=== PATIENT | female | born 1975 | race Caucasian/White ===

== ENCOUNTER → 2016-03-29 | Outpatient (CLI) | payer OTHER ==
--- NOTE | 2016-03-29 11:20 | USB ---
Reason for exam: follow-up at short interval from prior study. History: Patient had first child at age 31. Family history of breast cancer in maternal aunt at age 40. Benign US breast aspiration single LT of the left breast, September 24, 2015. Taking hormonal contraceptives for 5 months. Physical Findings: Nurse did not find any significant physical abnormalities on exam. US Breast LT Left breast ultrasound including all four quadrants, the retroareolar region and axilla demonstrates a 0.21 x 0.40 x 0.66cm sepataed cyst at 12 o'clock, a 0.52 x 0.54 x 0.49cm cystic lesion with duct ectasia at the nipple and a 0.43 x 0.20 x 0.22cm lesion too small to characterize at 3 o'clock. These results were verbally communicated with the patient and result sheet given to the patient on 03/29/16. ASSESSMENT: Benign, BI-RAD 2 RECOMMENDATION: Follow-up diagnostic mammogram of both breasts in 6 months. Back on schedule.
== END | disposition home or self-care (01) ==
LOC: RADUSWWP 10:13
PROVIDERS: ATTEND Surgery
DX: N60.09 Solitary cyst of unspecified breast (principal)

== ENCOUNTER → 2016-09-27 | Outpatient (CLI) | payer OTHER ==
--- NOTE | 2016-09-27 10:11 | MM ---
Reason for exam: follow-up at short interval from prior study. Last mammogram was performed 1 year ago. History: Patient had first child at age 31. Family history of breast cancer in maternal aunt at age 40. Benign US breast aspiration single LT of the left breast, September 24, 2015. Taking hormonal contraceptives for 5 months. Physical Findings: Nurse did not find any significant physical abnormalities on exam. MG Diagnostic Mammo w CAD CASSIDY Bilateral CC and MLO view(s) were taken. Prior study comparison: September 24, 2015, left breast MG diagnostic mammo LT wo CAD. September 03, 2015, bilateral US breast workup CASSIDY. August 18, 2015, bilateral MG screening mammo w CAD. The breast tissue is heterogeneously dense. This may lower the sensitivity of mammography. Previous mammotome biopsy in the left breast. Redemonstrated multiple bilateral circumscribed to mostly circumscribed masses. The dominant mass on the left has resolved after prior cyst aspiration. These results were verbally communicated with the patient and result sheet given to the patient on 09/27/16. ASSESSMENT: Benign, BI-RAD 2 RECOMMENDATION: Follow-up diagnostic mammogram of both breasts in 1 year.
== END | disposition home or self-care (01) ==
LOC: RADMAMWWP 09:14
PROVIDERS: ATTEND Family Medicine
DX: R92.8 Other abnormal and inconclusive findings on diagnostic imaging of breast (principal)

== ENCOUNTER 2017-02-03 15:05 | Emergency (ER) | payer OTHER ==
[2017-02-03] MEDS ORDERED: RX INFO: IV CONTRAST WAS GIVEN 1 EACH MISC MISCELLANE PRN (16:14)
[2017-02-03] MEDS ORDERED: FAMOTIDINE 20 MG/2 ML VIAL IV STA (16:18)
[2017-02-03] MEDS ORDERED: diphenhydrAMINE 50 MG/ML 1 ML VIAL IVP STA (16:18)
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
[2017-02-03] MEDS: methylPREDNISolone SOD SUCCI 125 MG/2 ML VIAL IV STA ×2 (16:42→16:54)
[2017-02-03 16:45] LABS: Basophils % (A) 0 %; CH 27.1; CHCM 32.4; Eosinophils # (A) 0.1 k/uL (0-0.7); Eosinophils % (A) 1 %; HCT 40.4 % (34.0-46.0); HDW 2.61; HGB 12.7 gm/dL (11.4-16.0); Luc # (Auto) 0.14; Luc % (Auto) 2; Lymphocytes # (A) 2.1 k/uL (1.0-4.8); Lymphocytes % (A) 26 %; MCH 26.3 pg (25.0-35.0); MCHC 31.4 g/dL (31.0-37.0); MCV 83.9 fL (80.0-100.0); Mean Platelet Volume 7.5; Monocytes # (A) 0.3 k/uL (0-1.0); Monocytes % (A) 4 %; Neutrophils # (A) 5.2 k/uL (1.3-7.7); Neutrophils % (A) 67 %; RBC 4.81 m/uL (3.80-5.40); RDW 15.3 % (11.5-15.5); WBC 7.9 k/uL (3.8-10.6); WBC (Perox) 7.99
[2017-02-03 16:46] LABS: Appearance,Urine Clear (Clear); Bacteria,Urine Rare /hpf; Bilirubin,Urine Negative (Negative); Glucose,Urine (UA) Negative (Negative); Ketones,Urine Negative (Negative); Leukocyte Esterase,Urine Negative (Negative); Mucus,Urine Rare /hpf; Nitrite,Urine Negative (Negative); Particle Count 2494; Protein,Urine Negative (Negative); RBC,Urine 13 /hpf (0-5); Specific Gravity,Urine 1.018 (1.001-1.035); Squamous Epithelial Cell,Urine <1 /hpf (0-4); UA Billing (MACRO vs. MICRO) MICRO; Urobilinogen,Urine <2.0 mg/dL (<2.0); WBC,Urine 1 /hpf (0-5)
[2017-02-03 17:34] LABS: ALT 31 U/L (9-52); AST 18 U/L (14-36); Alkaline Phosphatase 99 U/L (38-126); Anion Gap 11 mmol/L; Blood Urea Nitrogen 14 mg/dL (7-17); Calcium 9.6 mg/dL (8.4-10.2); Carbon Dioxide 20 mmol/L (22-30); Chloride 110 mmol/L (98-107); Glucose 86 mg/dL (74-99); Non-African American GFR(MDRD) 54 (>60 ml/min/1.73 sqM); Potassium 4.1 mmol/L (3.5-5.1); Sodium 141 mmol/L (137-145); Total Bilirubin 0.2 mg/dL (0.2-1.3); Total Protein 7.2 g/dL (6.3-8.2)
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
[2017-02-03 18:30] VITALS: BP 137/73; PULSE 74; RESP 16; TEMP 98
== END 2017-02-03 18:29 | disposition home or self-care (01) ==
LOC: EC 15:05
DX: S30.1XXA Contusion of abdominal wall, initial encounter (principal); F32.9 Major depressive disorder, single episode, unspecified; Z87.42 Personal history of other diseases of the female genital tract; Z91.041 Radiographic dye allergy status; Z79.899 Other long term (current) drug therapy; V48.6XXA Car passenger injured in noncollision transport accident in traffic accident, initial encounter; Y92.410 Unspecified street and highway as the place of occurrence of the external cause
CPT/HCPCS: 36415; 80053; 85025; 81001; 81025; 74177; 99284; 96374; 96375 ×2; J1200; J2930; Q9967

== ENCOUNTER → 2017-11-13 | Outpatient (CLI) | payer OTHER ==
--- NOTE | 2017-11-13 11:51 | MM ---
Reason for exam: additional evaluation requested from prior study. Last mammogram was performed 1 year and 2 months ago. History: Patient had first child at age 31. Family history of breast cancer in maternal aunt at age 40. Benign US breast aspiration single LT of the left breast, September 24, 2015. Took hormonal contraceptives for 5 months. Physical Findings: Nurse did not find any significant physical abnormalities on exam. MG Diagnostic Mammo w CAD CASSIDY Bilateral CC and MLO view(s) were taken. Prior study comparison: September 27, 2016, bilateral MG diagnostic mammo w CAD CASSIDY. September 24, 2015, left breast MG diagnostic mammo LT wo CAD. The breast tissue is heterogeneously dense. This may lower the sensitivity of mammography. Previous mammotome biopsy in the left breast. There is no discrete abnormality. No significant new findings when compared with previous films. These results were verbally communicated with the patient and result sheet given to the patient on 11/13/17. ASSESSMENT: Benign, BI-RAD 2 RECOMMENDATION: Routine screening mammogram of both breasts in 1 year.
== END | disposition home or self-care (01) ==
LOC: RADMAMWWP 10:15
PROVIDERS: ATTEND Family Medicine
DX: R92.8 Other abnormal and inconclusive findings on diagnostic imaging of breast (principal)
CPT/HCPCS: 77066

== ENCOUNTER → 2018-06-16 | Outpatient (CLI) | payer OTHER ==
[2018-06-16 11:04] LABS: Basophils % (A) 0 %; Eosinophils # (A) 0.1 k/uL (0-0.7); Eosinophils % (A) 1 %; HCT 40.7 % (34.0-46.0); HGB 13.1 gm/dL (11.4-16.0); Lymphocytes # (A) 1.7 k/uL (1.0-4.8); Lymphocytes % (A) 34 %; MCH 26.2 pg (25.0-35.0); MCHC 32.2 g/dL (31.0-37.0); MCV 81.5 fL (80.0-100.0); Mean Platelet Volume 7.2; Monocytes # (A) 0.2 k/uL (0-1.0); Monocytes % (A) 4 %; Neutrophils % (A) 58 %; Platelet Count 203 k/uL (150-450); RDW 15.1 % (11.5-15.5); WBC 5.2 k/uL (3.8-10.6)
[2018-06-16 11:14] LABS: Potassium 4.8 mmol/L (3.5-5.1)
== END | disposition home or self-care (01) ==
LOC: LABPAT 10:29
PROVIDERS: ATTEND Obstetrics & Gynecology
DX: Z01.812 Encounter for preprocedural laboratory examination (principal); D25.1 Intramural leiomyoma of uterus; N94.6 Dysmenorrhea, unspecified; N92.1 Excessive and frequent menstruation with irregular cycle; N80.9 Endometriosis, unspecified
CPT/HCPCS: 80051; 82565; 82947; 84520; 85025; 87077; 87086; 87186

== ENCOUNTER 2018-06-26 06:32 | Observation (INO) | payer OTHER ==
--- NOTE | 2018-06-25 17:31 | HP ---
HISTORY AND PHYSICAL The patient is a 42-year-old 1, para 1-0-0-1, who is a longstanding patient of mine who was initially referred from Dr. Dasilva for evaluation for menometrorrhagia for which she has presented in the past. She has complaints of a longstanding history of severe dysmenorrhea with a diagnosis of endometriosis apparently diagnosed at laparoscopy in the past. She now has developed significantly irregular and heavy bleeding with bleeding as much as 2 weeks out of every 4. She has tried multiple different hormonal options for hormonal manipulation on several occasions and has had poor results and control. She additionally has had 2 separate courses of Lupron in the past, which is a life time limit. She has now begun to report significant dyspareunia as well and is not interested in further childbearing. She is seeking definitive therapy with hysterectomy. Examination bears out that she is a candidate for either open or Da Judy approach. She is aware of other potential options for hormonal manipulation and declines them at this time in favor of definitive therapy. PAST MEDICAL HISTORY: Significant for possible chronic lung disease with a spot noticed on x-ray in her lung in the past. She has additionally had some issues with constipation. Additionally, she carries a diagnosis of endometriosis. She has had 2 episodes of nephrolithiasis and apparently also has a heart murmur. PAST SURGICAL HISTORY: Significant for laparoscopy on 2 separate occasions in 2000 and 2005 and she also had a ganglion cyst excised. She denies any anesthetic concerns. 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 Method of contraception currently is condoms. Gynecologic history is unremarkable with no history of any infections to include STDs. FAMILY HISTORY: Noncontributory. 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 She is a nonsmoker and denies any other significant social concerns. CURRENT MEDICATIONS: Include Topamax 100 mg daily, Raylor 1.5 mg daily. Wellbutrin XL 300 mg daily. Zoloft 150 mg daily, Xanax 0.25 mg as needed, and sumatriptan 100 mg as needed. ALLERGIES: ONLY TO IV CONTRAST, WHICH IS POTENTIALLY ANAPHYLACTIC. REVIEW OF SYSTEMS: Is confined to history of present illness. PHYSICAL EXAMINATION: VITAL SIGNS: Vital signs are stable. The patient is afebrile. In general, this is a well-developed, well-nourished white female in no acute distress. HEENT demonstrates PERRLA, EOMI, her oropharynx is clear. NECK: Supple without adenopathy and the thyroid is normal to palpation. CARDIOVASCULAR: Her heart has a regular rhythm and rate without murmur. RESPIRATORY: Her lungs are clear to auscultation bilaterally in all mckeon. GASTROINTESTINAL: Her abdomen is nondistended, has normoactive bowel sounds, soft, nontender, and without any palpable masses, hepatosplenomegaly, or hernias. EXTREMITIES: Her extremities are without any cyanosis, clubbing, or significant edema and are nontender to palpation bilaterally. Pelvic examination demonstrates normal external genitalia and BUS with normal vaginal mucosa and cervix. There is no cervical motion tenderness. Uterus is approximately 5 weeks in size, mid plane to slightly retroverted, mobile, nontender, and essentially normal in shape. The adnexa are normal and nontender without mass bilaterally. ASSESSMENT AND PLAN: 1. Menometrorrhagia. 2. Uterine fibroids by ultrasound. 3. Dysmenorrhea. 4. Dyspareunia. 5. History of endometriosis. PLAN: We discussed multiple different options and she has requested definitive therapy as she has finished her childbearing. Given her examination, the best approach appears to be da Judy robotically assisted laparoscopic hysterectomy with bilateral salpingectomy and possible oophorectomy, though the intention is to leave at least 1 ovary if not both in place. She will then also undergo diagnostic cystoscopy. The risks and complications of these procedures have been thoroughly discussed including the risks for bleeding, bleeding requiring transfusion, infection, and injury to local structures to specifically include the bowel, bladder, and ureters with special consideration to all these factors given her history of endometriosis. I additionally discussed injuries that are unique to Da Judy surgery to specifically include the risks for thermal injury as well as vaginal cuff dehiscence. She has understood all this and agreed to proceed. We then went on to discussed the typical hospital and postoperative courses. We are scheduled for the procedures as outlined above on the morning of Monday, June 26, 2018. MMODL / IJN: [id number] /
[~2018-06-26 06:32] MED LIST: DEXAMETHASONE SOD PHOSPHATE 10 MG/ML 1 ML VIAL IV ONE; LACTATED RINGERS 1,000 ML IV SCH; MIDAZOLAM (PF) 2 MG/2 ML VIAL IV PRN; ONDANSETRON 4 MG/2 ML VIAL IVP ONE; Pre Op ABX Message 1 EACH MISC MISCELLANE ONE; SCOPOLAMINE 1.5MG/72HR PATCH TRANSDERM ONE; ceFAZolin IN SWFI 2 GM/20 ML SYRINGE IVP ONE
[2018-06-26] MEDS ORDERED: LACTATED RINGERS 1,000 ML IV ONE (07:13)
[2018-06-26] MEDS ORDERED: LIDOCAINE 1% 20 ML VIAL (10MG/ML) FOR IV START INTRADERMA ONE (07:14)
[2018-06-26] MEDS ORDERED: SUCCINYLCHOLINE CHLORIDE 100 MG/5 ML SYR IV ONE (07:27)
[2018-06-26] MEDS ORDERED: ROCURONIUM BROMIDE 10 MG/ML 10 ML VIAL IV ONE (07:27)
[2018-06-26] MEDS ORDERED: HYDROmorphone (PF) 1 MG/ML ONE (07:27)
[2018-06-26] MEDS ORDERED: MIDAZOLAM 2 MG/2 ML VIAL ONE (07:27)
[2018-06-26] MEDS ORDERED: fentaNYL (PF) 50 MCG/ML 2 ML AMP ONE (07:27)
[2018-06-26] MEDS ORDERED: PROPOFOL 10 MG/ML 20 ML VIAL IV ONE (07:27)
[2018-06-26] MEDS ORDERED: GLYCOPYRROLATE 0.2 MG/ML 2 ML VIAL ONE (07:27)
[2018-06-26] MEDS ORDERED: NEOSTIGMINE 1 MG/ML 10 ML VIAL ONE (07:27)
[2018-06-26] MEDS ORDERED: LIDOCAINE 1% INJ 10MG/ML (20 ML MDV) ONE (07:27)
[2018-06-26] MEDS ORDERED: diphenhydrAMINE 50 MG/ML 1 ML VIAL IVP PRN (07:52)
[2018-06-26] MEDS ORDERED: METOCLOPRAMIDE 5 MG/ML 2 ML VIAL IVP PRN (07:52)
[2018-06-26] MEDS ORDERED: SIMETHICONE 80 MG CHEWABLE PO PRN (07:52)
[2018-06-26] MEDS ORDERED: IBUPROFEN 600 MG TAB PO PRN (07:52)
[2018-06-26] MEDS ORDERED: ONDANSETRON 4 MG/2 ML VIAL IVP PRN (07:52)
[2018-06-26] MEDS ORDERED: Acetaminophen-Codeine 300-30mg TAB PO PRN (07:52)
[2018-06-26] MEDS ORDERED: BUPIVACAINE (PF) 0.5% 30 ML VIAL SQ ONE (08:27)
--- NOTE | 2018-06-26 09:41 | P.OP ---
Date of Procedure: 06/26/18 Preoperative Diagnosis: #1. Menometrorrhagia #2. Dysmenorrhea #3. Dyspareunia #4. Fibroids #5. History of endometriosis Postoperative Diagnosis: Same Procedure(s) Performed: #1. Da Judy robotically assisted laparoscopic hysterectomy #2. Bilateral s alpingectomy #3. Diagnostic cystoscopy Anesthesia: FAIZA Surgeon: Mauricio Nolan Cloud Security Architect #1: Jordana Brandt Estimated Blood Loss (ml): 75 IV fluids (ml): 1,100 Urine output (ml): 75 Pathology: other (Uterus and bilateral fallopian tubes) Condition: stable Disposition: PACU Operative Findings: Preoperative pelvic examination demonstrated a roughly 5 week midplane mobile normal shaped uterus with normal adnexa bilaterally. Intraoperatively, there was noted to be some adhesive disease in the pelvis consistent with endometriosis with both ovaries being relatively adherent to the uterine fundus and with a significantly contracted the utero-ovarian ligament, greater on the right than on the left. The tissues were, in general, inflamed and edematous. Following the procedure, diagnostic cystoscopy demonstrated no damage to the dome of the bladder either from a cystoscopic laparoscopic perspective. Bilateral ureteral peristalsis was observed with ureteral jets seen bilaterally. Description of Procedure: The patient was prepped and draped in usual fashion after general endotracheal anesthesia was administered by the anesthesiologist. A speculum was placed and the cervix grasped with a single-tooth tenaculum. Uterus was sounded to 8 cm and dilated to admit a the care with the medium cervical cup which was placed in standard fashion. Attention was then turned to the abdomen where a site was selected approximately 2 cm above the umbilicus in the midline where an 8 mm incision was made in the transverse plane allowing insertion of a 5 mm optical trocar under direct visualization without difficulty. A pneumoperitoneum was established and Trendelenburg positioning utilized. A site was selected approx imately 12 cm lateral and Delaney 5 cm inferior to the optical site in the right lower quadrant where an 8 mm incision was made in the transverse plane allowing insertion of a da Judy port under direct visualization without difficulty. The Was placed in the left lower quadrant. The distance between the left port and the optical port was transected and a site selected approximately 3-4 cm above the optical port with 10 mm incision was made in the transverse plane allowing insertion of a 10 mm trocar for assistance under direct position without difficulty. The scope was moved to a side-port and the initial 5 mm optical port was removed and replaced with an 8 mm optical port. The robot was then docked and the left arm loaded with a male and bipolar cautery forceps while the right arm was armed with a monopolar cautery scissors. The right fallopian tube was elevated and the mesosalpinx cauterized along the fallopian tube to be divided from the underlying ovary to the cornu of the uterus. As there was a dense adhesion from the right ovary to the uterus, the intervening area between was cauterized and then cut sharply dividing the ovary from the uterus. The round ligament was opened on that side as well. This exposed the broad ligaments and the bladder peritoneum was developed across the midline and the bladder reflected distally. Further skeletonization was carried out to identify the uterine vasculature which was cauterized with a male and bipolar cautery forceps. Attention was then turned to the left side where similar operations were carried out without difficulty. The left ovary was not as densely adherent to the uterus. Once the uterine vasculature had been skeletonized and cauterized bilaterally, the vaginal cuff was very apparent to the posterior cul-de-sac where there was some otherwise filmy adhesive disease and evidence of endometriosis. The vagina was packed with a moist laparotomy sponge and the posterior cuff opened to reveal the cup. The margins of the cervical cup were then followed circumferentially along the uterus to be divided from the patient and removed into the vagina without difficulty. One or 2 points of bleeding were noted and were made hemostatic with the [place]. A stitch of 2-0 Stratafix was passed and the abdomen and used to close the cuff from the right margin across the midline at which time the swelling is done needle became from the stitch. As the needle could not be passed through any of the ports, it was passed into the vagina where was retrieved from below without difficulty. A second stitch of the same suture was passed in and the cuff closed from the left angle across the midline. Each stitch was then cut and removed through the child care assistant port. Suction irrigation was carried out and hemostasis appeared to be excellent. The scope was left in place and I returned to the patient's and remove the Soliman catheter and placed in diagnostic cystoscope. The bladder was inflated with sterile water and the dome examined from both the cystoscopic and laparoscopic perspective with no evidence of any damage seen. After some observation, both ureters were seen peristalsing regularly with ureteral jets also noted. All instrumentation was then re- removed from the patient's and the robot undocked. The ports were all removed and the skin incisions closed with interrupted subcuticular stitches of 4-0 Vicryl followed by Steri-Strips placed with Mastisol. Estimated blood loss for the case is approximately 75 mL. There were no complications. All sponge, instrument, and needle counts were correct. The patient tolerated the procedure well and proceeded to the recovery room in stable condition.
[2018-06-26] MEDS: HYDROmorphone 0.5 MG/0.5 ML SYRINGE IVP PRN ×4 (10:02→10:28)
[2018-06-26] MEDS: KETOROLAC 30 MG/ML 1 ML VIAL IVP PRN ×3 (10:12→21:20)
[2018-06-26] MEDS: LACTATED RINGERS 1,000 ML IV SCH ×2 (11:58→19:37)
[2018-06-26 12:06] VITALS: BMI 33.9
[2018-06-26] MEDS: Acetaminophen-Codeine 300-30mg TAB PO PRN ×3 (12:13→23:15)
[2018-06-26] MEDS: SENNOSIDES-DOCUSATE SODIUM 1 EACH TAB PO SCH ×2 (14:04→22:25)
[2018-06-27] MEDS: KETOROLAC 30 MG/ML 1 ML VIAL IVP PRN (03:41)
[2018-06-27] MEDS: LACTATED RINGERS 1,000 ML IV SCH (03:45)
[2018-06-27] MEDS: Acetaminophen-Codeine 300-30mg TAB PO PRN (05:58)
[2018-06-27 07:40] LABS: Basophils % (A) 0 %; Eosinophils # (A) 0.1 k/uL (0-0.7); Eosinophils % (A) 2 %; HCT 30.3 % (34.0-46.0); Lymphocytes # (A) 1.4 k/uL (1.0-4.8); Lymphocytes % (A) 21 %; MCH 26.2 pg (25.0-35.0); MCHC 32.2 g/dL (31.0-37.0); MCV 81.5 fL (80.0-100.0); Mean Platelet Volume 7.4; Monocytes # (A) 0.2 k/uL (0-1.0); Monocytes % (A) 3 %; Neutrophils # (A) 4.7 k/uL (1.3-7.7); Neutrophils % (A) 71 %; Platelet Count 181 k/uL (150-450); RBC 3.72 m/uL (3.80-5.40); RDW 15.6 % (11.5-15.5); WBC 6.7 k/uL (3.8-10.6)
[2018-06-27 07:47] LABS: HGB 9.8 gm/dL (11.4-16.0)
[2018-06-27 07:58] VITALS: BP 114/65; PULSE 73; RESP 18; TEMP 98.2
[2018-06-27] MEDS ORDERED: HYDROcodone/APAP 5-325MG 1 EACH TAB PO PRN ×2 (08:45)
--- NOTE | 2018-06-27 08:54 | P.DS ---
Providers Date of admission: 06/26/18 22:20 Expected date of discharge: 06/27/18 Attending physician: Mauricio Nolan Primary care physician: Mireya Dasilva - Discharge Diagnosis(es) (1) Endometriosis Current Visit: Yes Status: Acute (2) Menometrorrhagia Current Visit: Yes Status: Acute Hospital Course: The patient is a 42-year-old 1 para 1 who has a long-standing history of menstrual complaints to include dysmenorrhea and generalized pelvic pain with a known diagnosis of endometriosis diagnosed by laparoscopy. She has now begun to have significantly irregular and heavy periods as well as increasing dyspareunia. She has had multiple attempts with hormonal intervention and un dergone 2 separate courses of Lupron. She has now requested definitive therapy. She is really only a candidate for a da Judy approach. As result, she was taken the operating room for da Judy robotically assisted laparoscopic hysterectomy with bilateral salpingectomy and diagnostic cystoscopy. All of these procedures were carried out and an uncomplicated fashion so she did have generalized inflammation and evidence of endometriosis throughout the pelvis with both ovaries being scarred relatively close to the uterus. Each was, however, saved. The patient's postoperative course was relatively unremarkable she did complain of a moderate degree of discomfort. She was tolerating regular diet by the morning of postoperative day #1 and was deemed stable for discharge by the afternoon of postoperative day #1. She was discharged home to follow-up in the office in 2 weeks for an incision check and 8 weeks routinely. Discharge instructions included calling for any significantly increased bleeding or or abdominal pain, GI concerns, urinary concerns, incisional concerns, or any also concerned her. She was additionally instructed to have nothing in the vagina for at least 8 weeks time to include intercourse. She was last instructed to do no driving until off of all pain medications or 2 weeks' time, whichever came first. She understood all of her instructions and agrees to follow up as noted above. Discharge medications included a prescription for [place] 5/325 mg, 1-2 by mouth every 6 hours when necessary pain, #20 dispensed with no refills. She is additionally to use [id number] analgesic pain medications and resume any of her other normal home medications. Discharge hemoglobin and hematocrit were 9.8 and 30.3 respectively. Procedures: #1. Da Judy robotically assisted laparoscopic hysterectomy #2. Bilateral salpingectomy #3. Diagnostic cystoscopy Patient Condition at Discharge: Stable Plan - Discharge Summary Discharge Rx Participant: Yes New Discharge Prescriptions: No Action buPROPion HCL [Wellbutrin XL] 300 mg PO DAILY Sertraline [Zoloft] 150 mg PO DAILY Cariprazine HCl [Vraylar] 1.5 mg PO DAILY Discharge Medication List Sertraline [Zoloft] 150 mg PO DAILY 02/03/17 [History] buPROPion HCL [Wellbutrin XL] 300 mg PO DAILY 02/03/17 [History] Cariprazine HCl [Vraylar] 1.5 mg PO DAILY 06/20/18 [History] Follow up Appointment(s)/Referral(s): Mauricio Nolan MD [STAFF PHYSICIAN] - 2 Weeks Discharge Disposition: HOME SELF-CARE
[2018-06-27] MEDS: SENNOSIDES-DOCUSATE SODIUM 1 EACH TAB PO SCH (09:14)
== END 2018-06-27 13:40 | disposition home or self-care (01) ==
LOC: OR 06:32 → 4FBP 09:34 → OR 22:19 → 4FBP 22:20
PROVIDERS: ADMIT Obstetrics & Gynecology; ATTEND Obstetrics & Gynecology
DX: N80.0 Endometriosis of uterus (principal); D25.9 Leiomyoma of uterus, unspecified; N92.1 Excessive and frequent menstruation with irregular cycle; N94.6 Dysmenorrhea, unspecified; N94.10 Unspecified dyspareunia; Z79.899 Other long term (current) drug therapy; Z87.442 Personal history of urinary calculi
CPT/HCPCS: 58552; S2900; 36415; 81025; 85025; 86850; 86900; 86901; 88307

== ENCOUNTER → 2018-11-29 | Outpatient (CLI) | payer OTHER ==
--- NOTE | 2018-11-30 13:56 | MM ---
Reason for exam: screening (asymptomatic). Last mammogram was performed 1 year and 1 month ago. History: Patient had first child at age 31. Family history of breast cancer in maternal aunt at age 40. Benign US breast aspiration single LT of the left breast, September 24, 2015. Took hormonal contraceptives for 5 months. Physical Findings: A clinical breast exam by your physician is recommended on an annual basis and results should be correlated with mammographic findings. MG Screening Mammo w CAD Bilateral CC and MLO view(s) were taken. Prior study comparison: November 13, 2017, bilateral MG diagnostic mammo w CAD C[facility]IDY. September 27, 2016, bilateral MG diagnostic mammo w CAD [facility]. There are scattered fibroglandular densities. There is chronic nodularity bilaterally. No significant changes when compared with prior studies. ASSESSMENT: Benign, BI-RAD 2 RECOMMENDATION: Routine screening mammogram of both breasts in 1 year.
== END | disposition home or self-care (01) ==
LOC: RADMAMWWP 07:57
PROVIDERS: ATTEND Family Medicine
DX: Z12.31 Encounter for screening mammogram for malignant neoplasm of breast (principal)
CPT/HCPCS: 77067

== ENCOUNTER → 2019-05-23 | Day surgery (SDC) | payer OTHER ==
[2019-05-22 10:58] VITALS: BMI 35.2
[~2019-05-23] MED LIST changes: +BUPIVACAIN-EPI 0.25%-1:200,000 30 ML VIAL SQ ONE; +GLYCOPYRROLATE 0.2 MG/ML 2 ML VIAL ONE; +HEPARIN SODIUM,PORCINE 5,000 UNIT/ML 1 ML VIAL ONE; +HYDROcodone/APAP 5-325MG 1 EACH TAB PO ONE; +HYDROmorphone 0.5 MG/0.5 ML SYRINGE IVP PRN; +KETOROLAC 30 MG/ML 1 ML VIAL IVP SCH; +LIDOCAINE 1% (10MG/ML) FOR IV START INTRADERMA PRN; +LIDOCAINE 1% INJ 10MG/ML (20 ML MDV) ONE; +METOCLOPRAMIDE 5 MG/ML 2 ML VIAL IVP PRN; -MIDAZOLAM (PF) 2 MG/2 ML VIAL IV PRN; +MIDAZOLAM 2 MG/2 ML VIAL IV ONE; +MIDAZOLAM 2 MG/2 ML VIAL IV PRN; +MIDAZOLAM 2 MG/2 ML VIAL ONE; +NEOSTIGMINE 1 MG/ML 10 ML VIAL ONE; +PROPOFOL 10 MG/ML 20 ML VIAL IV ONE; -Pre Op ABX Message 1 EACH MISC MISCELLANE ONE; +ROCURONIUM BROMIDE 10 MG/ML 5 ML VIAL IV ONE; -SCOPOLAMINE 1.5MG/72HR PATCH TRANSDERM ONE; +SUCCINYLCHOLINE CHLORIDE 100 MG/5 ML SYR IV ONE; -ceFAZolin IN SWFI 2 GM/20 ML SYRINGE IVP ONE; +fentaNYL (PF) 50 MCG/ML 2 ML AMP ONE
--- NOTE | 2019-05-23 09:28 | P.GSHP ---
History of Present Illness H&P Date: 05/23/19 Chief Complaint: Right quadrant pain This a 43-year-old female presents today for laparoscopic cholestatic. Patient's had complete the right quadrant pain. She is found to have cholelithiasis. Past Medical History Past Medical History: GERD/Reflux Additional Past Medical History / Comment(s): endometrosis, MIGRAINES, heart murmer, History of Any Multi-Drug Resistant Organisms: None Reported Past Surgical History: Hysterectomy Additional Past Surgical History / Comment(s): laparoscopy x 2, Past Anesthesia/Blood Transfusion Reactions: No Reported Reaction Smoking Status: Never smoker - Past Family History Mother Additional Family Medical History / Comment(s): "heart problems" Sister(s) Family Medical History: Cancer Medications and Allergies Home Medications Medication Instructions Recorded Confirmed Type Sertraline [Zoloft] 150 mg PO DAILY 02/03/17 05/23/19 History Cariprazine HCl [Vraylar] 3 mg PO DAILY 05/22/19 05/23/19 History Topiramate [Topamax] 100 mg PO BID 05/22/19 05/23/19 History Allergies Allergy/AdvReac Type Severity Reaction Status Date / Time Iodinated Contrast Media Allergy Dyspnea Verified 05/23/19 08:19 [Iodinated Contrast- Oral and IV Dye] Surgical - Exam Vital Signs Temp Pulse Resp BP Pulse Ox 97.1 F L 62 16 117/57 95 05/23/19 08:32 05/23/19 08:32 05/23/19 08:32 05/23/19 08:32 05/23/19 08:32 - General well developed, well nourished, no distress - Eyes PERRL - ENT normal pinna - Neck no masses - Respiratory normal expansion - Cardiovascular Rhythm: regular - Abdomen Abdomen: soft, non tender Assessment and Plan Assessment: Cholelithiasis Recurrent pain We'll perform laparoscopic cholecystectomy
--- NOTE | 2019-05-23 10:47 | P.OP ---
Date of Procedure: 05/23/19 Preoperative Diagnosis: Cholecystitis Cholelithiasis Postoperative Diagnosis: Cholecystitis Cholelithiasis Procedure(s) Performed: Laparoscopic cholecystectomy Anesthesia: FAIZA Surgeon: David Tran Estimated Blood Loss (ml): 5 Pathology: other (Gallbladder) Condition: stable Disposition: PACU Description of Procedure: The patient was placed on the operating table. The patient received a general endotracheal tube anesthesia. The patients abdomen was prepped and draped in the usual sterile fashion. Through an infraumbilical stab incision, the fascia of the anterior abdominal wall was grasped with a pair of Kochers and then the Veress needle was placed in the peritoneal cavity. Position of the Veress needle was confirmed with positive drop test. The abdomen was then insufflated. After adequate insufflation, the 10 mm trocar was placed in the peritoneal cavity. Following this the laparoscope was placed in the peritoneal cavity. The patient was placed in the head-up, right side up position and then a 5 mm trocar was placed in the right lateral and right subcostal position under direct visualization. A 8 mm trocar was placed in the epigastric position. The gallbladder was grasped in the fundus and infundibulum. Traction on the gallbladder was placed in the lateral and the cephalad positions. The triangle of Calot was visualized.. The cystic duct was bluntly dissected until the union of the cystic duct and common bile duct wa s seen. A critical view of safety was achieved. The cystic duct was then divided and sealed with the Harmonic scissors. A PDS Endoloop was then placed throughout the cystic duct stump. The cystic artery divided and sealed with the Harmonic scissors. The gallbladder was then removed from the liver bed using Harmonic scissors. The gallbladder was then extracted through the epigastric port site. Operative field was checked for any bleeding spots and Harmonic scissors was used to coagulate the liver bed. The abdomen was irrigated. The trocars were removed. The skin was closed using interrupted 3-0 Vicryl suture. Dermabond dressing were applied. The patient tolerated the procedure well.
[2019-05-23 11:02] VITALS: TEMP 96.8
[2019-05-23 11:06] VITALS: RESP 16
[2019-05-23 12:01] VITALS: BP 109/62; PULSE 50
== END ==
LOC: OR 07:56
PROVIDERS: ATTEND Surgery
DX: K81.1 Chronic cholecystitis (principal); K21.9 Gastro-esophageal reflux disease without esophagitis; N80.9 Endometriosis, unspecified; G43.909 Migraine, unspecified, not intractable, without status migrainosus; R01.1 Cardiac murmur, unspecified; F41.9 Anxiety disorder, unspecified; F31.9 Bipolar disorder, unspecified; Z90.710 Acquired absence of both cervix and uterus; Z98.890 Other specified postprocedural states; Z82.49 Family history of ischemic heart disease and other diseases of the circulatory system; Z80.9 Family history of malignant neoplasm, unspecified; Z79.899 Other long term (current) drug therapy; Z91.041 Radiographic dye allergy status
CPT/HCPCS: 88304; 47562; J2250; J1644; J1100; J2710; J0690; J2405; J2001; J3010; J0330; J2704

== ENCOUNTER → 2020-01-06 | Outpatient (CLI) | payer OTHER ==
--- NOTE | 2020-01-08 10:56 | MM ---
Reason for exam: screening (asymptomatic). Last mammogram was performed 1 year and 1 month ago. History: Patient had first child at age 31. Family history of breast cancer in maternal aunt at age 40. Benign US breast aspiration single LT of the left breast, September 24, 2015. Took hormonal contraceptives for 5 months. Physical Findings: A clinical breast exam by your physician is recommended on an annual basis and results should be correlated with mammographic findings. MG Screening Mammo w CAD Bilateral CC and MLO view(s) were taken. Prior study comparison: November 29, 2018, bilateral MG screening mammo w CAD. November 13, 2017, bilateral MG diagnostic mammo w CAD [facility]. There are scattered fibroglandular densities. Finding #1: There are round oval masses in both breasts. Finding #2: There are calcifications in the right breast. No significant changes in finding since November 29, 2018 and November 13, 2017. ASSESSMENT: Benign, BI-RAD 2 RECOMMENDATION: Routine screening mammogram of both breasts in 1 year.
== END | disposition home or self-care (01) ==
LOC: RADMAMWWP 08:25
PROVIDERS: ATTEND Family Medicine
DX: Z12.31 Encounter for screening mammogram for malignant neoplasm of breast (principal); Z80.3 Family history of malignant neoplasm of breast
CPT/HCPCS: 77067

== ENCOUNTER → 2020-04-23 | Outpatient (CLI) | payer OTHER ==
--- NOTE | 2020-04-23 17:53 | XR ---
EXAMINATION TYPE: XR lumbar spine 3V, XR Hip Limited 2 views LT DATE OF EXAM: 04/23/2020 Comparison: None Clinical History: 44-year-old female Lumbago M54.40 Pain in left hip M25.552 Findings: Lumbar spine: Slight rotary dextroconvex curvature of the lumbar spine. 5 lumbar type vertebral bodies. Vertebral b svetlana heights are preserved. Trace grade 1 retrolisthesis L4-L5. Mild facet degenerative change lower l umbar spine. Left hip: There is an anterior femoral head neck junction osseous excrescence. Left hip joint space is maintain ed. Left-sided pelvic phleboliths. No acute fracture, subluxation, dislocation. Impression: 1. Lumbar spine: Suggestion of mild facet arthropathy lower lumbar spine and a trace grade 1 retrolis thesis L4-L5. 2. Left hip: An anterior femoral head neck junction osseous excrescence may predispose the patient to CAM type femoral acetabular impingement syndrome. Correlate with physical exam testing. No acute oss eous abnormality seen.
== END | disposition home or self-care (01) ==
LOC: RADXRMAIN 12:44
PROVIDERS: ATTEND Family Medicine
DX: R93.7 Abnormal findings on diagnostic imaging of other parts of musculoskeletal system (principal); M54.40 Lumbago with sciatica, unspecified side; M25.552 Pain in left hip
CPT/HCPCS: 72100; 73501

== ENCOUNTER 2020-05-05 11:21 | Emergency (ER) | payer OTHER ==
[2020-05-05 11:56] LABS: Basophils % (A) 0 %; Eosinophils # (A) 0.1 k/uL (0-0.7); Eosinophils % (A) 1 %; HCT 35.5 % (34.0-46.0); Lymphocytes # (A) 1.5 k/uL (1.0-4.8); Lymphocytes % (A) 23 %; MCH 25.4 pg (25.0-35.0); MCHC 33.8 g/dL (31.0-37.0); MCV 75.2 fL (80.0-100.0); Mean Platelet Volume 7.1; Microcytosis Slight; Monocytes # (A) 0.3 k/uL (0-1.0); Monocytes % (A) 4 %; Neutrophils # (A) 4.5 k/uL (1.3-7.7); Neutrophils % (A) 70 %; Platelet Count 261 k/uL (150-450); RBC 4.72 m/uL (3.80-5.40); RDW 15.4 % (11.5-15.5); WBC 6.4 k/uL (3.8-10.6)
[2020-05-05] MEDS ORDERED: FAMOTIDINE 20 MG/2 ML VIAL IV STA (12:03)
[2020-05-05] MEDS ORDERED: diphenhydrAMINE 50 MG/ML 1 ML VIAL IVP STA (12:03)
[2020-05-05] MEDS ORDERED: methylPREDNISolone SOD SUCCI 125 MG/2 ML VIAL IV STA (12:03)
[2020-05-05 12:07] LABS: Appearance,Urine Cloudy (Clear); Bacteria,Urine Many /hpf; Bilirubin,Urine Negative (Negative); Blood,Urine Trace (Negative); Color,Urine Yellow; Glucose,Urine (UA) Negative (Negative); Hyaline Casts,Urine 1 /lpf (0-2); Ketones,Urine Negative (Negative); Leukocyte Esterase,Urine Negative (Negative); Mucus,Urine Moderate /hpf; Nitrite,Urine Negative (Negative); PH, Urine 5.5 (5.0-8.0); Protein,Urine Trace (Negative); RBC,Urine 4 /hpf (0-5); Specific Gravity,Urine 1.025 (1.001-1.035); Squamous Epithelial Cell,Urine 10 /hpf (0-4); Urobilinogen,Urine <2.0 mg/dL (<2.0); WBC,Urine 6 /hpf (0-5)
[2020-05-05 12:11] LABS: ALT 28 U/L (4-34); AST 22 U/L (14-36); African American GFR (CKD) >90 (>60 ml/min/1.73 sqM); Albumin 4.3 g/dL (3.5-5.0); Alkaline Phosphatase 97 U/L (38-126); Anion Gap 11 mmol/L; Blood Urea Nitrogen 14 mg/dL (7-17); Calcium 9.5 mg/dL (8.4-10.2); Carbon Dioxide 21 mmol/L (22-30); Chloride 108 mmol/L (98-107); Glucose 105 mg/dL (74-99); Lipase 193 U/L (23-300); Non-African American GFR(CKD) 87 (>60 ml/min/1.73 sqM); Sodium 140 mmol/L (137-145); Total Bilirubin 0.3 mg/dL (0.2-1.3); Total Protein 7.2 g/dL (6.3-8.2)
--- NOTE | 2020-05-05 12:50 | CT ---
EXAMINATION TYPE: CT abdomen pelvis w con DATE OF EXAM: 05/05/2020 COMPARISON: 02/03/2017 HISTORY: 44-year-old female right flank pain TECHNIQUE: Contiguous axial scanning of the abdomen and pelvis following administration of 100 ml Iso liz 300 IV contrast. Delayed images through the kidneys and coronal/sagittal reconstructions perform ed. CT DLP: 1396 mGycm Automated exposure control for dose reduction was used. FINDINGS: Heart normal size without pericardial effusion. Lung bases clear without pleural effusion. Small hiatal hernia. No focal liver lesion or biliary ductal dilatation. Portal venous system is patent. Cholecystectomy clips. Adrenal glands, spleen, and pancreas appear within normal limits. Tiny 5 mm cyst lower pole right kidney. A couple nonobstructing 3 mm left renal calculi. Symmetric up take and excretion of contrast from both kidneys. Small 1.6 cm diverticulum from the third portion of the duodenum projecting anteriorly. No dilated small bowel, free fluid, or free air. No mesenteric or retroperitoneal lymphadenopathy. A few prominent but nonenlarged right lower quadrant mesenteric lymph nodes measure up to 6 mm and are nonspecific. Mild circumferential wall thickening along the ascending colon may be due to nondistention. There is mild overall stool burden. No pericolonic inflammatory change. Normal appendix. Bladder is nondistended. Uterus surgically absent. Both ovaries are visualized. No abnormal fluid col lection the pelvis or pelvic lymphadenopathy. Left-sided pelvic phlebolith. Bones: Mild degenerative spurring at the hips. No osseous destructive process. IMPRESSION: 1. NO NEPHROLITHIASIS OR HYDRONEPHROSIS. THERE ARE A COUPLE NONOBSTRUCTIVE 3 MM LEFT RENAL CALCULI. 2. MILD CIRCUMFERENTIAL WALL THICKENING ALONG THE ASCENDING COLON COULD BE DUE TO NONDISTENTION OR NO NSPECIFIC MILD COLITIS. CLINICALLY CORRELATE. 3. SMALL HIATAL HERNIA.
--- NOTE | 2020-05-05 12:56 | ED ---
Abdominal Pain HPI - General Chief Complaint: Abdominal Pain Stated Complaint: Possible Kidney Stone Time Seen by Provider: 05/05/20 11:32 Source: patient Mode of arrival: ambulatory Limitations: no limitations - History of Present Illness Initial Comments: 44-year-old female presenting today for chief complaint of vomiting, diffuse lower abdominal pain. Patient states she has been being treated for UTI for the past month. She states she had bacteria in her urine initially had dysuria. Patient states the dysuria urgency frequency has improved. She states she was switched from an original antibiotic to Macrobid. Patient states that she has been vomiting for the past 2-3 days. She denies diarrhea. Patient states she has some pain in her low back. She states she is not sure if she had a kidney stone. Patient denies fevers. Patient denies cough congestion upper abdomen pain. Patient denies hx of kidney stones. Patient has no additional complaints, she appear nontoxic on arrival - Related Data Home Medications Medication Instructions Recorded Confirmed Sertraline [Zoloft] 150 mg PO DAILY 02/03/17 05/05/20 Cariprazine HCl [Vraylar] 3 mg PO DAILY 05/22/19 05/05/20 Topiramate [Topamax] 100 mg PO BID 05/22/19 05/05/20 ALPRAZolam [Xanax] 0.25 mg PO BID PRN 05/05/20 05/05/20 Cetirizine HCl [Zyrtec] 10 mg PO DAILY PRN 05/05/20 05/05/20 Nitrofurantoin Monohyd/M-Cryst 100 mg PO Q12HR 05/05/20 05/05/20 [Macrobid] Phenazopyridine [Pyridium] 100 mg PO TID 05/05/20 05/05/20 SUMAtriptan SUCCINATE [Imitrex] 100 mg PO DAILY PRN 05/05/20 05/05/20 Previous Rx's Medication Instructions Recorded Amoxic-Pot Clav 875-125Mg 1 tab PO Q12HR 7 Days #14 tab 05/05/20 [Augmentin 875-125] Allergies Allergy/AdvReac Type Severity Reaction Status Date / Time Iodinated Contrast Media Allergy Dyspnea Verified 05/05/20 12:02 [Iodinated Contrast- Oral and IV Dye] Review of Systems ROS Statement: Those systems with pertinent positive or pertinent negative responses have been documented in the HPI. ROS Other: All systems not noted in ROS Statement are negative. Past Medical History Past Medical History: GERD/Reflux Additional Past Medical History / Comment(s): endometrosis, MIGRAINES, heart murmer, History of Any Multi-Drug Resistant Organisms: None Reported Past Surgical History: Hysterectomy Additional Past Surgical History / Comment(s): laparoscopy x 2, Past Anesthesia/Blood Transfusion Reactions: No Reported Reaction Past Psychological History: Anxiety, Bipolar, Depression, Panic Disorder Smoking Status: Never smoker Past Alcohol Use History: None Reported Past Drug Use History: None Reported - Past Family History Mother Additional Family Medical History / Comment(s): "heart problems" Sister(s) Family Medical History: Cancer General Exam - General Exam Comments Initial Comments: General: The patient is awake and alert, in no distress Eye: +3 mm pupils are equal, round and reactive to light, extra-ocular movements are intact. No nystagmus. There is normal conjunctiva bilaterally. No signs of icterus. Ears, nose, mouth and throat: There are moist mucous membranes and no oral lesions. Neck: The neck is supple, there is no tenderness or JVD. Cardiovascular: There is a regular rate and rhythm. No murmur, rub or gallop is appreciated. Respiratory: Lungs are clear to auscultation, respirations are non-labored, breath sounds are equal. No wheezes, stridor, rales, or rhonchi. Gastrointestinal: Soft, non-distended, mild diffuse lower abdominal tenderness, no localization over superior bladder margin, abdomen without masses or organom egaly noted. There is no rebound or guarding present. No CVA tenderness. Musculoskeletal: Normal ROM, no tenderness. Strength 5/5. Sensation intact. Radial and DP pulses equal bilaterally 2+. Neurological: A&O x 3. CN II-XII intact grossly, There are no obvious motor or sensory deficits. Coordination appears grossly intact. Speech is normal. Skin: Skin is warm and dry and no rashes or lesions are noted. Psychiatric: Cooperative, appropriate mood & affect, normal judgment. Limitations: no limitations Course Vital Signs 05/05/20 05/05/20 11:22 13:20 Temperature 98.6 F 98.0 F Pulse Rate 89 68 Respiratory 17 18 Rate Blood Pressure 141/70 133/74 O2 Sat by Pulse 99 98 Oximetry Medical Decision Making - Medical Decision Making Leukocytosis labs overall appears stable. Patient's urinalysis there is contamination some bacteria is noted. Cultures are pending. CT abdomen and pelvis obtained given patient did have some lower abdominal tenderness concern for diverticulitis versus appendicitis. Patient CT revealed a colitis which is consistent with her history of having some loose stools as well as vomiting over the weekend. He feels more so clinically correlates with her new symptoms opposed to the UTI symptoms earlier this month. Patient denies profuse watery diarrhea--such as that found with C. difficile. Patient states it has been slowing down. I discussed the case in detail by attending provider we palpation still for discharge with outpatient GI follow-up. Patient is agreeable to this care plan and discharge at this time - Lab Data Result diagrams: 05/05/20 11:44 05/05/20 11:44 Lab Results 05/05/20 05/05/20 05/05/20 Range/Units 11:44 11:44 11:44 WBC 6.4 (3.8-10.6) k/uL RBC 4.72 (3.80-5.40) m/uL Hgb 12.0 (11.4-16.0) gm/dL Hct 35.5 (34.0-46.0) % MCV 75.2 L (80.0-100.0) fL MCH 25.4 (25.0-35.0) pg MCHC 33.8 (31.0-37.0) g/dL RDW 15.4 (11.5-15.5) % Plt Count 261 (150-450) k/uL MPV 7.1 Neutrophils % 70 % Lymphocytes % 23 % Monocytes % 4 % Eosinophils % 1 % Basophils % 0 % Neutrophils # 4.5 (1.3-7.7) k/uL Lymphocytes # 1.5 (1.0-4.8) k/uL Monocytes # 0.3 (0-1.0) k/uL Eosinophils # 0.1 (0-0.7) k/uL Basophils # 0.0 (0-0.2) k/uL Microcytosis Slight Sodium 140 (137-145) mmol/L Potassium 4.0 (3.5-5.1) mmol/L Chloride 108 H (98-107) mmol/L Carbon Dioxide 21 L (22-30) mmol/L Anion Gap 11 mmol/L BUN 14 (7-17) mg/dL Creatinine 0.82 (0.52-1.04) mg/dL Est GFR (CKD-EPI)AfAm >90 (>60 ml/min/1.73 sqM) Est GFR (CKD-EPI)NonAf 87 (>60 ml/min/1.73 sqM) Glucose 105 H (74-99) mg/dL Plasma Lactic Acid Jason 1.1 (0.7-2.0) mmol/L Calcium 9.5 (8.4-10.2) mg/dL Total Bilirubin 0.3 (0.2-1.3) mg/dL AST 22 (14-36) U/L ALT 28 (4-34) U/L Alkaline Phosphatase 97 (38-126) U/L Total Protein 7.2 (6.3-8.2) g/dL Albumin 4.3 (3.5-5.0) g/dL Lipase 193 (23-300) U/L Urine Color Urine Appearance (Clear) Urine pH (5.0-8.0) Ur Specific [place] (1.001-1.035) Urine Protein (Negative) Urine Glucose (UA) (Negative) Urine Ketones (Negative) Urine Blood (Negative) Urine Nitrite (Negative) Urine Bilirubin (Negative) Urine Urobilinogen (<2.0) mg/dL Ur Leukocyte Esterase (Negative) Urine RBC (0-5) /hpf Urine WBC (0-5) /hpf Ur Squamous Epith Cells (0-4) /hpf Urine Bacteria (None) /hpf Hyaline Casts (0-2) /lpf Urine Mucus (None) /hpf Urine HCG, Qual (Not Detectd) 05/05/20 05/05/20 Range/Units 11:55 11:55 WBC (3.8-10.6) k/uL RBC (3.80-5.40) m/uL Hgb (11.4-16.0) gm/dL Hct (34.0-46.0) % MCV (80.0-100.0) fL MCH (25.0-35.0) pg MCHC (31.0-37.0) g/dL RDW (11.5-15.5) % Plt Count (150-450) k/uL MPV Neutrophils % % Lymphocytes % % Monocytes % % Eosinophils % % Basophils % % Neutrophils # (1.3-7.7) k/uL Lymphocytes # (1.0-4.8) k/uL Monocytes # (0-1.0) k/uL Eosinophils # (0-0.7) k/uL Basophils # (0-0.2) k/uL Microcytosis Sodium (137-145) mmol/L Potassium (3.5-5.1) mmol/L Chloride (98-107) mmol/L Carbon Dioxide (22-30) mmol/L Anion Gap mmol/L BUN (7-17) mg/dL Creatinine (0.52-1.04) mg/dL Est GFR (CKD-EPI)AfAm (>60 ml/min/1.73 sqM) Est GFR (CKD-EPI)NonAf (>60 ml/min/1.73 sqM) Glucose (74-99) mg/dL Plasma Lactic Acid Jason (0.7-2.0) mmol/L Calcium (8.4-10.2) mg/dL Total Bilirubin (0.2-1.3) mg/dL AST (14-36) U/L ALT (4-34) U/L Alkaline Phosphatase (38-126) U/L Total Protein (6.3-8.2) g/dL Albumin (3.5-5.0) g/dL Lipase (23-300) U/L Urine Color Yellow Urine Appearance Cloudy H (Clear) Urine pH 5.5 (5.0-8.0) Ur Specific [place] 1.025 (1.001-1.035) Urine Protein Trace H (Negative) Urine Glucose (UA) Negative (Negative) Urine Ketones Negative (Negative) Urine Blood Trace H (Negative) Urine Nitrite Negative (Negative) Urine Bilirubin Negative (Negative) Urine Urobilinogen <2.0 (<2.0) mg/dL Ur Leukocyte Esterase Negative (Negative) Urine RBC 4 (0-5) /hpf Urine WBC 6 H (0-5) /hpf Ur Squamous Epith Cells 10 H (0-4) /hpf Urine Bacteria Many H (None) /hpf Hyaline Casts 1 (0-2) /lpf Urine Mucus Moderate H (None) /hpf Urine HCG, Qual Not Detected (Not Detectd) Disposition Clinical Impression: Abdominal pain, Colitis, Hx: UTI (urinary tract infection) Disposition: HOME SELF-CARE Condition: Good Instructions (If sedation given, give patient instructions): Colitis (ED) Additional Instructions: Please use medication as discussed. Please follow-up with family doctor in the next 2 days, recommend outpatient GI follow-up in the next 2-3days. Please return to emergency room if the symptoms increase or worsen or for any other concerns. Prescriptions: Amoxic-Pot Clav 875-125Mg [Augmentin 875-125] 1 tab PO Q12HR 7 Days #14 tab Is patient prescribed a controlled substance at d/c from ED?: No Referrals: Mireya Dasilva DO [Primary Care Provider] - 1-2 days Madeline Johnson MD [STAFF PHYSICIAN] - 1-2 days Time of Disposition: 12:55
[2020-05-05 13:22] VITALS: BP 133/74; PULSE 68; RESP 18; TEMP 98
== END 2020-05-05 13:21 | disposition home or self-care (01) ==
LOC: EC 11:21
DX: K52.9 Noninfective gastroenteritis and colitis, unspecified (principal); K21.9 Gastro-esophageal reflux disease without esophagitis; F41.0 Panic disorder [episodic paroxysmal anxiety]; F31.9 Bipolar disorder, unspecified; Z90.710 Acquired absence of both cervix and uterus; Z87.440 Personal history of urinary (tract) infections
CPT/HCPCS: 36415; 80053; 83605; 83690; 85025; 81001; 81025; 74177; 99284; 96374; 96375; J1200; J2930; Q9967

== ENCOUNTER 2020-06-02 09:50 | Day surgery (SDC) | payer OTHER ==
[2020-05-28 15:31] VITALS: BMI 35.6
[~2020-06-02 09:50] MED LIST changes: -BUPIVACAIN-EPI 0.25%-1:200,000 30 ML VIAL SQ ONE; -DEXAMETHASONE SOD PHOSPHATE 10 MG/ML 1 ML VIAL IV ONE; -GLYCOPYRROLATE 0.2 MG/ML 2 ML VIAL ONE; -HEPARIN SODIUM,PORCINE 5,000 UNIT/ML 1 ML VIAL ONE; -HYDROcodone/APAP 5-325MG 1 EACH TAB PO ONE; -HYDROmorphone 0.5 MG/0.5 ML SYRINGE IVP PRN; -KETOROLAC 30 MG/ML 1 ML VIAL IVP SCH; -LIDOCAINE 1% INJ 10MG/ML (20 ML MDV) ONE; -METOCLOPRAMIDE 5 MG/ML 2 ML VIAL IVP PRN; -MIDAZOLAM 2 MG/2 ML VIAL IV ONE; -MIDAZOLAM 2 MG/2 ML VIAL IV PRN; -MIDAZOLAM 2 MG/2 ML VIAL ONE; -NEOSTIGMINE 1 MG/ML 10 ML VIAL ONE; -ONDANSETRON 4 MG/2 ML VIAL IVP ONE; -PROPOFOL 10 MG/ML 20 ML VIAL IV ONE; -ROCURONIUM BROMIDE 10 MG/ML 5 ML VIAL IV ONE; -SUCCINYLCHOLINE CHLORIDE 100 MG/5 ML SYR IV ONE; -fentaNYL (PF) 50 MCG/ML 2 ML AMP ONE
[2020-06-02 10:10] VITALS: TEMP 97.8
[2020-06-02] MEDS ORDERED: LACTATED RINGERS 1,000 ML IV ONE ×2 (10:10→11:51)
[2020-06-02] MEDS ORDERED: MIDAZOLAM 2 MG/2 ML VIAL IVP ONE (10:35)
[2020-06-02] MEDS ORDERED: PROPOFOL 10 MG/ML 20 ML VIAL IV ONE (11:04)
[2020-06-02] MEDS ORDERED: GLYCOPYRROLATE 0.2 MG/ML 2 ML VIAL ONE (11:04)
[2020-06-02] MEDS ORDERED: LIDOCAINE 1% INJ 10MG/ML (20 ML MDV) ONE (11:04)
[2020-06-02 11:55] VITALS: RESP 16
--- NOTE | 2020-06-02 12:00 | P.PCN ---
Date of Procedure: 06/02/20 Description of Procedure: Brief history: Patient is a pleasant 44-year-old female presenting for outpatient esophagogastroduodenoscopy and colonoscopy for evaluation of nausea with vomiting and family history of colon cancer. The patient has a known history of reflux on omeprazole therapy unable to tolerate medication recently due to episodes of nausea and vomiting. Also reports nonbloody looser bowel movements family history of colon cancer. Procedure performed: Esophagogastroduodenoscopy with biopsy Colonoscopy with biopsy and tattoo Estimated blood loss: Minimal. Preoperative diagnosis: Nausea with vomiting, family history of colon cancer Anesthesia: MAC Procedure: After informed consent was obtained from the patient was brought into the endoscopy unit and IV sedation was administered by anesthesia under continuous monitoring. Initially upper endoscopy was done. The Olympus GF 190 video endoscope was inserted into the mouth and esophagus intubated without any difficulty and was gradually advanced into the stomach and duodenum and carefully examined. The bulb and second part of the duodenum appeared normal, with biopsies taken. The scope was then withdrawn into the stomach adequately insufflated with air and upon careful examination the antrum and body, cardia and fundus appeared normal, except for some mild punctate erythema in the antrum and body suggestive of mild gastritis with biopsies taken. The scope was then withdrawn into the esophagus. The GE junction was located at 37 cm to the incisors An biopsy. It appeared regular with no erythema erosions or ulcerations. Rest of the esophagus appeared normal. Patient tolerated the procedure well. At this time the patient continued to remain sedation. Initial digital rectal examination was normal. Olympus CF 190 video colonoscope was then inserted into the rectum and gradually advanced to the cecum without any difficulty. Careful examination was performed as the scope was gradually being withdrawn. The prep was excellent. 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 Retroflexion was performed in the rectum and no lesions were noted. Patient tolerated the procedure well. Impression: 1. Mild gastritis. Biopsies of the duodenum, antrum body and GE junction. 2. Ileocecal valve mass biopsied with tattoo was placed proximally and distally to the mass. Recommendations: Findings of this examination were discussed with the patient as well as her family. Okay to resume diet. Okay to resume medications. Await pathology from biopsies. Patient will be given a clinic appointment on 06/12/2020 to follow up in the GI office for results of biopsies. She will likely need referral to surgical service for intervention. Further recommendations pending findings of biopsies
[2020-06-02 12:17] VITALS: BP 142/82; PULSE 57
== END 2020-06-02 13:00 | disposition home or self-care (01) ==
LOC: ORWHC2ENDO 09:50
PROVIDERS: ATTEND Internal Medicine
DX: C18.0 Malignant neoplasm of cecum (principal); K29.70 Gastritis, unspecified, without bleeding; K21.00 Gastro-esophageal reflux disease with esophagitis, without bleeding; R01.1 Cardiac murmur, unspecified; G43.909 Migraine, unspecified, not intractable, without status migrainosus; F32.9 Major depressive disorder, single episode, unspecified; Z80.0 Family history of malignant neoplasm of digestive organs; Z79.899 Other long term (current) drug therapy; Z91.041 Radiographic dye allergy status; Z90.49 Acquired absence of other specified parts of digestive tract; Z90.710 Acquired absence of both cervix and uterus
CPT/HCPCS: 88305; 45380; 43239; 45381; J2250; J2001; J2704; 44404

== ENCOUNTER 2020-06-02 17:53 | Inpatient (IN) | payer OTHER ==
[2020-06-02] MEDS ORDERED: SODIUM CHLORIDE 0.9% 1,000 ML IV STA (20:41)
[2020-06-02 21:22] LABS: ALT 28 U/L (4-34); AST 30 U/L (14-36); African American GFR (CKD) >90 (>60 ml/min/1.73 sqM); Albumin 4.2 g/dL (3.5-5.0); Alkaline Phosphatase 97 U/L (38-126); Amylase 71 U/L (30-110); Anion Gap 8 mmol/L; Blood Urea Nitrogen 13 mg/dL (7-17); Calcium 8.8 mg/dL (8.4-10.2); Carbon Dioxide 21 mmol/L (22-30); Chloride 110 mmol/L (98-107); Glucose 90 mg/dL (74-99); Lipase 186 U/L (23-300); Non-African American GFR(CKD) 81 (>60 ml/min/1.73 sqM); Sodium 139 mmol/L (137-145); Total Bilirubin 0.5 mg/dL (0.2-1.3); Total Protein 7.2 g/dL (6.3-8.2)
[2020-06-02 21:25] LABS: Basophils % (A) 0 %; Eosinophils # (A) 0.1 k/uL (0-0.7); Eosinophils % (A) 0 %; HCT 31.3 % (34.0-46.0); HGB 10.5 gm/dL (11.4-16.0); Hypochromasia Slight; Lymphocytes % (A) 17 %; MCH 24.7 pg (25.0-35.0); MCHC 33.4 g/dL (31.0-37.0); MCV 74.1 fL (80.0-100.0); Mean Platelet Volume 7.9; Microcytosis Slight; Monocytes # (A) 0.4 k/uL (0-1.0); Monocytes % (A) 4 %; Neutrophils # (A) 9.1 k/uL (1.3-7.7); Neutrophils % (A) 77 %; Platelet Count 217 k/uL (150-450); Poikilocytosis Slight; RBC 4.22 m/uL (3.80-5.40); RDW 15.4 % (11.5-15.5); WBC 11.7 k/uL (3.8-10.6)
[2020-06-02] MEDS ORDERED: HYDROmorphone 0.5 MG/0.5 ML SYRINGE IVP STA (21:39)
--- NOTE | 2020-06-02 22:12 | CT ---
EXAMINATION TYPE: CT abdomen pelvis wo con DATE OF EXAM: 06/02/2020 COMPARISON: May 05, 2020 HISTORY: Abdominal pain CT DLP: 995.6 mGycm Automated exposure control for dose reduction was used. Lung bases are clear. There is no pleural effusion. Heart size is normal. There is no pericardial eff usion. The liver spleen pancreas stomach appear intact. There is small hiatal hernia. There are clips from c holecystectomy. The bile ducts are not dilated. There is no adrenal mass. Kidneys show normal size and contour. There are a few bilateral renal calcu li that measure up to 3 mm. Ureters are not dilated. There is no hydronephrosis. There is no retroper itoneal adenopathy. Bladder distends smoothly. There is some free fluid in the pelvis. There is hyste rectomy. There is no evidence of a pelvic mass. Lumbar vertebra have normal spacing and alignment. There is no compression fracture. The bony pelvis is intact. The hip joints are intact. There is no sign of thickened appendix. There are some unusual air bubbles in the pelvis on the right side posterior to the cecum and also al dany the right pelvic sidewall. These do not appear to be within the bowel. The appendix appears to be inferior and posterior in the pelvis and appears normal. There is no mesenteric edema. There is no e vidence of a bowel obstruction. IMPRESSION: Bilateral nonobstructing renal calculi without change. Unusual extraluminal air bubbles in the pelvis on the right side of uncertain significance. This appe ars new compared to old exam. No evidence of any free intraperitoneal air on the anterior abdomen. Th ere is small amount of free fluid in the pelvis which is new compared to old exam. This exam was discussed with ER PA at 10:15 PM.
[2020-06-02 22:15] LABS: Amorphous Sediment,Urine Occasional /hpf; Appearance,Urine Turbid (Clear); Bacteria,Urine Rare /hpf; Bilirubin,Urine Negative (Negative); Blood,Urine Negative (Negative); Color,Urine Yellow; Glucose,Urine (UA) Negative (Negative); Ketones,Urine Negative (Negative); Leukocyte Esterase,Urine Negative (Negative); Mucus,Urine Moderate /hpf; Nitrite,Urine Negative (Negative); PH, Urine 7.5 (5.0-8.0); Protein,Urine Trace (Negative); RBC,Urine 3 /hpf (0-5); Specific Gravity,Urine 1.022 (1.001-1.035); Squamous Epithelial Cell,Urine 3 /hpf (0-4); Urobilinogen,Urine <2.0 mg/dL (<2.0); WBC,Urine 1 /hpf (0-5)
--- NOTE | 2020-06-02 23:03 | ED ---
General Adult HPI - General Chief complaint: Abdominal Pain Stated complaint: Abd pain Time Seen by Provider: 06/02/20 20:25 Source: patient Mode of arrival: ambulatory Limitations: no limitations - History of Present Illness Initial comments: 44-year-old female with a past medical history of endometriosis, migraines, abdominal pain presents to the emergency room for a chief complaint of abdominal pain. Patient states she had a colonoscopy because of persistent nausea vomiting. This is earlier today by Dr. Zepeda. Patient reports that after the colonoscopy she started to get abdominal pain. This prop her to present to the emergency room.Patient has no other complaints at this time including shortness of breath, chest pain, nausea or vomiting, headache, or visual changes. - Related Data Home Medications Medication Instructions Recorded Confirmed Sertraline [Zoloft] 150 mg PO DAILY 02/03/17 06/02/20 Cariprazine HCl [Vraylar] 3 mg PO DAILY 05/22/19 06/02/20 Topiramate [Topamax] 100 mg PO BID 05/22/19 06/02/20 ALPRAZolam [Xanax] 0.25 mg PO BID PRN 05/05/20 06/02/20 Cetirizine HCl [Zyrtec] 10 mg PO DAILY PRN 05/05/20 06/02/20 SUMAtriptan SUCCINATE [Imitrex] 100 mg PO DAILY PRN 05/05/20 06/02/20 Dicyclomine [Bentyl] 10 mg PO TID PRN 05/28/20 06/02/20 Ondansetron Odt [Zofran Odt] 4 mg PO DAILY PRN 06/02/20 06/02/20 Allergies Allergy/AdvReac Type Severity Reaction Status Date / Time Iodinated Contrast Media Allergy Dyspnea Verified 06/02/20 21:10 [Iodinated Contrast- Oral and IV Dye] Review of Systems ROS Statement: Those systems with pertinent positive or pertinent negative responses have been documented in the HPI. ROS Other: All systems not noted in ROS Statement are negative. Past Medical History Past Medical History: GERD/Reflux, Osteoarthritis (OA) Additional Past Medical History / Comment(s): endometrosis, MIGRAINES, ABDOMINAL PAIN History of Any Multi-Drug Resistant Organisms: None Reported Past Surgical History: Cholecystectomy, Hysterectomy Additional Past Surgical History / Comment(s): laparoscopy x 2, Past Anesthesia/Blood Transfusion Reactions: No Reported Reaction Past Psychological History: Anxiety, Bipolar, Depression, Panic Disorder Smoking Status: Never smoker Past Alcohol Use History: None Reported Past Drug Use History: None Reported - Past Family History Sister(s) Family Medical History: Cancer Additional Family Medical History / Comment(s): COLON CANCER Father Family Medical History: Cancer Additional Family Medical History / Comment(s): COLON CANCER General Exam Limitations: no limitations General appearance: alert, in no apparent distress Head exam: Present: atraumatic, normocephalic, normal inspection Eye exam: Present: normal appearance, PERRL, EOMI. Absent: scleral icterus, conjunctival injection, periorbital swelling ENT exam: Present: normal exam, mucous membranes moist Neck exam: Present: normal inspection. Absent: tenderness, meningismus, lymphadenopathy Respiratory exam: Present: normal lung sounds bilaterally. Absent: respiratory distress, wheezes, rales, rhonchi, stridor Cardiovascular Exam: Present: regular rate, normal rhythm, normal heart sounds. Absent: systolic murmur, diastolic murmur, rubs, gallop, clicks GI/Abdominal exam: Present: soft, tenderness (Generalized abdominal tenderness without hurting or rebound), normal bowel sounds. Absent: distended, guarding, rebound, rigid Course Vital Signs 06/02/20 06/02/20 20:21 21:30 Temperature 98.9 F Pulse Rate 68 74 Respiratory 20 16 Rate Blood Pressure 129/55 124/73 O2 Sat by Pulse 100 99 Oximetry Medical Decision Making - Medical Decision Making Vitals are stable. HPI and physical exam as documented. CBC shows mild leukocytosis. CMP unremarkable. Urinalysis unremarkable. ENT abdomen and pelvis shows unusual extraluminal air bubbles in the pelvis on the right side of uncertain significance there is a small amount of free air in the pelvis which is new. No evidence of any free intraperitoneal air on the anterior abdomen. Given patient's colonoscopy today there is concern for possible perforation. Patient started on Unison and kept nothing by mouth. Will admit to Dr. Tran, we'll consult Dr. Zepeda - Lab Data Result diagrams: 06/02/20 21:06 06/02/20 21:06 Lab Results 06/02/20 06/02/20 06/02/20 Range/Units 21:06 21:06 21:14 WBC 11.7 H (3.8-10.6) k/uL RBC 4.22 (3.80-5.40) m/uL Hgb 10.5 L (11.4-16.0) gm/dL Hct 31.3 L (34.0-46.0) % MCV 74.1 L (80.0-100.0) fL MCH 24.7 L (25.0-35.0) pg MCHC 33.4 (31.0-37.0) g/dL RDW 15.4 (11.5-15.5) % Plt Count 217 (150-450) k/uL MPV 7.9 Neutrophils % 77 % Lymphocytes % 17 % Monocytes % 4 % Eosinophils % 0 % Basophils % 0 % Neutrophils # 9.1 H (1.3-7.7) k/uL Lymphocytes # 2.0 (1.0-4.8) k/uL Monocytes # 0.4 (0-1.0) k/uL Eosinophils # 0.1 (0-0.7) k/uL Basophils # 0.0 (0-0.2) k/uL Hypochromasia Slight Poikilocytosis Slight Microcytosis Slight Sodium 139 (137-145) mmol/L Potassium 4.0 (3.5-5.1) mmol/L Chloride 110 H (98-107) mmol/L Carbon Dioxide 21 L (22-30) mmol/L Anion Gap 8 mmol/L BUN 13 (7-17) mg/dL Creatinine 0.87 (0.52-1.04) mg/dL Est GFR (CKD-EPI)AfAm >90 (>60 ml/min/1.73 sqM) Est GFR (CKD-EPI)NonAf 81 (>60 ml/min/1.73 sqM) Glucose 90 (74-99) mg/dL Calcium 8.8 (8.4-10.2) mg/dL Total Bilirubin 0.5 (0.2-1.3) mg/dL AST 30 (14-36) U/L ALT 28 (4-34) U/L Alkaline Phosphatase 97 (38-126) U/L Total Protein 7.2 (6.3-8.2) g/dL Albumin 4.2 (3.5-5.0) g/dL Amylase 71 (30-110) U/L Lipase 186 (23-300) U/L Urine Color Yellow Urine Appearance Turbid H (Clear) Urine pH 7.5 (5.0-8.0) Ur Specific Reva 1.022 (1.001-1.035) Urine Protein Trace H (Negative) Urine Glucose (UA) Negative (Negative) Urine Ketones Negative (Negative) Urine Blood Negative (Negative) Urine Nitrite Negative (Negative) Urine Bilirubin Negative (Negative) Urine Urobilinogen <2.0 (<2.0) mg/dL Ur Leukocyte Esterase Negative (Negative) Urine RBC 3 (0-5) /hpf Urine WBC 1 (0-5) /hpf Ur Squamous Epith Cells 3 (0-4) /hpf Amorphous Sediment Occasional H (None) /hpf Urine Bacteria Rare H (None) /hpf Urine Mucus Moderate H (None) /hpf Disposition Clinical Impression: Free intraperitoneal air, Abdominal pain Disposition: ADMITTED IP TO THIS HOSP Is patient prescribed a controlled substance at d/c from ED?: No Referrals: Mireya Dasilva DO [Primary Care Provider] - 1-2 days Time of Disposition: 23:08
[2020-06-02] MEDS ORDERED: NALOXONE 0.4 MG/ML 1 ML VIAL IV PRN (23:08)
[2020-06-02] MEDS ORDERED: AMPICILLIN-SULBACTAM 3 GM in SODIUM CHLORIDE 0.9% 100 ML IVPB STA (23:11)
[2020-06-03] MEDS: SODIUM CHLORIDE 0.9% 1,000 ML IV SCH ×3 (00:07→17:53)
[2020-06-03] MEDS: HYDROmorphone 0.5 MG/0.5 ML SYRINGE IVP PRN ×4 (02:15→23:09)
[2020-06-03] MEDS: AMPICILLIN-SULBACTAM 3 GM in SODIUM CHLORIDE 0.9% 100 ML IVPB SCH ×4 (06:03→23:09)
--- NOTE | 2020-06-03 08:01 | P.GSHP ---
History of Present Illness H&P Date: 06/03/20 Chief Complaint: Right lower quadrant pain This 44-year-old female who's had progressive complaints of abdominal pain and nausea. Patient underwent upper and lower endoscopy by Dr. Dolan yesterday. Patient is known to have a hiatal hernia. 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 She is asked see myself in my general surgery office yesterday afternoon. Patient had increased pain with some no tenderness. I directed to the emergency room. Patient underwent CAT scan found have some free peritoneal air and fluid in the peritoneal cavity. Patient was admitted to the hospital last night. She'll undergo laparoscopic right colectomy today. Past Medical History Past Medical History: GERD/Reflux, Osteoarthritis (OA) Additional Past Medical History / Comment(s): Endometrosis, migraines, kidney stones, UTI. History of Any Multi-Drug Resistant Organisms: None Reported Past Surgical History: Cholecystectomy, Hysterectomy Additional Past Surgical History / Comment(s): Laparoscopy x 2 Past Anesthesia/Blood Transfusion Reactions: No Reported Reaction Past Psychological History: Anxiety, Bipolar, Depression, Panic Disorder Smoking Status: Never smoker Past Alcohol Use History: Rare Past Drug Use History: None Reported - Past Family History Sister(s) Family Medical History: Cancer Additional Family Medical History / Comment(s): Colon cancer Father Family Medical History: Cancer Additional Family Medical History / Comment(s): Colon cancer Mother Additional Family Medical History / Comment(s): "Heart problems". Medications and Allergies Home Medications Medication Instructions Recorded Confirmed Type Sertraline [Zoloft] 150 mg PO DAILY 02/03/17 06/02/20 History Cariprazine HCl [Vraylar] 3 mg PO DAILY 05/22/19 06/02/20 History Topiramate [Topamax] 100 mg PO BID 05/22/19 06/02/20 History ALPRAZolam [Xanax] 0.25 mg PO BID PRN 05/05/20 06/02/20 History Cetirizine HCl [Zyrtec] 10 mg PO DAILY PRN 05/05/20 06/02/20 History SUMAtriptan SUCCINATE [Imitrex] 100 mg PO DAILY PRN 05/05/20 06/02/20 History Dicyclomine [Bentyl] 10 mg PO TID PRN 05/28/20 06/02/20 History Ondansetron Odt [Zofran Odt] 4 mg PO DAILY PRN 06/02/20 06/02/20 History Allergies Allergy/AdvReac Type Severity Reaction Status Date / Time Iodinated Contrast Media Allergy Dyspnea Verified 06/03/20 04:21 [Iodinated Contrast- Oral and IV Dye] Surgical - Exam Vital Signs Temp Pulse Resp BP Pulse Ox 98.9 F 68 20 129/55 100 06/02/20 20:21 06/02/20 20:21 06/02/20 20:21 06/02/20 20:21 06/02/20 20:21 - General well developed, well nourished, no distress - Eyes PERRL - ENT normal pinna - Neck no masses - Respiratory normal expansion - Cardiovascular Rhythm: regular - Abdomen Right-sided abdominal pain. Abdomen: soft Results - Labs 06/02/20 21:06 06/02/20 21:06 Abnormal Lab Results - Last 24 Hours (Table) 06/02/20 06/02/20 06/02/20 Range/Units 21:06 21:06 21:14 WBC 11.7 H (3.8-10.6) k/uL Hgb 10.5 L (11.4-16.0) gm/dL Hct 31.3 L (34.0-46.0) % MCV 74.1 L (80.0-100.0) fL MCH 24.7 L (25.0-35.0) pg Neutrophils # 9.1 H (1.3-7.7) k/uL Chloride 110 H (98-107) mmol/L Carbon Dioxide 21 L (22-30) mmol/L Urine Appearance Turbid H (Clear) Urine Protein Trace H (Negative) Amorphous Sediment Occasional H (None) /hpf Urine Bacteria Rare H (None) /hpf Urine Mucus Moderate H (None) /hpf Diabetes panel 06/02/20 Range/Units 21:06 Sodium 139 (137-145) mmol/L Potassium 4.0 (3.5-5.1) mmol/L Chloride 110 H (98-107) mmol/L Carbon Dioxide 21 L (22-30) mmol/L BUN 13 (7-17) mg/dL Creatinine 0.87 (0.52-1.04) mg/dL Glucose 90 (74-99) mg/dL Calcium 8.8 (8.4-10.2) mg/dL AST 30 (14-36) U/L ALT 28 (4-34) U/L Alkaline Phosphatase 97 (38-126) U/L Total Protein 7.2 (6.3-8.2) g/dL Albumin 4.2 (3.5-5.0) g/dL Calcium panel 06/02/20 Range/Units 21:06 Calcium 8.8 (8.4-10.2) mg/dL Albumin 4.2 (3.5-5.0) g/dL Pituitary panel 06/02/20 Range/Units 21:06 Sodium 139 (137-145) mmol/L Potassium 4.0 (3.5-5.1) mmol/L Chloride 110 H (98-107) mmol/L Carbon Dioxide 21 L (22-30) mmol/L BUN 13 (7-17) mg/dL Creatinine 0.87 (0.52-1.04) mg/dL Glucose 90 (74-99) mg/dL Calcium 8.8 (8.4-10.2) mg/dL Adrenal panel 06/02/20 Range/Units 21:06 Sodium 139 (137-145) mmol/L Potassium 4.0 (3.5-5.1) mmol/L Chloride 110 H (98-107) mmol/L Carbon Dioxide 21 L (22-30) mmol/L BUN 13 (7-17) mg/dL Creatinine 0.87 (0.52-1.04) mg/dL Glucose 90 (74-99) mg/dL Calcium 8.8 (8.4-10.2) mg/dL Total Bilirubin 0.5 (0.2-1.3) mg/dL AST 30 (14-36) U/L ALT 28 (4-34) U/L Alkaline Phosphatase 97 (38-126) U/L Total Protein 7.2 (6.3-8.2) g/dL Albumin 4.2 (3.5-5.0) g/dL Assessment and Plan Assessment: Newly diagnosed right colon mass. Intraperitoneal air Range Fluid. Patient will undergo laparoscopic right colectomy today.
[2020-06-03] MEDS ORDERED: ALPRAZolam 0.25 MG TAB PO PRN (08:12)
[2020-06-03] MEDS: SERTRALINE 50 MG TAB PO SCH (09:53)
[2020-06-03] MEDS: TOPIRAMATE 100 MG TAB PO SCH ×2 (09:53→19:26)
[2020-06-03] MEDS ORDERED: DEXAMETHASONE SOD PHOSPHATE 4 MG/ML 1 ML VIAL IVP ONE (12:41)
[2020-06-03] MEDS: ONDANSETRON 4 MG/2 ML VIAL IVP PRN (12:42)
[2020-06-03] MEDS ORDERED: IV FLUID CONTINUATION 1,000 ML IV ONE (12:46)
[2020-06-03] MEDS ORDERED: HEPARIN SODIUM,PORCINE 5,000 UNIT/ML 1 ML VIAL ONE (13:30)
[2020-06-03] MEDS ORDERED: ALVIMOPAN 12 MG CAPSULE PO ONE (13:35)
[2020-06-03] MEDS ORDERED: HEPARIN SODIUM,PORCINE 5,000 UNIT/ML 1 ML VIAL SQ ONE (13:35)
[2020-06-03] MEDS ORDERED: PROPOFOL 10 MG/ML 20 ML VIAL IV ONE (13:44)
[2020-06-03] MEDS ORDERED: HYDROmorphone (PF) 1 MG/ML ONE (13:44)
[2020-06-03] MEDS ORDERED: NEOSTIGMINE 1 MG/ML 10 ML VIAL ONE (13:44)
[2020-06-03] MEDS ORDERED: ROCURONIUM 10 MG/ML (5 ML VIAL) IV ONE (13:44)
[2020-06-03] MEDS ORDERED: SUCCINYLCHOLINE CHLORIDE 100 MG/5 ML SYR IV ONE (13:44)
[2020-06-03] MEDS ORDERED: LIDOCAINE 1% INJ 10MG/ML (20 ML MDV) ONE (13:44)
[2020-06-03] MEDS ORDERED: fentaNYL (PF) 50 MCG/ML 2 ML AMP ONE (13:44)
[2020-06-03] MEDS ORDERED: MIDAZOLAM 2 MG/2 ML VIAL ONE (13:44)
[2020-06-03] MEDS ORDERED: GLYCOPYRROLATE 0.2 MG/ML 2 ML VIAL ONE (13:44)
--- NOTE | 2020-06-03 13:51 | CONS ---
CONSULTATION DATE OF DICTATION: 06/03/2020 REASON FOR CONSULTATION: Severe abdominal pain. HISTORY OF PRESENT ILLNESS: The patient is a 44-year-old pleasant white female who underwent an outpatient EGD colonoscopy by Dr. Zepeda yesterday morning for symptoms of nausea, vomiting, and abdominal pain for the last several months duration. Upper endoscopy revealed mild gastritis and colonoscopy revealed an ileocecal mass that was biopsied followed by tattooing. The patient was discharged home following the procedure and was doing well. Three hours later she started developing lower abdominal pain associated with some nausea, vomiting. She had an appointment to see Dr. Tran on an outpatient basis. She was evaluated by him and was scheduled for an outpatient CT of the abdomen and pelvis. In the meantime, the symptoms continued to progressively get worse and hence she came to the emergency room last night and she had a CT of the abdomen and pelvis done in the ER that showed unusual extraluminal air bubbles in the pelvis on the right side of uncertain significance. There was no evidence of any intraperitoneal free air noted. The patient was subsequently admitted to the hospital for further evaluation. She was seen by Dr. Tran this morning and is scheduled for right hemicolectomy. The patient in the meantime is feeling somewhat better. She continues to have lower abdominal pain. No further episodes of nausea, vomiting. No fever, chills, or night sweats. PAST MEDICAL HISTORY: Her past medical history is significant for gastroesophageal reflux disease, arthritis, endometriosis, chronic migraine headaches. PAST SURGICAL HISTORY: Cholecystectomy, hysterectomy and diagnostic laparoscopy. MEDICATIONS: Medications at home include Zoloft, Vraylar, Topamax, Xanax, Zyrtec, Imitrex, Bentyl, Zofran. ALLERGIES: IV DYE. SOCIAL HISTORY: No smoking, no alcohol use. FAMILY HISTORY: Sister had colon cancer. Father had colon cancer in his 60s. REVIEW OF SYSTEMS: CARDIOPULMONARY: No chest pain or shortness of breath. GENITOURINARY: No dysuria or hematuria. MUSCULOSKELETAL: Unremarkable. SKIN: Unremarkable. ENDOCRINE: Unremarkable. PSYCHIATRIC: Unremarkable. NEUROLOGY: Unremarkable. ENT/VISION: Unremarkable. CONSTITUTIONAL: No recent weight loss. No fever, chills, night sweats. PHYSICAL EXAMINATION: She appears comfortable. No apparent distress. Vital signs are stable. Blood pressure is 100/56, pulse rate 69, temperature 97. HEENT EXAMINATION: Unremarkable. Conjunctivae pink. Sclerae anicteric. Oral cavity, no lesions. NECK: No JVD or lymph node enlargement. CHEST: Was clear to auscultation. HEART: Regular rate and rhythm. ABDOMEN: Soft. There was mild tenderness in the suprapubic area as well as in the right lower quadrant area. Rest of the abdomen was benign. Bowel sounds are positive. No organomegaly. EXTREMITIES: No pedal edema. NEURO: She is alert and oriented x3. No focal deficits. LABS: Labs from yesterday, WBC 11.7, hemoglobin 10.5, platelets normal. Basic metabolic panel is within normal limits. AST, ALT, T-bilirubin and alkaline phosphatase are normal. Amylase and lipase are normal. Coronavirus PCR is negative. IMPRESSION: 1. This is a patient who presents to the hospital with lower abdominal pain associated with nausea, vomiting 2-3 hours after having an EGD and colonoscopy by Dr. Zepeda yesterday morning. She was noted to have mild gastritis and ileocecal valve mass that was biopsied and tattooed. She presents to the hospital with worsening abdominal pain and the CAT scan showed extraluminal air in the pelvis more on the right side of unclear significance and small amount of free fluid in the pelvis. No free intraperitoneal air noted. The patient evaluated by Dr. Tran and is scheduled for right hemicolectomy this morning. No evidence of acute peritonitis on clinical examination. 2. Intermittent nausea vomiting of several months duration. 3. History of chronic migraine headaches. 4. History of anxiety and depression. RECOMMENDATIONS: 1. Continue with broad-spectrum antibiotics. 2. Keep her n.p.o. for now. 3. Symptomatic and supportive care. 4. We will follow with her closely and await pathology results. 5. We will follow. Thank you for this consultation. MMODL / IJN: [id number] /
[2020-06-03] MEDS ORDERED: BUPIVACAINE (PF) 0.25% 30 ML VIAL SQ ONE ×2 (14:25)
[2020-06-03] MEDS ORDERED: LACTATED RINGERS 1,000 ML IV ONE (14:25)
--- NOTE | 2020-06-03 15:28 | P.OP ---
Date of Procedure: 06/03/20 Preoperative Diagnosis: Right colon tumor Postoperative Diagnosis: Right colon mass Procedure(s) Performed: Laparoscopic right colectomy Anesthesia: FAIZA Surgeon: David Tran Estimated Blood Loss (ml): 10 Pathology: other (Right colon) Condition: stable Disposition: PACU Description of Procedure: The patient's placed on the operating table in supine position. She received general anesthesia. Her abdomen was prepped and draped usual fashion. An infra umbilical skin incision was made and using her Charu clamps the fascia was grasped and the Veress needle was placed. Cavity. This. He was confirmed with positive drop test. After adequate insufflation a 5 ohmmeter laparoscope placed. Cavity. Next a fibrillar trocar is placed in the suprapubic position and a 10 mm trochars placed in the midline epigastric position. The right colon exam. The right colon had been previously tattooed. At this point the white line of Toldt was divided in the right colon was mobilized. The hepatic flexure was taken down with the Harmonic scissors. The ileum was mobile. At this point the trochars withdrawn. The midline trocar site was extended and the cecum was brought up into the wound. The right colon was then brought up and then transected with the linear cutter stapler. And then the terminal ileum was transected with linear stapler. Using the harmonic the mesentery the bowel was divided. Specimens of pathology. A [id number] functional end-to-end staple S Eladio created between ileum and the right colon. 3-0 GI silk sutures as a crotch stitch. The abdomen was irrigated. As no bleeding seen. The fascia was closed interrupted figure: Ethibond suture. Skin was closed interrupted 3-0 Monocryl suture. Dermabond was applied. Patient top she will was sent to recovery room stable condition.
[2020-06-03] MEDS ORDERED: HYDROmorphone 1 MG/ML 1 ML SYRINGE IVP ONE (16:03)
--- NOTE | 2020-06-03 22:37 | P.CONS ---
History of Present Illness - Reason for Consult Consult date: 06/03/20 medical eval - Chief Complaint abdominal pain, nausea - History of Present Illness Myra Ann is a 44-year-old female who's had progressive complaints of abdominal pain and nausea. Patient underwent upper and lower endoscopy by Dr. 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 She was referred to surgery but due to increasing pain and nausea she went to the ED. Patient underwent CAT scan found have some free peritoneal air and fluid in the peritoneal cavity. Review of Systems All systems: negative Constitutional: Reports weakness, Denies chills, Denies fever Eyes: denies blurred vision, denies pain Ears, nose, mouth and throat: Denies headache, Denies sore throat Cardiovascular: Denies chest pain, Denies shortness of breath Respiratory: Denies cough Gastrointestinal: Reports abdominal pain, Reports loss of appetite, Reports nausea, Denies diarrhea, Denies vomiting Genitourinary: Denies dysuria, Denies hematuria Musculoskeletal: Denies myalgias Integumentary: Denies pruritus, Denies rash Neurological: Denies numbness, Denies weakness Psychiatric: Denies anxiety, Denies depression Endocrine: Denies fatigue, Denies weight change Past Medical History Past Medical History: GERD/Reflux, Osteoarthritis (OA) Additional Past Medical History / Comment(s): Endometrosis, migraines, kidney stones, UTI. History of Any Multi-Drug Resistant Organisms: None Reported Past Surgical History: Cholecystectomy, Hysterectomy Additional Past Surgical History / Comment(s): Laparoscopy x 2 Past Anesthesia/Blood Transfusion Reactions: No Reported Reaction Past Psychological History: Anxiety, Bipolar, Depression, Panic Disorder Smoking Status: Never smoker Past Alcohol Use History: Rare Past Drug Use History: None Reported - Past Family History Sister(s) Family Medical History: Cancer Additional Family Medical History / Comment(s): Colon cancer Father Family Medical History: Cancer Additional Family Medical History / Comment(s): Colon cancer Mother Additional Family Medical History / Comment(s): "Heart problems". Medications and Allergies Home Medications Medication Instructions Recorded Confirmed Type Sertraline [Zoloft] 150 mg PO DAILY 02/03/17 06/02/20 History Cariprazine HCl [Vraylar] 3 mg PO DAILY 05/22/19 06/02/20 History Topiramate [Topamax] 100 mg PO BID 05/22/19 06/02/20 History ALPRAZolam [Xanax] 0.25 mg PO BID PRN 05/05/20 06/02/20 History Cetirizine HCl [Zyrtec] 10 mg PO DAILY PRN 05/05/20 06/02/20 History SUMAtriptan SUCCINATE [Imitrex] 100 mg PO DAILY PRN 05/05/20 06/02/20 History Dicyclomine [Bentyl] 10 mg PO TID PRN 05/28/20 06/02/20 History Ondansetron Odt [Zofran Odt] 4 mg PO DAILY PRN 06/02/20 06/02/20 History Allergies Allergy/AdvReac Type Severity Reaction Status Date / Time Iodinated Contrast Media Allergy Dyspnea Verified 06/03/20 04:21 [Iodinated Contrast- Oral and IV Dye] Physical Exam Vitals: Vital Signs Temp Pulse Pulse Resp BP BP Pulse Ox 06/03/20 02:30 98.2 F 60 18 109/71 100 06/02/20 21:30 74 16 124/73 99 06/02/20 20:21 98.9 F 68 20 129/55 100 Intake and Output 06/02/20 06/03/20 06/03/20 22:59 06:59 14:59 Other: # Voids 1 Weight 90.265 kg 91.8 kg General: well nourished, well developed, NAD. Vitals reviewed Eyes: PERRL, EOMI, conjunctiva normal HENT: normocephalic, mucus membranes moist Neck: supple, no JVD Lungs: normal respiratory effort, no wheezes or rales CV: Regular rate and rhythm, no murmur. Peripheral pulses 2+ Abdomen: soft, nondistended, no organomegaly. Tenderness to palpation Lymph: no cervical or axillary LAD Skin: warm and dry. Neuro: A&Ox3, normal mood and affect Results CBC & Chem 7: 06/02/20 21:06 06/02/20 21:06 Labs: Abnormal Lab Results - Last 24 Hours (Table) 06/02/20 06/02/20 06/02/20 Range/Units 21:06 21:06 21:14 WBC 11.7 H (3.8-10.6) k/uL Hgb 10.5 L (11.4-16.0) gm/dL Hct 31.3 L (34.0-46.0) % MCV 74.1 L (80.0-100.0) fL MCH 24.7 L (25.0-35.0) pg Neutrophils # 9.1 H (1.3-7.7) k/uL Chloride 110 H (98-107) mmol/L Carbon Dioxide 21 L (22-30) mmol/L Urine Appearance Turbid H (Clear) Urine Protein Trace H (Negative) Amorphous Sediment Occasional H (None) /hpf Urine Bacteria Rare H (None) /hpf Urine Mucus Moderate H (None) /hpf Assessment and Plan (1) Colonic mass Current Visit: Yes Status: Acute Code(s): K63.89 - OTHER SPECIFIED DISEASES OF INTESTINE SNOMED Code(s): 854751411 (2) Free intraperitoneal air Current Visit: Yes Status: Acute Code(s): K66.8 - OTHER SPECIFIED DISORDERS OF PERITONEUM SNOMED Code(s): 92122445 (3) Migraine Current Visit: Yes Status: Acute Code(s): G43.909 - MIGRAINE, UNSP, NOT INTRACTABLE, WITHOUT STATUS MIGRAINOSUS SNOMED Code(s): 50770448 (4) Major depression Current Visit: Yes Status: Acute Code(s): F32.9 - MAJOR DEPRESSIVE DISORDER, SINGLE EPISODE, UNSPECIFIED SNOMED Code(s): 086296874 Plan: 1. Free abdominal air with abdominal mass. She will undergo partial colectomy. NPO, pain control. Closely monitor Hgb and electrolytes 2. Migraine disorder. Continue with topamax 3. Major depression. Continue zoloft, xanax
[2020-06-04] MEDS: SODIUM CHLORIDE 0.9% 1,000 ML IV SCH ×4 (00:14→23:06)
[2020-06-04] MEDS: AMPICILLIN-SULBACTAM 3 GM in SODIUM CHLORIDE 0.9% 100 ML IVPB SCH ×4 (05:39→23:06)
[2020-06-04] MEDS: HYDROmorphone 0.5 MG/0.5 ML SYRINGE IVP PRN ×2 (05:39→10:07)
[2020-06-04] MEDS: TOPIRAMATE 100 MG TAB PO SCH ×2 (08:58→20:21)
[2020-06-04] MEDS: SERTRALINE 50 MG TAB PO SCH (08:58)
[2020-06-04] MEDS: ONDANSETRON 4 MG/2 ML VIAL IVP PRN (08:58)
[2020-06-04 09:18] LABS: Basophils % (A) 0 %; Eosinophils % (A) 0 %; HCT 26.8 % (34.0-46.0); Hypochromasia Moderate; Lymphocytes % (A) 11 %; MCHC 33.3 g/dL (31.0-37.0); MCV 74.8 fL (80.0-100.0); Mean Platelet Volume 7.7; Microcytosis Slight; Monocytes # (A) 0.4 k/uL (0-1.0); Monocytes % (A) 4 %; Neutrophils # (A) 7.8 k/uL (1.3-7.7); Neutrophils % (A) 83 %; Platelet Count 209 k/uL (150-450); Poikilocytosis Slight; RBC 3.58 m/uL (3.80-5.40); RDW 15.5 % (11.5-15.5); WBC 9.4 k/uL (3.8-10.6)
[2020-06-04 09:31] LABS: HGB 8.9 gm/dL (11.4-16.0)
[2020-06-04] MEDS ORDERED: ONDANSETRON 4 MG/2 ML VIAL IVP PRN (09:34)
[2020-06-04 09:36] LABS: African American GFR (CKD) >90 (>60 ml/min/1.73 sqM); Anion Gap 8 mmol/L; Blood Urea Nitrogen 9 mg/dL (7-17); Calcium 8.5 mg/dL (8.4-10.2); Carbon Dioxide 16 mmol/L (22-30); Chloride 115 mmol/L (98-107); Glucose 103 mg/dL (74-99); Non-African American GFR(CKD) 90 (>60 ml/min/1.73 sqM); Potassium 3.6 mmol/L (3.5-5.1); Sodium 139 mmol/L (137-145)
[2020-06-04] MEDS ORDERED: Potassium Replacement Protocol 1 EACH MISC MISCELLANE PRN (09:55)
--- NOTE | 2020-06-04 09:56 | P.PN ---
Subjective Progress Note Date: 06/04/20 Myra Ann is a 44-year-old female who's had progressive complaints of abdominal pain and nausea. Patient underwent upper and lower endoscopy by Dr. 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 She was referred to surgery but due to increasing p ain and nausea she went to the ED. Patient underwent CAT scan found have some free peritoneal air and fluid in the peritoneal cavity. 06/04/2020 status post endoscopic right colectomy, postop day #1. RA procedure well. Currently on clear liquid diet .Complains of tenderness, nausea. Denies emesis, denies passing flatus. Denies chest pain, palpitations or shortness of breath. Denies chest pain, palpitations or shortness of breath.VSS. Afebrile, normal WBC. Pulmonary blood cultures no growth at 24 hours. Hemoglobin 8.9, platelets 209, potassium 3.6, BUN 9, creatinine 0.8. Objective - Vital Signs Vital signs: Vital Signs Temp 98.0 F 06/04/20 02:04 Pulse 79 06/04/20 06:30 Resp 16 06/04/20 06:30 BP 137/83 06/04/20 06:30 Pulse Ox 93 L 06/04/20 02:04 Intake & Output 06/03/20 06/04/20 06/04/20 18:59 06:59 18:59 Intake Total 1500 Output Total 25 Balance 1475 Weight 96.8 kg Intake: IV 1500 Output: Estimated Blood Loss 25 Other: # Voids 0 2 - Exam General: Alert and oriented 3, sitting up in bed ,NAD. Vitals reviewed Eyes: PERRL, EOMI, conjunctiva normal HENT: normocephalic, mucus membranes moist Neck: supple, no JVD Lungs: normal respiratory effort, no wheezes or rales CV: Regular rate and rhythm, no murmur. Peripheral pulses 2+ Abdomen: soft, nondistended, status post surgery, laparoscopic site dressings clean dry and intact ,Tenderness to palpation. Skin: warm and dry. Neuro: No focal deficits, normal mood and affect - Labs CBC & Chem 7: 06/04/20 08:36 06/04/20 08:36 Labs: Abnormal Lab Results - Last 24 Hours (Table) 06/04/20 06/04/20 Range/Units 08:36 08:36 RBC 3.58 L (3.80-5.40) m/uL Hgb 8.9 L D (11.4-16.0) gm/dL Hct 26.8 L (34.0-46.0) % MCV 74.8 L (80.0-100.0) fL Neutrophils # 7.8 H (1.3-7.7) k/uL Chloride 115 H (98-107) mmol/L Carbon Dioxide 16 L (22-30) mmol/L Glucose 103 H (74-99) mg/dL Microbiology - Last 24 Hours (Table) 06/02/20 23:30 Blood Culture - Preliminary Blood No Growth after 24 hours 06/02/20 23:45 Blood Culture - Preliminary Blood No Growth after 24 hours Assessment and Plan Assessment: (1) Colonic mass status post laparoscopic right colectomy Current Visit: Yes Status: Acute Code(s): K63.89 - OTHER SPECIFIED DISEASES OF INTESTINE SNOMED Code(s): 196187547 (2) Free intraperitoneal air Current Visit: Yes Status: Acute Code(s): K66.8 - OTHER SPECIFIED DISORDERS OF PERITONEUM SNOMED Code(s): 62896831 (3) Migraine Current Visit: Yes Status: Acute Code(s): G43.909 - MIGRAINE, UNSP, NOT INTRACTABLE, WITHOUT STATUS MIGRAINOSUS SNOMED Code(s): 95940992 (4) Major depression Current Visit: Yes Status: Acute Code(s): F32.9 - MAJOR DEPRESSIVE DISORDER, SINGLE EPISODE, UNSPECIFIED SNOMED Code(s): 799882364 Plan: Continue on current medication regime ,monitoring for symptomatic treatment. Pathology pending. Family reports her father had colon cancer, her 35-year-old sister 2 weeks ago with colon cancer. Possible hereditary non-polyposis syndrome -Oncology consulted. Discussed plan of care including oncology consult with patient. Antiemetics for nausea. Diet advancement/ Pain management as per surgery. Aggressive pulmonary toileting with incentive spirometer ordered. The impression and plan of care has been dictated as directed. : I performed a history and examination of this patient, discussed the same with the dictator. I agree with the dictator's note ,documented as a scribe. Any additional findings or plans will be noted.
--- NOTE | 2020-06-04 12:44 | P.CONS ---
History of Present Illness - Reason for Consult Consult date: 06/04/20 colon mass Requesting physician: Ginny Ovalle - Chief Complaint Abdominal Pain - History of Present Illness Mrs. Ann is a 44 year old female who has been complaining of persistent abdominal pain and nausea. She underwent EGD/Colonoscopy and CT abdomen and pelvis, concern of free air. She was taken to surgery and underwent right colectomy by Dr. Tran for ileocecal mass. She has a significant family history for colon cancer. Path is currently pending. Oncology has been asked to further evaluate. Medical history includes endometriosis with hysterectomy, kidn ey stones, cholecystectomy, migraines. Unfortunetly she recently (2 weeks) ago lost her little sister to colon cancer (positive whaley). She has never been tested for genetics. Review of Systems All systems: negative Constitutional: Reports as per HPI Past Medical History Past Medical History: GERD/Reflux, Osteoarthritis (OA) Additional Past Medical History / Comment(s): Endometrosis, migraines, kidney stones, UTI. History of Any Multi-Drug Resistant Organisms: None Reported Past Surgical History: Cholecystectomy, Hysterectomy Additional Past Surgical History / Comment(s): Laparoscopy x 2 Past Anesthesia/Blood Transfusion Reactions: No Reported Reaction Past Psychological History: Anxiety, Bipolar, Depression, Panic Disorder Smoking Status: Never smoker Past Alcohol Use History: Rare Past Drug Use History: None Reported - Past Family History Sister(s) Family Medical History: Cancer Additional Family Medical History / Comment(s): Colon cancer Father Family Medical History: Cancer Additional Family Medical History / Comment(s): Colon cancer Mother Additional Family Medical History / Comment(s): "Heart problems". Medications and Allergies Home Medications Medication Instructions Recorded Confirmed Type Sertraline [Zoloft] 150 mg PO DAILY 02/03/17 06/02/20 History Cariprazine HCl [Vraylar] 3 mg PO DAILY 05/22/19 06/02/20 History Topiramate [Topamax] 100 mg PO BID 05/22/19 06/02/20 History ALPRAZolam [Xanax] 0.25 mg PO BID PRN 05/05/20 06/02/20 History Cetirizine HCl [Zyrtec] 10 mg PO DAILY PRN 05/05/20 06/02/20 History SUMAtriptan SUCCINATE [Imitrex] 100 mg PO DAILY PRN 05/05/20 06/02/20 History Dicyclomine [Bentyl] 10 mg PO TID PRN 05/28/20 06/02/20 History Ondansetron Odt [Zofran Odt] 4 mg PO DAILY PRN 06/02/20 06/02/20 History Allergies Allergy/AdvReac Type Severity Reaction Status Date / Time Iodinated Contrast Media Allergy Dyspnea Verified 06/03/20 04:21 [Iodinated Contrast- Oral and IV Dye] Physical Exam Vitals: Vital Signs Temp Pulse Resp BP BP Pulse Ox 06/04/20 06:30 79 16 137/83 06/04/20 02:04 98.0 F 84 128/80 93 L 06/03/20 18:27 70 127/85 96 06/03/20 18:12 97.8 F 74 143/84 92 L 06/03/20 17:57 72 135/85 93 L 06/03/20 17:42 84 143/85 90 L 06/03/20 17:27 76 133/85 93 L 06/03/20 17:12 71 143/83 91 L 06/03/20 17:00 63 16 151/79 91 L 06/03/20 16:57 98.4 F 74 139/85 90 L 06/03/20 16:45 64 16 147/66 93 L 06/03/20 16:42 73 131/83 92 L 06/03/20 16:30 61 16 154/67 93 L 06/03/20 16:16 61 16 149/79 95 06/03/20 16:03 62 16 144/73 99 06/03/20 15:48 61 16 138/63 99 06/03/20 15:30 68 16 148/68 100 06/03/20 12:28 97.9 F 69 16 100/56 97 06/03/20 12:13 97 F L 58 L 16 118/54 06/03/20 12:05 97.0 F L 58 L 16 118/54 100 Intake and Output 06/03/20 06/04/20 06/04/20 22:59 06:59 14:59 Intake Total 200 Output Total 25 Balance 175 Intake: IV 200 Output: Estimated Blood Loss 25 Other: # Voids 0 2 Weight 96.8 kg - Constitutional General appearance: cooperative, no acute distress - EENT Eyes: EOMI, PERRLA ENT: NA/AT, normal oropharynx - Neck Neck: normal ROM - Respiratory Respiratory: bilateral: CTA - Cardiovascular Rhythm: regular - Gastrointestinal Evidence of recent procedure General gastrointestinal: distended, soft - Integumentary Integumentary: pale - Neurologic Neurologic: CNII-XII intact - Musculoskeletal Musculoskeletal: generalized weakness - Psychiatric Psychiatric: A&O x's 3, appropriate affect, intact judgment & insight Results CBC & Chem 7: 06/04/20 08:36 06/04/20 08:36 Labs: Abnormal Lab Results - Last 24 Hours (Table) 06/04/20 06/04/20 Range/Units 08:36 08:36 RBC 3.58 L (3.80-5.40) m/uL Hgb 8.9 L D (11.4-16.0) gm/dL Hct 26.8 L (34.0-46.0) % MCV 74.8 L (80.0-100.0) fL Neutrophils # 7.8 H (1.3-7.7) k/uL Chloride 115 H (98-107) mmol/L Carbon Dioxide 16 L (22-30) mmol/L Glucose 103 H (74-99) mg/dL Microbiology - Last 24 Hours (Table) 06/02/20 23:30 Blood Culture - Preliminary Blood No Growth after 24 hours 06/02/20 23:45 Blood Culture - Preliminary Blood No Growth after [address] scan - abdomen: report reviewed CT scan - pelvis: report reviewed Assessment and Plan (1) Microcytic anemia Current Visit: Yes Status: Acute Code(s): D50.9 - IRON DEFICIENCY ANEMIA, UNSPECIFIED SNOMED Code(s): 123870743 (2) Abdominal pain Current Visit: Yes Status: Acute Code(s): R10.9 - UNSPECIFIED ABDOMINAL PAIN SNOMED Code(s): 18470542 (3) Colonic mass Current Visit: Yes Status: Acute Code(s): K63.89 - OTHER SPECIFIED DISEASES OF INTESTINE SNOMED Code(s): 756707877 (4) Migraine Current Visit: Yes Status: Acute Code(s): G43.909 - MIGRAINE, UNSP, NOT INTRACTABLE, WITHOUT STATUS MIGRAINOSUS SNOMED Code(s): 14633437 Plan: Assessment and Recommendations: Right Colonic Mass: Status Post Lap Right Colectomy - Await pathology for further rec - Will check CEA in the interim - Imaging of chest with Xray, if colon mass is malignant will opt for outpatient PET if indicated. Family history significant for Colon Cancer: - Will discuss further after pathology Microcytic Anemia: - Blood Loss Iron Deficiency anemia secondary to Colon Mass and recent post operative - Iron studies pending Thank you for allowing us to participate in the care of this patient will follow along. Physician Attest: I have completed the full history and physical and agree with above dictation, dictated as a scribe
--- NOTE | 2020-06-04 13:57 | P.PN ---
Subjective Progress Note Date: 06/04/20 CHIEF COMPLAINT: Right colon mass HISTORY OF PRESENT ILLNESS: Patient is postop day #1 status post laparoscopic right colectomy for a right colon mass. She is complaining that the Dilaudid is not lasting long enough. She denies any nausea or vomiting. Denies any flatus or BM. She's currently on a clear liquid diet. Afebrile. WBC is down from 11- 9.4 hemoglobin has dropped from 10.5-8.9 PHYSICAL EXAM: VITAL SIGNS: Reviewed. GENERAL: Well-developed in no acute distress. HEENT: No sclera icterus. Extraocular movements grossly intact. Moist buccal mucosa. Head is atraumatic, normocephalic. ABDOMEN: Soft. Nondistended. Incisional dressing clean dry and intact NEUROLOGIC: Alert and oriented. Cranial nerves II through XII grossly intact. ASSESSMENT: 1. Right colon mass status post laparoscopic right colectomy PLAN: -We'll increase IV Dilaudid to 1 mg every 3 hours as needed for pain -Continue clear liquid diet -Encourage patient to ambulate -Encourage patient to use incentive spirometer -Follow up on path results -Oncology following Physician [place] note has been reviewed by physician. Signing provider agrees with the documented findings, assessment, and plan of care. Objective - Vital Signs Vital signs: Vital Signs Temp 98.7 F 06/04/20 11:54 Pulse 70 06/04/20 11:54 Resp 18 06/04/20 11:54 BP 129/74 06/04/20 11:54 Pulse Ox 95 06/04/20 11:54 Intake & Output 06/03/20 06/04/20 06/04/20 18:59 06:59 18:59 Intake Total 1500 Output Total 25 Balance 1475 Weight 96.8 kg Intake: IV 1500 Output: Estimated Blood Loss 25 Other: # Voids 0 2 - Labs CBC & Chem 7: 06/04/20 08:36 06/04/20 08:36 Labs: Abnormal Lab Results - Last 24 Hours (Table) 06/04/20 06/04/20 Range/Units 08:36 08:36 RBC 3.58 L (3.80-5.40) m/uL Hgb 8.9 L D (11.4-16.0) gm/dL Hct 26.8 L (34.0-46.0) % MCV 74.8 L (80.0-100.0) fL Neutrophils # 7.8 H (1.3-7.7) k/uL Chloride 115 H (98-107) mmol/L Carbon Dioxide 16 L (22-30) mmol/L Glucose 103 H (74-99) mg/dL Microbiology - Last 24 Hours (Table) 06/02/20 23:30 Blood Culture - Preliminary Blood No Growth after 24 hours 06/02/20 23:45 Blood Culture - Preliminary Blood No Growth after 24 hours
[2020-06-04] MEDS: HYDROmorphone 1 MG/ML 1 ML SYRINGE IVP PRN ×2 (14:37→19:30)
[2020-06-04] MEDS: PANTOPRAZOLE 40 MG/10 ML VIAL IVP SCH (16:10)
[2020-06-04 19:38] LABS: Reticulocyte % 2.08 % (0.10-1.80)
[2020-06-04] MEDS: HEPARIN SODIUM,PORCINE/PF 5,000 UNIT/0.5 ML SYRINGE SQ SCH (20:22)
[2020-06-04 20:32] LABS: Folate, Serum 7.8 ng/mL
[2020-06-04 21:26] LABS: % Iron Saturation 3.74 (12.00-45.00); Ferritin 14.1 ng/mL (10.0-291.0)
[2020-06-05] MEDS: HYDROmorphone 1 MG/ML 1 ML SYRINGE IVP PRN ×4 (01:34→18:05)
[2020-06-05] MEDS: AMPICILLIN-SULBACTAM 3 GM in SODIUM CHLORIDE 0.9% 100 ML IVPB SCH ×3 (05:21→18:05)
[2020-06-05] MEDS: SODIUM CHLORIDE 0.9% 1,000 ML IV SCH ×2 (05:22→13:32)
[2020-06-05] MEDS: TOPIRAMATE 100 MG TAB PO SCH ×2 (08:28→20:01)
[2020-06-05] MEDS: SERTRALINE 50 MG TAB PO SCH (08:28)
[2020-06-05] MEDS: HEPARIN SODIUM,PORCINE/PF 5,000 UNIT/0.5 ML SYRINGE SQ SCH ×2 (08:31→20:01)
[2020-06-05] MEDS: PANTOPRAZOLE 40 MG/10 ML VIAL IVP SCH (08:35)
--- NOTE | 2020-06-05 09:59 | XR ---
EXAMINATION TYPE: XR chest 2V DATE OF EXAM: 06/05/2020 COMPARISON: None HISTORY: 44-year-old female staging TECHNIQUE: PA and lateral views FINDINGS: The cardiomediastinal silhouette, aorta, and pulmonary vasculature are within normal limits.. Mild in terstitial prominence has a chronic appearance. Hazy densities related to overlying soft tissue. Unab le to exclude subtle nodularity of the right midlung. No consolidation or pleural effusion. IMPRESSION: Unable to exclude subtle nodularity at the right midlung. Otherwise, there are chronic appearing hanks ges without acute process seen.
[2020-06-05 11:31] LABS: Basophils # (A) 0.01 X 10*3/uL (0.00-0.10); Basophils % (A) 0.1 %; Eosinophils # (A) 0.12 X 10*3/uL (0.04-0.35); Eosinophils % (A) 1.5 %; HCT 26.2 % (37.2-46.3); HGB 7.8 g/dL (12.0-15.0); Lymphocytes # (A) 1.17 X 10*3/uL (0.90-5.00); Lymphocytes % (A) 14.4 %; MCH 23.5 pg (27.0-32.0); MCHC 29.8 g/dL (32.0-37.0); MCV 78.9 fL (80.0-97.0); Mean Platelet Volume 11.1 fL (9.5-12.2); Monocytes # (A) 0.51 X 10*3/uL (0.20-1.00); Monocytes % (A) 6.3 %; Neutrophils # (A) 6.29 X 10*3/uL (1.80-7.70); Neutrophils % (A) 77.1 %; Platelet Count 200 X 10*3/uL (140-440); RBC 3.32 X 10*6/uL (4.10-5.20); WBC 8.15 X 10*3/uL (4.50-10.00)
[2020-06-05] MEDS ORDERED: RX INFO: IV CONTRAST WAS GIVEN 1 EACH MISC MISCELLANE PRN (12:12)
--- NOTE | 2020-06-05 12:16 | P.PN ---
Subjective Progress Note Date: 06/05/20 Principal diagnosis: Colon mass Iron studies show iron deficiency, likely related to GI blood loss from Colon mass. Her CEA is <0.5 awaiting path. IV Iron ordered although does not need to remain in hospital for infusions can continue as outpatient in office. Objective - Vital Signs Vital signs: Vital Signs Temp 98.1 F 06/05/20 11:51 Pulse 85 06/05/20 11:51 Resp 16 06/05/20 11:51 BP 119/74 06/05/20 11:51 Pulse Ox 95 06/05/20 11:51 Intake & Output 06/04/20 06/05/20 06/05/20 18:59 06:59 18:59 Intake Total 120 Balance 120 Intake: Oral 120 Other: Voiding Method Toilet # Voids 1 1 - Exam - Constitutional General appearance: cooperative, no acute distress - EENT Eyes: EOMI, PERRLA ENT: NA/AT, normal oropharynx - Neck Neck: normal ROM - Respiratory Respiratory: bilateral: CTA - Cardiovascular Rhythm: regular - Gastrointestinal Evidence of recent procedure General gastrointestinal: distended, soft - Integumentary Integumentary: pale - Neurologic Neurologic: CNII-XII intact - Musculoskeletal Musculoskeletal: generalized weakness - Psychiatric Psychiatric: A&O x's 3, appropriate affect, intact judgment & insight - Labs CBC & Chem 7: 06/05/20 06:46 06/05/20 06:46 Labs: Abnormal Lab Results - Last 24 Hours (Table) 06/04/20 06/04/20 06/05/20 Range/Units 08:36 08:36 06:46 RBC 3.32 L (4.10-5.20) X 10*6/uL Hgb 7.8 L (12.0-15.0) g/dL Hct 26.2 L (37.2-46.3) % MCV 78.9 L (80.0-97.0) fL MCH 23.5 L (27.0-32.0) pg MCHC 29.8 L (32.0-37.0) g/dL RDW 16.0 H (11.5-14.5) % Absolute Nucleated RBC 0.02 H (0.00-0.00) X 10*3/uL Immature Gran # 0.05 H (0.00-0.04) X 10*3/uL NRBC/100 WBC Diff 0.2 H (0.0-0.0) /100 WBCS Retic Count 2.08 H (0.10-1.80) % Iron 12 L (50-170) ug/dL % Saturation 3.74 L (12.00-45.00) Vitamin B12 1029.0 H (200.0-944.0) pg/mL Microbiology - Last 24 Hours (Table) 06/02/20 23:30 Blood Culture - Preliminary Blood No Growth after 48 hours 06/02/20 23:45 Blood Culture - Preliminary Blood No Growth after 48 hours Assessment and Plan (1) Microcytic anemia Current Visit: Yes Status: Acute Code(s): D50.9 - IRON DEFICIENCY ANEMIA, UN SPECIFIED SNOMED Code(s): 476797499 (2) Abdominal pain Current Visit: Yes Status: Acute Code(s): R10.9 - UNSPECIFIED ABDOMINAL PAIN SNOMED Code(s): 44596147 (3) Colonic mass Current Visit: Yes Status: Acute Code(s): K63.89 - OTHER SPECIFIED DISEASES OF INTESTINE SNOMED Code(s): 805885371 (4) Migraine Current Visit: Yes Status: Acute Code(s): G43.909 - MIGRAINE, UNSP, NOT INTRACTABLE, WITHOUT STATUS MIGRAINOSUS SNOMED Code(s): 92410839 Plan: Assessment and Recommendations: Right Colonic Mass: Status Post Lap Right Colectomy - Await pathology for further rec - CEA not detecked - Imaging of chest with Xray, nodularity possible in middle lung, will further evaluate with CT. Iodine allergy and prep ordered Family history significant for Colon Cancer: - Will discuss further after pathology Microcytic Anemia: - Blood Loss Iron Deficiency anemia secondary to Colon Mass and recent post operative - Iron studies consisitent with blood loss, IV Ferrlicit ordered. OIf discharge planned prior can continue outpatient, discussed with surgery PA
[2020-06-05 12:41] LABS: African American GFR (CKD) 103.2 (60.0-200.0); Anion Gap 9.4 mmol/L (4.00-12.00); Carbon Dioxide 19.6 mmol/L (21.6-31.8); Potassium 3.5 mmol/L (3.5-5.5)
[2020-06-05 13:26] VITALS: BMI 37.8
[2020-06-05] MEDS: SODIUM FERRIC GLUCONAT-SUCROSE 125 MG in SODIUM CHLORIDE 0.9% 100 ML IVPB SCH (13:32)
--- NOTE | 2020-06-05 13:53 | P.PN ---
Subjective Progress Note Date: 06/05/20 Myra Ann is a 44-year-old female who's had progressive complaints of abdominal pain and nausea. Patient underwent upper and lower endoscopy by Dr. 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 She was referred to surgery but due to increasing p ain and nausea she went to the ED. Patient underwent CAT scan found have some free peritoneal air and fluid in the peritoneal cavity. 06/04/2020 status post endoscopic right colectomy, postop day #1. RA procedure well. Currently on clear liquid diet .Complains of tenderness, nausea. Denies emesis, denies passing flatus. Denies chest pain, palpitations or shortness of breath. Denies chest pain, palpitations or shortness of breath.VSS. Afebrile, normal WBC. Pulmonary blood cultures no growth at 24 hours. Hemoglobin 8.9, platelets 209, potassium 3.6, BUN 9, creatinine 0.8. 06/05/2020 Pathology pending. Complaints of nausea, pain. Hemoglobin decreased to 7.8, platelets 200. Potassium 3.5, BUN 8, creatinine 0.8. Afebrile. Iron deficient, receiving IV iron. Chest x-ray reporting right midlung nodularity, chest CT ordered. Objective - Vital Signs Vital signs: Vital Signs Temp 98.1 F 06/05/20 11:51 Pulse 85 06/05/20 11:51 Resp 16 06/05/20 11:51 BP 119/74 06/05/20 11:51 Pulse Ox 95 06/05/20 11:51 Intake & Output 06/04/20 06/05/20 06/05/20 18:59 06:59 18:59 Intake Total 120 Balance 120 Weight 96.8 kg Intake: Oral 120 Other: Voiding Method Toilet # Voids 1 1 - Labs CBC & Chem 7: 06/05/20 06:46 06/05/20 06:46 Labs: Abnormal Lab Results - Last 24 Hours (Table) 06/04/20 06/04/20 06/05/20 Range/Units 08:36 08:36 06:46 RBC 3.32 L (4.10-5.20) X 10*6/uL Hgb 7.8 L (12.0-15.0) g/dL Hct 26.2 L (37.2-46.3) % MCV 78.9 L (80.0-97.0) fL MCH 23.5 L (27.0-32.0) pg MCHC 29.8 L (32.0-37.0) g/dL RDW 16.0 H (11.5-14.5) % Absolute Nucleated RBC 0.02 H (0.00-0.00) X 10*3/uL Immature Gran # 0.05 H (0.00-0.04) X 10*3/uL NRBC/100 WBC Diff 0.2 H (0.0-0.0) /100 WBCS Retic Count 2.08 H (0.10-1.80) % Chloride (96-109) mmol/L Carbon Dioxide (21.6-31.8) mmol/L BUN (9.0-27.0) mg/dL BUN/Creatinine Ratio (12.00-20.00) Ratio Calcium (8.7-10.3) mg/dL Iron 12 L (50-170) ug/dL % Saturation 3.74 L (12.00-45.00) Vitamin B12 1029.0 H (200.0-944.0) pg/mL 06/05/20 Range/Units 06:46 RBC (4.10-5.20) X 10*6/uL Hgb (12.0-15.0) g/dL Hct (37.2-46.3) % MCV (80.0-97.0) fL MCH (27.0-32.0) pg MCHC (32.0-37.0) g/dL RDW (11.5-14.5) % Absolute Nucleated RBC (0.00-0.00) X 10*3/uL Immature Gran # (0.00-0.04) X 10*3/uL NRBC/100 WBC Diff (0.0-0.0) /100 WBCS Retic Count (0.10-1.80) % Chloride 114 H (96-109) mmol/L Carbon Dioxide 19.6 L (21.6-31.8) mmol/L BUN 8.0 L (9.0-27.0) mg/dL BUN/Creatinine Ratio 10.00 L (12.00-20.00) Ratio Calcium 8.0 L (8.7-10.3) mg/dL Iron (50-170) ug/dL % Saturation (12.00-45.00) Vitamin B12 (200.0-944.0) pg/mL Microbiology - Last 24 Hours (Table) 06/02/20 23:30 Blood Culture - Preliminary Blood No Growth after 48 hours 06/02/20 23:45 Blood Culture - Preliminary Blood No Growth after 48 hours Assessment and Plan Assessment: (1) Colonic mass status post laparoscopic right colectomy, pathology pending. Family history of Zvaala syndrome/ HNPCC. Current Visit: Yes Status: Acute Code(s): K63.89 - OTHER SPECIFIED DISEASES OF INTESTINE SNOMED Code(s): 885840294 (2) Free intraperitoneal air Current Visit: Yes Status: Acute Code(s): K66.8 - OTHER SPECIFIED DISORDERS OF PERITONEUM SNOMED Code(s): 30678264 (3) acute postop blood loss anemia, expected outcome . (4) Migraine Current Visit: Yes Status: Acute Code(s): G43.909 - MIGRAINE, UNSP, NOT INTRACTABLE, WITHOUT STATUS MIGRAINOSUS SNOMED Code(s): 47568516 (4) Major depression Current Visit: Yes Status: Acute Code(s): F32.9 - MAJOR DEPRESSIVE DISORDER, SINGLE EPISODE, UNSPECIFIED SNOMED Code(s): 183045717 Plan: Continue on current medication regime ,monitoring for symptomatic treatment. Diet advancement, pain management as per primary. Pathology pending. Increase ambulation as tolerated .Aggressive pulmonary toileting with incentive spirometer ordered. The impression and plan of care has been dictated as directed. : I performed a history and examination of this patient, discussed the same with the dictator. I agree with the dictator's note ,documented as a scribe. Any additional findings or plans will be noted.
--- NOTE | 2020-06-05 15:58 | P.PN ---
Progress Note - Text Progress Note Date: 06/05/20 The patient is resting in her bed. She has a very flat affect. She has some complaints of incisional pain. She has been very slow to move. On exam vital signs are stable. Abdomen soft. Laparoscopic incision sites are clean dry intact. I encouraged patient and bleed. If she is doing better she may be discharged home tomorrow.
[2020-06-05] MEDS ORDERED: predniSONE 50 MG TAB PO ONE (19:00)
[2020-06-06] MEDS: SODIUM CHLORIDE 0.9% 1,000 ML IV SCH ×3 (00:01→19:16)
[2020-06-06] MEDS: AMPICILLIN-SULBACTAM 3 GM in SODIUM CHLORIDE 0.9% 100 ML IVPB SCH ×3 (00:01→12:04)
[2020-06-06] MEDS: HYDROmorphone 1 MG/ML 1 ML SYRINGE IVP PRN ×5 (00:04→20:44)
[2020-06-06] MEDS ORDERED: predniSONE 50 MG TAB PO ONE ×2 (01:00→07:00)
[2020-06-06] MEDS ORDERED: diphenhydrAMINE 50 MG CAP PO ONE (07:00)
--- NOTE | 2020-06-06 08:24 | CT ---
EXAMINATION TYPE: CT chest w con DATE OF EXAM: 06/06/2020 COMPARISON: None HISTORY: Further evaulate nodularity in lung on cxr CT DLP: 367 mGycm Automated exposure control for dose reduction was used. TECHNIQUE: CT scan of the chest is performed with IV Contrast, patient injected with 100 ml mL of Isovue 300. M IP Images are created on CT scanner and reviewed. 3D reconstructed images are created on an [employer] workstation and reviewed. FINDINGS: There is a small focal area of consolidative density in the right lung base posteriorly and abutting the pleura. This could represent atelectasis or small pneumonic infiltrate. The left lung base there is mild thickening/nodularity of the pleura posterolaterally. The remainder the lungs are clear. There is no pleural effusion, pleural thickening or pneumothorax. The heart, pulmonary vasculature mediastinum and hilum appear normal. There is no mediastinal, hilar or axillary adenopathy. Limited scanning through the upper abdomen reveals mild fatty infiltration li ana m with no other significant abnormality seen. The osseous structures and soft tissues of the thorax are intact. IMPRESSION: 1. Small bandlike focal area of partially consolidative opacity in the right lung base posteriorly ab utting the pleural which could represent a focal pneumonia or atelectasis. 2. Mild focal nodularity of the pleura in the left lung base posterolaterally.
[2020-06-06] MEDS: SODIUM FERRIC GLUCONAT-SUCROSE 125 MG in SODIUM CHLORIDE 0.9% 100 ML IVPB SCH (09:31)
[2020-06-06] MEDS: HEPARIN SODIUM,PORCINE/PF 5,000 UNIT/0.5 ML SYRINGE SQ SCH ×2 (09:31→20:44)
[2020-06-06] MEDS: PANTOPRAZOLE 40 MG/10 ML VIAL IVP SCH (09:31)
[2020-06-06] MEDS: SERTRALINE 50 MG TAB PO SCH (09:32)
[2020-06-06] MEDS: TOPIRAMATE 100 MG TAB PO SCH ×2 (09:32→20:44)
[2020-06-06] MEDS ORDERED: FUROSEMIDE 10 MG/ML 2 ML VIAL IV ONE (13:50)
[2020-06-06] MEDS ORDERED: POTASSIUM CHLORIDE ER 20 MEQ TAB.ER PO STA (13:50)
--- NOTE | 2020-06-06 14:07 | P.PN ---
Progress Note - Text Progress Note Date: 06/06/20 Patient feels better today. She still has quite some incisional pain. On exam vital signs are stable. Abdomen soft. Status post right colectomy for presumed colon cancer. She'll have her diet advanced today.
[2020-06-06 15:55] LABS: HCT 28.3 % (34.0-46.0); HGB 8.8 gm/dL (11.4-16.0); Hypochromasia Marked; MCH 23.1 pg (25.0-35.0); MCV 74.7 fL (80.0-100.0); Mean Platelet Volume 7.6; Microcytosis Slight; Platelet Count 218 k/uL (150-450); Poikilocytosis Slight; RBC 3.79 m/uL (3.80-5.40); RDW 15.8 % (11.5-15.5); WBC 9.4 k/uL (3.8-10.6)
--- NOTE | 2020-06-06 16:03 | PN ---
PROGRESS NOTE DATE OF SERVICE: 06/06/2020 I am covering for Dr. Dasilva. This 44-year-old woman who was admitted with colonic mass, underwent laparoscopic right colectomy. The patient's pathology is pending. Patient closely monitored at this time. The patient also had a chest CT scan yesterday which showed some partially consolidated opacity in the right lung base posteriorly, possibly focal pneumonia. Mild focal nodularity was also noted. REVIEW OF SYSTEMS: CARDIOVASCULAR SYSTEM: No angina. RESPIRATORY: As mentioned earlier. GI: As mentioned earlier. : No dysuria. NERVOUS SYSTEM: No numbness or weakness. CURRENT MEDICATIONS: Reviewed include Xanax. Unasyn, IV heparin, KCl. Doses reviewed. PHYSICAL EXAMINATION: Alert and oriented x3. The pulse is 62, blood pressure 130/76, respiration 18, temperature 98.2, pulse ox 98% on room air. HEENT: Conjunctivae normal. Oral mucosa moist. NECK: No jugular venous distention. No lymph node enlargement. CARDIOVASCULAR: S1, S2, muffled. No S3, no S4, RESPIRATORY: Diminished breath sounds at the bases. A few scattered rhonchi. ABDOMEN: Soft, status post surgery. LEGS: No edema, no swelling. NERVOUS SYSTEM: No focal deficits. LABS: WBC 8.5, hemoglobin 7.8. ASSESSMENT: 1. Colonic mass status post laparoscopic right colectomy, awaiting biopsy report. 2. Possible focal pneumonia. 3. Anemia, microcytic. 4. History of gastroesophageal reflux disease. 5. History of degenerative joint disease. 6. History of migraine. 7. History of cholecystectomy. 8. History of anxiety, bipolar, depression, panic disorder. 9. Obesity with body mass 37.8. 10.FULL CODE. RECOMMENDATIONS AND DISCUSSION: In this 44-year-old woman who presented with multiple medical issues, we will monitor the patient closely. I recommend to reduce IV fluids to 50 mL/hour and will change the antibiotics Zosyn and continue the rest of medications. Incentive spirometry. I would also recommend a short course of bronchodilators as well. Otherwise, Lasix 20 mg. Repeat labs tomorrow. Further recommendations to follow. MMODL / IJN: [id number] /
[2020-06-06] MEDS: PIPERACILLIN-TAZOBACTAM 3.375 GM in SODIUM CHLORIDE 0.9% 100 ML IVPB SCH (16:16)
[2020-06-06 16:41] LABS: Lymphocytes # (M) 1.13 k/uL (1.0-4.8); Monocytes # (M) 0.09 k/uL (0-1.0); Neutrophils # (M) 8.18 k/uL (1.3-7.7); Neutrophils % (M) 87 %; Nucleated Red Blood Cells 0 /100 WBC (0-0); Polychromasia Present; Total Cells Counted 100
[2020-06-06] MEDS: ALBUTEROL NEBULIZED 2.5 MG/3 ML INHALATION SCH (20:05)
[2020-06-07] MEDS: HYDROmorphone 1 MG/ML 1 ML SYRINGE IVP PRN ×3 (00:31→20:28)
[2020-06-07] MEDS: SODIUM CHLORIDE 0.9% 1,000 ML IV SCH (00:31)
[2020-06-07] MEDS: PIPERACILLIN-TAZOBACTAM 3.375 GM in SODIUM CHLORIDE 0.9% 100 ML IVPB SCH ×3 (00:31→17:03)
[2020-06-07] MEDS: ALBUTEROL NEBULIZED 2.5 MG/3 ML INHALATION SCH ×3 (07:39→20:45)
[2020-06-07] MEDS: SODIUM FERRIC GLUCONAT-SUCROSE 125 MG in SODIUM CHLORIDE 0.9% 100 ML IVPB SCH ×2 (08:40→10:48)
[2020-06-07] MEDS: SERTRALINE 50 MG TAB PO SCH (08:42)
[2020-06-07] MEDS: PANTOPRAZOLE 40 MG/10 ML VIAL IVP SCH (08:42)
[2020-06-07] MEDS: HEPARIN SODIUM,PORCINE/PF 5,000 UNIT/0.5 ML SYRINGE SQ SCH ×2 (08:42→20:28)
[2020-06-07] MEDS: TOPIRAMATE 100 MG TAB PO SCH ×2 (08:42→20:28)
[2020-06-07 09:42] LABS: Acanthocytes 2+; Basophils # (A) 0.02 X 10*3/uL (0.00-0.10); Basophils % (A) 0.2 %; Eosinophils # (A) 0.02 X 10*3/uL (0.04-0.35); Eosinophils % (A) 0.2 %; HGB 7.4 g/dL (12.0-15.0); Lymphocytes # (A) 1.29 X 10*3/uL (0.90-5.00); Lymphocytes % (A) 15.3 %; MCH 23.6 pg (27.0-32.0); MCHC 29.6 g/dL (32.0-37.0); MCV 79.6 fL (80.0-97.0); Mean Platelet Volume 12.1 fL (9.5-12.2); Microcytosis (M) 2+; Monocytes # (A) 0.43 X 10*3/uL (0.20-1.00); Monocytes % (A) 5.1 %; Neutrophils # (A) 6.52 X 10*3/uL (1.80-7.70); Neutrophils % (A) 77.2 %; Platelet Count 147 X 10*3/uL (140-440); RBC 3.14 X 10*6/uL (4.10-5.20); RDW 16.5 % (11.5-14.5); WBC 8.45 X 10*3/uL (4.50-10.00)
--- NOTE | 2020-06-07 09:50 | P.DS ---
Providers Date of admission: 06/02/20 22:30 Expected date of discharge: 06/07/20 Attending physician: David Tran Consults: 06/02/20 23:10 Consult Physician Routine Consulting Provider: August Zepeda Consult Reason/Comments: free intra-abdominal air Do you want consulting provider notified?: Yes 06/03/20 08:05 Consult Physician Routine Consulting Provider: Carlos Eduardo Dasilva Consult Reason/Comments: Medical management Do you want consulting provider notified?: Yes 06/04/20 09:36 Consult Physician Routine Consulting Provider: Bart Salas Consult Reason/Comments: colonic tumor,s/p colectomy, family hx ? HNP syndrome Do you want consulting provider notified?: Yes Primary care physician: Mireya Dasilva [facility] Course: This is a 44-year-old female who was admitted to the hospital for abdominal pain. Patient's workup found have a right colon mass. Patient underwent laparoscopic right colectomy. Please see chart for details. Procedures: Laparoscopic right colectomy Patient Condition at Discharge: Good Plan - Discharge Summary Discharge Rx Participant: No New Discharge Prescriptions: New Ibuprofen [Motrin] 600 mg PO Q6HR PRN #40 tab PRN Reason: Pain oxyCODONE HCL [OxyIR] 5 mg PO Q6H PRN 3 Days #10 tab PRN Reason: Pain Docusate [Colace] 100 mg PO BID #20 capsule Acetaminophen Tab [Tylenol] 650 mg PO Q6H #30 tab No Action Sertraline [Zoloft] 150 mg PO DAILY Topiramate [Topamax] 100 mg PO BID Cariprazine HCl [Vraylar] 3 mg PO DAILY Cetirizine HCl [Zyrtec] 10 mg PO DAILY PRN PRN Reason: Allergy Symptoms ALPRAZolam [Xanax] 0.25 mg PO BID PRN PRN Reason: Anxiety SUMAtriptan SUCCINATE [Imitrex] 100 mg PO DAILY PRN PRN Reason: Migraine Headache Dicyclomine [Bentyl] 10 mg PO TID PRN PRN Reason: ABDOMINAL PAIN Ondansetron Odt [Zofran Odt] 4 mg PO DAILY PRN PRN Reason: Nausea Discharge Medication List Sertraline [Zoloft] 150 mg PO DAILY 02/03/17 [History] Cariprazine HCl [Vraylar] 3 mg PO DAILY 05/22/19 [History] Topiramate [Topamax] 100 mg PO BID 05/22/19 [History] ALPRAZolam [Xanax] 0.25 mg PO BID PRN 05/05/20 [History] Cetirizine HCl [Zyrtec] 10 mg PO DAILY PRN 05/05/20 [History] SUMAtriptan SUCCINATE [Imitrex] 100 mg PO DAILY PRN 05/05/20 [History] Dicyclomine [Bentyl] 10 mg PO TID PRN 05/28/20 [History] Ondansetron Odt [Zofran Odt] 4 mg PO DAILY PRN 06/02/20 [History] Acetaminophen Tab [Tylenol] 650 mg PO Q6H #30 tab 06/07/20 [Rx] Docusate [Colace] 100 mg PO BID #20 capsule 06/07/20 [Rx] Ibuprofen [Motrin] 600 mg PO Q6HR PRN #40 tab 06/07/20 [Rx] oxyCODONE HCL [OxyIR] 5 mg PO Q6H PRN 3 Days #10 tab 06/07/20 [Rx] Follow up Appointment(s)/Referral(s): Mireya Dasilva DO [Primary Care Provider] - 1-2 days David Tran MD [STAFF PHYSICIAN] - 1 Week Patient Instructions/Handouts: Full Liquid Diet (DC), Full Liquid Diet (GEN) Discharge Disposition: HOME SELF-CARE
[2020-06-07 11:31] LABS: African American GFR (CKD) 78.8 (60.0-200.0); Anion Gap 11.4 mmol/L (4.00-12.00); Calcium 8.5 mg/dL (8.7-10.3); Carbon Dioxide 16.6 mmol/L (21.6-31.8); Potassium 3.5 mmol/L (3.5-5.5)
--- NOTE | 2020-06-07 17:11 | PN ---
PROGRESS NOTE DATE OF SERVICE: 06/07/2020 I am covering for Dr. Dasilva. This 44-year-old woman was admitted with chronic mass underwent laparoscopic right the patient had possibly pneumonia also. The patient is on IV antibiotics. Patient complains of tiredness. No chest pain. No palpitations. No fever. PHYSICAL EXAMINATION: Alert and oriented x3. Pulse is 74. Blood pressure 111/60, respirations 16, temperature 97.2, pulse ox 96% on room air. HEENT: Conjunctivae normal. NECK: No JVD. CARDIOVASCULAR: S1, S2 muffled. RESPIRATORY SYSTEM: Breath sounds diminished at the bases. No rhonchi. No crackles. ABDOMEN: Soft status post surgery. NERVOUS SYSTEM: No focal deficits. LABS: Hemoglobin 7.4 and calcium is 8.5. ASSESSMENT: 1. Colonic mass status post laparoscopic right colectomy. Awaiting biopsy report. 2. Possible focal pneumonia. 3. Anemia, microcytic. 4. History of gastroesophageal reflux disease. 5. Degenerative joint disease. 6. History of migraine. 7. History of cholecystectomy. 8. History of anxiety, bipolar depression, panic disorder. 9. Obesity body mass index of 37.8. 10.FULL CODE. RECOMMENDATIONS AND DISCUSSION: I recommend to continue current medications, management and symptomatic treatment. Otherwise, at this time, I recommend continue with IV antibiotics. Closely follow with surgery and Dr. Dasilva will follow tomorrow. MMODL / IJN: [id number] / MTDD
[2020-06-08] MEDS: HYDROmorphone 1 MG/ML 1 ML SYRINGE IVP PRN (00:55)
[2020-06-08] MEDS: PIPERACILLIN-TAZOBACTAM 3.375 GM in SODIUM CHLORIDE 0.9% 100 ML IVPB SCH ×2 (00:55→09:26)
[2020-06-08] MEDS: ALBUTEROL NEBULIZED 2.5 MG/3 ML INHALATION SCH ×2 (07:01→12:41)
[2020-06-08 07:04] VITALS: RESP 16
[2020-06-08 07:28] VITALS: BP 112/72; PULSE 65; TEMP 97.8
[2020-06-08] MEDS: SODIUM FERRIC GLUCONAT-SUCROSE 125 MG in SODIUM CHLORIDE 0.9% 100 ML IVPB SCH (09:26)
[2020-06-08] MEDS: SERTRALINE 50 MG TAB PO SCH (09:27)
[2020-06-08] MEDS: PANTOPRAZOLE 40 MG/10 ML VIAL IVP SCH (09:27)
[2020-06-08] MEDS: TOPIRAMATE 100 MG TAB PO SCH (09:27)
[2020-06-08] MEDS: HEPARIN SODIUM,PORCINE/PF 5,000 UNIT/0.5 ML SYRINGE SQ SCH (09:27)
[2020-06-08] MEDS: SODIUM CHLORIDE 0.9% 1,000 ML IV SCH (09:28)
[2020-06-08] MEDS ORDERED: HYDROcodone/APAP 5-325MG 1 EACH TAB PO STA (10:23)
--- NOTE | 2020-06-08 14:14 | P.PN ---
Subjective Progress Note Date: 06/08/20 Principal diagnosis: Status post colectomy, findings suggestive of malignancy In follow-up today patient is doing well after surgery. No unusual tenderness or swelling in the abdomen, minimal bruising. She is passing gas, she states that she has had a bowel movement. She denied any hematochezia or melena. No fevers, nausea or dysuria. Objective - Vital Signs Vital signs: Vital Signs Temp 97.8 F 06/08/20 07:26 Pulse 65 06/08/20 07:26 Resp 16 06/08/20 11:57 BP 112/72 06/08/20 07:26 Pulse Ox 98 06/08/20 07:26 Intake & Output 06/07/20 06/08/20 06/08/20 18:59 06:59 18:59 Intake Total 200 320 Balance 200 320 Weight 96.8 kg Intake: Intake, IV Titration 200 Amount Piperacillin-Tazobactam 3 100 .375 gm In Sodium Chloride 0.9% 100 ml @ 25 mls/hr IVPB Q8HR [facility] Rx# :[id number] Sodium Ferric Gluconat- 100 Sucrose 125 mg In Sodium Chloride 0.9% 100 ml @ 100 mls/hr IVPB DAILY [facility] Rx#:[id number] Oral 320 Other: Voiding Method Toilet Toilet Toilet - Constitutional General appearance: Present: cooperative, no acute distress, obese - EENT Eyes: Present: anicteric sclerae, edentulous ENT: Present: hearing grossly normal, normal oropharynx - Respiratory Respiratory: bilateral: CTA - Cardiovascular Rhythm: regular Heart sounds: normal: S1, S2 Abnormal Heart Sounds: Absent: systolic murmur, diastolic murmur, rub, S3 Gal lop, S4 Gallop, click, other - Peripheral edema leg Peripheral Edema: bilateral: Trace - Gastrointestinal Gastrointestinal Comment(s): Laparoscopic incisions are scabbed over, minimal bruising, no drainage. Mild abdominal distention, no unusual pain with palpation. Bowel sounds are heard General gastrointestinal: Present: distended (Slight) - Integumentary Integumentary: Present: normal - Neurologic Neurologic: Present: CNII-XII intact - Musculoskeletal Musculoskeletal: Present: strength equal bilaterally - Psychiatric Psychiatric: Present: A&O x's 3, appropriate affect, intact judgment & insight - Labs CBC & Chem 7: 06/07/20 06:22 04/04/21 06:22 Labs: Microbiology - Last 24 Hours (Table) 06/02/20 23:30 Blood Culture - Preliminary Blood No Growth after 120 hours 06/02/20 23:45 Blood Culture - Preliminary Blood No Growth after 120 hours - Imaging and Cardiology CT scan - abdomen: report reviewed CT scan - chest: report reviewed CT scan - pelvis: report reviewed Assessment and Plan (1) Microcytic hypochromic anemia Narrative/Plan: Most likely secondary to blood loss from colonic mass. Patient is status post surgery. 4 of 5 parenteral iron infusions administered. Parenteral iron can be continued in the outpatient setting. Current Visit: Yes Status: Acute Priority: High Code(s): D50.9 - IRON DEFICIENCY ANEMIA, UNSPECIFIED SNOMED Code(s): 05917676 (2) Colonic mass Narrative/Plan: CTCAP reviewed. Does not appear to show metastatic disease. Explained to patient and her that pathology will be reviewed and that will determine if there is a need for adjuvant treatment to reduce the risk of recurrence. They verbalized understanding. Also, explained that any treatment, if necess isamar, would not be able to begin for about 4-5 weeks after surgery to allow for adequate healing. All questions answered to the best of my ability. Plan is to follow up with Dr. Pate about 3-4 weeks for results, labs and plan of care. Current Visit: Yes Status: Acute Priority: High Code(s): K63.89 - OTHER SPECIFIED DISEASES OF INTESTINE SNOMED Code(s): 982496204
[2020-06-08 16:26] LABS: HCT 26.3 % (37.2-46.3); HGB 7.6 g/dL (12.0-15.0); MCH 23.2 pg (27.0-32.0); MCHC 28.9 g/dL (32.0-37.0); MCV 80.2 fL (80.0-97.0); Mean Platelet Volume 11.5 fL (9.5-12.2); Platelet Count 214 X 10*3/uL (140-440); RBC 3.28 X 10*6/uL (4.10-5.20); RDW 16.8 % (11.5-14.5); WBC 6.76 X 10*3/uL (4.50-10.00)
[2020-06-08 16:27] LABS: Basophils # (M) 0.07 X 10*3/uL (0.00-0.10); Hypochromasia (M) 2+; Lymphocytes # (M) 1.35 X 10*3/uL (0.90-5.00); Metamyelocytes % 1 % (0-0); Myelocytes % 2 % (0-0); Neutrophils # (M) 4.73 X 10*3/uL (2.00-8.90); Neutrophils % (M) 70 %; Polychromasia 2+
--- NOTE | 2020-06-10 12:39 | CDI ---
Documentation Clarification Form Date: 06/10/20 From: Nicole Jolly Phone: Admit Date: 06/02/2020 10:30:00 PM Patient Name: Myra Ann Visit Number: [id number] Discharge Date: 06/08/2020 02:30:00 PM ATTENTION: The Clinical Documentation Specialists (CDI) and [facility] Coding Staff appreciate your assistance in clarifying documentation. Please respond to the clarification below the line at the bottom and electronically sign. The CDI & [facility] Coding staff will review the response and follow-up if needed. Please note: Queries are made part of the Legal Health Record. If you have any questions, please contact the author of this message via ITS. Dr. David Tran, The final diagnosis of the pathology report states RIGHT COLON AND APPENDIX, RIGHT HEMICOLECTOMY WITH APPENDECTOMY: Invasive moderately differentiated colonic adenocarcinoma (see Surgical Pathology Cancer Case Summary and comment). All margins viable and negative for malignancy. Fifteen pericolonic lymph nodes, all negative for metastatic carcinoma (0/15) Appendix with rare acute mucosal appendicitis, negative for appendiceal malignancy. Coding guidelines do not allow coding professionals to code based on pathology results; therefore, clarification is requested. History/risk factors: acute on chronic blood loss anemia, gastritis, GERD, hiatal hernia Clinical Indicators: Right colon mass Treatment: Laparoscopic right colectomy Please clarify if you agree with the pathology report diagnosis of right colon invasive moderately differentiated adenocarcinoma with no mets : [ ] Yes [ ] No [ ] Other (please specify) [ ] Unable to determine I agree MTDD
== END 2020-06-08 14:30 | disposition home health service (06) | DRG 330 ==
LOC: EC 17:53 → 6PED 22:30 → OBSVTOIN 22:30 → 6PED 06-03 01:17 → 4SSUR 06-03 17:12
PROVIDERS: ADMIT Surgery; ATTEND Surgery
PROC: 0DTF4ZZ Resection of Right Large Intestine, Percutaneous Endoscopic Approach (ICD-10-PCS; principal; 2020-06-03 07:30)
DX: C18.2 Malignant neoplasm of ascending colon (principal); F31.30 Bipolar disorder, current episode depressed, mild or moderate severity, unspecified; D62 Acute posthemorrhagic anemia; Z20.822 Contact with and (suspected) exposure to COVID-19; G43.909 Migraine, unspecified, not intractable, without status migrainosus; K29.70 Gastritis, unspecified, without bleeding; K21.9 Gastro-esophageal reflux disease without esophagitis; K44.9 Diaphragmatic hernia without obstruction or gangrene; F41.0 Panic disorder [episodic paroxysmal anxiety]; M19.90 Unspecified osteoarthritis, unspecified site; E66.9 Obesity, unspecified; Z68.37 Body mass index [BMI] 37.0-37.9, adult; Z79.899 Other long term (current) drug therapy; Z90.710 Acquired absence of both cervix and uterus; Z90.49 Acquired absence of other specified parts of digestive tract; Z87.19 Personal history of other diseases of the digestive system; Z87.42 Personal history of other diseases of the female genital tract; Z71.3 Dietary counseling and surveillance; Z87.440 Personal history of urinary (tract) infections; Z87.442 Personal history of urinary calculi; Z98.890 Other specified postprocedural states; Z91.041 Radiographic dye allergy status; Z80.0 Family history of malignant neoplasm of digestive organs
CPT/HCPCS: 36415; 71046; 71260; 74176; 80048; 80053; 81001; 82150; 82378; 82607; 82728; 82746; 83540; 83550; 83615; 83690; 83735; 85025; 85045; 86850; 86900; 86901; 87040; 87635; 88309; 94640; 94760; 96361; 96374; 96375; 99285

== ENCOUNTER → 2020-07-18 | Outpatient (CLI) | payer OTHER ==
--- NOTE | 2020-07-21 06:35 | PE ---
EXAMINATION TYPE: PET CT fusion skull to thigh DATE OF EXAM: 07/18/2020 COMPARISON: Chest CT June 06, 2020. CT abdomen and pelvis June 02, 2020 HISTORY: Newly diagnosed colorectal cancer on biopsy June 03 TECHNIQUE: Following the intravenous administration of 12.84 mCi of F-18 FDG, whole body images are performed from the skull base to the midthigh. Images are reviewed on the computer in the coronal, a xial, and sagittal planes. Reconstructed rotating images are created on independent workstation and reviewed on the computer. A localization and attenuation correction CT is performed in conjunction with the PET scan. Blood glucose level equals 102 SCAN: Initial Scan FINDINGS: SKULL BASE AND NECK: No areas of abnormal hypermetabolic uptake. CHEST, MEDIASTINUM, AND HILAR REGION: Prominent but subcentimeter hypermetabolic lymph nodes right ax illa, max SUV is 3.56. Findings new from recent chest CT. Lymph nodes favored postinflammatory in brenda ology. No additional areas of abnormal hypermetabolic uptake. ABDOMEN AND PELVIS: Normal Excretion. Surgical changes from partial right-sided hemicolectomy and bow el anastomosis. No areas of abnormal hypermetabolic uptake. OSSEOUS STRUCTURES: No areas of abnormal hypermetabolic uptake. OTHER CT: Cholecystectomy clips. Uterus surgically absent. Left-sided pelvic phleboliths. IMPRESSION: Postsurgical changes identified. Hypermetabolic prominent right axillary lymph nodes favo r postinflammatory. Consider short-term follow-up. Correlate with recent covid vaccine administration . No convincing evidence of residual or metastatic disease.
== END | disposition home or self-care (01) ==
LOC: RADPETMAIN 07:28
PROVIDERS: ATTEND Family Medicine
DX: C18.8 Malignant neoplasm of overlapping sites of colon (principal)
CPT/HCPCS: 78815; A9552

== ENCOUNTER → 2021-01-25 | Outpatient (CLI) | payer OTHER ==
--- NOTE | 2021-01-26 12:43 | MM ---
Reason for exam: screening (asymptomatic). Last mammogram was performed 1 year and 1 month ago. History: Patient had first child at age 31. Family history of breast cancer in maternal aunt at age 40. Benign US breast aspiration single LT of the left breast, September 24, 2015. Took hormonal contraceptives for 5 months. Physical Findings: A clinical breast exam by your physician is recommended on an annual basis and results should be correlated with mammographic findings. MG Screening Mammo w CAD Bilateral CC and MLO view(s) were taken. Prior study comparison: January 06, 2020, bilateral MG screening mammo w CAD. November 29, 2018, bilateral MG screening mammo w CAD. The breast tissue is heterogeneously dense. This may lower the sensitivity of mammography. Previous mammotome biopsy in the left breast. There is chronic nodularity bilaterally. No significant changes when compared with prior studies. ASSESSMENT: Benign, BI-RAD 2 RECOMMENDATION: Routine screening mammogram of both breasts in 1 year.
== END | disposition home or self-care (01) ==
LOC: RADMAMWWP 15:04
PROVIDERS: ATTEND Family Medicine
DX: Z12.31 Encounter for screening mammogram for malignant neoplasm of breast (principal); Z80.3 Family history of malignant neoplasm of breast
CPT/HCPCS: 77067

== ENCOUNTER 2021-03-15 15:04 | Observation (INO) | payer OTHER ==
--- NOTE | 2021-03-15 15:48 | ED ---
General Adult HPI - General Source: patient, RN notes reviewed Mode of arrival: ambulatory Limitations: no limitations <Taco Peterson - Last Filed: 03/15/21 15:47> <Alex Schreiber - Last Filed: 03/15/21 19:01> - General Stated complaint: Heavy Chest/Fluttering - History of Present Illness Initial comments: 45-year-old female presents emergency Department with chief complaint of palpitations, chest heaviness. Patient states started last 2-3 days. Patient states that she's had no prior cardiac disease she does have extensive family history. Disease. Patient states that chest fluttering is not as noticeable today but increasing chest pressure feels excellent statement. Patient has a likely leg swelling. No prior myocardial infarction or cardiac stent. Patient denies hypertension hyperlipidemia diabetes. (Taco Peterson) This 45-year-old female presents with chief complaint of palpitations. She relates to me that this has been present for 3 days. She does relate occasional chest heaviness. She denies any previous cardiac history. She does state that her mother had a unknown cardiac event in her 30s but there is otherwise no premature myocardial infarction noted. Patient is a nonsmoker. She denies any leg pain or swelling to me which is in contrast to above-noted. She denies any history of DVT or PE. There's been no shortness of breath cough or fever. No other complaints or modifying factors. (Alex Schreiber) - Related Data Home Medications Medication Instructions Recorded Confirmed Sertraline [Zoloft] 150 mg PO DAILY 02/03/17 06/02/20 Cariprazine HCl [Vraylar] 3 mg PO DAILY 05/22/19 06/02/20 Topiramate [Topamax] 100 mg PO BID 05/22/19 06/02/20 ALPRAZolam [Xanax] 0.25 mg PO BID PRN 05/05/20 06/02/20 Cetirizine HCl [Zyrtec] 10 mg PO DAILY PRN 05/05/20 06/02/20 SUMAtriptan SUCCINATE [Imitrex] 100 mg PO DAILY PRN 05/05/20 06/02/20 Dicyclomine [Bentyl] 10 mg PO TID PRN 05/28/20 06/02/20 Ondansetron Odt [Zofran Odt] 4 mg PO DAILY PRN 06/02/20 06/02/20 Previous Rx's Medication Instructions Recorded Acetaminophen Tab [Tylenol] 650 mg PO Q6H #30 tab 06/07/20 Amoxicillin/Potassium Clav 1 tab PO Q12HR 4 Days #8 tab 06/07/20 [Augmentin 875-125 Tablet] Docusate [Colace] 100 mg PO BID #20 capsule 06/07/20 Ibuprofen [Motrin] 600 mg PO Q6HR PRN #40 tab 06/07/20 oxyCODONE HCL [OxyIR] 5 mg PO Q6H PRN 3 Days #10 tab 06/07/20 Allergies Allergy/AdvReac Type Severity Reaction Status Date / Time Iodinated Contrast Media Allergy Dyspnea Verified 03/15/21 15:46 [Iodinated Contrast- Oral and IV Dye] Review of Systems ROS Other: All systems not noted in ROS Statement are negative. <Taco Peterson - Last Filed: 03/15/21 15:47> ROS Other: All systems not noted in ROS Statement are negative. <Alex Schreiber - Last Filed: 03/15/21 19:01> ROS Statement: Those systems with pertinent positive or pertinent negative responses have been documented in the HPI. Past Medical History Past Medical History: GERD/Reflux, Osteoarthritis (OA) Additional Past Medical History / Comment(s): Endometrosis, migraines, kidney stones, UTI. History of Any Multi-Drug Resistant Organisms: None Reported Past Surgical History: Cholecystectomy, Hysterectomy Additional Past Surgical History / Comment(s): Laparoscopy x 2 Past Anesthesia/Blood Transfusion Reactions: No Reported Reaction Past Psychological History: Anxiety, Bipolar, Depression, Panic Disorder Smoking Status: Never smoker Past Alcohol Use History: Rare Past Drug Use History: None Reported - Past Family History Sister(s) Family Medical History: Cancer Additional Family Medical History / Comment(s): Colon cancer Father Family Medical History: Cancer Additional Family Medical History / Comment(s): Colon cancer Mother Additional Family Medical History / Comment(s): "Heart problems". <Taco Peterson - Last Filed: 03/15/21 15:47> General Exam <Alex Schreiber - Last Filed: 03/15/21 19:01> - General Exam Comments Initial Comments: GENERAL: The patient is well nourished and well hydrated. VITAL SIGNS: Heart rate, blood pressure, respiratory rate reviewed as recorded in nurse's notes. EYES: Pupils are round and reactive. Extraocular movements are intact. No conjunctival / lid redness or swelling. ENT: No external evidence of injury, swelling, or ecchymosis. Airway is patent. Throat is clear. NECK: Nontender. No swelling or evidence of injury. No subcutaneous emphysema. Trachea is midline. No thyroid mass. HEART: Regular rate and rhythm. Good peripheral pulses. LUNGS/CHEST: Breath sounds clear and equal bilaterally. No rales, rhonchi, or wheezes. No ecchymosis, subcutaneous emphysema, or tenderness. ABDOMEN: Abdomen soft without tenderness. No palpable masses or organomegaly. No peritoneal signs. No abdominal wall swelling or ecchymosis. EXTREMITIES: No extremity tenderness. Normal muscle tone and function. No thoracolumbar tenderness. No leg swelling noted. NEUROLOGIC: Sensation is grossly intact. Cranial nerve exam reveals face is symmetrical, tongue is midline, speech is clear. SKIN: No abrasions or ecchymosis is noted. No induration or masses noted. PSYCHIATRIC: Alert and oriented. Appropriate behavior and judgment. (Alex Schreiber) Course Vital Signs 03/15/21 15:46 Temperature 98.2 F Pulse Rate 74 Respiratory 20 Rate Blood Pressure 141/76 O2 Sat by Pulse 99 Oximetry Medical Decision Making - Lab Data Result diagrams: 03/15/21 17:08 03/15/21 17:08 <Alex Schreiber - Last Filed: 03/15/21 19:01> - Medical Decision Making The patient was seen and examined. All diagnostics were reviewed. The EKG shows a normal sinus rhythm without any evidence of ST elevation. There is normal IL, QTC, and QRS intervals. The chest x-ray does not show any acute processes. The laboratory including a troponin is essentially within normal limits. Patient is in no significant distress on recheck. The exact cause of her symptomatology is not definitively determined. This felt as though she would require further outpatient testing and likely would benefit from a stress test and Holter monitor and possible echocardiogram. Discussion was held in regards to admission versus discharge and patient prefer outpatient treatment at this time. She is instructed to utilize an aspirin daily and return if symptoms do worsen. She'll be given cardiology follow-up information as well. Return parameters are discussed. Close follow-up recommended. (Alex Schreiber) - Lab Data Lab Results 03/15/21 03/15/21 03/15/21 Range/Units 17:08 17:08 17:08 WBC 5.8 (3.8-10.6) k/uL RBC 4.72 (3.80-5.40) m/uL Hgb 12.5 (11.4-16.0) gm/dL Hct 38.9 (34.0-46.0) % MCV 82.4 (80.0-100.0) fL MCH 26.5 (25.0-35.0) pg MCHC 32.2 (31.0-37.0) g/dL RDW 15.0 (11.5-15.5) % Plt Count 232 (150-450) k/uL MPV 7.2 Neutrophils % 66 % Lymphocytes % 26 % Monocytes % 5 % Eosinophils % 1 % Basophils % 0 % Neutrophils # 3.9 (1.3-7.7) k/uL Lymphocytes # 1.5 (1.0-4.8) k/uL Monocytes # 0.3 (0-1.0) k/uL Eosinophils # 0.1 (0-0.7) k/uL Basophils # 0.0 (0-0.2) k/uL PT 9.7 (9.0-12.0) sec INR 0.9 (<1.2) APTT 22.2 (22.0-30.0) sec Sodium 142 (137-145) mmol/L Potassium 3.9 (3.5-5.1) mmol/L Chloride 110 H (98-107) mmol/L Carbon Dioxide 22 (22-30) mmol/L Anion Gap 10 mmol/L BUN 16 (7-17) mg/dL Creatinine 1.10 H (0.52-1.04) mg/dL Est GFR (CKD-EPI)AfAm 70 (>60 ml/min/1.73 sqM) Est GFR (CKD-EPI)NonAf 60 (>60 ml/min/1.73 sqM) Glucose 90 (74-99) mg/dL Calcium 9.4 (8.4-10.2) mg/dL Magnesium 2.2 (1.6-2.3) mg/dL Total Bilirubin 0.3 (0.2-1.3) mg/dL AST 21 (14-36) U/L ALT 33 (4-34) U/L Alkaline Phosphatase 92 (38-126) U/L Troponin I (0.000-0.034) ng/mL NT-Pro-B Natriuret Pep pg/mL Total Protein 7.4 (6.3-8.2) g/dL Albumin 4.3 (3.5-5.0) g/dL 03/15/21 03/15/21 Range/Units 17:08 17:08 WBC (3.8-10.6) k/uL RBC (3.80-5.40) m/uL Hgb (11.4-16.0) gm/dL Hct (34.0-46.0) % MCV (80.0-100.0) fL MCH (25.0-35.0) pg MCHC (31.0-37.0) g/dL RDW (11.5-15.5) % Plt Count (150-450) k/uL MPV Neutrophils % % Lymphocytes % % Monocytes % % Eosinophils % % Basophils % % Neutrophils # (1.3-7.7) k/uL Lymphocytes # (1.0-4.8) k/uL Monocytes # (0-1.0) k/uL Eosinophils # (0-0.7) k/uL Basophils # (0-0.2) k/uL PT (9.0-12.0) sec INR (<1.2) APTT (22.0-30.0) sec Sodium (137-145) mmol/L Potassium (3.5-5.1) mmol/L Chloride (98-107) mmol/L Carbon Dioxide (22-30) mmol/L Anion Gap mmol/L BUN (7-17) mg/dL Creatinine (0.52-1.04) mg/dL Est GFR (CKD-EPI)AfAm (>60 ml/min/1.73 sqM) Est GFR (CKD-EPI)NonAf (>60 ml/min/1.73 sqM) Glucose (74-99) mg/dL Calcium (8.4-10.2) mg/dL Magnesium (1.6-2.3) mg/dL Total Bilirubin (0.2-1.3) mg/dL AST (14-36) U/L ALT (4-34) U/L Alkaline Phosphatase (38-126) U/L Troponin I <0.012 (0.000-0.034) ng/mL NT-Pro-B Natriuret Pep 69 pg/mL Total Protein (6.3-8.2) g/dL Albumin (3.5-5.0) g/dL Disposition <Taco Peterson - Last Filed: 03/15/21 15:47> Is patient prescribed a controlled substance at d/c from ED?: No Time of Disposition: 18:59 <Alex Schreiber - Last Filed: 03/15/21 19:01> Clinical Impression: Palpitations, Chest pain Disposition: HOME SELF-CARE Condition: Good Instructions (If sedation given, give patient instructions): Heart Palpitations (ED), Chest Pain (ED) Additional Instructions: Please take an aspirin daily. Please follow-up with the candy catcher or primary care as you will likely need a stress test as well has a Holter monitor. Please return to the emergency department if her symptoms worsen. Referrals: Mireya Dasilva DO [Primary Care Provider] - 1-2 days Jeanne Salcedo MD [STAFF PHYSICIAN] - 1-2 days
--- NOTE | 2021-03-15 16:26 | XR ---
EXAMINATION TYPE: XR chest 2V DATE OF EXAM: 03/15/2021 COMPARISON: Chest x-ray June 05, 2020. Chest CT June 06, 2020. HISTORY: Chest pain and pressure along with dysrhythmia. TECHNIQUE: Frontal and lateral views of the chest are obtained. FINDINGS: There is no suspicious new focal air space opacity, pleural effusion, or pneumothorax seen . The cardiac silhouette size remains upper limits of normal. The osseous structures are intact. IMPRESSION: No acute process.
[2021-03-15 17:17] LABS: Basophils % (A) 0 %; Eosinophils # (A) 0.1 k/uL (0-0.7); Eosinophils % (A) 1 %; HCT 38.9 % (34.0-46.0); HGB 12.5 gm/dL (11.4-16.0); Lymphocytes # (A) 1.5 k/uL (1.0-4.8); Lymphocytes % (A) 26 %; MCH 26.5 pg (25.0-35.0); MCHC 32.2 g/dL (31.0-37.0); MCV 82.4 fL (80.0-100.0); Mean Platelet Volume 7.2; Monocytes # (A) 0.3 k/uL (0-1.0); Monocytes % (A) 5 %; Neutrophils # (A) 3.9 k/uL (1.3-7.7); Neutrophils % (A) 66 %; Platelet Count 232 k/uL (150-450); RBC 4.72 m/uL (3.80-5.40); WBC 5.8 k/uL (3.8-10.6)
[2021-03-15 17:29] LABS: INR 0.9 (<1.2); Partial Thromboplastin Time 22.2 sec (22.0-30.0); Prothrombin Time 9.7 sec (9.0-12.0)
[2021-03-15 17:32] LABS: Albumin 4.3 g/dL (3.5-5.0); Calcium 9.4 mg/dL (8.4-10.2); Magnesium 2.2 mg/dL (1.6-2.3); Potassium 3.9 mmol/L (3.5-5.1); Total Bilirubin 0.3 mg/dL (0.2-1.3); Total Protein 7.4 g/dL (6.3-8.2)
--- NOTE | 2021-03-15 19:59 | ED ---
Medical Decision Making - Medical Decision Making Patient changed her mind regards to being discharge and now wants to be admitted to the hospital. - Lab Data Result diagrams: 03/15/21 17:08 03/15/21 17:08 Lab Results 03/15/21 03/15/21 03/15/21 Range/Units 17:08 17:08 17:08 WBC 5.8 (3.8-10.6) k/uL RBC 4.72 (3.80-5.40) m/uL Hgb 12.5 (11.4-16.0) gm/dL Hct 38.9 (34.0-46.0) % MCV 82.4 (80.0-100.0) fL MCH 26.5 (25.0-35.0) pg MCHC 32.2 (31.0-37.0) g/dL RDW 15.0 (11.5-15.5) % Plt Count 232 (150-450) k/uL MPV 7.2 Neutrophils % 66 % Lymphocytes % 26 % Monocytes % 5 % Eosinophils % 1 % Basophils % 0 % Neutrophils # 3.9 (1.3-7.7) k/uL Lymphocytes # 1.5 (1.0-4.8) k/uL Monocytes # 0.3 (0-1.0) k/uL Eosinophils # 0.1 (0-0.7) k/uL Basophils # 0.0 (0-0.2) k/uL PT 9.7 (9.0-12.0) sec INR 0.9 (<1.2) APTT 22.2 (22.0-30.0) sec Sodium 142 (137-145) mmol/L Potassium 3.9 (3.5-5.1) mmol/L Chloride 110 H (98-107) mmol/L Carbon Dioxide 22 (22-30) mmol/L Anion Gap 10 mmol/L BUN 16 (7-17) mg/dL Creatinine 1.10 H (0.52-1.04) mg/dL Est GFR (CKD-EPI)AfAm 70 (>60 ml/min/1.73 sqM) Est GFR (CKD-EPI)NonAf 60 (>60 ml/min/1.73 sqM) Glucose 90 (74-99) mg/dL Calcium 9.4 (8.4-10.2) mg/dL Magnesium 2.2 (1.6-2.3) mg/dL Total Bilirubin 0.3 (0.2-1.3) mg/dL AST 21 (14-36) U/L ALT 33 (4-34) U/L Alkaline Phosphatase 92 (38-126) U/L Troponin I (0.000-0.034) ng/mL NT-Pro-B Natriuret Pep pg/mL Total Protein 7.4 (6.3-8.2) g/dL Albumin 4.3 (3.5-5.0) g/dL 03/15/21 03/15/21 Range/Units 17:08 17:08 WBC (3.8-10.6) k/uL RBC (3.80-5.40) m/uL Hgb (11.4-16.0) gm/dL Hct (34.0-46.0) % MCV (80.0-100.0) fL MCH (25.0-35.0) pg MCHC (31.0-37.0) g/dL RDW (11.5-15.5) % Plt Count (150-450) k/uL MPV Neutrophils % % Lymphocytes % % Monocytes % % Eosinophils % % Basophils % % Neutrophils # (1.3-7.7) k/uL Lymphocytes # (1.0-4.8) k/uL Monocytes # (0-1.0) k/uL Eosinophils # (0-0.7) k/uL Basophils # (0-0.2) k/uL PT (9.0-12.0) sec INR (<1.2) APTT (22.0-30.0) sec Sodium (137-145) mmol/L Potassium (3.5-5.1) mmol/L Chloride (98-107) mmol/L Carbon Dioxide (22-30) mmol/L Anion Gap mmol/L BUN (7-17) mg/dL Creatinine (0.52-1.04) mg/dL Est GFR (CKD-EPI)AfAm (>60 ml/min/1.73 sqM) Est GFR (CKD-EPI)NonAf (>60 ml/min/1.73 sqM) Glucose (74-99) mg/dL Calcium (8.4-10.2) mg/dL Magnesium (1.6-2.3) mg/dL Total Bilirubin (0.2-1.3) mg/dL AST (14-36) U/L ALT (4-34) U/L Alkaline Phosphatase (38-126) U/L Troponin I <0.012 (0.000-0.034) ng/mL NT-Pro-B Natriuret Pep 69 pg/mL Total Protein (6.3-8.2) g/dL Albumin (3.5-5.0) g/dL Disposition Clinical Impression: Palpitations, Chest pain, Unstable angina Disposition: ADMITTED IP TO THIS [facility] Condition: Good Instructions (If sedation given, give patient instructions): Chest Pain (ED), Heart Palpitations (ED) Additional Instructions: Please take an aspirin daily. Please follow-up with the human resources operations coordinator or primary care as you will likely need a stress test as well has a Holter monitor. Please return to the emergency department if her symptoms worsen. Is patient prescribed a controlled substance at d/c from ED?: No Referrals: Mireya Dasilva DO [Primary Care Provider] - 1-2 days Jeanne Salcedo MD [STAFF PHYSICIAN] - 1-2 days Time of Disposition: 19:59 Decision Date: 03/15/21 Decision Time: 19:59
[2021-03-15] MEDS ORDERED: ONDANSETRON 4 MG/2 ML VIAL IVP PRN (20:02)
[2021-03-15] MEDS ORDERED: ASPIRIN 81 MG PO STA (20:07)
[2021-03-15] MEDS ORDERED: NITROGLYCERIN OINT 1 INCH/GM PACKET TOPICAL STA (20:09)
[2021-03-15] MEDS: NITROGLYCERIN OINT 1 INCH/GM PACKET TOPICAL SCH (20:59)
[2021-03-16] MEDS: NITROGLYCERIN OINT 1 INCH/GM PACKET TOPICAL SCH ×2 (02:47→09:01)
[2021-03-16 03:00] VITALS: PULSE 68; RESP 16
[2021-03-16] MEDS ORDERED: PANTOPRAZOLE 40 MG TABLET PO SCH ×2 (07:30)
[2021-03-16] MEDS ORDERED: ENOXAPARIN 40 MG/0.4 ML SYRINGE SQ SCH (09:00)
[2021-03-16] MEDS ORDERED: buPROPion XL 300 MG TAB.ER.24H PO SCH (09:00)
[2021-03-16] MEDS ORDERED: NON FORMULARY DRUG (Cariprazine Hcl [Vraylar] 3 MG Capsule) PO SCH (09:00)
[2021-03-16] MEDS ORDERED: TOPIRAMATE 100 MG TAB PO SCH (09:00)
[2021-03-16] MEDS ORDERED: MELOXICAM 7.5 MG TAB PO SCH (09:00)
[2021-03-16] MEDS ORDERED: SERTRALINE 100 MG TAB PO SCH (09:00)
[2021-03-16] MEDS ORDERED: ASPIRIN 325 MG TAB PO SCH (09:00)
[2021-03-16 09:13] VITALS: BP 108/66; TEMP 97.6
--- NOTE | 2021-03-16 11:40 | P.CRDCN ---
History of Present Illness Consult date: 03/16/21 History of present illness: HISTORY OF PRESENT ILLNESS: This is a 45 year old female with a past medical history significant for anxiety, depression, bipolar disorder, and GERD. Patient does not follow with a secretarial stenographer. We have been asked to see the patient in consultation for chest pain. Patient examined at the bedside. Patient states she has been having fluttering in her chest on Monday and Monday that was constant. She states the next 2 days she continued to have fluttering in her chest but it was intermittent. She states that she began to have chest pain yesterday. She said the pain only lasted for a few seconds and then went away. She states the pain was in the middle of her chest pressure to denies any radiation of the pain. No nausea or vomiting. The patient does report discomfort with chest palpation. She denies pain with deep inspiration. She denies a family history of coronary artery disease. EKG reveals sinus mechanism with no signs of acute ischemia Chest xray negative for acute process Laboratory data: WBC 5.8. Hemoglobin 12.5. Platelet count 232. Sodium 142. Potassium 3.9. BUN 16. Creatinine 1.10. Current home cardiac medications include none REVIEW OF SYSTEMS: At the time of my exam: CONSTITUTIONAL: Denies fever or chills. HEENT: Denies blurred vision, vision changes, or eye pain. Denies hemoptysis CARDIOVASCULAR: Denies chest pain. Denies orthopnea. Denies PND. Denies palpitations RESPIRATORY: Denies shortness of breath. GASTROINTESTINAL: Denies abdominal pain. Denies nausea or vomiting. HEMATOLOGIC: Denies bleeding disorders. GENITOURINARY: Denies any blood in urine. SKIN: Denies pruitis. Denies rash. PHYSICAL EXAM: VITAL SIGNS: Reviewed. GENERAL: Well-developed in no acute distress. HEENT: Head is normocephalic. Pupils are equal, round. Sclerae anicteric. Mucous membranes of the mouth are moist. Neck supple. No JVD or thyromegaly LUNGS: Respirations even and unlabored. Lungs essentially clear to auscultation bilaterally. HEART: Regular rate and rhythm. S1 and S2 heard. ABDOMEN: Soft. Nondistended. Nontender. EXTREMITIES: Normal range of motion. No clubbing or cyanosis. Peripheral pulses intact. No lower extremity edema NEUROLOGIC: Awake and alert. Oriented x 3. ASSESSMENT: Chest pain, atypical, troponin negative x 3 Occasions Anxiety Depression Bipolar disorder GERD PLAN: An acute coronary event has been ruled out Obtain 2-D echo to assess cardiac structure and function Patient to be discharged home with a 30 day event monitor Outpatient stress testing Stable for discharge home today from a cardiac standpoint Nurse practitioner note has been reviewed by physician. Signing provider agrees with the documented findings, assessment, and plan of care. Past Medical History Past Medical History: Cancer, GERD/Reflux, Osteoarthritis (OA) Additional Past Medical History / Comment(s): Endometrosis, migraines, kidney stones, UTI. Colon cancer with bowel resection surgery and mass removal. History of Any Multi-Drug Resistant Organisms: None Reported Past Surgical History: Bowel Resection, Cholecystectomy, Hysterectomy Additional Past Surgical History / Comment(s): Laparoscopy x 2 Past Anesthesia/Blood Transfusion Reactions: No Reported Reaction Smoking Status: Never smoker - Past Family History Sister(s) Family Medical History: Cancer Additional Family Medical History / Comment(s): Colon cancer Father Family Medical History: Cancer Additional Family Medical History / Comment(s): Colon cancer Mother Additional Family Medical History / Comment(s): "Heart problems". Medications and Allergies Home Medications Medication Instructions Recorded Confirmed Type Sertraline [Zoloft] 200 mg PO DAILY 02/03/17 03/15/21 History Cariprazine HCl [Vraylar] 3 mg PO DAILY 05/22/19 03/15/21 History Topiramate [Topamax] 100 mg PO BID 05/22/19 03/15/21 History Celecoxib [CeleBREX] 200 mg PO DAILY 03/15/21 03/15/21 History Omeprazole 40 mg PO DAILY 03/15/21 03/15/21 History buPROPion XL [Wellbutrin XL] 300 mg PO DAILY 03/15/21 03/15/21 History Allergies Allergy/AdvReac Type Severity Reaction Status Date / Time Iodinated Contrast Media Allergy Dyspnea Verified 03/15/21 20:29 [Iodinated Contrast- Oral and IV Dye] Physical Exam Vitals: Vital Signs Temp Pulse Pulse Resp BP BP Pulse Ox 03/16/21 08:17 97.6 F 68 16 108/66 98 03/16/21 02:00 97.9 F 68 16 99/60 97 03/15/21 22:25 18 03/15/21 21:15 97.8 F 63 18 146/77 100 03/15/21 20:39 98.6 F 61 16 141/69 100 03/15/21 15:46 98.2 F 74 20 141/76 99 Intake and Output 03/15/21 03/16/21 03/16/21 22:59 06:59 14:59 Intake Total 240 Balance 240 Intake: Oral 240 Other: # Voids 2 Weight 90.265 kg Results 03/15/21 17:08 03/15/21 17:08 Cardiac Enzymes 03/15/21 03/15/21 03/15/21 Range/Units 17:08 17:08 22:04 AST 21 (14-36) U/L Troponin I <0.012 <0.012 (0.000-0.034) ng/mL 03/16/21 Range/Units 00:02 AST (14-36) U/L Troponin I <0.012 (0.000-0.034) ng/mL Coagulation 03/15/21 Range/Units 17:08 PT 9.7 (9.0-12.0) sec APTT 22.2 (22.0-30.0) sec CBC 03/15/21 Range/Units 17:08 WBC 5.8 (3.8-10.6) k/uL RBC 4.72 (3.80-5.40) m/uL Hgb 12.5 (11.4-16.0) gm/dL Hct 38.9 (34.0-46.0) % Plt Count 232 (150-450) k/uL Comprehensive Metabolic Panel 03/15/21 Range/Units 17:08 Sodium 142 (137-145) mmol/L Potassium 3.9 (3.5-5.1) mmol/L Chloride 110 H (98-107) mmol/L Carbon Dioxide 22 (22-30) mmol/L BUN 16 (7-17) mg/dL Creatinine 1.10 H (0.52-1.04) mg/dL Glucose 90 (74-99) mg/dL Calcium 9.4 (8.4-10.2) mg/dL AST 21 (14-36) U/L ALT 33 (4-34) U/L Alkaline Phosphatase 92 (38-126) U/L Total Protein 7.4 (6.3-8.2) g/dL Albumin 4.3 (3.5-5.0) g/dL Current Medications Generic Name Dose Route Start Last Admin Trade Name Alisha PRN Reason Stop Dose Admin Aspirin 325 mg 03/16/21 09:00 03/16/21 09:01 Aspirin 325 Mg Tab PO 325 mg DAILY [facility] Administration Bupropion HCl 300 mg 03/16/21 09:00 03/16/21 09:02 Bupropion Xl 300 Mg Tab.Er.24h PO 300 mg DAILY [facility] Administration Enoxaparin Sodium 40 mg 03/16/21 09:00 03/16/21 09:01 Enoxaparin 40 Mg/0.4 Ml Syringe SQ 40 mg DAILY [facility] Administration Meloxicam 7.5 mg 03/16/21 09:00 03/16/21 09:03 Meloxicam 7.5 Mg Tab PO Not Given DAILY [facility] Nitroglycerin 1 inch 03/15/21 20:15 03/16/21 09:01 Nitroglycerin Oint 1 Inch/Gm Packet TOPICAL 1 inch Q6H [facility] Administration Non-Formulary Medication 3 mg 03/16/21 09:00 03/16/21 09:02 Cariprazine Hcl [Vraylar] PO Not Given DAILY [facility] Ondansetron HCl 4 mg 03/15/21 20:02 Ondansetron 4 Mg/2 Ml Vial IVP Q8HR PRN Nausea And Vomiting Pantoprazole Sodium 40 mg 03/16/21 07:30 03/16/21 09:01 Pantoprazole 40 Mg Tablet PO 40 mg AC-BRKFST [facility] Administration Pantoprazole Sodium 40 mg 03/16/21 07:30 03/16/21 07:54 Pantoprazole 40 Mg Tablet PO Not Given AC-BRKFST [facility] Sertraline HCl 200 mg 03/16/21 09:00 03/16/21 09:01 Sertraline 100 Mg Tab PO 200 mg DAILY [facility] Administration Topiramate 100 mg 03/16/21 09:00 03/16/21 09:03 Topiramate 100 Mg Tab PO 100 mg BID [facility] Administration Intake and Output 03/15/21 03/16/21 03/16/21 22:59 06:59 14:59 Intake Total 240 Balance 240 Intake: Oral 240 Other: # Voids 2 Weight 90.265 kg 03/15/21 17:08 03/15/21 17:08
--- NOTE | 2021-03-16 11:56 | ECHOF ---
Referral Reason: MEASUREMENTS -------- HEIGHT: 160.0 cm WEIGHT: 90.3 kg BP: 146/77 RVIDd: 2.9 cm (< 3.3) IVSd: 1.3 cm (0.6 - 1.1) LVIDd: 3.9 cm (3.9 - 5.3) LVPWd: 1.2 cm (0.6 - 1.1) IVSs: 1.4 cm LVIDs: 2.6 cm LVPWs: 1.6 cm LAESV Index (A-L): 25.39 ml/m Ao Diam: 2.7 cm (2.0 - 3.7) AV Cusp: 1.7 cm (1.5 - 2.6) LA Diam: 3.1 cm (2.7 - 3.8) MV EXCURSION: 13.622 mm (> 18.000) MV EF SLOPE: 77 mm/s (70 - 150) EPSS: 0.6 cm MV E Luis Miguel: 0.81 m/s MV DecT: 179 ms MV A Luis Miguel: 0.93 m/s MV E/A Ratio: 0.87 RAP: 5.00 mmHg RVSP: 31.78 mmHg FINDINGS -------- Sinus rhythm. This was a technically adequate study. The left ventricular size is normal. There is mild concentric left ventricular hypertrophy. Overa ll left ventricular systolic function is normal with, an EF between 55 - 60 %. The diastolic fillin g pattern is normal for the age of the patient 14.33. The right ventricle is normal in size. Normal LA size by volume 22+/-6 ml/m2. The right atrial size is normal. Interatrial and interventricular septum intact. The aortic valve is trileaflet and appears structurally normal. There is no evidence of aortic regu rgitation. There is no evidence of aortic stenosis. No mitral regurgitation. Mild tricuspid regurgitation present. There is no evidence of pulmonary hypertension. The right v entricular systolic pressure, as measured by Doppler, is 31.78mmHg. There is no pulmonic regurgitation present. The aortic root size is normal. IVC Not well visulized. There is no pericardial effusion. CONCLUSIONS -------- 1. The left ventricular size is normal. 2. There is mild concentric left ventricular hypertrophy. 3. Overall left ventricular systolic function is normal with, an EF between 55 - 60 %. 4. The diastolic filling pattern is normal for the age of the patient 14.33 5. Mild tricuspid regurgitation present. CASE FINISHER: Zamzam Miller RDCS
--- NOTE | 2021-03-16 12:05 | P.HPIM ---
History of Present Illness H&P Date: 03/16/21 Chief Complaint: Palpations, Chest pressure, chest pain History and Physical and Discharge Summary: This is a 45-year-old female with past medical history of endometriosis, migraines, gastroesophageal reflux disease, colon cancer with bowel resection, anxiety, bipolar, depression, panic disorder presented to the ER with complaints of chest pain. Patient reports she had been having chest fluttering sensations since Monday which she had previously without prior workup, then developed bilateral chest pressure yesterday accompanied by shortness of breath, reported "sitting on chest pressure" sensation at times a few minutes, nonradiating. Den ies lightheadedness dizziness or focal deficits, denies blurred vision. Denies nausea vomiting or diarrhea. Denies abdominal pain. Patient has an extensive family history of CAD, mother had a CO in her 30s and her father had a CABG. Denies prior nicotine use or nicotine dependence. Troponins negative 3, EKG currently not visible on EHR. Chest x-ray reports no acute process. Afebrile, VSS, maintaining O2 sats in the high 90s to 100% on room air. Hematology, coagulation panel is unremarkable. Chemistry panel unremarkable with the exception of creatinine 1.1. Sodium 142, potassium 3.9, magnesium 2.2. Telemetry currently in normal sinus rhythm. Initially patient had chosen further outpatient workup, wanting to be discharged, but then decided to stay. Currently denies chest pain, palpitations or shortness of breath. Review of Systems ROS Statement: Those systems with pertinent positive or pertinent negative responses have been documented in the HPI. ROS Other: All systems not noted in ROS Statement are negative. Past Medical History Past Medical History: Cancer, GERD/Reflux, Osteoarthritis (OA) Additional Past Medical History / Comment(s): Endometrosis, migraines, kidney stones, UTI. Colon cancer with bowel resection surgery and mass removal. History of Any Multi-Drug Resistant Organisms: None Reported Past Surgical History: Bowel Resection, Cholecystectomy, Hysterectomy Additional Past Surgical History / Comment(s): Laparoscopy x 2 Past Anesthesia/Blood Transfusion Reactions: No Reported Reaction Smoking Status: Never smoker - Past Family History Sister(s) Family Medical History: Cancer Additional Family Medical History / Comment(s): Colon cancer Father Family Medical History: Cancer Additional Family Medical History / Comment(s): Colon cancer Mother Additional Family Medical History / Comment(s): "Heart problems". Medications and Allergies Home Medications Medication Instructions Recorded Confirmed Type Sertraline [Zoloft] 200 mg PO DAILY 02/03/17 03/15/21 History Cariprazine HCl [Vraylar] 3 mg PO DAILY 05/22/19 03/15/21 History Topiramate [Topamax] 100 mg PO BID 05/22/19 03/15/21 History Celecoxib [CeleBREX] 200 mg PO DAILY 03/15/21 03/15/21 History Omeprazole 40 mg PO DAILY 03/15/21 03/15/21 History buPROPion XL [Wellbutrin XL] 300 mg PO DAILY 03/15/21 03/15/21 History Allergies Allergy/AdvReac Type Severity Reaction Status Date / Time Iodinated Contrast Media Allergy Dyspnea Verified 03/15/21 20:29 [Iodinated Contrast- Oral and IV Dye] Physical Exam Vitals: Vital Signs Temp Pulse Pulse Resp BP BP Pulse Ox 03/16/21 08:17 97.6 F 68 16 108/66 98 03/16/21 02:00 97.9 F 68 16 99/60 97 03/15/21 22:25 18 03/15/21 21:15 97.8 F 63 18 146/77 100 03/15/21 20:39 98.6 F 61 16 141/69 100 03/15/21 15:46 98.2 F 74 20 141/76 99 Intake and Output 03/15/21 03/16/21 03/16/21 22:59 06:59 14:59 Intake Total 240 Balance 240 Intake: Oral 240 Other: # Voids 2 Weight 90.265 kg PHYSICAL EXAM: VITAL SIGNS: [As above] GENERAL: Sitting up in bed, no acute distress HEENT: Conjunctivae normal. eyes normal. NECK: No JVD. No thyroid enlargement. No LNs CARDIOVASCULAR: S1, S2 regular. No murmur RESPIRATION: Breath sounds diminished in the bases. No rhonchi or crackles. No bronchial breathing. ABDOMEN: Soft, nontender . No guarding. no masses palpable. No ascites, No hepatosplenomegaly.Bowel sounds heard. LEGS: No edema. no swelling PSYCHIATRY: Alert and oriented X3, mood and affect normal. NERVOUS SYSTEM: Cranial N 2-12 grossly normal. Moves all 4 limbs. No focal deficits. Strength and sensation grossly intact. Skin: Warm and dry, no rash Results CBC & Chem 7: 03/15/21 17:08 03/15/21 17:08 Labs: Abnormal Lab Results - Last 24 Hours (Table) 03/15/21 Range/Units 17:08 Chloride 110 H (98-107) mmol/L Creatinine 1.10 H (0.52-1.04) mg/dL Thrombosis Risk Factor Assmnt - Choose All That Apply Any of the Below Risk Factors Present?: Yes Each Factor Represents 1 point: Age 41-60 years, Obesity (BMI >25) Thrombosis Risk Factor Assessment Total Risk Factor Score: 2 Thrombosis Risk Factor Assessment Level: Low Risk Assessment and Plan Assessment: Chest pain with palpitations, in a patient with family history of CAD, troponins negative 3,cardiology following. Gastroesophageal reflux disease Colon cancer with bowel resection, history of Bipolar disorder Anxiety, panic attacks ,depression, history of Plan: Continue current medication regime ,monitoring and symptomatic treatment. Patient will be discharged home today in a stable condition with guarded prognosis pending cardiology evaluation/recommendations and clearance. Discharge Medication List Sertraline [Zoloft] 200 mg PO DAILY 02/03/17 [History] Cariprazine HCl [Vraylar] 3 mg PO DAILY 05/22/19 [History] Topiramate [Topamax] 100 mg PO BID 05/22/19 [History] Celecoxib [CeleBREX] 200 mg PO DAILY 03/15/21 [History] Omeprazole 40 mg PO DAILY 03/15/21 [History] buPROPion XL [Wellbutrin XL] 300 mg PO DAILY 03/15/21 [History] The impression and plan of care has been dictated as directed. : I performed a history and examination of this patient, discussed the same with the dictator. I agree with the dictator's note ,documented as a scribe. Any additional findings or plans will be noted.
[2021-03-17] MEDS ORDERED: ASPIRIN 81 MG PO SCH (09:00)
== END 2021-03-16 13:43 ==
LOC: EC 15:04 → 3NCARDOBS 20:02
PROVIDERS: ADMIT Family Medicine; ATTEND Family Medicine
DX: R07.89 Other chest pain (principal); R00.2 Palpitations; I07.1 Rheumatic tricuspid insufficiency; K21.9 Gastro-esophageal reflux disease without esophagitis; M19.90 Unspecified osteoarthritis, unspecified site; G43.909 Migraine, unspecified, not intractable, without status migrainosus; F31.9 Bipolar disorder, unspecified; F41.0 Panic disorder [episodic paroxysmal anxiety]; F41.9 Anxiety disorder, unspecified; N80.9 Endometriosis, unspecified; E66.9 Obesity, unspecified; Z68.35 Body mass index [BMI] 35.0-35.9, adult; Z79.1 Long term (current) use of non-steroidal anti-inflammatories (NSAID); Z79.899 Other long term (current) drug therapy; Z91.041 Radiographic dye allergy status; Z87.442 Personal history of urinary calculi; Z87.440 Personal history of urinary (tract) infections; Z90.49 Acquired absence of other specified parts of digestive tract; Z90.710 Acquired absence of both cervix and uterus; Z85.038 Personal history of other malignant neoplasm of large intestine; Z98.890 Other specified postprocedural states; Z82.49 Family history of ischemic heart disease and other diseases of the circulatory system; Z80.0 Family history of malignant neoplasm of digestive organs
CPT/HCPCS: 96372; 99285; 36415; 93005; 93306; 93270; 83880; 80053; 83735; 84484 ×2; 85025; 85610; 85730; 87635; 71046; G0378 ×2; J1650

== ENCOUNTER → 2021-10-21 | Outpatient (CLI) | payer OTHER ==
--- NOTE | 2021-10-21 12:55 | FL ---
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 Patient with history of colon cance r last year. Further questioning of the patient indicates a strong family history of colon cancer and positive for Zavala syndrome. COMPARISON: 07/18/2020, 06/02/2020 Total Fluoroscopy Time: 3 minutes 6 seconds 77 images obtained. FINDINGS: The esophagus has a normal course, caliber, motility and mucosa. There is a small to moderate-sized sliding-type hernia. Severe gastroesophageal reflux is demonstrate d with Valsalva and turning maneuvers. The stomach shows numerous smooth round adenomatous polyps at the fundus. One of these may have minim al dilatation that could represent a small ulceration. Consider direct visualization. The mid to dist al stomach shows no discrete abnormality. The duodenum is free of any persistent filling defect and demonstrate a normal mucosal pattern. Medical Coding Technician image shows surgical material at the right lower quadrant likely relate to cecal resection. Following administration of barium, serial films were carried out to 1 hour. Barium is seen to reach the colon promptly at 15 minutes. Loops of jejunum and ileum are compressed and examined under fluoro scopy. The small bowel loops have a normal-caliber. Mucosal pattern is within normal limits. No intri nsic or extrinsic process is suspected. IMPRESSION: 1. Small to moderate-sized sliding hiatal hernia with severe gastroesophageal reflux elicited when a combination of Valsalva and turning maneuvers are employed. 2. 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 One of these shows a small umbilication which could represent some associated ulceratio n. Direct visualization as clinically indicated. 3. Fast small bowel transit time of 15 minutes. There is previous partial resection along the inferio r aspect of the right side of the colon. No specific abnormality otherwise seen of the small bowel.
== END | disposition home or self-care (01) ==
LOC: RADFLMAIN 07:58
PROVIDERS: ATTEND Family Medicine
DX: K44.9 Diaphragmatic hernia without obstruction or gangrene (principal); K21.9 Gastro-esophageal reflux disease without esophagitis
CPT/HCPCS: 74240; 74248

== ENCOUNTER 2021-11-01 10:55 | Day surgery (SDC) | payer OTHER ==
[~2021-11-01 10:55] MED LIST changes: -LIDOCAINE 1% (10MG/ML) FOR IV START INTRADERMA PRN
[2021-11-01 11:34] VITALS: TEMP 97
[2021-11-01] MEDS ORDERED: LIDOCAINE 2% INJ 20 MG/ML (2 ML VIAL) ONE (12:02)
[2021-11-01] MEDS ORDERED: PROPOFOL 10 MG/ML 20 ML VIAL IV ONE (12:02)
--- NOTE | 2021-11-01 12:07 | P.GSHP ---
History of Present Illness H&P Date: 11/01/21 Chief Complaint: GERD This a 45-year-old female who presents today for EGD. She's admissions GERD. Past Medical History Past Medical History: Cancer, GERD/Reflux, Osteoarthritis (OA) Additional Past Medical History / Comment(s): Endometrosis, migraines, kidney stones, UTI. Colon cancer with bowel resection surgery and mass removal. History of Any Multi-Drug Resistant Organisms: None Reported Past Surgical History: Bowel Resection, Cholecystectomy, Hysterectomy Additional Past Surgical History / Comment(s): Laparoscopy x 2 Past Anesthesia/Blood Transfusion Reactions: No Reported Reaction Past Psychological History: Anxiety, Bipolar, Depression, Panic Disorder Smoking Status: Never smoker Past Alcohol Use History: Rare Past Drug Use History: None Reported - Past Family History Mother Additional Family Medical History / Comment(s): "heart problems" Sister(s) Family Medical History: Cancer Additional Family Medical History / Comment(s): Colon cancer Father Family Medical History: Cancer Additional Family Medical History / Comment(s): Colon cancer Medications and Allergies Home Medications Medication Instructions Recorded Confirmed Type Sertraline [Zoloft] 100 mg PO QAM 02/03/17 11/01/21 History Cariprazine HCl [Vraylar] 3 mg PO QAM 05/22/19 11/01/21 History Topiramate [Topamax] 100 mg PO QAM 05/22/19 11/01/21 History Celecoxib [CeleBREX] 200 mg PO QAM 03/15/21 11/01/21 History Omeprazole 40 mg PO QAM 03/15/21 11/01/21 History ALPRAZolam [Xanax] 0.5 mg PO BID PRN 11/01/21 11/01/21 History Allergies Allergy/AdvReac Type Severity Reaction Status Date / Time Iodinated Contrast Media Allergy Dyspnea Verified 11/01/21 11:26 [Iodinated Contrast- Oral and IV Dye] Surgical - Exam Vital Signs Temp Pulse Resp BP Pulse Ox 97.0 F L 55 L 18 154/77 98 11/01/21 11:27 11/01/21 11:27 11/01/21 11:27 11/01/21 11:27 11/01/21 11:27 - General well developed, well nourished - Eyes PERRL, normal ocular movement - ENT normal pinna - Neck no masses - Respiratory normal expansion - Cardiovascular Rhythm: regular - Abdomen Abdomen: soft, non tender Assessment and Plan Assessment: GERD. We'll perform EGD.
--- NOTE | 2021-11-01 12:20 | P.OP ---
Date of Procedure: 11/01/21 Preoperative Diagnosis: GERD Postoperative Diagnosis: Antral gastritis Mild esophagitis Sliding hiatal hernia Procedure(s) Performed: EGD Anesthesia: MAC Surgeon: David Tran Pathology: other (Antrum, esophagus) Condition: stable Disposition: PACU Description of Procedure: The patient's placed on the endoscopy table in the lateral position. She received IV sedation. The gastroscope placed oropharynx passed in the esophagus into the stomach. Scope was then placed through the pylorus. The first and second portion of the duodenum appeared normal. Scope was then brought back the antrum this. Mildly inflamed. A biopsies performed. Scope was then retroflexed and the remainder the stomach appeared normal. The patient had a sliding hiatal hernia. The GE junction was at 38 cm. the distal esophagus appeared minimally inflamed and a biopsies performed. The proximal esophagus appeared all. The scope withdrawn for patient.
[2021-11-01 12:55] VITALS: RESP 20
[2021-11-01] MEDS ORDERED: ALBUTEROL NEBULIZED 2.5 MG/3 ML INHALATION STA (12:56)
[2021-11-01 13:37] VITALS: BP 125/88
[2021-11-01 13:38] VITALS: PULSE 70
== END 2021-11-01 13:39 | disposition home or self-care (01) ==
LOC: ORWHC2ENDO 10:55
PROVIDERS: ATTEND Surgery
DX: K29.70 Gastritis, unspecified, without bleeding (principal); K21.00 Gastro-esophageal reflux disease with esophagitis, without bleeding; K44.9 Diaphragmatic hernia without obstruction or gangrene; M19.90 Unspecified osteoarthritis, unspecified site; N20.0 Calculus of kidney; C18.9 Malignant neoplasm of colon, unspecified; F41.9 Anxiety disorder, unspecified; F41.0 Panic disorder [episodic paroxysmal anxiety]; F31.9 Bipolar disorder, unspecified; G43.909 Migraine, unspecified, not intractable, without status migrainosus; Z87.442 Personal history of urinary calculi; Z85.038 Personal history of other malignant neoplasm of large intestine; Z87.440 Personal history of urinary (tract) infections; Z90.710 Acquired absence of both cervix and uterus; Z90.49 Acquired absence of other specified parts of digestive tract; Z86.59 Personal history of other mental and behavioral disorders; Z82.49 Family history of ischemic heart disease and other diseases of the circulatory system; Z80.0 Family history of malignant neoplasm of digestive organs; Z91.041 Radiographic dye allergy status
CPT/HCPCS: 94640; 88305; 43239; J2704; J2001

== ENCOUNTER → 2021-11-09 | Outpatient (CLI) | payer OTHER ==
[2021-11-10 13:38] LABS: Basophils % (A) 1 %; Eosinophils # (A) 0.2 k/uL (0-0.7); Eosinophils % (A) 2 %; HCT 40.3 % (34.0-46.0); HGB 12.8 gm/dL (11.4-16.0); Hypochromasia Moderate; Lymphocytes # (A) 2.2 k/uL (1.0-4.8); Lymphocytes % (A) 34 %; MCH 27.6 pg (25.0-35.0); MCHC 31.9 g/dL (31.0-37.0); MCV 86.4 fL (80.0-100.0); Mean Platelet Volume 9.7; Monocytes # (A) 0.6 k/uL (0-1.0); Monocytes % (A) 9 %; Neutrophils # (A) 3.4 k/uL (1.3-7.7); Neutrophils % (A) 53 %; Platelet Count 237 k/uL (150-450); RBC 4.66 m/uL (3.80-5.40); RDW 14.9 % (11.5-15.5); WBC 6.4 k/uL (3.8-10.6)
== END | disposition home or self-care (01) ==
LOC: LABPAT 22:04
PROVIDERS: ATTEND Surgery
DX: Z01.812 Encounter for preprocedural laboratory examination (principal); K21.00 Gastro-esophageal reflux disease with esophagitis, without bleeding
CPT/HCPCS: 85025; 93005

== ENCOUNTER 2021-11-16 09:53 | Observation (INO) | payer OTHER ==
[~2021-11-16 09:53] MED LIST changes: +ACETAMINOPHEN TAB 500 MG TAB PO PRN; +DEXAMETHASONE SOD PHOSPHATE 4 MG/ML 1 ML VIAL IV ONE; +HEPARIN SODIUM,PORCINE/PF 5,000 UNIT/0.5 ML SYRINGE SQ PRN; -LACTATED RINGERS 1,000 ML IV SCH; +LIDOCAINE 1% (10MG/ML) FOR IV START INTRADERMA PRN; +ONDANSETRON 4 MG/2 ML VIAL IVP ONE
[2021-11-16] MEDS: LACTATED RINGERS 1,000 ML IV SCH ×2 (10:18→12:51)
[2021-11-16] MEDS ORDERED: ONDANSETRON 4 MG/2 ML VIAL ONE (10:29)
--- NOTE | 2021-11-16 10:46 | P.GSHP ---
History of Present Illness H&P Date: 11/16/21 Chief Complaint: GERD This a 45-year-old female for from Dr. Mireya suggs.The patient has had long- standing problems with reflux esophagitis. The patient underwent recent EGD is found have evidence of esophagitis. Patient has been well informed on the pro cedure of laparoscopic Trinh fundoplication. The patient is aware the risk of the conversion to the open procedure, risk of injury to the stomach, liver and spleen. The patient is also a risk of recurrent GERD and dysphagia symptoms. The patient understands there is a postoperative diet of full liquids for 2 weeks after surgery. Past Medical History Past Medical History: Cancer, GERD/Reflux, Osteoarthritis (OA) Additional Past Medical History / Comment(s): Endometrosis, migraines, kidney stones, UTI. Colon cancer with bowel resection surgery and mass removal. History of Any Multi-Drug Resistant Organisms: None Reported Past Surgical History: Bowel Resection, Cholecystectomy, Hysterectomy Additional Past Surgical History / Comment(s): Laparoscopy x 2, EGD-11/01/21 Past Anesthesia/Blood Transfusion Reactions: No Reported Reaction Smoking Status: Never smoker - Past Family History Mother Additional Family Medical History / Comment(s): "heart problems" Sister(s) Family Medical History: Cancer Additional Family Medical History / Comment(s): Colon cancer Father Family Medical History: Cancer Additional Family Medical History / Comment(s): Colon cancer Medications and Allergies Home Medications Medication Instructions Recorded Confirmed Type Sertraline [Zoloft] 100 mg PO QAM 02/03/17 11/16/21 History Cariprazine HCl [Vraylar] 3 mg PO QAM 05/22/19 11/16/21 History Topiramate [Topamax] 100 mg PO QAM 05/22/19 11/16/21 History Celecoxib [CeleBREX] 200 mg PO QAM 03/15/21 11/16/21 History Omeprazole 40 mg PO QAM 03/15/21 11/16/21 History ALPRAZolam [Xanax] 0.5 mg PO BID PRN 11/01/21 11/16/21 History Allergies Allergy/AdvReac Type Severity Reaction Status Date / Time Iodinated Contrast Media Allergy Dyspnea Verified 11/16/21 10:14 [Iodinated Contrast- Oral and IV Dye] Surgical - Exam Vital Signs Temp Pulse Resp BP Pulse Ox 97.5 F L 67 18 153/71 97 11/16/21 10:15 11/16/21 10:15 11/16/21 10:15 11/16/21 10:15 11/16/21 10:15 - General well developed, well nourished, no distress - Eyes PERRL - ENT normal pinna - Neck no masses - Respiratory normal expansion - Cardiovascular Rhythm: regular - Abdomen Abdomen: soft, non tender Assessment and Plan Assessment: GERD. We'll perform laparoscopic Trinh fundoplication.
[2021-11-16] MEDS ORDERED: ROCURONIUM 10 MG/ML (5 ML VIAL) IV ONE (11:12)
[2021-11-16] MEDS ORDERED: KETOROLAC 15 MG/ML 1 ML VIAL ONE (11:12)
[2021-11-16] MEDS ORDERED: MIDAZOLAM 2 MG/2 ML VIAL ONE (11:12)
[2021-11-16] MEDS ORDERED: SUCCINYLCHOLINE CHLORIDE 200 MG/10 ML VIAL IV ONE (11:12)
[2021-11-16] MEDS ORDERED: KETAMINE 10 MG/ML 20 ML VIAL ONE (11:12)
[2021-11-16] MEDS ORDERED: PROPOFOL 10 MG/ML 20 ML VIAL IV ONE (11:12)
[2021-11-16] MEDS ORDERED: LIDOCAINE 2% INJ 20 MG/ML (2 ML VIAL) ONE (11:12)
[2021-11-16] MEDS ORDERED: GLYCOPYRROLATE 0.2 MG/ML 2 ML VIAL ONE (11:12)
[2021-11-16] MEDS ORDERED: NEOSTIGMINE 1 MG/ML 10 ML VIAL ONE (11:12)
[2021-11-16] MEDS ORDERED: fentaNYL (PF) 50 MCG/ML 2 ML AMP ONE (11:12)
[2021-11-16] MEDS ORDERED: BUPIVACAIN-EPI 0.25%-1:200,000 30 ML VIAL SQ ONE (11:40)
[2021-11-16] MEDS ORDERED: ONDANSETRON 4 MG/2 ML VIAL IVP PRN (12:09)
[2021-11-16] MEDS ORDERED: MEPERIDINE 50 MG/ML SYRINGE IVP ONE (12:48)
[2021-11-16] MEDS: HYDROmorphone 0.5 MG/0.5 ML SYRINGE IVP PRN ×2 (13:20→15:30)
[2021-11-16] MEDS: HYDROmorphone 1 MG/ML 1 ML SYRINGE IVP PRN ×2 (19:04→23:36)
[2021-11-16] MEDS: D5-0.45% NACL WITH KCL 20MEQ/L 1,000 ML IV SCH ×2 (21:13→23:36)
[2021-11-17] MEDS: D5-0.45% NACL WITH KCL 20MEQ/L 1,000 ML IV SCH (03:55)
[2021-11-17] MEDS: HYDROmorphone 1 MG/ML 1 ML SYRINGE IVP PRN ×2 (04:02→08:05)
[2021-11-17 07:46] VITALS: RESP 16
[2021-11-17] MEDS ORDERED: ENOXAPARIN 40 MG/0.4 ML SYRINGE SQ SCH (09:00)
[2021-11-17] MEDS ORDERED: HYDROcodone/APAP 5-325MG 1 EACH TAB PO PRN (11:27)
--- NOTE | 2021-11-17 12:18 | P.CONS ---
History of Present Illness - Reason for Consult Consult date: 11/17/21 Medical management , history of anxiety, depression, panic disorder osteo, Requesting physician: David Tran - Chief Complaint Status post lap Alex - History of Present Illness This is a 45-year-old female with past medical history of endometriosis, migraines, obesity, gastroesophageal reflux disease, colon cancer with bowel resection, anxiety, bipolar, depression, panic disorder, status post laparoscopic Fundoplication. Tolerated procedure well. Tolerating Alex clear liquid diet. Denies nausea vomiting. Denies passing flatus. Reports minimal abdominal tenderness. Denies chest pain, palpitations or shortness of breath. Denies lightheadedness dizziness or focal deficits. Vital signs stable, maintaining O2 sats in the high 90s to 100% on room air. Review of Systems ROS Statement: Those systems with pertinent positive or pertinent negative responses have been documented in the HPI. ROS Other: All systems not noted in ROS Statement are negative. Past Medical History Past Medical History: Cancer, GERD/Reflux, Osteoarthritis (OA) Additional Past Medical History / Comment(s): Endometrosis, migraines, kidney stones, UTI. Colon cancer with bowel resection surgery and mass removal. History of Any Multi-Drug Resistant Organisms: None Reported Past Surgical History: Bowel Resection, Cholecystectomy, Hysterectomy Additional Past Surgical History / Comment(s): Laparoscopy x 2, EGD-11/01/21 Past Anesthesia/Blood Transfusion Reactions: No Reported Reaction Past Psychological History: Anxiety, Bipolar, Depression, Panic Disorder Smoking Status: Never smoker Past Alcohol Use History: Rare Past Drug Use History: None Reported - Past Family History Mother Additional Family Medical History / Comment(s): "heart problems" Sister(s) Family Medical History: Cancer Additional Family Medical History / Comment(s): Colon cancer Father Family Medical History: Cancer Additional Family Medical History / Comment(s): Colon cancer Medications and Allergies Home Medications Medication Instructions Recorded Confirmed Type Sertraline [Zoloft] 100 mg PO QAM 02/03/17 11/16/21 History Cariprazine HCl [Vraylar] 3 mg PO QAM 05/22/19 11/16/21 History Topiramate [Topamax] 100 mg PO QAM 05/22/19 11/16/21 History Celecoxib [CeleBREX] 200 mg PO QAM 03/15/21 11/16/21 History Omeprazole 40 mg PO QAM 03/15/21 11/16/21 History ALPRAZolam [Xanax] 0.5 mg PO BID PRN 11/01/21 11/16/21 History Allergies Allergy/AdvReac Type Severity Reaction Status Date / Time Iodinated Contrast Media Allergy Dyspnea Verified 11/16/21 10:14 [Iodinated Contrast- Oral and IV Dye] Physical Exam Vitals: Vital Signs Temp Pulse Resp BP Pulse Ox 11/17/21 07:44 97.9 F 57 L 16 109/66 100 11/17/21 02:00 97.8 F 65 17 103/68 95 11/16/21 19:51 98.0 F 54 L 17 115/73 92 L 11/16/21 16:48 98.4 F 97 17 141/84 97 11/16/21 16:47 98.4 F 60 17 143/85 97 11/16/21 16:46 98.0 F 51 L 17 147/84 96 11/16/21 16:45 97.9 F 53 L 17 149/89 98 11/16/21 16:41 98.2 F 44 L 17 130/76 92 L 11/16/21 16:37 98.0 F 53 L 17 138/85 93 L 11/16/21 14:00 64 16 146/74 98 11/16/21 13:45 53 L 16 127/69 94 L 11/16/21 13:30 59 L 16 134/71 96 11/16/21 13:15 56 L 16 149/68 95 11/16/21 13:00 58 L 16 141/64 98 11/16/21 12:45 62 16 137/64 100 11/16/21 12:30 65 16 168/65 100 11/16/21 12:27 97.6 F 72 16 160/88 100 Intake and Output 11/16/21 11/17/21 11/17/21 22:59 06:59 14:59 Intake Total 1880 240 Balance 1880 240 Intake: Intake, IV Titration 1400 Amount D5-0.45% NaCl with KCl 1400 20Meq/l 1,000 ml @ 125 mls/hr IV .Q8H [facility] Rx#: [id number] Oral 480 240 Other: Voiding Method Toilet # Voids 1 1 PHYSICAL EXAM: VITAL SIGNS: [As above] GENERAL: Sitting up in bed, no acute distress HEENT: Conjunctivae normal. eyes normal. MMM. NECK: Supple, No JVD. CARDIOVASCULAR: S1, S2 regular. No murmur RESPIRATION: Breath sounds diminished in the bases. No rhonchi or crackles. No bronchial breathing. ABDOMEN: Soft, tender, status post surgery . No guarding. Bowel sounds heard. LEGS: No edema. no swelling PSYCHIATRY: Alert and oriented X3, mood and affect normal. NERVOUS SYSTEM: Cranial N 2-12 grossly normal.No focal deficits. Strength and sensation grossly intact. Skin: Warm and dry, no rash Assessment and Plan Assessment: Status post laparoscopic Trinh Gastroesophageal reflux disease Colon cancer with bowel resection, history of Bipolar disorder Anxiety, panic attacks ,depression, history of Morbid obesity, BMI 36.8 Osteoarthritis Plan: Continue on current medication regime ,monitoring and symptomatic treatment. Aggressive pulmonary toileting with incentive spirometer ordered. Recommending "pillow support" to facilitate moving/repositioning. The impression and plan of care has been dictated as directed. : I performed a history and examination of this patient, discussed the same with the dictator. I agree with the dictator's note ,documented as a scribe. Any additional findings or plans will be noted.
--- NOTE | 2021-11-17 13:09 | P.DS ---
Providers Date of admission: 11/16/21 23:55 Expected date of discharge: 11/17/21 Attending physician: David Tran Consults: 11/16/21 12:09 Consult Physician Routine Consulting Provider: Carlos Eduardo Dasilva Consult Reason/Comments: Medical management Do you want consulting provider notified?: Yes Primary care physician: Mireya Dasilva [facility] Course: Discharge diagnosis 1. GERD status post laparoscopic Trinh fundoplication Hospital course This is a 45-year-old female with a known history of GERD. She is status post laparoscopic Trinh fundoplication. She tolerated surgery well. Her pain is controlled. She is having flatus. She is tolerating diet. She has been up and ambulating. She is afebrile. Incision site is clean dry and intact. She is stable for discharge. Please refer to chart for any further details. Physician Hydrogen Power Plant Engineer note has been reviewed by physician. Signing provider agrees with the documented findings, assessment, and plan of care. Patient Condition at Discharge: Stable Plan - Discharge Summary Discharge Rx Participant: Yes New Discharge Prescriptions: New HYDROcodone/APAP 5-325MG [Edison 5-325] 1 tab PO Q6HR PRN 3 Days #12 tab PRN Reason: Pain Continue Sertraline [Zoloft] 100 mg PO QAM Topiramate [Topamax] 100 mg PO QAM Cariprazine HCl [Vraylar] 3 mg PO QAM Omeprazole 40 mg PO QAM ALPRAZolam [Xanax] 0.5 mg PO BID PRN PRN Reason: Anxiety Discontinued Celecoxib [CeleBREX] 200 mg PO QAM Discharge Medication List Sertraline [Zoloft] 100 mg PO QAM 02/03/17 [History] Cariprazine HCl [Vraylar] 3 mg PO QAM 05/22/19 [History] Topiramate [Topamax] 100 mg PO QAM 05/22/19 [History] Omeprazole 40 mg PO QAM 03/15/21 [History] ALPRAZolam [Xanax] 0.5 mg PO BID PRN 11/01/21 [History] HYDROcodone/APAP 5-325MG [Edison 5-325] 1 tab PO Q6HR PRN 3 Days #12 tab 11/17/21 [Rx] Follow up Appointment(s)/Referral(s): David Tran MD [STAFF PHYSICIAN] - 1 Week Activity/Diet/Wound Care/Special Instructions: No driving while taking Edison No lifting over 10 pounds Shower daily. No soaking or tub baths for 2 weeks Very light activity until you are reevaluated at your follow up appointment with your surgeon Discharge Disposition: HOME SELF-CARE
[2021-11-17 14:25] VITALS: BMI 36.8
[2021-11-17 14:48] VITALS: BP 128/76; PULSE 54; TEMP 98.1
--- NOTE | 2021-11-23 11:39 | P.OP ---
Date of Procedure: 11/16/21 Preoperative Diagnosis: GERD Postoperative Diagnosis: GERD Procedure(s) Performed: Laparoscopic Trinh fundal plication Anesthesia: FAIZA Surgeon: David Tran Estimated Blood Loss (ml): 5 Pathology: none sent Condition: stable Disposition: PACU Description of Procedure: Akshat patient was placed on the operating table in the supine position. The patient received general anesthesia. And was placed in dorsal lithotomy position. The patient was prepped and draped in the usual sterile fashion. The skin incision sites were anesthetized with 1% local Xylocaine. The skin was incised in the left periumbilical area and then using a blade less 5 mm trocar under direct visualization panel cavity was entered. After adequate insufflation the laparoscope was then placed into the peritoneal cavity. Next a 5 mm trochars placed in the right epigastric position. Another 5 millimeter trocar the right lateral position. Another 5 millimeter trocar in the left lateral position a 5 mm trocar is placed in the left epigastric position. And then the initial 5 mm trocar was exchanged for a 10 mm trocar. The left lateral lobe liver was retracted. The hernia was seen. The crural defect was then dissected using the Harmonic scissors device. A 360 crural dissection was performed the esophagus stomach was reduced back into the peritoneal Cavity. The crural defect was then closed using 2-0 Ethibond suture. Next the fundus of the stomach was mobilized using the Yolo scissors device. and then a 58- Mongolian bougie dilator was placed oropharynx passed into the esophagus and stomach the fundal plication wrap was then performed by grasping the fundus pos teriorly and bringing it around the esophagus and stomach fundoplication was then performed using 2-0 Ethibond suture. Care was taken that the fundal location rested over top of the intra-abdominal esophagus. There was no injury seen to the stomach or esophagus. The dilator was then withdrawn. The abdomen was irrigated there is no bleeding seen. The trochars were then withdrawn and then skin incision sites were closed using 3-0 Monocryl suture Steri-Strips are applied. Patient thought procedure well and sent to recovery room in stable condition.
== END 2021-11-17 15:16 | disposition home or self-care (01) ==
LOC: OR 09:53 → 4SSUR 12:31 → OR 23:55
PROVIDERS: ADMIT Family Medicine; ATTEND Surgery
DX: K21.00 Gastro-esophageal reflux disease with esophagitis, without bleeding (principal); F41.9 Anxiety disorder, unspecified; F32.A Depression, unspecified; E66.9 Obesity, unspecified; F31.9 Bipolar disorder, unspecified; Z85.038 Personal history of other malignant neoplasm of large intestine; Z90.49 Acquired absence of other specified parts of digestive tract; Z90.710 Acquired absence of both cervix and uterus; Z87.442 Personal history of urinary calculi; Z80.0 Family history of malignant neoplasm of digestive organs; Z79.899 Other long term (current) drug therapy; Z82.49 Family history of ischemic heart disease and other diseases of the circulatory system; Z68.36 Body mass index [BMI] 36.0-36.9, adult
CPT/HCPCS: 96376 ×2; 96372; 96374; 43280; G0378 ×2; J2250; J0330; J1100; J2710; J2175; J0690; J2405; J1650; J3010; J1170 ×3; J1885; J2704; J1644; J2001

== ENCOUNTER → 2021-12-16 | Outpatient (CLI) | payer OTHER ==
--- NOTE | 2021-12-16 17:04 | P.SLEEP ---
History of Present Illness DATE: 12/16/2021 CONSULTATION/NEW PATIENT EVALUATION HISTORY OF PRESENT ILLNESS/SLEEP-WAKE EVALUATION: 46year old lady had been e valuated in the sleep center for possible obstructive sleep apnea hypopnea syndrome. SLEEP SCHEDULE: Usually sleep schedule on weekdays from 9 PM to 7 AM, during days off from 9 PM to 9 AM. FALLING ASLEEP: Patient does have problems with falling asleep, has TV set and bedroom. DURING SLEEP:. Patient sleeps in different positions. According to her she has extremely loud snoring and witnessed episodes of sleep apneas. Positive history of choking and gasping for air. No history of hypnogogical hallucinations, sleep paralysis, or cataplexy. DURING THE DAY/WAKE STATE: In the morning patient wake up tired, has difficulties to place attention, falling asleep during the day, positive for episodes of irritability, depression and anxiety.. [place] sleepiness scale is increased to 13. Patient take 1 nap at 3 PM. PAST MEDICAL HISTORY: Migraines, bipolar, anxiety, back arthritis, colon cancer, Zavala syndrome. PAST SURGICAL HISTORY: Right colectomy for colon CA,, cholecystectomy, Trinh fundoplication in November 2021, partial hysterectomy 2018. MEDICATIONS:, Omeprazole 40 mg once a day, celecoxib 200 mg once a day, topiramate 100 mg once a day, sertraline 100 mg once a day, sumatriptan 100 mg as needed, cetirizine 10 mg once a day, Xanax 0.5 mg as needed. SOCIAL HISTORY:. Negative for smoking, alcohol consumption occasional. FAMILY HISTORY: Hypertension, heart problems, stroke, cancer, mental illness, thyroid problems. REVIEW OF SYSTEMS:. Loud snoring, awakenings from sleep, sleepiness during the day. No fevers. No double vision. No recent chest pain. No shortness of breath. No abdominal pain. No bleeding episodes. No blood in urine. No seizure episodes. PHYSICAL EXAMINATION: GENERAL: A pleasant patient without any distress. VITAL SIGNS: BP, 147/83, HR 62, RR, 16, weight 206.0 pounds, height 5 foot 3-1/3 inches, body mass index 36.1. HEENT: PERRLA, EOMI. Evaluation of oropharynx showed tongue protrudes midline, low position of soft palate Mallampati 4. NECK: Supple. No JVD. Thyroid is not palpable. 14-3/4 inches in circumference. LUNGS: Clear to percussion and to auscultation. Good air exchange. No wheezing or rhonchi. HEART: S1, S2 regular. No murmurs, gallops or rubs. ABDOMEN: Soft and nontender. Bowel sounds are present. No organomegaly appreciated. Slightly obese. EXTREMITIES: No clubbing or cyanosis. DENTAL SCHEDULER: Awake, alert, and oriented x3. Cranial nerves 2 to 7 intact. There is no fasciculation or atrophy noted. No focal deficits observed. ASSESSMENT: 1. Loud snoring, witnessed episodes of stopped breathing during the sleep, extremely low position of soft palate Mallampati 4, significant excessive daytime sleepiness Austwell Sleepiness Scale is 13. Obstructive sleep apnea hypopnea syndrome. 2., History of Zavala syndrome. Status post the right colectomy for colon CA. 3 obesity body mass index 36.1. 4.. Migraines. 5. Status post partial hysterectomy 2018. 6., Status post Trinh fundoplication in November 2021. 7.. History of anxiety and bipolar disorder. 8. Back arthritis. 9.. History of acid reflux. 10. Status post cholecystectomy. 11.. History of endometriosis. PLAN: 1. Polysomnography for evaluation of patient's breathing during sleep. 2. CPAP/BiPAP titration if sleep study confirms obstructive sleep apnea- hypopnea syndrome. 3. Preferable position during sleep on the side. 4. No driving if patient feels any sleepiness. Patient is aware of civil and criminal liability for unsafe driving. 5. Sleep hygiene with regular sleep time for at least 7.5-8 hours. 6. Watching and losing weight. Thank you very much for referring this patient for consultation. Sincerely, Gage Walker MD, PhD, FAASM. Diplomat of [place] [employer], Sleep Medicine Board by [place] [employer] [place] [employer] Linen Room Custodian of [facility] [place] Past Medical History Past Medical History: Cancer, GERD/Reflux, Osteoarthritis (OA) Additional Past Medical History / Comment(s): Endometrosis, migraines, kidney stones, UTI. Colon cancer with bowel resection surgery and mass removal. History of Any Multi-Drug Resistant Organisms: None Reported Past Surgical History: Bowel Resection, Cholecystectomy, Hysterectomy Additional Past Surgical History / Comment(s): Laparoscopy x 2, EGD-8/29/22 Past Anesthesia/Blood Transfusion Reactions: No Reported Reaction Past Psychological History: Anxiety, Bipolar, Depression, Panic Disorder Smoking Status: Never smoker Past Alcohol Use History: Rare Past Drug Use History: None Reported - Past Family History Mother Additional Family Medical History / Comment(s): "heart problems" Sister(s) Family Medical History: Cancer Additional Family Medical History / Comment(s): Colon cancer Father Family Medical History: Cancer Additional Family Medical History / Comment(s): Colon cancer Medications and Allergies Home Medications Medication Instructions Recorded Confirmed Type Sertraline [Zoloft] 100 mg PO QAM 02/03/17 11/16/21 History Cariprazine HCl [Vraylar] 3 mg PO QAM 05/22/19 11/16/21 History Topiramate [Topamax] 100 mg PO QAM 05/22/19 11/16/21 History Omeprazole 40 mg PO QAM 03/15/21 11/16/21 History ALPRAZolam [Xanax] 0.5 mg PO BID PRN 11/01/21 11/16/21 History Docusate [Colace] 100 mg PO BID #30 capsule 11/17/21 Rx HYDROcodone/APAP 5-325MG [[place] 1 tab PO Q6HR PRN 3 Days #12 tab 11/17/21 Rx 5-325] Allergies Allergy/AdvReac Type Severity Reaction Status Date / Time Iodinated Contrast Media Allergy Dyspnea Verified 11/16/21 10:14 [Iodinated Contrast- Oral and IV Dye] Sleep Note - Sleep Note Sleep Note: Temperature: Pulse Rate: Respiratory Rate: Blood Pressure: SpO2: Height: Weight: BMI: Neck Circumference:
== END | disposition home or self-care (01) ==
LOC: SLEEP 15:31
PROVIDERS: ATTEND Internal Medicine
DX: G47.33 Obstructive sleep apnea (adult) (pediatric) (principal); E66.9 Obesity, unspecified; Z68.36 Body mass index [BMI] 36.0-36.9, adult; G43.909 Migraine, unspecified, not intractable, without status migrainosus; Z90.79 Acquired absence of other genital organ(s); Z90.49 Acquired absence of other specified parts of digestive tract; M13.80 Other specified arthritis, unspecified site; Z98.890 Other specified postprocedural states; Z87.19 Personal history of other diseases of the digestive system
CPT/HCPCS: 99211

== ENCOUNTER → 2022-03-02 | Outpatient (CLI) | payer OTHER ==
--- NOTE | 2022-03-03 15:14 | MM ---
Reason for Exam: Screening (asymptomatic). Last mammogram was performed 1 year(s) and 1 month(s) ago. Patient History: Menarche at age 11. First Full-Term at age 31. Late child-bearing (after 30). Hysterectomy at age 42. Hormonal Contraceptives for 5 months. 09/24/2015, Benign Cyst Aspiration on the left side. Maternal aunt had breast cancer, age 40. Risk Values: [place] 5 year model risk: 1.2%. NCI Lifetime model risk: 12.7%. Prior Study Comparison: 11/29/2018 Bilateral Screening Mammogram, [facility]. 01/06/2020 Bilateral Screening Mammogram, [facility]. 01/25/2021 Bilateral Screening Mammogram, [facility]. Tissue Density: There are scattered fibroglandular densities. Findings: Analyzed By CAD. Chronic nodularity is present bilaterally. A core marker is within the left breast. No significant interval changes. No suspicious groups of microcalcifications, spiculated or lobular masses, architectural distortion or other secondary signs of malignancy are mammographically apparent. Overall Assessment: Benign, BI-RAD 2 Management: Screening Mammogram of both breasts in 1 year. A negative mammogram report should not preclude additional follow up of suspicious palpable abnormalities. Patient should continue monthly self breast exam. A clinical breast exam by your physician is recommended on an annual basis and results should be correlated with mammographic findings. Electronically signed and approved by: Dionisio Lemus D.O. Radiologis
== END | disposition home or self-care (01) ==
LOC: RADMAMWWP 11:31
PROVIDERS: ATTEND Family Medicine
DX: Z12.31 Encounter for screening mammogram for malignant neoplasm of breast (principal); Z80.3 Family history of malignant neoplasm of breast
CPT/HCPCS: 77067

== ENCOUNTER → 2022-03-23 | Outpatient (CLI) | payer OTHER ==
--- NOTE | 2022-03-23 17:25 | P.PN ---
Subjective DATE: 03/23/2022 FOLLOW UP VISIT. Patient returned to sleep center for follow-up visit to discuss results of sleep study and following plan. I discuss results of sleep studies with patient in details. No significant respiratory abnormalities have been documented. Normal oxygenation during the sleep. No significant periodic limb movements. A very high sleep efficiency. Patient continued to feel sleepiness during the day. Hazen sleepiness scale is 12. I discussed with the patient possibility of multiple sleep latency test for objective for evaluation sleepiness. MEDICATIONS:1. Zoloft 100 mg once a day 2. Topamax 100 mg once a day 3. Xanax 0.5 mg as needed 4. Vraylar 3 mg once a day During physical exam: GENERAL: A pleasant patient without any distress. VITAL SIGNS: BP 126/84, HR 70, RR 18 , weight 207.2, temperature 98.1, oxygen saturation at room air 99% . HEENT: PERRLA, EOMI. NECK: Supple. No JVD. LUNGS: Clear to percussion and to auscultation. Good air exchange. No wheezing or rhonchi. HEART: S1, S2 regular. ABDOMEN: Soft and nontender. EXTREMITIES: No clubbing or cyanosis. CRIME DATA SPECIALIST: Awake, alert, and oriented x3. No focal deficit. Impressions: 1. No significant respiratory abnormalities have been documented during the sleep study 2. No significant periodic limb movements. 3. Very high sleep efficiency during the test. 4. Snoring have been documented during the sleep study. 5. Migraines. 6. Status post right colectomy for Zavala syndrome. 7. Status post Trinh fundoplication. 8. Anxiety. 9. Bipolar. 10 acid reflux Plan: 1. Patient may consider evaluation by ear nose and throat physician for treatment of snoring. 2. Sleep hygiene with regular time in bed for at least 8 hours. 3. If patient will continue to have symptoms of significant excessive daytime sleepiness she should return to sleep center for multiple sleep latency test. 4. Precautions related to driving. No driving if feel any sleepiness. Patient is aware about civil and criminal liability for unsafe driving, promised to follow recommendations. Thank you very much for allowing me to participate in the management of your patient. Gage Walker MD, PhD, FAASM. Diplomat of [place] [employer], Sleep Medicine Board by [place] [employer] Memory Care Program Resident of [facility] [place]
== END ==
LOC: SLEEP 16:38
PROVIDERS: ATTEND Internal Medicine
DX: R06.83 Snoring (principal); G43.909 Migraine, unspecified, not intractable, without status migrainosus; F41.9 Anxiety disorder, unspecified; F31.9 Bipolar disorder, unspecified; K21.9 Gastro-esophageal reflux disease without esophagitis; Z98.890 Other specified postprocedural states; Z85.038 Personal history of other malignant neoplasm of large intestine; Z91.041 Radiographic dye allergy status
CPT/HCPCS: 99212

== ENCOUNTER 2022-06-02 09:56 | Day surgery (SDC) | payer OTHER ==
[2022-05-30 15:58] VITALS: BMI 37.2
[~2022-06-02 09:56] MED LIST changes: -ACETAMINOPHEN TAB 500 MG TAB PO PRN; -DEXAMETHASONE SOD PHOSPHATE 4 MG/ML 1 ML VIAL IV ONE; -HEPARIN SODIUM,PORCINE/PF 5,000 UNIT/0.5 ML SYRINGE SQ PRN; +LACTATED RINGERS 1,000 ML IV SCH; -ONDANSETRON 4 MG/2 ML VIAL IVP ONE
[2022-06-02 10:54] VITALS: TEMP 98
[2022-06-02] MEDS ORDERED: MIDAZOLAM 2 MG/2 ML VIAL IVP ONE (10:55)
[2022-06-02] MEDS ORDERED: PROPOFOL 10 MG/ML 20 ML VIAL IV ONE (11:44)
[2022-06-02] MEDS ORDERED: LIDOCAINE 2% INJ 20 MG/ML (2 ML VIAL) ONE (11:44)
--- NOTE | 2022-06-02 11:48 | P.GSHP ---
History of Present Illness H&P Date: 06/02/22 Chief Complaint: History of colon cancer, hiatal hernia This a 46-year-old female who is. History of colon cancer. Patient underwent previous laparoscopic right colectomy. She is also had history of hiatal hernia repair. She presents today for EGD and colonoscopy. Past Medical History Past Medical History: Cancer, Chest Pain / Angina, GERD/Reflux, Osteoarthritis (OA) Additional Past Medical History / Comment(s): Endometrosis, migraines, kidney stones, UTI. Hx colon cancer with bowel resection surgery and mass removal. History of Any Multi-Drug Resistant Organisms: None Reported Past Surgical History: Bowel Resection, Cholecystectomy, Hysterectomy Additional Past Surgical History / Comment(s): Laparoscopy X2, EGD, Colonosc opies. Past Anesthesia/Blood Transfusion Reactions: No Reported Reaction Past Psychological History: Anxiety, Bipolar, Depression, Panic Disorder Smoking Status: Never smoker Past Alcohol Use History: Rare Past Drug Use History: None Reported - Past Family History Mother Additional Family Medical History / Comment(s): "heart problems" Sister(s) Family Medical History: Cancer Additional Family Medical History / Comment(s): Colon cancer, . Father Family Medical History: Cancer Additional Family Medical History / Comment(s): Colon cancer. Medications and Allergies Home Medications Medication Instructions Recorded Confirmed Type Sertraline [Zoloft] 100 mg PO HS 02/03/17 06/02/22 History Cariprazine HCl [Vraylar] 3 mg PO HS 05/22/19 06/02/22 History Topiramate [Topamax] 100 mg PO HS 05/22/19 06/02/22 History ALPRAZolam [Xanax] 0.5 mg PO BID PRN 11/01/21 06/02/22 History Diclofenac Sodium [Voltaren] 75 mg PO DAILY 05/30/22 06/02/22 History Allergies Allergy/AdvReac Type Severity Reaction Status Date / Time Iodinated Contrast Media Allergy Dyspnea Verified 06/02/22 10:34 [Iodinated Contrast- Oral and IV Dye] Surgical - Exam Vital Signs Temp Pulse Resp BP Pulse Ox 98.0 F 73 16 128/68 96 06/02/22 10:48 06/02/22 10:48 06/02/22 10:48 06/02/22 10:48 06/02/22 10:48 - General well developed, well nourished, no distress - Eyes PERRL - ENT normal pinna - Neck no masses - Respiratory normal expansion - Cardiovascular Rhythm: regular - Abdomen Abdomen: soft, non tender Assessment and Plan Assessment: History of colon cancer and hiatal hernia. Patient underwent EGD colonoscopy.
--- NOTE | 2022-06-02 12:05 | P.OP ---
Date of Procedure: 06/02/22 Preoperative Diagnosis: History of colon cancer, GERD Postoperative Diagnosis: Normal colon Fundal polyp Mild esophagitis Procedure(s) Performed: EGD Colonoscopy Anesthesia: MAC Surgeon: David Tran Pathology: other (Fundal polyp) Condition: stable Disposition: PACU Description of Procedure: The patient's placed on the endoscopy table in the lateral position. She received IV sedation. The gastroscope placed oropharynx passed in the esophagus and stomach. Scope was placed through the pylorus. The first and second portion of the duodenum appeared normal. Scope was then brought back the antrum this was minimal inflamed. A biopsies performed. Scope was then retroflexed and the remainder of the stomach was visualized. There were some fundal polyps. They appeared to be benign in appearance. A biopsies performed. The patient had a previous hiatal hernia repair. No significant hiatal hernia could be visualized. The GE junction was at 40 cm. The distal esophagus appeared minimally inflamed a biopsies performed. The proximal esophagus appeared normal. The scope was withdrawn for patient. Next digital rectal exam was performed. The nail exam was normal. The flexible colonoscope was then placed patient anus and passed throughout the entire colon. Patient appears right colectomy. The ileocolonic anastomosis visualized. Scope was withdrawn. The visualized right colon, transverse colon, descending colon appeared normal. The sigmoid colon appeared normal. The scope was then brought back the rectum this appeared normal. Scope withdrawn for patient.
[2022-06-02 12:11] VITALS: RESP 14
[2022-06-02 12:34] VITALS: BP 123/77; PULSE 77
== END 2022-06-02 12:36 | disposition home or self-care (01) ==
LOC: ORWHC2ENDO 09:56
PROVIDERS: ATTEND Surgery
DX: Z12.11 Encounter for screening for malignant neoplasm of colon (principal); K21.9 Gastro-esophageal reflux disease without esophagitis; K63.5 Polyp of colon; K21.00 Gastro-esophageal reflux disease with esophagitis, without bleeding; F32.A Depression, unspecified; F41.9 Anxiety disorder, unspecified; M19.90 Unspecified osteoarthritis, unspecified site; Z90.49 Acquired absence of other specified parts of digestive tract; Z90.710 Acquired absence of both cervix and uterus; Z98.890 Other specified postprocedural states; Z87.442 Personal history of urinary calculi; Z86.010 Personal history of colon polyps
CPT/HCPCS: 45378; 43239; J2250; J2704; J2001; 88305

== ENCOUNTER 2022-07-01 16:11 | Emergency (ER) | payer OTHER ==
[2022-07-01 16:21] VITALS: BP 182/96; PULSE 80; RESP 16; TEMP 97.9
[2022-07-01] MEDS ORDERED: SODIUM CHLORIDE 0.9% 1,000 ML IV STA (16:40)
[2022-07-01] MEDS ORDERED: ONDANSETRON 4 MG/2 ML VIAL IVP STA (16:40)
[2022-07-01] MEDS ORDERED: KETOROLAC 15 MG/ML 1 ML VIAL IVP STA (16:40)
--- NOTE | 2022-07-01 16:49 | ED ---
General Adult HPI - General Chief complaint: Abdominal Pain Stated complaint: kidney stones Time Seen by Provider: 07/01/22 16:22 Source: patient, RN notes reviewed Mode of arrival: ambulatory Limitations: no limitations - History of Present Illness Initial comments: 46-year-old female presents to the emergency department chief complaint of right-sided abdominal pain. She states that this started on Monday. She states the pain is in the right upper quadrant and radiates to the back. She states she has a history of kidney stones and this feels like her prior kidney stones. She went to her primary care provider on Monday had a urinalysis and KUB performed. She states that she has been taking Toradol 10 mg. She states that she last took it this morning. Past surgical history includes appendectomy and cholecystectomy. She denies hematuria, dysuria, urinary frequency. Denies fever. Admits to chills yesterday. - Related Data Home Medications Medication Instructions Recorded Confirmed Sertraline [Zoloft] 100 mg PO HS 02/03/17 06/02/22 Cariprazine HCl [Vraylar] 3 mg PO HS 05/22/19 06/02/22 Topiramate [Topamax] 100 mg PO HS 05/22/19 06/02/22 ALPRAZolam [Xanax] 0.5 mg PO BID PRN 11/01/21 06/02/22 Diclofenac Sodium [Voltaren] 75 mg PO DAILY 05/30/22 06/02/22 Allergies Allergy/AdvReac Type Severity Reaction Status Date / Time Iodinated Contrast Media Allergy Dyspnea Verified 06/02/22 10:34 [Iodinated Contrast- Oral and IV Dye] Review of Systems ROS Statement: Those systems with pertinent positive or pertinent negative responses have been documented in the HPI. ROS Other: All systems not noted in ROS Statement are negative. Past Medical History Past Medical History: Cancer, Chest Pain / Angina, GERD/Reflux, Osteoarthritis (OA) Additional Past Medical History / Comment(s): Endometrosis, migraines, kidney stones, UTI. Hx colon cancer with bowel resection surgery and mass removal. History of Any Multi-Drug Resistant Organisms: None Reported Past Surgical History: Bowel Resection, Cholecystectomy, Hysterectomy Additional Past Surgical History / Comment(s): Laparoscopy X2, EGD, Colonoscopies. Past Anesthesia/Blood Transfusion Reactions: No Reported Reaction Past Psychological History: Anxiety, Bipolar, Depression, Panic Disorder Smoking Status: Never smoker Past Alcohol Use History: Rare Past Drug Use History: None Reported - Past Family History Mother Additional Family Medical History / Comment(s): "heart problems" Sister(s) Family Medical History: Cancer Additional Family Medical History / Comment(s): Colon cancer, . Father Family Medical History: Cancer Additional Family Medical History / Comment(s): Colon cancer. General Exam Limitations: no limitations General appearance: alert, in no apparent distress Head exam: Present: atraumatic, normocephalic, normal inspection Eye exam: Present: normal appearance Respiratory exam: Present: normal lung sounds bilaterally. Absent: respiratory distress, wheezes, rales, rhonchi, stridor Cardiovascular Exam: Present: regular rate, normal rhythm, normal heart sounds. Absent: systolic murmur, diastolic murmur, rubs, gallop, clicks GI/Abdominal exam: Present: soft, tenderness (RUQ TTP ), normal bowel sounds Back exam: Present: normal inspection Neurological exam: Present: alert, oriented X3 Skin exam: Present: warm, dry, intact, normal color. Absent: rash Course Vital Signs 07/01/22 16:18 Temperature 97.9 F Pulse Rate 80 Respiratory 16 Rate Blood Pressure 182/96 O2 Sat by Pulse 98 Oximetry Medical Decision Making - Medical Decision Making Was pt. sent in by a medical professional or institution (YADIRA Flannery, [employer], urgent care, hospital, or shelter...) When possible be specific @ -No Did you speak to anyone other than the patient for history (EMS, parent, family, police, friend...)? What history was obtained from this source @ -No Did you review nursing and triage notes (agree or disagree)? Why? @ -I reviewed and agree with nursing and triage notes Were old charts reviewed (outside hosp., previous admission, EMS record, old EKG, old radiological studies, urgent care reports/EKG's, shelter records)? Report findings @ -No old charts were reviewed Differential Diagnosis (chest pain, altered mental status, abdominal pain women, abdominal pain men, vaginal bleeding, weakness, fever, dyspnea, syncope, headache, dizziness, GI bleed, back pain, seizure, CVA, palpatations, mental health, musculoskeletal)? @ -Differential Abdominal Pain Women: Appendicitis, Cholecystitis, diverticulosis, ischemic bowel, pancreatitis, hepatitis, UTI, gastroenteritis, AAA, incarcerated hernia, bowel obstruction, constipation, inflammatory bowel, hepatitis, peptic ulcer disease, splenic infarction, perforated viscus, vulvitis, ovarian torsion, PID, kidney stone, placenta abruption, this is not meant to be an all-inclusive list EKG interpreted by me (3pts min.). @ -None X-rays interpreted by me (1pt min.). @ -None done CT interpreted by me (1pt min.). @ -CT abdomen and pelvis without contrast showed a 3 mm nonobstructing stone in the right kidney U/S interpreted by me (1pt. min.). @ -None done What testing was considered but not performed or refused? (CT, X-rays, U/S, labs)? Why? @ -None What meds were considered but not given or refused? Why? @ -None Did you discuss the management of the patient with other professionals ( professionals i.e. , PA, [employer], lab, RT, psych nurse, geriatric social work professor, big data solutions architect, teacher, [place] police officer, pillowcase maker)? Give summary @ -No Was smoking cessation discussed for >3mins.? @ -No Was critical care preformed (if so, how long)? @ -No Were there social determinants of health that impacted care today? How? (Homelessness, low income, unemployed, alcoholism, drug addiction, transpo rtation, low edu. Level, literacy, decrease access to med. care, prison, rehab)? @ -No Was there de-escalation of care discussed even if they declined (Discuss DNR or withdrawal of care, Hospice)? DNR status @ -No What co-morbidities impacted this encounter? (DM, HTN, Smoking, COPD, CAD, Cancer, CVA, ARF, Chemo, Hep., AIDS, mental health diagnosis, sleep apnea, morbid obesity)? @ -None Was patient admitted / discharged? Hospital course, mention meds given and route, prescriptions, significant lab abnormalities, going to OR and other pertinent info. @ -Discharged. Patient presented to the emergency department with right-sided abdominal pain and flank pain going on since Monday. She went to see her primary care on Monday and she has been taking Toradol 10 mg for pain. CBC shows white blood cells 6.6, hemoglobin 12.7, hematocrit 38.5; CMP showed sodium 141, potassium 3.7, creatinine 0.88; UA shows negative blood, positive nitrates, negative leukocyte esterase; CT abdomen and pelvis without contrast showed a 3 mm nonobstructing stone in the right kidney. Patient advised to follow-up with her primary care provider on Monday and continue taking Toradol as needed for pain at home. Case discussed with my attending, Dr. Burgos. Patient discharged in stable condition Undiagnosed new problem with uncertain prognosis? @ -No Drug Therapy requiring intensive monitoring for toxicity (Heparin, Nitro, Insulin, Cardizem)? @ -No Were any procedures done? @ -No Diagnosis/symptom? @ -Flank pain Acute, or Chronic, or Acute on Chronic? @ -Acute Uncomplicated (without systemic symptoms) or Complicated (systemic symptoms)? @ -Uncomplicated Side effects of treatment? @ -No Exacerbation, Progression, or Severe Exacerbation? @ -No Poses a threat to life or bodily function? How? (Chest pain, [place], [place], pneumonia, PE, COPD, DKA, ARF, appy, cholecystitis, CVA, Diverticulitis, Homicidal, Suicidal, threat to staff... and all critical care pts) @ -No - Lab Data Result diagrams: 07/01/22 16:49 07/01/22 16:49 Lab Results 07/01/22 07/01/22 07/01/22 Range/Units 16:49 16:49 16:49 WBC 6.6 (3.8-10.6) k/uL RBC 4.75 (3.80-5.40) m/uL Hgb 12.7 (11.4-16.0) gm/dL Hct 38.5 (34.0-46.0) % MCV 81.1 (80.0-100.0) fL MCH 26.9 (25.0-35.0) pg MCHC 33.1 (31.0-37.0) g/dL RDW 14.4 (11.5-15.5) % Plt Count 196 (150-450) k/uL MPV 7.7 Neutrophils % 60 % Lymphocytes % 32 % Monocytes % 3 % Eosinophils % 3 % Basophils % 0 % Neutrophils # 4.0 (1.3-7.7) k/uL Lymphocytes # 2.1 (1.0-4.8) k/uL Monocytes # 0.2 (0-1.0) k/uL Eosinophils # 0.2 (0-0.7) k/uL Basophils # 0.0 (0-0.2) k/uL Sodium 141 (137-145) mmol/L Potassium 3.7 (3.5-5.1) mmol/L Chloride 107 (98-107) mmol/L Carbon Dioxide 23 (22-30) mmol/L Anion Gap 11 mmol/L BUN 13 (7-17) mg/dL Creatinine 0.88 (0.52-1.04) mg/dL Est GFR (CKD-EPI)AfAm >90 (>60 ml/min/1.73 sqM) Est GFR (CKD-EPI)NonAf 79 (>60 ml/min/1.73 sqM) Glucose 135 H (74-99) mg/dL Calcium 8.9 (8.4-10.2) mg/dL Total Bilirubin 0.3 (0.2-1.3) mg/dL AST 28 (14-36) U/L ALT 44 H (4-34) U/L Alkaline Phosphatase 95 (38-126) U/L Total Protein 7.1 (6.3-8.2) g/dL Albumin 4.3 (3.5-5.0) g/dL Amylase 70 (30-110) U/L Lipase 254 (23-300) U/L Urine Color Yellow Urine Appearance Clear (Clear) Urine pH 5.5 (5.0-8.0) Ur Specific [place] 1.013 (1.001-1.035) Urine Protein Negative (Negative) Urine Glucose (UA) Negative (Negative) Urine Ketones Negative (Negative) Urine Blood Negative (Negative) Urine Nitrite Positive H (Negative) Urine Bilirubin Negative (Negative) Urine Urobilinogen <2.0 (<2.0) mg/dL Ur Leukocyte Esterase Negative (Negative) Urine WBC 3 (0-5) /hpf Ur Squamous Epith Cells 1 (0-4) /hpf Amorphous Sediment Rare H (None) /hpf Urine Bacteria Few H (None) /hpf Urine Mucus Occasional H (None) /hpf Disposition Clinical Impression: Right flank pain Disposition: HOME SELF-CARE Condition: Stable Instructions (If sedation given, give patient instructions): Flank Pain (ED) Additional Instructions: Please return to the Emergency Department if symptoms worsen or any other concerns. Is patient prescribed a controlled substance at d/c from ED?: No Referrals: Mireya Dsailva DO [Primary Care Provider] - 1-2 days Time of Disposition: 18:29
[2022-07-01 17:09] LABS: Basophils % (A) 0 %; Eosinophils # (A) 0.2 k/uL (0-0.7); Eosinophils % (A) 3 %; HCT 38.5 % (34.0-46.0); HGB 12.7 gm/dL (11.4-16.0); Lymphocytes # (A) 2.1 k/uL (1.0-4.8); Lymphocytes % (A) 32 %; MCH 26.9 pg (25.0-35.0); MCHC 33.1 g/dL (31.0-37.0); MCV 81.1 fL (80.0-100.0); Mean Platelet Volume 7.7; Monocytes # (A) 0.2 k/uL (0-1.0); Monocytes % (A) 3 %; Neutrophils % (A) 60 %; Platelet Count 196 k/uL (150-450); RBC 4.75 m/uL (3.80-5.40); RDW 14.4 % (11.5-15.5); WBC 6.6 k/uL (3.8-10.6)
[2022-07-01 17:12] LABS: Amorphous Sediment,Urine Rare /hpf; Appearance,Urine Clear (Clear); Bacteria,Urine Few /hpf; Bilirubin,Urine Negative (Negative); Blood,Urine Negative (Negative); Color,Urine Yellow; Glucose,Urine (UA) Negative (Negative); Ketones,Urine Negative (Negative); Leukocyte Esterase,Urine Negative (Negative); Mucus,Urine Occasional /hpf; Nitrite,Urine Positive (Negative); PH, Urine 5.5 (5.0-8.0); Protein,Urine Negative (Negative); Specific Gravity,Urine 1.013 (1.001-1.035); Squamous Epithelial Cell,Urine 1 /hpf (0-4); Urobilinogen,Urine <2.0 mg/dL (<2.0); WBC,Urine 3 /hpf (0-5)
[2022-07-01 17:22] LABS: ALT 44 U/L (4-34); AST 28 U/L (14-36); African American GFR (CKD) >90 (>60 ml/min/1.73 sqM); Albumin 4.3 g/dL (3.5-5.0); Alkaline Phosphatase 95 U/L (38-126); Amylase 70 U/L (30-110); Anion Gap 11 mmol/L; Blood Urea Nitrogen 13 mg/dL (7-17); Calcium 8.9 mg/dL (8.4-10.2); Carbon Dioxide 23 mmol/L (22-30); Chloride 107 mmol/L (98-107); Glucose 135 mg/dL (74-99); Lipase 254 U/L (23-300); Non-African American GFR(CKD) 79 (>60 ml/min/1.73 sqM); Potassium 3.7 mmol/L (3.5-5.1); Sodium 141 mmol/L (137-145); Total Bilirubin 0.3 mg/dL (0.2-1.3); Total Protein 7.1 g/dL (6.3-8.2)
--- NOTE | 2022-07-01 17:55 | CT ---
EXAMINATION TYPE: CT abdomen pelvis wo con CT DLP: 1027.4 mGycm, Automated exposure control for dose reduction was used. DATE OF EXAM: 07/01/2022 5:34 PM COMPARISON: CT abdomen pelvis most recent from 06/02/2020, PET/CT 07/18/2020 CLINICAL INDICATION:Female, 46 years old with history of abd pain, hx kidney stones; bilateral flank pain TECHNIQUE: Axial CT of the abdomen and pelvis. Sagittal and coronal reformats were created on a [employer] workstation. Contrast used: None Oral contrast used: without Oral Contrast FINDINGS: LOWER CHEST: Unremarkable ABDOMEN LIVER: Diffusely hypoattenuating parenchyma. GALLBLADDER AND BILE DUCTS: Unremarkable. PANCREAS: Unremarkable. SPLEEN: Unremarkable. ADRENAL GLANDS: Unremarkable. KIDNEYS AND URETERS: No obstructive uropathy right nonobstructing 3 mm calculus. Duplicated collectin g system on the left. PELVIS BLADDER: Unremarkable REPRODUCTIVE: Uterus is surgically absent. ABDOMEN & PELVIS STOMACH AND BOWEL: No evidence of bowel obstruction. Postsurgical changes of the right colon. Surgica l changes of gastric esophageal junction. PERITONEUM/RETROPERITONEUM: No evidence of pneumoperitoneum or free fluid. VASCULATURE: No evidence of aortic aneurysm. MUSCULOSKELETAL: No acute osseous abnormalities LYMPH NODES: No gross evidence for lymphadenopathy. SOFT TISSUE/ABDOMINAL WALL: Diastasis of the rectus abdominis measuring up to 5.0 cm anteriorly. IMPRESSION: 1. No evidence of obstructive uropathy or acute abdominal process. 2. Nonobstructing right 3 mm thickness. 3. The left renal collecting system. 4. Hepatic steatosis. 5. No evidence for lymphadenopathy to suggest recurrence.
== END 2022-07-01 18:37 | disposition home or self-care (01) ==
LOC: EC 16:11
DX: K76.0 Fatty (change of) liver, not elsewhere classified (principal); M19.90 Unspecified osteoarthritis, unspecified site; Z79.1 Long term (current) use of non-steroidal anti-inflammatories (NSAID); Z88.8 Allergy status to other drugs, medicaments and biological substances; Z90.49 Acquired absence of other specified parts of digestive tract; Z86.59 Personal history of other mental and behavioral disorders
CPT/HCPCS: 36415; 80053; 82150; 83690; 85025; 81001; 74176; 99284; 96374; 96375; 96361; J2405; J1885

== ENCOUNTER → 2022-08-03 | Outpatient (CLI) | payer OTHER ==
--- NOTE | 2022-08-03 15:08 | P.PN ---
Subjective DATE: 08/03/2022 FOLLOW UP VISIT. Patient returned to sleep center for follow-up visit to discuss results of sleep study and following plan. Patient continued to feel significant excessive daytime sleepiness [place] Sleepiness Scale today significantly increased to 16. I discuss results of sleep study with patient in details. Diagnostic polysomnogram did not show any significant respiratory abnormalities for periodic limb movements. Multiple sleep latency test confirmed sleepiness. Mean sleep latency 8 minutes which is short and indicate sleepiness. No sleep onset REM periods have been documented. . MEDICATIONS:1. Zoloft 2. Xanax 3. Vraylar 4. Diclo During physical exam: GENERAL: A pleasant patient without any distress. VITAL SIGNS: BP 140/84, HR 63, RR 12, weight 210.4, temperature 98.5, oxygen saturation at room air 97%. HEENT: PERRLA, EOMI. NECK: Supple. No JVD. LUNGS: Clear to percussion and to auscultation. Good air exchange. No wheezing or rhonchi. HEART: S1, S2 regular. ABDOMEN: Soft and nontender. EXTREMITIES: No clubbing or cyanosis. STAGE TECHNICIAN: Awake, alert, and oriented x3. No focal deficit. Impressions: 1. Sleepiness confirmed by multiple sleep latency test. Differential diagnosis include narcolepsy type II and idiopathic hypersomnia. 2. Migraines. 3. History of anxiety and bipolar disorder. 4. Status post right colectomy for colon cancer. 5. History of acid reflux. 6. Mild obesity, BMI is in range of 37. Plan: 1. Patient will be started on treatment with Adderall 5 mg first thing in the morning and 5 mg at noontime. 2. Sleep hygiene with regular time in bed for at least 8 hours. 3. Daytime naps permitted 4. Precautions related to driving. No driving if feel any sleepiness. Patient is aware about civil and criminal liability for unsafe driving, promised to follow recommendations. 5. Follow up visit in 3 months or earlier if patient has any problems. Thank you very much for allowing me to participate in the management of your patient. Gage Walker MD, PhD, FAASM. Diplomat of [place] [employer], Sleep Medicine Board by [place] [employer] Portfolio Analyst of [facility] [place]
== END ==
LOC: 3 N SLEEP 14:04
PROVIDERS: ATTEND Internal Medicine
DX: G47.10 Hypersomnia, unspecified (principal); G43.909 Migraine, unspecified, not intractable, without status migrainosus; E66.9 Obesity, unspecified; F31.9 Bipolar disorder, unspecified; F41.9 Anxiety disorder, unspecified; K21.9 Gastro-esophageal reflux disease without esophagitis; Z68.37 Body mass index [BMI] 37.0-37.9, adult; Z85.038 Personal history of other malignant neoplasm of large intestine; Z90.49 Acquired absence of other specified parts of digestive tract; Z91.041 Radiographic dye allergy status
CPT/HCPCS: 99212

== ENCOUNTER → 2022-10-13 | Outpatient (CLI) | payer OTHER ==
--- NOTE | 2022-10-13 16:03 | P.PN ---
Subjective DATE: 10/13/2022 FOLLOW UP VISIT. Patient returned to sleep center for follow-up visit related to treatment of significant excessive daytime sleepiness secondary to possible narcolepsy. On treatment with Adderall 5 mg twice a day patient feels better, no side effects, but she still feels sometimes sleepiness during the day. . [place] sleepiness scale significantly increased to 17. MEDICATIONS:1. Adderall 5 mg twice a day 2. Zoloft 100 mg once a day 3. Xanax 0.5 mg as needed 4. Vraylar 3 mg once a day During physical exam: GENERAL: A pleasant patient without any distress. VITAL SIGNS: BP134/83], HR60, RR 16 , weight 215.8, temperature 98.2, oxygen saturation at room air 98% . HEENT: PERRLA, EOMI. NECK: Supple. No JVD. LUNGS: Clear to percussion and to auscultation. Good air exchange. No wheezing or rhonchi. HEART: S1, S2 regular. ABDOMEN: Soft and nontender. EXTREMITIES: No clubbing or cyanosis. FLUTE GRINDER: Awake, alert, and oriented x3. No focal deficit. Impressions: 1. Significant sleepiness confirmed by multiple sleep latency test, possible narcolepsy 2. 2. History of anxiety and bipolar disorder. 3. Status post right colectomy for colon cancer. 4. History of acid reflux. 5. Mild obesity] Plan: 1. Patient will continue treatment with Adderall, dose will be increased to 10 mg twice a day . 2. Sleep hygiene with regular time in bed for at least 8 hours. 3. Daytime naps permitted 4. Precautions related to driving. No driving if feel any sleepiness. Patient is aware about civil and criminal liability for unsafe driving, promised to follow recommendations. 5. Follow up visit in 4-6 months or earlier if patient has any problems. Thank you very much for allowing me to participate in the management of your patient. Gage Walker MD, PhD, FAASM. Diplomat of [place] [employer] Sleep Medicine, Sleep Medicine Board by [place] [employer] of Internal Medicine Phlebotomy Supervisor of [facility] [place]
== END ==
LOC: 3 N SLEEP 15:16
PROVIDERS: ATTEND Internal Medicine
DX: F41.9 Anxiety disorder, unspecified (principal); E66.9 Obesity, unspecified; F31.9 Bipolar disorder, unspecified; K21.9 Gastro-esophageal reflux disease without esophagitis; Z90.49 Acquired absence of other specified parts of digestive tract; Z85.038 Personal history of other malignant neoplasm of large intestine; Z91.041 Radiographic dye allergy status
CPT/HCPCS: 99212

== ENCOUNTER 2023-02-14 09:59 | Day surgery (SDC) | payer OTHER ==
[2023-02-13 10:13] VITALS: BMI 35.2
[2023-02-14 10:41] VITALS: RESP 16; TEMP 96.9
[2023-02-14] MEDS ORDERED: PROPOFOL 10 MG/ML 20 ML VIAL IV ONE (11:02)
--- NOTE | 2023-02-14 11:20 | P.PCN ---
Date of Procedure: 02/14/23 Procedure(s) Performed: BRIEF HISTORY: Patient is a 47-year-old pleasant white female scheduled for an elective colonoscopy as a part of surveillance of prior history of colon cancer diagnosed in 2020. She was diagnosed with cecal adenocarcinoma for which she underwent right hemicolectomy. 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 She has family history of colon cancer diagnosed in her sister at age 35 and father at age 70. PROCEDURE PERFORMED: Colonoscopy. PREOPERATIVE DIAGNOSIS: History of colon cancer/ Lynchy syndrome. IV sedation per Anesthesia. PROCEDURE: After informed consent was obtained, the patient, was brought into the endoscopy unit. IV sedation was administered by Anesthesia under continuous monitoring. Digital rectal examination was normal. Initially the Olympus CF-160 flexible video colonoscope was then inserted in the rectum, gradually advanced into the right colon with ileocolic anastomosis was visualized and appeared normal. Mucosa of the, transverse colon, descending colon, sigmoid colon, and rectum appeared normal. Retroflexion was performed in the rectum and no lesions were seen. The patient tolerated the procedure well. IMPRESSION: Normal-appearing colon from rectum to the ileocecal anastomosis with no evidence of rectal neoplasia RECOMMENDATIONS: Findings of this examination were discussed with the patient as well as her family. She was advised to have a repeat colonoscopy on a yearly basis because of prior history of colon cancer and recent syndrome. also recommend an upper endoscopy every 5 years because of increased risk of upper GI cancers in patients with main syndrome
[2023-02-14 12:21] VITALS: BP 125/90; PULSE 61
== END 2023-02-14 12:12 | disposition home or self-care (01) ==
LOC: ORWHC2ENDO 09:59
PROVIDERS: ATTEND Internal Medicine Gastroenterology
DX: Z12.11 Encounter for screening for malignant neoplasm of colon (principal); C18.0 Malignant neoplasm of cecum; F32.A Depression, unspecified; Z86.010 Personal history of colon polyps; Z91.041 Radiographic dye allergy status; Z79.899 Other long term (current) drug therapy; Z80.0 Family history of malignant neoplasm of digestive organs; Z15.09 Genetic susceptibility to other malignant neoplasm
CPT/HCPCS: 45378; J2704

== ENCOUNTER → 2023-04-14 | Outpatient (CLI) | payer OTHER ==
--- NOTE | 2023-04-18 09:05 | MM ---
Reason for Exam: Screening (asymptomatic). Last mammogram was performed 1 year(s) and 2 month(s) ago. Patient History: Menarche at age 11. First Full-Term at age 31. Late child-bearing (after 30). Hysterectomy at age 42. Perimenopausal. Colorectal cancer under age 50. Hormonal Contraceptives for 5 months. 09/24/2015, Benign Cyst Aspiration on the left side. Maternal aunt had breast cancer, age 40. Risk Values: Clover 5 year model risk: 1.3%. NCI Lifetime model risk: 12.5%. Prior Study Comparison: 01/06/2020 Bilateral Screening Mammogram, [facility]. 01/25/2021 Bilateral Screening Mammogram, [facility]. 03/02/2022 Bilateral MG screening mammo w CAD, [facility]. Tissue Density: The breast tissue is almost entirely fat. Findings: Analyzed By CAD. Left breast biopsy clip. There is no suspicious group of microcalcifications or new suspicious mass. Overall Assessment: Benign, BI-RAD 2 Management: Screening Mammogram of both breasts in [address] [facility] will attempt to contact patient to return for supplemental views and ultrasound if indicated. Patient should continue monthly self-breast exams. A clinical breast exam by your physician is recommended on an annual basis. This exam should not preclude additional follow-up of suspicious palpable abnormalities. Note on Clover scores and lifetime risk: 1. A Clover score greater than 3% is considered moderate risk. If this is the case, consider specialist referral to assess eligibility for a risk reducing agent. 2. If overall lifetime risk for the development of breast cancer is 20% or higher, the patient may qualify for future screening with alternating mammogram and breast MRI. Electronically signed and approved by: Alex Abdullahi DO
== END | disposition home or self-care (01) ==
LOC: RADMAMWWP 14:29
PROVIDERS: ATTEND Family Medicine
DX: Z12.31 Encounter for screening mammogram for malignant neoplasm of breast (principal); Z80.3 Family history of malignant neoplasm of breast
CPT/HCPCS: 77063; 77067

== ENCOUNTER → 2023-04-20 | Outpatient (CLI) | payer OTHER ==
--- NOTE | 2023-04-20 16:44 | P.PN ---
Subjective DATE: 2023 FOLLOW UP VISIT. Patient returned to sleep center for follow-up visit related to treatment of significant excessive daytime sleepiness secondary to narcolepsy. Patient is on treatment with Adderall 10 mg twice a day. No side effects of medication. With medication patient feels better during the day, so sleepiness is under control. For different reasons patient was not able to get Adderall for the last months. . [place] sleepiness scale is increased to 13. MEDICATIONS:1. Zoloft 100 mg once a day 2. Xanax 0.5 mg as needed 3. Adderall 10 mg twice a day 4. Vrayler 3 mg once a day During physical exam: GENERAL: A pleasant patient without any distress. VITAL SIGNS: BP 138/84, HR 67, RR 18, weight 218.6, temperature 98.0, oxygen saturation at room air 97%. HEENT: PERRLA, EOMI. NECK: Supple. No JVD. LUNGS: Clear to percussion and to auscultation. Good air exchange. No wheezing or rhonchi. HEART: S1, S2 regular. ABDOMEN: Soft and nontender. EXTREMITIES: No clubbing or cyanosis. PRODUCTION STAGE MANAGER: Awake, alert, and oriented x3. No focal deficit. Impressions: 1. 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 History of anxiety and bipolar disorder. 3. Status post right colon ectomy for colon cancer. 4. History of acid reflux. 5. Mild obesity. Plan: 1. Patient will continue treatment with Adderall 10 mg twice a day 2. Sleep hygiene with regular time in bed for at least 8 hours. 3. Daytime naps permitted 4. Precautions related to driving. No driving if feel any sleepiness. Patient is aware about civil and criminal liability for unsafe driving, promised to f ollow recommendations. 5. Follow up visit in 4-6 months or earlier if patient has any problems. Thank you very much for allowing me to participate in the management of your patient. Gage Walker MD, PhD, FAASM. Diplomat of [place] [employer], Sleep Medicine Board by [place] [employer] Vice President Of Procurement of [facility] [place]
[2023-04-21 02:57] LABS: Urine Alcohol Negative (Negative); Urine Barbiturate Negative (Negative); Urine Cocaine Negative (Negative); Urine Methadone Negative (Negative); Urine Opiates Negative (Negative); Urine Phencyclidine Negative (Negative)
== END | disposition home or self-care (01) ==
LOC: LABWHC1 15:34
PROVIDERS: ATTEND Internal Medicine
DX: G47.419 Narcolepsy without cataplexy (principal); F31.9 Bipolar disorder, unspecified; F41.9 Anxiety disorder, unspecified; K21.9 Gastro-esophageal reflux disease without esophagitis; E66.9 Obesity, unspecified; Z85.038 Personal history of other malignant neoplasm of large intestine; Z79.899 Other long term (current) drug therapy
CPT/HCPCS: 80306

== ENCOUNTER → 2023-04-20 | Outpatient (CLI) | payer OTHER ==
--- NOTE | 2023-04-25 14:51 | P.PN ---
Subjective DATE: 2023 FOLLOW UP VISIT. Patient returned to sleep center for follow-up visit related to treatment of significant excessive daytime sleepiness secondary to narcolepsy. Patient is on treatment with Adderall 10 mg twice a day. No side effects of medication. With medication patient feels better during the day, so sleepiness is under control. For different reasons patient was not able to get Adderall for the last months. . [place] sleepiness scale is increased to 13. MEDICATIONS:1. Zoloft 100 mg once a day 2. Xanax 0.5 mg as needed 3. Adderall 10 mg twice a day 4. Vrayler 3 mg once a day During physical exam: GENERAL: A pleasant patient without any distress. VITAL SIGNS: BP 138/84, HR 67, RR 18, weight 218.6, temperature 98.0, oxygen saturation at room air 97%. HEENT: PERRLA, EOMI. NECK: Supple. No JVD. LUNGS: Clear to percussion and to auscultation. Good air exchange. No wheezing or rhonchi. HEART: S1, S2 regular. ABDOMEN: Soft and nontender. EXTREMITIES: No clubbing or cyanosis. MORTAR CARRIER: Awake, alert, and oriented x3. No focal deficit. Impressions: 1. 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 History of anxiety and bipolar disorder. 3. Status post right colon ectomy for colon cancer. 4. History of acid reflux. 5. Mild obesity. Plan: 1. Patient will continue treatment with Adderall 10 mg twice a day 2. Sleep hygiene with regular time in bed for at least 8 hours. 3. Daytime naps permitted 4. Precautions related to driving. No driving if feel any sleepiness. Patient is aware about civil and criminal liability for unsafe driving, promised to f ollow recommendations. 5. Follow up visit in 4-6 months or earlier if patient has any problems. Thank you very much for allowing me to participate in the management of your patient. Gage Walker MD, PhD, FAASM. Diplomat of [place] [employer] Medicine, Sleep Medicine Board by [place] [employer] Smoke Inspector of [facility] [place]
== END ==
LOC: 3 N SLEEP 14:53
PROVIDERS: ATTEND Internal Medicine
DX: G47.10 Hypersomnia, unspecified (principal); F31.9 Bipolar disorder, unspecified; F41.9 Anxiety disorder, unspecified; K21.9 Gastro-esophageal reflux disease without esophagitis; E66.9 Obesity, unspecified; Z85.038 Personal history of other malignant neoplasm of large intestine; Z98.890 Other specified postprocedural states; Z91.041 Radiographic dye allergy status
CPT/HCPCS: 99212

== ENCOUNTER → 2023-05-31 | Outpatient (CLI) | payer OTHER ==
--- NOTE | 2023-05-31 13:01 | CA ---
Exercise Stress Test Report Name: Myra Ann Exam Date: 05/31/2023 09:13 Exam Location: [facility] Stress Ht (in): 63 Wt (lb): 219 BSA: 2.01 Ordering Phys: Iliana Butler DO Referring Phys: Lisha Grant PAC Technologist: Michael Tony Age: 47 Gender: F : 1975 Procedure CPT: Indications: R94.31 ABN EKG R06.02 SOB R002 PALPITATIONS ICD-10 Codes: Patient History: Medications: ZOLOFT, VRAYLAR, DACLOPHENCE, XANAX Meds past 24 hrs: Pretest Chest Pain: STRESS TEST Alex Protocol Exercise Duration (min:sec): 06:[address] Depressions (mm): Angina Score: Medina Score: Resting HR (bpm): 69 Peak HR (bpm): 147 Resting BP (mmHg): 130 / 88 Peak BP (mmHg): 200 / 83 MPHR: 172 Target HR: 146 % MPHR: 85 METS: 7.6 Total Dose: Peak Dose: Atropine: Double Product: 81254 BP Response: Stress Termination: Target HR Stress Symptoms: DIFFICULTY IN BREATHING Stress Summary: The patient's target heart rate was achieved ECG ANALYSIS Resting ECG: Sinus rhythm. Normal conduction. No arrhythmias. Normal repolarization. Stress ECG: No ECG evidence of ischemia with exercise. CONCLUSIONS 1. Decrease exercise tolerance 2. Normal electrocardiographic response to exercise with no evidence of exercised induced ischemia Dr. Porfirio Garza MD (Electronically Signed) Final Date: 31 May 2023 13:00
== END | disposition home or self-care (01) ==
LOC: RADNMMAIN 08:44
PROVIDERS: ATTEND Family Medicine
DX: R94.31 Abnormal electrocardiogram [ECG] [EKG] (principal); R06.02 Shortness of breath; R00.2 Palpitations
CPT/HCPCS: 93017

== ENCOUNTER → 2023-10-19 | Outpatient (CLI) | payer OTHER | LOC: 3 N SLEEP 15:20 | PROVIDERS: ATTEND Internal Medicine | CPT/HCPCS: 99212 ==

== ENCOUNTER 2024-01-11 15:07 | Observation (INO) | payer OTHER ==
--- NOTE | 2024-01-11 15:55 | ED ---
Abdominal Pain HPI - General Chief Complaint: Abdominal Pain Stated Complaint: Abd/back pain Time Seen by Provider: 01/11/24 15:20 Source: patient, RN notes reviewed Mode of arrival: ambulatory Limitations: no limitations, physical limitation - History of Present Illness Initial Comments: This is a 48-year-old female with history of colon cancer and partial bowel resection due to the emergency department chief complaint of left lower abdominal and flank pain that started earlier this morning. Patient states that the pain has been constant and is worsened throughout the day. Endorses nausea with no vomiting. Denies dysuria, hematuria, increase in urinary frequency or urgency. Denies fevers or chills. Patient had an appointment earlier with her primary care provider where an abdominal x-ray was ordered with concern for possible fluid within the intestines. Frequently has intermittent bouts of diarrhea and constipation after cholecystectomy. - Related Data Home Medications Medication Instructions Recorded Confirmed Sertraline [Zoloft] 100 mg PO HS 02/03/17 02/14/23 Cariprazine HCl [Vraylar] 3 mg PO HS 05/22/19 02/14/23 ALPRAZolam [Xanax] 0.5 mg PO BID PRN 11/01/21 02/14/23 Diclofenac Sodium [Voltaren] 75 mg PO DAILY 05/30/22 02/14/23 Allergies Allergy/AdvReac Type Severity Reaction Status Date / Time Iodinated Contrast Media Allergy Dyspnea Verified 01/11/24 15:34 [Iodinated Contrast- Oral and IV Dye] Review of Systems ROS Statement: Those systems with pertinent positive or pertinent negative responses have been documented in the HPI. ROS Other: All systems not noted in ROS Statement are negative. Past Medical History Past Medical History: Cancer, Chest Pain / Angina, GERD/Reflux, Osteoarthritis (OA) Additional Past Medical History / Comment(s): Endometrosis, migraines, kidney stones, UTI. Hx colon cancer with bowel resection surgery and mass removal. History of Any Multi-Drug Resistant Organisms: None Reported Past Surgical History: Bowel Resection, Cholecystectomy, Hysterectomy Additional Past Surgical History / Comment(s): Laparoscopy X2, EGD, Colonoscopies. Past Anesthesia/Blood Transfusion Reactions: No Reported Reaction Past Psychological History: Anxiety, Bipolar, Depression, Panic Disorder Smoking Status: Never smoker Past Alcohol Use History: Occasional Past Drug Use History: None Reported - Past Family History Sister(s) Family Medical History: Cancer Additional Family Medical History / Comment(s): Colon cancer, . Father Family Medical History: Cancer Additional Family Medical History / Comment(s): Colon cancer. Mother Additional Family Medical History / Comment(s): "Heart problems". General Exam Limitations: no limitations, physical limitation Eye exam: Present: normal appearance, PERRL, EOMI. Absent: scleral icterus, conjunctival injection, periorbital swelling ENT exam: Present: normal exam, mucous membranes moist Neck exam: Present: normal inspection. Absent: tenderness, meningismus, lymphadenopathy Respiratory exam: Present: normal lung sounds bilaterally. Absent: respiratory distress, wheezes, rales, rhonchi, stridor Cardiovascular Exam: Present: regular rate, normal rhythm, normal heart sounds. Absent: systolic murmur, diastolic murmur, rubs, gallop, clicks GI/Abdominal exam: Present: soft, tenderness (epigastric, LUQ, left mid abdomen), normal bowel sounds. Absent: distended, guarding, rebound, rigid Extremities exam: Present: normal inspection, full ROM, normal capillary refill. Absent: tenderness, pedal edema, joint swelling, calf tenderness Back exam: Present: normal inspection, tenderness (left mid back), CVA tenderness (L) Neurological exam: Present: alert, oriented X3, CN II-XII intact Psychiatric exam: Present: normal affect, normal mood Course Vital Signs 01/11/24 15:31 Temperature 98 F Pulse Rate 60 Respiratory 20 Rate Blood Pressure 163/77 O2 Sat by Pulse 97 Oximetry Medical Decision Making - Medical Decision Making Was pt. sent in by a medical professional or institution (, PA, FORMULATOR, urgent care, hospital, or assisted...) When possible be specific @ -No Did you speak to anyone other than the patient for history (EMS, parent, family, police, friend...)? What history was obtained from this source @ -No Did you review nursing and triage notes (agree or disagree)? Why? @ -I reviewed and agree with nursing and triage notes Were old charts reviewed (outside hosp., previous admission, EMS record, old EKG, old radiological studies, urgent care reports/EKG's, assisted records)? Report findings @ -No old charts were reviewed Differential Diagnosis (chest pain, altered mental status, abdominal pain women, abdominal pain men, vaginal bleeding, weakness, fever, dyspnea, syncope, headache, dizziness, GI bleed, back pain, seizure, CVA, palpatations, mental health, musculoskeletal)? @ -Differential Abdominal Pain Women: Appendicitis, Cholecystitis, diverticulosis, ischemic bowel, pancreatitis, hepatitis, UTI, gastroenteritis, AAA, incarcerated hernia, bowel obstruction, constipation, inflammatory bowel, hepatitis, peptic ulcer disease, splenic infarction, perforated viscus, vulvitis, ovarian torsion, PID, kidney stone, placenta abruption, this is not meant to be an all-inclusive list EKG interpreted by me (3pts min.). @ -none X-rays interpreted by me (1pt min.). @ -None done CT interpreted by me (1pt min.). @ -CT of the abdomen pelvis without contrast remarkable for moderate fecal retention and punctate right renal stones without hydronephrosis or hydroureter with moderate fatty infiltration. U/S interpreted by me (1pt. min.). @ -US of the right upper quadrant reveals moderate fatty infiltration with mild hepatomegaly, overall suboptimal study due to overlying bowel gas What testing was considered but not performed or refused? (CT, X-rays, U/S, labs)? Why? @ -None What meds were considered but not given or refused? Why? @ -None Did you discuss the management of the patient with other professionals (professionals i.e. , PA, FORMULATOR, lab, RT, psych nurse, social sciences research scientist, certified adaptive physical educator, teacher, assignment officer, pillowcase maker)? Give summary @ -i spoke with internal medicine physician, Dr. Dasilva in regard to the patient's epigastric abdominal pain and elevated amylase and lipase concerning for acute pancreatitis. Patient is accepted for admission. Was smoking cessation discussed for >3mins.? @ -No Was critical care preformed (if so, how long)? @ -No Were there social determinants of health that impacted care today? How? (Homelessness, low income, unemployed, alcoholism, drug addiction, transportation, low edu. Level, literacy, decrease access to med. care, residential, rehab)? @ -No Was there de-escalation of care discussed even if they declined (Discuss DNR or withdrawal of care, Hospice)? DNR status @ -No What co-morbidities impacted this encounter? (DM, HTN, Smoking, COPD, CAD, Cancer, CVA, ARF, Chemo, Hep., AIDS, mental health diagnosis, sleep apnea, mo rbid obesity)? @ -None Was patient admitted / discharged? Hospital course, mention meds given and ro [place], prescriptions, significant lab abnormalities, going to OR and other pertinent info. @ -Admitted. 48-year-old female with left flank and abdominal pain. On my evaluation the patient she is resting company no signs acute distress. Vitals are stable. Is noted to have mild epigastric tenderness to palpation addition to tenderness of the left flank and left upper quadrant and left mid abdomen. There is no signs of rebound tenderness or rigidity. Patient is provided with dose of Toradol pending laboratory results and CT imaging. She is in agreement with this plan. Labs remarkable for elevated lipase of 2345 and amylase of 262, urinalysis remarkable for infection including positive nitrates with 2+ bilirubin and a cloudy appearance. With the patient she will be admitted to internal medicine and maintained in n.p.o. status with fluid resuscitation and pain management for acute pancreatitis. Additionally, patient will be treated with Rocephin for urinary tract infection and urine will be sent for culture for further evaluation. Case discussed with Dr. Arora. Undiagnosed new problem with uncertain prognosis? @ -No Drug Therapy requiring intensive monitoring for toxicity (Heparin, Nitro, Insulin, Cardizem)? @ -No Were any procedures done? @ -No Diagnosis/symptom? @ -Urinary tract infection, acute pancreatitis Acute, or Chronic, or Acute on Chronic? @ -Acute Uncomplicated (without systemic symptoms) or Complicated (systemic symptoms)? @ -Complicated Side effects of treatment? @ -No Exacerbation, Progression, or Severe Exacerbation? @ -No Poses a threat to life or bodily function? How? (Chest pain, [place], [place], pneumonia, PE, COPD, DKA, ARF, appy, cholecystitis, CVA, Diverticulitis, Homicidal, Suicidal, threat to staff... and all critical care pts) @ -No - Lab Data Result diagrams: 01/11/24 16:02 01/11/24 16:02 Lab Results 01/11/24 01/11/24 01/11/24 Range/Units 16:02 16:02 16:02 WBC 7.8 (3.8-10.6) k/uL RBC 5.13 (3.80-5.40) m/uL Hgb 14.3 (11.4-16.0) gm/dL Hct 44.1 (34.0-46.0) % MCV 86.0 (80.0-100.0) fL MCH 27.9 (25.0-35.0) pg MCHC 32.4 (31.0-37.0) g/dL RDW 13.8 (11.5-15.5) % Plt Count 208 (150-450) k/uL MPV 7.3 Neutrophils % 58 % Lymphocytes % 34 % Monocytes % 4 % Eosinophils % 2 % Basophils % 0 % Neutrophils # 4.5 (1.3-7.7) k/uL Lymphocytes # 2.7 (1.0-4.8) k/uL Monocytes # 0.3 (0-1.0) k/uL Eosinophils # 0.2 (0-0.7) k/uL Basophils # 0.0 (0-0.2) k/uL Sodium 141 (137-145) mmol/L Potassium 3.7 (3.5-5.1) mmol/L Chloride 106 (98-107) mmol/L Carbon Dioxide 28 (22-30) mmol/L Anion Gap 7 mmol/L BUN 13 (7-17) mg/dL Creatinine 0.87 (0.52-1.04) mg/dL Est GFR (CKD-EPI)AfAm >90 (>60 ml/min/1.73 sqM) Est GFR (CKD-EPI)NonAf 79 (>60 ml/min/1.73 sqM) Glucose 94 (74-99) mg/dL Plasma Lactic Acid Jason (0.7-2.0) mmol/L Calcium 9.4 (8.4-10.2) mg/dL Total Bilirubin 0.6 (0.2-1.3) mg/dL AST 34 (14-36) U/L ALT 65 H (4-34) U/L Alkaline Phosphatase 109 (38-126) U/L Total Protein 8.0 (6.3-8.2) g/dL Albumin 4.9 (3.5-5.0) g/dL Amylase (30-110) U/L Lipase 2345 H (23-300) U/L Urine Color Dark Brown Urine Appearance Cloudy H (Clear) Urine pH 5.5 (5.0-8.0) Ur Specific [place] 1.019 (1.001-1.035) Urine Protein Trace H (Negative) Urine Glucose (UA) Negative (Negative) Urine Ketones Negative (Negative) Urine Blood Negative (Negative) Urine Nitrite Positive H (Negative) Urine Bilirubin 2+ H (Negative) Urine Urobilinogen 8.0 (<2.0) mg/dL Ur Leukocyte Esterase Negative (Negative) Urine RBC 2 (0-5) /hpf Urine WBC 2 (0-5) /hpf Ur Squamous Epith Cells 5 H (0-4) /hpf Urine Bacteria Rare H (None) /hpf Urine Mucus Few H (None) /hpf 01/11/24 01/11/24 Range/Units 16:02 16:02 WBC (3.8-10.6) k/uL RBC (3.80-5.40) m/uL Hgb (11.4-16.0) gm/dL Hct (34.0-46.0) % MCV (80.0-100.0) fL MCH (25.0-35.0) pg MCHC (31.0-37.0) g/dL RDW (11.5-15.5) % Plt Count (150-450) k/uL MPV Neutrophils % % Lymphocytes % % Monocytes % % Eosinophils % % Basophils % % Neutrophils # (1.3-7.7) k/uL Lymphocytes # (1.0-4.8) k/uL Monocytes # (0-1.0) k/uL Eosinophils # (0-0.7) k/uL Basophils # (0-0.2) k/uL Sodium (137-145) mmol/L Potassium (3.5-5.1) mmol/L Chloride (98-107) mmol/L Carbon Dioxide (22-30) mmol/L Anion Gap mmol/L BUN (7-17) mg/dL Creatinine (0.52-1.04) mg/dL Est GFR (CKD-EPI)AfAm (>60 ml/min/1.73 sqM) Est GFR (CKD-EPI)NonAf (>60 ml/min/1.73 sqM) Glucose (74-99) mg/dL Plasma Lactic Acid Jason 1.9 (0.7-2.0) mmol/L Calcium (8.4-10.2) mg/dL Total Bilirubin (0.2-1.3) mg/dL AST (14-36) U/L ALT (4-34) U/L Alkaline Phosphatase (38-126) U/L Total Protein (6.3-8.2) g/dL Albumin (3.5-5.0) g/dL Amylase 262 H (30-110) U/L Lipase (23-300) U/L Urine Color Urine Appearance (Clear) Urine pH (5.0-8.0) Ur Specific [place] (1.001-1.035) Urine Protein (Negative) Urine Glucose (UA) (Negative) Urine Ketones (Negative) Urine Blood (Negative) Urine Nitrite (Negative) Urine Bilirubin (Negative) Urine Urobilinogen (<2.0) mg/dL Ur Leukocyte Esterase (Negative) Urine RBC (0-5) /hpf Urine WBC (0-5) /hpf Ur Squamous Epith Cells (0-4) /hpf Urine Bacteria (None) /hpf Urine Mucus (None) /hpf Disposition Clinical Impression: Pancreatitis Disposition: ADMITTED IP TO THIS [facility] Condition: Stable Referrals: Mireya Dasilva DO [Primary Care Provider] - 1-2 days Decision to Admit Reason: Admit from EC Decision Date: 01/11/24 Decision Time: 18:13
[2024-01-11] MEDS: KETOROLAC 15 MG/ML 1 ML VIAL IVP STA (16:00)
[2024-01-11 16:13] LABS: Basophils % (A) 0 %; Eosinophils # (A) 0.2 k/uL (0-0.7); Eosinophils % (A) 2 %; HCT 44.1 % (34.0-46.0); HGB 14.3 gm/dL (11.4-16.0); Lymphocytes # (A) 2.7 k/uL (1.0-4.8); Lymphocytes % (A) 34 %; MCH 27.9 pg (25.0-35.0); MCHC 32.4 g/dL (31.0-37.0); Mean Platelet Volume 7.3; Monocytes # (A) 0.3 k/uL (0-1.0); Monocytes % (A) 4 %; Neutrophils # (A) 4.5 k/uL (1.3-7.7); Neutrophils % (A) 58 %; Platelet Count 208 k/uL (150-450); RBC 5.13 m/uL (3.80-5.40); RDW 13.8 % (11.5-15.5); WBC 7.8 k/uL (3.8-10.6)
[2024-01-11 16:14] LABS: Appearance,Urine Cloudy (Clear); Bacteria,Urine Rare /hpf; Bilirubin,Urine 2+ (Negative); Blood,Urine Negative (Negative); Color,Urine Dark Brown; Glucose,Urine (UA) Negative (Negative); Ketones,Urine Negative (Negative); Leukocyte Esterase,Urine Negative (Negative); Mucus,Urine Few /hpf; Nitrite,Urine Positive (Negative); PH, Urine 5.5 (5.0-8.0); Protein,Urine Trace (Negative); RBC,Urine 2 /hpf (0-5); Specific Gravity,Urine 1.019 (1.001-1.035); Squamous Epithelial Cell,Urine 5 /hpf (0-4); WBC,Urine 2 /hpf (0-5)
[2024-01-11 16:26] LABS: ALT 65 U/L (4-34); AST 34 U/L (14-36); African American GFR (CKD) >90 (>60 ml/min/1.73 sqM); Albumin 4.9 g/dL (3.5-5.0); Alkaline Phosphatase 109 U/L (38-126); Anion Gap 7 mmol/L; Blood Urea Nitrogen 13 mg/dL (7-17); Calcium 9.4 mg/dL (8.4-10.2); Carbon Dioxide 28 mmol/L (22-30); Chloride 106 mmol/L (98-107); Glucose 94 mg/dL (74-99); Non-African American GFR(CKD) 79 (>60 ml/min/1.73 sqM); Potassium 3.7 mmol/L (3.5-5.1); Sodium 141 mmol/L (137-145); Total Bilirubin 0.6 mg/dL (0.2-1.3)
[2024-01-11 16:46] LABS: Lipase 2345 U/L (23-300)
--- NOTE | 2024-01-11 17:20 | CT ---
EXAMINATION TYPE: CT abdomen pelvis wo con DATE OF EXAM: 01/11/2024 4:42 PM COMPARISON: None. CLINICAL INDICATION: Female, 48 years old with history of L flank pain, hx stones, left flank pain TECHNIQUE: Axial images were obtained from above the diaphragm to the pubic rami in the axial plane a t 5 mm thick sections. Reconstructed images are reviewed on the computer in the coronal plane. CONTRAST: mL of . Study performed without Oral Contrast DLP: 859.4 mGycm, Automated exposure control for dose reduction was used. FINDINGS: Limited CT sections are obtained the lung bases. The lung bases are clear. CT ABDOMEN: Liver: There is moderate fatty infiltration liver. Spleen: Normal Pancreas: Normal Adrenal glands: The adrenal glands are normal. Gallbladder: Surgically absent Kidneys: No masses are evident. No hydronephrosis is present. No cysts are present. There is a 0.2 cm punctate upper pole right renal calcification without obstruction. Punctate nonobstructing renal stone is at the mid inferior 0.1 cm. There is nonobstructing punctate renal stone superior pole left kidney Aorta: Normal Inferior vena cava: Normal. CT PELVIS: Loops of bowel within the abdomen and pelvis are normal. Prior colonic resection with anastomosis of the ascending colon is evident. Moderate fecal retention is present in colon. Colon appears nondiste nded. There are loops of bowel which are incompletely distended or lack oral contrast limiting their evaluation. Appendix: Normal as visualized. Urinary bladder: Normal. Genitourinary structures: Uterus and ovaries are identified. Osseous structures: No suspicious lytic or sclerotic lesions. IMPRESSION: 1. Moderate fecal retention. No obstruction evident. 2. Punctate right renal stones without hydronephrosis or hydroureter. 3. Moderate fatty infiltration liver [facility], , 01/11/2024 5:18 PM
--- NOTE | 2024-01-11 17:58 | US ---
EXAMINATION TYPE: US gallbladder DATE OF EXAM: 01/11/2024 COMPARISON: CT today CLINICAL INDICATION: Female, 48 years old with history of epigastric tenderness, elevated lipase; Pat ient states abd pain and nausea without vomiting. Hx colon cancer. Hx cholecystectomy. TECHNIQUE: Grayscale and color Doppler imaging of the right upper quadrant was performed. FINDINGS: EXAM MEASUREMENTS: Liver Length: 16.6 cm or slightly enlarged. Normal less than 15.5 cm. Gallbladder Wall: Surgically absent CBD: 0.6 cm Right Kidney: 10.9 x 4.6 x 4.6 cm FACE BURLER NOTES:Suboptimal study due to overlying bowel gas Pancreas: Obscured by bowel gas Liver: Difficult to penetrate, intercostal views. Increased echogenicity . Findings compatible wit h moderate fatty ration Gallbladder: Surgically absent Evidence for sonographic Lynn's sign: No CBD: wnl post cholecystectomy Right Kidney: wnl IMPRESSION: Moderate fatty infiltration with mild hepatomegaly. [facility], , 01/11/2024 5:56 PM
[2024-01-11] MEDS ORDERED: NALOXONE 0.4 MG/ML 1 ML VIAL IV PRN (18:13)
[2024-01-11] MEDS ORDERED: IBUPROFEN 400 MG TAB PO PRN (18:13)
[2024-01-11] MEDS ORDERED: KETOROLAC 15 MG/ML 1 ML VIAL IVP PRN (18:13)
[2024-01-11] MEDS: SODIUM CHLORIDE 0.9% 1,000 ML IV SCH (18:35)
[2024-01-11] MEDS: MORPHINE SULFATE 4 MG/ML SYRINGE IVP STA (18:35)
[2024-01-11] MEDS: SODIUM CHLORIDE 0.9% 1,000 ML IV STA (18:35)
[2024-01-11] MEDS: cefTRIAXone IN SWFI 1,000 MG/10 ML SYRINGE IVP STA (18:38)
[2024-01-11] MEDS: MORPHINE SULFATE 4 MG/ML SYRINGE IV PRN (23:58)
[2024-01-12] MEDS: CEPHALEXIN 500 MG CAP PO SCH (07:55)
[2024-01-12] MEDS: ONDANSETRON 4 MG/2 ML VIAL IVP PRN (09:18)
[2024-01-12 09:31] LABS: Basophils # (A) 0.02 X 10*3/uL (0.00-0.10); Basophils % (A) 0.4 %; Eosinophils # (A) 0.13 X 10*3/uL (0.04-0.35); Eosinophils % (A) 2.4 %; HCT 37.8 % (37.2-46.3); HGB 12.5 g/dL (12.0-15.0); Lymphocytes # (A) 1.86 X 10*3/uL (0.90-5.00); Lymphocytes % (A) 34.6 %; MCHC 33.1 g/dL (32.0-37.0); MCV 87.7 FL (80.0-97.0); Mean Platelet Volume 10.5 FL (9.5-12.2); Monocytes # (A) 0.28 X 10*3/uL (0.20-1.00); Monocytes % (A) 5.2 %; NRBC Per 100 WBC 0 X 10*3/uL (0.00-0.01); Neutrophils # (A) 3.06 X 10*3/uL (1.80-7.70); Platelet Count 155 X 10*3/uL (140-440); RBC 4.31 X 10*6/uL (4.10-5.20); RDW 13.7 % (11.5-14.5); WBC 5.37 X 10*3/uL (4.50-10.00)
[2024-01-12 09:37] LABS: ALT 90 U/L (8-44); AST 56 U/L (13-35); Albumin 3.8 g/dL (3.8-4.9); Albumin/Globulin Ratio 1.81 Ratio (1.60-3.17); Alkaline Phosphatase 108 U/L (41-126); BUN/Creat Ratio 14.62 Ratio (12.00-20.00); Blood Urea Nitrogen 11.7 mg/dL (9.0-27.0); Calcium 8.5 mg/dL (8.7-10.3); Carbon Dioxide 24.6 mmol/L (21.6-31.8); Chloride 107 mmol/L (96-109); Globulin 2.1 g/dL (1.6-3.3); Glucose 96 mg/dL (70-110); Sodium 141 mmol/L (135-145); Total Bilirubin 0.4 mg/dL (0.3-1.2); Total Protein 5.9 g/dL (6.2-8.2)
[2024-01-12] MEDS: PANTOPRAZOLE 40 MG/10 ML VIAL IVP SCH (10:49)
--- NOTE | 2024-01-12 12:19 | P.HPIM ---
History of Present Illness H&P Date: 01/12/24 Chief Complaint: Right upper quadrant abdominal pain, nausea vomiting This is a 48-year-old female with past medical history significant for migraines, obesity, laparoscopic [place], gastroesophageal reflux disease, cholecystectomy, cholecystectomy, endometriosis, colon cancer with bowel resection, anxiety, bipolar, depression, panic disorder and multiple other medical issues presented to the ER with complaints of right abdominal pain, nausea, vomiting that began yesterday. Denies fatty food diet. Denies fevers or chills denies alcohol use. last bowel movement 2 days ago. Denies bloody bowel movements, no hematochezia. Denies hemoptysis or hematemesis. Denies dysuria, hematuria. Denies dysuria, urinary frequency or urgency.CT of abdomen and pelvis reported moderate fecal retention, no obstruction evident, punctuate right renal stones without hydronephrosis or hydroureter, moderate fatty infiltration liver. Gallbladder ultrasound suboptimal study due to overlying bowel gas , common bile duct within normal limits postcholecystectomy ,reported moderate fatty infiltration with mild hepatomegaly. Afebrile, normal WBC, hematology unremarkable. Electrolytes, renal function stable, lactic acid 1.9. T. bili 0.4, AST 56, ALT 90, alk phos 108. Amylase 262, lipase 2345. UA reported positive for nitrates, negative leukocytes, rare bacteria, 2+ bi lirubin, cloudy appearance. Review of Systems ROS Statement: Those systems with pertinent positive or pertinent negative responses have been documented in the HPI. ROS Other: All systems not noted in ROS Statement are negative. Past Medical History Past Medical History: Cancer, Chest Pain / Angina, GERD/Reflux, Osteoarthritis (OA) Additional Past Medical History / Comment(s): Endometrosis, migraines, kidney stones, UTI. Hx colon cancer with bowel resection surgery and mass removal 2020. pt gets yearly colonoscopies. History of Any Multi-Drug Resistant Organisms: None Reported Past Surgical History: Bowel Resection, Cholecystectomy, Hysterectomy Additional Past Surgical History / Comment(s): Laparoscopy X2, EGD, Colonoscopies. Past Anesthesia/Blood Transfusion Reactions: No Reported Reaction Smoking Status: Never smoker - Past Family History Sister(s) Family Medical History: Cancer Additional Family Medical History / Comment(s): Colon cancer, . Father Family Medical History: Cancer Additional Family Medical History / Comment(s): Colon cancer. Mother Additional Family Medical History / Comment(s): "Heart problems". Medications and Allergies Home Medications Medication Instructions Recorded Confirmed Type Sertraline [Zoloft] 100 mg PO DAILY 02/03/17 01/11/24 History Cariprazine HCl [Vraylar] 3 mg PO DAILY 05/22/19 01/11/24 History Diclofenac Sodium [Voltaren] 75 mg PO DAILY 05/30/22 01/11/24 History Semaglutide [Wegovy] 1 mg SQ DAVID 01/11/24 01/11/24 History Allergies Allergy/AdvReac Type Severity Reaction Status Date / Time Iodinated Contrast Media Allergy Dyspnea Verified 01/11/24 19:03 [Iodinated Contrast- Oral and IV Dye] Physical Exam Vitals: Vital Signs Temp Pulse Pulse Resp BP BP Pulse Ox 01/12/24 08:02 97.7 F 56 L 17 158/80 99 01/12/24 06:04 63 16 135/82 98 01/11/24 18:40 51 L 16 158/83 97 01/11/24 15:31 98 F 60 20 163/77 97 Intake and Output 01/11/24 01/12/24 01/12/24 22:59 06:59 14:59 Other: Weight 93.44 kg 93.44 kg PHYSICAL EXAM: VITAL SIGNS: [Reviewed] GENERAL: Alert and oriented x 3, sitting up in bed, no acute distress HEENT: Conjunctivae normal. eyes normal. NECK: Supple, No JVD. CARDIOVASCULAR: S1, S2 regular. No murmur RESPIRATION: Unlabored, equal air entry, CTA. ABDOMEN: Soft, nondistended , right upper quadrant tenderness ,no guarding. Bowel sounds heard. LEGS: No edema. no swelling NERVOUS SYSTEM: Cranial N 2-12 grossly normal.No focal deficits. Strength and sensation grossly intact. Skin: Warm and dry, no rash Results CBC & Chem 7: 01/12/24 04:54 01/12/24 04:54 Labs: Abnormal Lab Results - Last 24 Hours (Table) 01/11/24 01/11/24 01/11/24 Range/Units 16:02 16:02 16:02 Calcium (8.7-10.3) mg/dL AST (13-35) U/L ALT 65 H (4-34) U/L Total Protein (6.2-8.2) g/dL Amylase 262 H (30-110) U/L Lipase 2345 H (23-300) U/L Urine Appearance Cloudy H (Clear) Urine Protein Trace H (Negative) Urine Nitrite Positive H (Negative) Urine Bilirubin 2+ H (Negative) Ur Squamous Epith Cells 5 H (0-4) /hpf Urine Bacteria Rare H (None) /hpf Urine Mucus Few H (None) /hpf 01/12/24 Range/Units 04:54 Calcium 8.5 L (8.7-10.3) mg/dL AST 56 H (13-35) U/L ALT 90 H (4-34) U/L Total Protein 5.9 L (6.2-8.2) g/dL Amylase (30-110) U/L Lipase (23-300) U/L Urine Appearance (Clear) Urine Protein (Negative) Urine Nitrite (Negative) Urine Bilirubin (Negative) Ur Squamous Epith Cells (0-4) /hpf Urine Bacteria (None) /hpf Urine Mucus (None) /hpf Thrombosis Risk Factor Assmnt - Choose All That Apply Each Factor Represents 1 point: Age 41-60 years Thrombosis Risk Factor Assessment Total Risk Factor Score: 1 Thrombosis Risk Factor Assessment Level: Low Risk Assessment and Plan Assessment: Acute pancreatitis, first occurrence, etiology unclear Minimally elevated LFTs Moderate fecal retention Punctuate right renal stones without hydronephrosis or hydroureter Hepatomegaly, mild with moderate fatty infiltration of liver Acute UTI Gastroesophageal reflux disease Laparoscopic Niesen Cholecystectomy Colon cancer with bowel resection, history of Endometriosis, history Bipolar disorder Anxiety, panic attacks ,depression, history of Morbid obesity, BMI 37 Osteoarthritis Plan: Continue on current medication regimen ,monitoring and symptomatic treatment. IV fluids increased. Antiemetics. Repeat lipase ordered. GI not available, general surgery consulted. Acute UTI, continue on antibiotics, urine culture pending. pain management. Increase activity as tolerated. The impression and plan of care has been dictated as directed. : I performed a history and examination of this patient, discussed the same with the dictator. I agree with the dictator's note ,documented as a scribe. Any additional findings or plans will be noted.
--- NOTE | 2024-01-12 13:29 | P.GSCN ---
History of Present Illness Consult date: 01/12/24 History of present illness: CHIEF COMPLAINT: Abdominal pain HISTORY OF PRESENT ILLNESS: This is a 48-year-old female who presented with left upper quadrant epigastric area pain that radiates to the back. Patient reports that pain started yesterday and woke her up from sleep. She has been having nausea and bilious emesis. She reports decreased appetite. She has not had a bowel movement 2 days. She has never had pancreatitis before. She denies daily alcohol use. Patient does take Wegovy. Patient has had a cholecystectomy about 2 to 3 years ago. Her other surgical history does include a Niesen for vocation, hysterectomy, colon cancer with bowel resection in 2020. Lipase was elevated on admission. Patient admitted with pancreatitis. PAST MEDICAL HISTORY: See below PAST SURGICAL HISTORY: See below MEDICATIONS: See below ALLERGIES: See below SOCIAL HISTORY: No illicit drug use. REVIEW OF SYSTEMS: CONSTITUTIONAL: Denies fever or chills. HEENT: Denies blurred vision, vision changes, or eye pain. Denies hemoptysis CARDIOVASCULAR: Denies chest pain or pressure. RESPIRATORY: No shortness of breath. GASTROINTESTINAL: See HPI for pertinent findings HEMATOLOGIC: Denies bleeding disorders. GENITOURINARY: Denies any blood in urine or increased urinary frequency. SKIN: Denies pruitis. Denies rash. PHYSICAL EXAM: VITAL SIGNS: Reviewed GENERAL: Well-developed in no acute distress. HEENT: No sclera icterus. Extraocular movements grossly intact. Moist buccal mucosa. Head is atraumatic, normocephalic. No nasal drainage. ABDOMEN: Soft. Nondistended. Tenderness with palpation to the epigastric area and left upper quadrant NEUROLOGIC: Alert and oriented. Cranial nerves II through XII grossly intact. LABORATORY DATA: WBC 5.37 Hgb 12.5 platelets 155 Sodium 141 potassium 4.0 creatinine 0.8 Total bilirubin 0.4 AST 56 ALT 90 alk phos 108 Lipase 2345 IMAGING: CT scan abdomen pelvis reports moderate fecal retention. No obstruction evident. Punctate right renal stones without hydronephrosis or hydroureter. Moderate fatty infiltration of liver Gallbladder ultrasound reports gallbladder surgically absent. Moderate fatty infiltration with mild hepatomegaly ASSESSMENT: 1. Acute pancreatitis possibly medication induced. Patient on Wegovy at home. Patient with history of cholecystectomy 2. Moderate fecal retention noted on CAT scan PLAN: -No surgical intervention planned -Keep patient n.p.o. -Continue IV fluids -Continue pain management -Repeat labs in a.m. -Lactulose given for fecal retention Physician Plant Control Operator note has been reviewed by physician. Signing provider agrees with the documented findings, assessment, and plan of care. Past Medical History Past Medical History: Cancer, Chest Pain / Angina, GERD/Reflux, Osteoarthritis (OA) Additional Past Medical History / Comment(s): Endometrosis, migraines, kidney stones, UTI. Hx colon cancer with bowel resection surgery and mass removal 2020. pt gets yearly colonoscopies. History of Any Multi-Drug Resistant Organisms: None Reported Past Surgical History: Bowel Resection, Cholecystectomy, Hysterectomy Additional Past Surgical History / Comment(s): Laparoscopy X2, EGD, Colonoscopies. Past Anesthesia/Blood Transfusion Reactions: No Reported Reaction Smoking Status: Never smoker - Past Family History Sister(s) Family Medical History: Cancer Additional Family Medical History / Comment(s): Colon cancer, . Father Family Medical History: Cancer Additional Family Medical History / Comment(s): Colon cancer. Mother Additional Family Medical History / Comment(s): "Heart problems". Medications and Allergies Home Medications Medication Instructions Recorded Confirmed Type Sertraline [Zoloft] 100 mg PO DAILY 02/03/17 01/11/24 History Cariprazine HCl [Vraylar] 3 mg PO DAILY 05/22/19 01/11/24 History Diclofenac Sodium [Voltaren] 75 mg PO DAILY 05/30/22 01/11/24 History Semaglutide [Wegovy] 1 mg SQ DAVID 01/11/24 01/11/24 History Allergies Allergy/AdvReac Type Severity Reaction Status Date / Time Iodinated Contrast Media Allergy Dyspnea Verified 01/11/24 19:03 [Iodinated Contrast- Oral and IV Dye] Surgical - Exam Vital Signs Temp Pulse Resp BP Pulse Ox 98 F 60 20 163/77 97 01/11/24 15:31 01/11/24 15:31 01/11/24 15:31 01/11/24 15:31 01/11/24 15:31 Results - Labs 01/12/24 04:54 01/12/24 04:54 Abnormal Lab Results - Last 24 Hours (Table) 01/11/24 01/11/24 01/11/24 Range/Units 16:02 16:02 16:02 Calcium (8.7-10.3) mg/dL AST (13-35) U/L ALT 65 H (4-34) U/L Total Protein (6.2-8.2) g/dL Amylase 262 H (30-110) U/L Lipase 2345 H (23-300) U/L Urine Appearance Cloudy H (Clear) Urine Protein Trace H (Negative) Urine Nitrite Positive H (Negative) Urine Bilirubin 2+ H (Negative) Ur Squamous Epith Cells 5 H (0-4) /hpf Urine Bacteria Rare H (None) /hpf Urine Mucus Few H (None) /hpf 01/12/24 Range/Units 04:54 Calcium 8.5 L (8.7-10.3) mg/dL AST 56 H (13-35) U/L ALT 90 H (4-34) U/L Total Protein 5.9 L (6.2-8.2) g/dL Amylase (30-110) U/L Lipase (23-300) U/L Urine Appearance (Clear) Urine Protein (Negative) Urine Nitrite (Negative) Urine Bilirubin (Negative) Ur Squamous Epith Cells (0-4) /hpf Urine Bacteria (None) /hpf Urine Mucus (None) /hpf Diabetes panel 01/11/24 01/12/24 Range/Units 16:02 04:54 Sodium 141 141 (137-145) mmol/L Potassium 3.7 4.0 (3.5-5.1) mmol/L Chloride 106 107 (98-107) mmol/L Carbon Dioxide 28 24.6 (22-30) mmol/L BUN 13 11.7 (7-17) mg/dL Creatinine 0.87 0.8 (0.52-1.04) mg/dL Glucose 94 96 (74-99) mg/dL Calcium 9.4 8.5 L (8.4-10.2) mg/dL AST 34 56 H (14-36) U/L ALT 65 H 90 H (4-34) U/L Alkaline Phosphatase 109 108 (38-126) U/L Total Protein 8.0 5.9 L (6.3-8.2) g/dL Albumin 4.9 3.8 (3.5-5.0) g/dL Calcium panel 01/11/24 01/12/24 Range/Units 16:02 04:54 Calcium 9.4 8.5 L (8.4-10.2) mg/dL Albumin 4.9 3.8 (3.5-5.0) g/dL Pituitary panel 01/11/24 01/12/24 Range/Units 16:02 04:54 Sodium 141 141 (137-145) mmol/L Potassium 3.7 4.0 (3.5-5.1) mmol/L Chloride 106 107 (98-107) mmol/L Carbon Dioxide 28 24.6 (22-30) mmol/L BUN 13 11.7 (7-17) mg/dL Creatinine 0.87 0.8 (0.52-1.04) mg/dL Glucose 94 96 (74-99) mg/dL Calcium 9.4 8.5 L (8.4-10.2) mg/dL Adrenal panel 01/11/24 01/12/24 Range/Units 16:02 04:54 Sodium 141 141 (137-145) mmol/L Potassium 3.7 4.0 (3.5-5.1) mmol/L Chloride 106 107 (98-107) mmol/L Carbon Dioxide 28 24.6 (22-30) mmol/L BUN 13 11.7 (7-17) mg/dL Creatinine 0.87 0.8 (0.52-1.04) mg/dL Glucose 94 96 (74-99) mg/dL Calcium 9.4 8.5 L (8.4-10.2) mg/dL Total Bilirubin 0.6 0.4 (0.2-1.3) mg/dL AST 34 56 H (14-36) U/L ALT 65 H 90 H (4-34) U/L Alkaline Phosphatase 109 108 (38-126) U/L Total Protein 8.0 5.9 L (6.3-8.2) g/dL Albumin 4.9 3.8 (3.5-5.0) g/dL
[2024-01-12] MEDS: LACTULOSE 20 GM/30 ML CUP PO SCH (15:22)
[2024-01-13] MEDS: METOCLOPRAMIDE 5 MG/ML 2 ML VIAL IVP PRN (04:46)
[2024-01-13 08:00] LABS: ALT 94 U/L (4-34); AST 44 U/L (14-36); African American GFR (CKD) >90 (>60 ml/min/1.73 sqM); Albumin/Globulin Ratio 1.6; Alkaline Phosphatase 96 U/L (38-126); Anion Gap 7 mmol/L; Blood Urea Nitrogen 6 mg/dL (7-17); Calcium 8.6 mg/dL (8.4-10.2); Carbon Dioxide 22 mmol/L (22-30); Chloride 110 mmol/L (98-107); Globulin 2.5 g/dL; Glucose 96 mg/dL (74-99); Non-African American GFR(CKD) >90 (>60 ml/min/1.73 sqM); Sodium 139 mmol/L (137-145); Total Bilirubin 0.8 mg/dL (0.2-1.3); Total Protein 6.5 g/dL (6.3-8.2)
--- NOTE | 2024-01-13 09:28 | P.PN ---
Subjective Progress Note Date: 01/13/24 Principal diagnosis: Pancreatitis The focal the patient feels better this morning. Still having upper abdominal pain. Mild nausea. She is somewhat hungry. Vitals are stable. Labs noted. Lipase pending. Objective - Vital Signs Vital signs: Vital Signs Temp 98.0 F 01/13/24 08:10 Pulse 59 L 01/13/24 08:10 Resp 16 01/13/24 08:10 BP 147/68 01/13/24 08:10 Pulse Ox 98 01/13/24 08:10 FiO2 Intake & Output 01/12/24 01/13/24 01/13/24 18:59 06:59 18:59 Weight 93.44 kg Other: Voiding Method Toilet # Voids 2 - Exam Abdomen: Soft, nondistended, mild epigastric tenderness - Labs CBC & Chem 7: 01/12/24 04:54 01/13/24 07:18 Labs: Abnormal Lab Results - Last 24 Hours (Table) 01/12/24 01/12/24 01/13/24 Range/Units 04:54 04:54 07:18 Chloride 110 H (98-107) mmol/L BUN 6 L (7-17) mg/dL Calcium 8.5 L (8.7-10.3) mg/dL AST 56 H 44 H (13-35) U/L ALT 90 H 94 H (8-44) U/L Total Protein 5.9 L (6.2-8.2) g/dL Lipase 66 H (14-63) U/L Assessment and Plan (1) Pancreatitis Narrative/Plan: 48-year-old female with pancreatitis. Etiology unclear. Begin liquid diet. Await lipase. Repeat labs tomorrow. Ambulate. Current Visit: Yes Status: Acute Code(s): K85.90 - ACUTE PANCREATITIS WITHOUT NECROSIS OR INFECTION, UNSP SNOMED Code(s): 04102066
--- NOTE | 2024-01-13 13:29 | P.PN ---
Subjective Progress Note Date: 01/13/24 This is a 48-year-old female with past medical history significant for migraines, obesity, laparoscopic Trinh, gastroesophageal reflux disease, cholecystectomy, cholecystectomy, endometriosis, colon cancer with bowel resection, anxiety, bipolar, depression, panic disorder and multiple other medical issues presented to the ER with complaints of right abdominal pain, nausea, vomiting that began yesterday. Denies fatty food diet. Denies fevers or chills denies alcohol use. last bowel movement 2 days ago. Denies bloody bowel movements, no hematochezia. Denies hemoptysis or hematemesis. Denies dysuria, hematuria. Denies dysuria, urinary frequency or urgency.CT of abdomen and pelvis reported moderate fecal retention, no obstruction evident, punctuate right renal stones without hydronephrosis or hydroureter, moderate fatty infiltration liver. Gallbladder ultrasound suboptimal study due to overlying bowel gas , common bile duct within normal limits postcholecystectomy ,reported moderate fatty infiltration with mild hepatomegaly. Afebrile, normal WBC, hematology unremarkable. Electrolytes, renal function stable, lactic acid 1.9. T. bili 0.4, AST 56, ALT 90, alk phos 108. Amylase 262, lipase 2345. UA reported positive for nitrates, negative leukocytes, rare bacteria, 2+ sarkis irubin, cloudy appearance. 01/12. Patient seen and examined. Still complaining of abdominal pain. Complained of nausea this morning. Denies any altered bowel movements. REVIEW OF SYSTEMS: CONSTITUTIONAL: No fever, no malaise,. CARDIOVASCULAR: No chest pain, no palpitations, no syncope. PULMONARY: No shortness of breath, no cough, GASTROINTESTINAL: As mentioned above NEUROLOGICAL: No headaches, no weakness, PHYSICAL EXAMINATION: GENERAL: The patient is alert and oriented x3, ill looking HEENT: Pupils are round and equally reacting to light. EOMI. No scleral icterus. No conjunctival pallor. Normocephalic, atraumatic. No pharyngeal erythema. No thyromegaly. CARDIOVASCULAR: S1 and S2 present. No murmurs, rubs, or gallops. PULMONARY: Chest is clear to auscultation, no wheezing or crackles. ABDOMEN: Soft, nontender, nondistended, normoactive bowel sounds. No palpable organomegaly. MUSCULOSKELETAL: No joint swelling or deformity. EXTREMITIES: No cyanosis, clubbing, or pedal edema. NEUROLOGICAL: Gross neurological examination did not reveal any focal deficits. SKIN: No rashes. Assessment and plan Acute pancreatitis, first occurrence, etiology unclear Minimally elevated LFTs Moderate fecal retention Punctuate right renal stones without hydronephrosis or hydroureter Hepatomegaly, mild with moderate fatty infiltration of liver Acute UTI Gastroesophageal reflux disease Laparoscopic Niesen Cholecystectomy Colon cancer with bowel resection, history of Endometriosis, history Bipolar disorder Anxiety, panic attacks ,depression, history of Morbid obesity, BMI 37 Osteoarthritis Monitor vital signs Monitor CBC Monitor CMP Continue antiemetics Continue IV fluids Continue pain management General Surgery following, currently on clear liquid diet Labs and medication were reviewed.. Continue same treatment. Continue with symptomatic treatment. Resume home medication. Monitor labs and vitals. DVT and GI prophylaxis. Further recommendations as per clinical course of the patient Dictation was produced using [employer] dictation software. please excuse any grammatical, word or spelling errors. Objective - Vital Signs Vital signs: Vital Signs Temp 97.9 F 01/13/24 13:10 Pulse 63 01/13/24 13:10 Resp 16 01/13/24 13:10 BP 151/60 01/13/24 13:10 Pulse Ox 94 L 01/13/24 13:10 FiO2 Intake & Output 01/12/24 01/13/24 01/13/24 18:59 06:59 18:59 Weight 93.44 kg Other: Voiding Method Toilet Toilet # Voids 2 - Labs CBC & Chem 7: 01/12/24 04:54 01/13/24 07:18 Labs: Abnormal Lab Results - Last 24 Hours (Table) 01/12/24 01/13/24 Range/Units 04:54 07:18 Chloride 110 H (98-107) mmol/L BUN 6 L (7-17) mg/dL AST 44 H (14-36) U/L ALT 94 H (4-34) U/L Lipase 66 H (14-63) U/L Microbiology - Last 24 Hours (Table) 01/11/24 16:02 Urine Culture - Final Urine,Clean Catch
[2024-01-14 10:13] LABS: Basophils # (A) 0.02 X 10*3/uL (0.00-0.10); Basophils % (A) 0.4 %; Eosinophils # (A) 0.06 X 10*3/uL (0.04-0.35); Eosinophils % (A) 1.1 %; HCT 37.9 % (37.2-46.3); HGB 12.3 g/dL (12.0-15.0); Lymphocytes # (A) 1.62 X 10*3/uL (0.90-5.00); Lymphocytes % (A) 30.6 %; MCH 28.4 pg (27.0-32.0); MCHC 32.5 g/dL (32.0-37.0); MCV 87.5 FL (80.0-97.0); Mean Platelet Volume 10.3 FL (9.5-12.2); Monocytes # (A) 0.24 X 10*3/uL (0.20-1.00); Monocytes % (A) 4.5 %; NRBC Per 100 WBC 0 X 10*3/uL (0.00-0.01); Neutrophils # (A) 3.31 X 10*3/uL (1.80-7.70); Neutrophils % (A) 62.5 %; Platelet Count 159 X 10*3/uL (140-440); RBC 4.33 X 10*6/uL (4.10-5.20); RDW 13.4 % (11.5-14.5)
[2024-01-14 10:22] LABS: ALT 77 U/L (8-44); AST 33 U/L (13-35); Albumin 4.1 g/dL (3.8-4.9); Albumin/Globulin Ratio 1.78 Ratio (1.60-3.17); Alkaline Phosphatase 107 U/L (41-126); BUN/Creat Ratio 7.62 Ratio (12.00-20.00); Blood Urea Nitrogen 6.1 mg/dL (9.0-27.0); Calcium 8.7 mg/dL (8.7-10.3); Carbon Dioxide 23.3 mmol/L (21.6-31.8); Chloride 106 mmol/L (96-109); Globulin 2.3 g/dL (1.6-3.3); Glucose 85 mg/dL (70-110); Lipase 43 U/L (14-63); Sodium 142 mmol/L (135-145); Total Bilirubin 0.4 mg/dL (0.3-1.2); Total Protein 6.4 g/dL (6.2-8.2)
--- NOTE | 2024-01-14 10:25 | P.PN ---
Subjective Progress Note Date: 01/14/24 Principal diagnosis: Pancreatitis Patient says her pain is improved today. She does have nausea today. No vomiting. Labs show improvement and now normalization of lipase. Objective - Vital Signs Vital signs: Vital Signs Temp 98.2 F 01/14/24 07:12 Pulse 59 L 01/14/24 07:12 Resp 16 01/14/24 07:12 BP 129/75 01/14/24 07:12 Pulse Ox 96 01/14/24 07:12 FiO2 Intake & Output 01/13/24 01/14/24 01/14/24 18:59 06:59 18:59 Intake Total 680 120 360 Balance 680 120 360 Intake: Oral 680 120 360 Other: Voiding Method Toilet Toilet # Voids 4 - Exam Abdomen: Soft, nondistended, mild epigastric tenderness - Labs CBC & Chem 7: 01/14/24 05:29 01/14/24 05:29 Labs: Abnormal Lab Results - Last 24 Hours (Table) 01/14/24 01/14/24 Range/Units 05:29 05:29 Immature Gran # 0.05 H (0.00-0.04) X 10*3/uL Anion Gap 12.70 H (4.00-12.00) mmol/L BUN 6.1 L (9.0-27.0) mg/dL BUN/Creatinine Ratio 7.62 L (12.00-20.00) Ratio ALT 77 H (8-44) U/L Microbiology - Last 24 Hours (Table) 01/11/24 16:02 Urine Culture - Final Urine,Clean Catch Assessment and Plan (1) Pancreatitis Narrative/Plan: Patient doing well today. Continue clear liquids. Increase activity by walking in the hallways. Likely advance diet tomorrow. Current Visit: Yes Status: Acute Code(s): K85.90 - ACUTE PANCREATITIS WITHOUT NECROSIS OR INFECTION, UNSP SNOMED Code(s): 11296779
[2024-01-14] MEDS: ACETAMINOPHEN TAB 325 MG TAB PO PRN (12:13)
--- NOTE | 2024-01-14 12:25 | P.PN ---
Subjective Progress Note Date: 01/14/24 This is a 48-year-old female with past medical history significant for migraines, obesity, laparoscopic Trinh, gastroesophageal reflux disease, cholecystectomy, cholecystectomy, endometriosis, colon cancer with bowel resection, anxiety, bipolar, depression, panic disorder and multiple other medical issues presented to the ER with complaints of right abdominal pain, nausea, vomiting that began yesterday. Denies fatty food diet. Denies fevers or chills denies alcohol use. last bowel movement 2 days ago. Denies bloody bowel movements, no hematochezia. Denies hemoptysis or hematemesis. Denies dysuria, hematuria. Denies dysuria, urinary frequency or urgency.CT of abdomen and pelvis reported moderate fecal retention, no obstruction evident, punctuate right renal stones without hydronephrosis or hydroureter, moderate fatty infiltration liver. Gallbladder ultrasound suboptimal study due to overlying bowel gas , common bile duct within normal limits postcholecystectomy ,reported moderate fatty infiltration with mild hepatomegaly. Afebrile, normal WBC, hematology unremarkable. Electrolytes, renal function stable, lactic acid 1.9. T. bili 0.4, AST 56, ALT 90, alk phos 108. Amylase 262, lipase 2345. UA reported positive for nitrates, negative leukocytes, rare bacteria, 2+ sarkis irubin, cloudy appearance. 01/12. Patient seen and examined. Still complaining of abdominal pain. Complained of nausea this morning. Denies any altered bowel movements. 01/13. Patient seen examined. Still continues to have nausea but abdominal pain has improved. REVIEW OF SYSTEMS: CONSTITUTIONAL: No fever, no malaise,. CARDIOVASCULAR: No chest pain, no palpitations, no syncope. PULMONARY: No shortness of breath, no cough, GASTROINTESTINAL: As mentioned above NEUROLOGICAL: No headaches, no weakness, PHYSICAL EXAMINATION: GENERAL: The patient is alert and oriented x3, ill looking HEENT: Pupils are round and equally reacting to light. EOMI. No scleral icterus. No conjunctival pallor. Normocephalic, atraumatic. No pharyngeal erythema. No thyromegaly. CARDIOVASCULAR: S1 and S2 present. No murmurs, rubs, or gallops. PULMONARY: Chest is clear to auscultation, no wheezing or crackles. ABDOMEN: Soft, nontender, nondistended, normoactive bowel sounds. No palpable o rganomegaly. MUSCULOSKELETAL: No joint swelling or deformity. EXTREMITIES: No cyanosis, clubbing, or pedal edema. NEUROLOGICAL: Gross neurological examination did not reveal any focal deficits. SKIN: No rashes. Assessment and plan Acute pancreatitis, first occurrence, etiology unclear Minimally elevated LFTs Moderate fecal retention Punctuate right renal stones without hydronephrosis or hydroureter Hepatomegaly, mild with moderate fatty infiltration of liver Acute UTI Gastroesophageal reflux disease Laparoscopic Niesen Cholecystectomy Colon cancer with bowel resection, history of Endometriosis, history Bipolar disorder Anxiety, panic attacks ,depression, history of Morbid obesity, BMI 37 Osteoarthritis Monitor vital signs Monitor CBC Monitor CMP Continue antiemetics Continue IV fluids Continue pain management General Surgery following, currently on clear liquid diet, advance diet per surgery Labs and medication were reviewed.. Continue same treatment. Continue with symptomatic treatment. Resume home medication. Monitor labs and vitals. DVT and GI prophylaxis. Further recommendations as per clinical course of the patient Dictation was produced using [employer] dictation software. please excuse any grammatical, word or spelling errors. Objective - Vital Signs Vital signs: Vital Signs Temp 98.2 F 01/14/24 07:12 Pulse 59 L 01/14/24 10:00 Resp 16 01/14/24 10:00 BP 129/75 01/14/24 07:12 Pulse Ox 96 01/14/24 07:12 FiO2 Intake & Output 01/13/24 01/14/24 01/14/24 18:59 06:59 18:59 Intake Total 680 120 360 Balance 680 120 360 Intake: Oral 680 120 360 Other: Voiding Method Toilet Toilet Toilet # Voids 4 - Labs CBC & Chem 7: 01/14/24 05:29 01/14/24 05:29 Labs: Abnormal Lab Results - Last 24 Hours (Table) 01/14/24 01/14/24 Range/Units 05:29 05:29 Immature Gran # 0.05 H (0.00-0.04) X 10*3/uL Anion Gap 12.70 H (4.00-12.00) mmol/L BUN 6.1 L (9.0-27.0) mg/dL BUN/Creatinine Ratio 7.62 L (12.00-20.00) Ratio ALT 77 H (8-44) U/L Microbiology - Last 24 Hours (Table) 01/11/24 16:02 Urine Culture - Final Urine,Clean Catch
[2024-01-15 08:39] LABS: Basophils # (A) 0.03 X 10*3/uL (0.00-0.10); Basophils % (A) 0.5 %; Eosinophils % (A) 1.8 %; HGB 12.6 g/dL (12.0-15.0); Lymphocytes % (A) 29.1 %; MCH 27.9 pg (27.0-32.0); MCHC 32.3 g/dL (32.0-37.0); MCV 86.3 FL (80.0-97.0); Mean Platelet Volume 10.1 FL (9.5-12.2); Monocytes # (A) 0.29 X 10*3/uL (0.20-1.00); Monocytes % (A) 5.3 %; NRBC Per 100 WBC 0 X 10*3/uL (0.00-0.01); Neutrophils # (A) 3.43 X 10*3/uL (1.80-7.70); Neutrophils % (A) 62.4 %; Platelet Count 163 X 10*3/uL (140-440); RBC 4.52 X 10*6/uL (4.10-5.20); RDW 13.5 % (11.5-14.5)
[2024-01-15 08:45] LABS: ALT 73 U/L (8-44); AST 30 U/L (13-35); Albumin 4.1 g/dL (3.8-4.9); Albumin/Globulin Ratio 1.78 Ratio (1.60-3.17); Alkaline Phosphatase 102 U/L (41-126); BUN/Creat Ratio 7.57 Ratio (12.00-20.00); Blood Urea Nitrogen 5.3 mg/dL (9.0-27.0); Calcium 8.6 mg/dL (8.7-10.3); Carbon Dioxide 26.7 mmol/L (21.6-31.8); Chloride 106 mmol/L (96-109); Globulin 2.3 g/dL (1.6-3.3); Glucose 87 mg/dL (70-110); Potassium 3.5 mmol/L (3.5-5.5); Sodium 142 mmol/L (135-145); Total Bilirubin 0.4 mg/dL (0.3-1.2); Total Protein 6.4 g/dL (6.2-8.2)
--- NOTE | 2024-01-15 10:51 | P.DS ---
Providers Date of admission: 01/11/24 18:09 Expected date of discharge: 01/15/24 Attending physician: Carlos Eduardo Dasilva MD Consults: 01/12/24 08:24 Consult Physician Routine Consulting Provider: David Tran Consult Reason/Comments: New onset pancratitis, known pt. Do you want consulting provider notified?: Yes Primary care physician: Mireya Dasilva [facility] Course: Final Diagnoses: Acute pancreatitis, first occurrence, etiology unclear Minimally elevated LFTs Moderate fecal retention Punctuate right renal stones without hydronephrosis or hydroureter Hepatomegaly, mild with moderate fatty infiltration of liver Acute UTI, completed antibiotic regimen Gastroesophageal reflux disease Laparoscopic Niesen Cholecystectomy Colon cancer with bowel resection, history of Endometriosis, history Bipolar disorder Anxiety, panic attacks ,depression, history of Morbid obesity, BMI 37 Osteoarthritis Hospital course: This is a 48-year-old female with past medical history significant for migraines, obesity, laparoscopic Trinh, gastroesophageal reflux disease, cholecystectomy, cholecystectomy, endometriosis, colon cancer with bowel resection, anxiety, bipolar, depression, panic disorder and multiple other medical issues presented to the ER with complaints of right abdominal pain, nausea, vomiting that began yesterday. Denies fatty food diet. Denies fevers or chills denies alcohol use. last bowel movement 2 days ago. Denies bloody bowel movements, no hematochezia. Denies hemoptysis or hematemesis. Denies dysuria, hematuria. Denies dysuria, urinary frequency or urgency.CT of abdomen and pelvis reported moderate fecal retention, no obstruction evident, punctuate right renal stones without hydronephrosis or hydroureter, moderate fatty infiltration liver. Gallbladder ultrasound suboptimal study due to overlying bowel gas , common bile duct within normal limits postcholecystectomy ,reported moderate fatty infiltration with mild hepatomegaly. Afebrile, normal WBC, hematology unremarkable. Electrolytes, renal function stable, lactic acid 1.9. T. bili 0.4, AST 56, ALT 90, alk phos 108. Amylase 262, lipase 2345. UA reported positive for nitrates, negative leukocytes, rare bacteria, 2+ bilirubin, cloudy appearance. Maintain on IV fluid hydration, clear liquid diet .evaluated and treated by general surgery. lipase has normalized, down to 43. No further nausea and vomiting or abdominal pain. Regular bowel sounds. Reports minimal diffuse "achiness of abdomen". No bowel movement on lactulose, MiraLAX ordered. Advised to increase ambulation, as tolerated. denies chest pain, palpitations or shortness of breath. Diet advanced to full liquid as per general surgery. Patient will be discharged home today in a stable condition with guarded prognosis, pending patient tolerates diet and general surgery clearance. Recommending low fiber low protein diet at discharge. The impression and plan of care has been dictated as directed. : I performed a history and examination of this patient, discussed the same with the dictator. I agree with the dictator's note ,documented as a scribe. Any additional findings or plans will be noted. Patient Condition at Discharge: Stable Plan - Discharge Summary New Discharge Prescriptions: Continue Sertraline [Zoloft] 100 mg PO DAILY Cariprazine HCl [Vraylar] 3 mg PO DAILY Diclofenac Sodium [Voltaren] 75 mg PO DAILY Semaglutide [Wegovy] 1 mg SQ DAVID Discharge Medication List Sertraline [Zoloft] 100 mg PO DAILY 02/03/17 [History] Cariprazine HCl [Vraylar] 3 mg PO DAILY 05/22/19 [History] Diclofenac Sodium [Voltaren] 75 mg PO DAILY 05/30/22 [History] Semaglutide [Wegovy] 1 mg SQ DAVID 01/11/24 [History] Follow up Appointment(s)/Referral(s): Mireya Dasilva DO [Primary Care Provider] - 01/19/24 10:45 am (appointment in the [place] location w/ [facility]) Patient Instructions/Handouts: Mumps in Adults (DC)
[2024-01-15] MEDS: POTASSIUM CHLORIDE ER 20 MEQ TAB.ER PO STA (11:06)
[2024-01-15] MEDS: polyethylene glycoL 3350 17 GM POWD.PACK PO STA (11:06)
--- NOTE | 2024-01-15 12:03 | P.PN ---
Subjective Progress Note Date: 01/15/24 SURGICAL PROGRESS NOTE CHIEF COMPLAINT: Pancreatitis HISTORY OF PRESENT ILLNESS: Patient reports her abdominal pain is improved. She denies any nausea or vomiting. She reports minimal discomfort in the epigastric area. She is tolerating the clear liquid diet. PHYSICAL EXAM: VITAL SIGNS: Reviewed. GENERAL: Well-developed in no acute distress. ABDOMEN: Soft. Nondistended. Nontender. NEUROLOGIC: Alert and oriented. Cranial nerves II through XII grossly intact. ASSESSMENT: 1. Acute pancreatitis likely medication induced. Patient takes Wegovy at home and pancreatitis can be a side effect 2. History of cholecystectomy PLAN: -Advance diet to full liquids and then as tolerated -Recommend discontinuing Wegovy -Patient can be discharged from surgical standpoint if tolerating diet Physician Computer Help Desk Representative note has been reviewed by physician. Signing provider agrees with the documented findings, assessment, and plan of care. Objective - Vital Signs Vital signs: Vital Signs Temp 97.9 F 01/15/24 07:54 Pulse 61 01/15/24 07:54 Resp 14 01/15/24 07:54 BP 140/74 01/15/24 07:54 Pulse Ox 94 L 01/15/24 07:54 FiO2 Intake & Output 01/14/24 01/15/24 01/15/24 18:59 06:59 18:59 Intake Total 1800 2240 Balance 1800 2240 Intake: Intake, IV Titration 1650 Amount Sodium Chloride 0.9% 1, 1650 000 ml @ 150 mls/hr IV . [id number] [facility] Rx#:[id number] Oral 1800 590 Other: Voiding Method Toilet Toilet # Voids 5 3 - Labs CBC & Chem 7: 01/15/24 04:29 01/15/24 04:29 Labs: Abnormal Lab Results - Last 24 Hours (Table) 01/15/24 01/15/24 Range/Units 04:29 04:29 Immature Gran # 0.05 H (0.00-0.04) X 10*3/uL BUN 5.3 L (9.0-27.0) mg/dL BUN/Creatinine Ratio 7.57 L (12.00-20.00) Ratio Calcium 8.6 L (8.7-10.3) mg/dL ALT 73 H (8-44) U/L
[2024-01-15 13:50] VITALS: BP 163/91; PULSE 62; RESP 15; TEMP 98.5
== END 2024-01-15 18:21 ==
LOC: EC 15:07 → 6NMEDSUR 18:09 → 5NMEDONC 01-12 01:09
PROVIDERS: ADMIT Family Medicine; ATTEND Family Medicine
DX: K85.90 Acute pancreatitis without necrosis or infection, unspecified (principal); R94.5 Abnormal results of liver function studies; K59.00 Constipation, unspecified; N20.0 Calculus of kidney; K76.0 Fatty (change of) liver, not elsewhere classified; N39.0 Urinary tract infection, site not specified; K21.9 Gastro-esophageal reflux disease without esophagitis; M19.90 Unspecified osteoarthritis, unspecified site; G43.909 Migraine, unspecified, not intractable, without status migrainosus; E66.01 Morbid (severe) obesity due to excess calories; Z68.37 Body mass index [BMI] 37.0-37.9, adult; F31.9 Bipolar disorder, unspecified; F41.0 Panic disorder [episodic paroxysmal anxiety]; Z79.899 Other long term (current) drug therapy; Z79.1 Long term (current) use of non-steroidal anti-inflammatories (NSAID); Z85.038 Personal history of other malignant neoplasm of large intestine; Z87.42 Personal history of other diseases of the female genital tract; Z90.49 Acquired absence of other specified parts of digestive tract; Z90.710 Acquired absence of both cervix and uterus; Z80.0 Family history of malignant neoplasm of digestive organs
CPT/HCPCS: 96376 ×6; 96361 ×4; 96365; 96366; 96375 ×3; 99285; 36415; 80053 ×5; 82150; 83605; 83690 ×3; 85025 ×4; 81001; 87086; 76705; 74176; G0378 ×5; J2270 ×4; J2765 ×2; J2405 ×4; J0696 ×5; J1885; J2470 ×4

== ENCOUNTER 2024-02-10 16:07 | Emergency (ER) | payer OTHER ==
--- NOTE | 2024-02-10 17:20 | ED ---
Abdominal Pain HPI - General Chief Complaint: Abdominal Pain Stated Complaint: abn labs Time Seen by Provider: 02/10/24 17:17 Source: patient, RN notes reviewed Mode of arrival: ambulatory Limitations: no limitations - History of Present Illness Initial Comments: 48-year-old female sent to the ER by PCP for elevated lipase. Patient states she was told that her lipase was over 700. Patient was recently admitted to the hospital 1 month ago for pancreatitis. States she has had lingering epigastric pain since then. Describes pain as an intermittent, 6 out of 10, achy pain that radiates to the back. Pain is worse with food. History of cholecystectomy, hysterectomy, and partial bowel resection due to colon cancer. Denies alcohol use. Denies nausea, vomiting, fever, diarrhea, urinary symptoms. Last bowel movement was this morning and was normal. - Related Data Home Medications Medication Instructions Recorded Confirmed Sertraline [Zoloft] 100 mg PO DAILY 02/03/17 02/08/24 Cariprazine HCl [Vraylar] 3 mg PO DAILY 05/22/19 02/08/24 Diclofenac Sodium [Voltaren] 75 mg PO DAILY 05/30/22 02/08/24 SUMAtriptan succinate [Imitrex] 100 mg PO DAILY PRN 02/08/24 02/08/24 hydrOXYzine HCL [Atarax] 50 mg PO DAILY PRN 02/08/24 02/08/24 Allergies Allergy/AdvReac Type Severity Reaction Status Date / Time Iodinated Contrast Media Allergy Dyspnea Verified 02/10/24 16:14 [Iodinated Contrast- Oral and IV Dye] Review of Systems ROS Statement: Those systems with pertinent positive or pertinent negative responses have been documented in the HPI. ROS Other: All systems not noted in ROS Statement are negative. Past Medical History Past Medical History: Cancer, Chest Pain / Angina, GERD/Reflux, Osteoarthritis (OA) Additional Past Medical History / Comment(s): Endometrosis, migraines, kidney stones, UTI. Hx colon cancer with bowel resection surgery and mass removal 2020. pt gets yearly colonoscopies. Pancreatitis History of Any Multi-Drug Resistant Organisms: None Reported Past Surgical History: Bowel Resection, Cholecystectomy, Hysterectomy Additional Past Surgical History / Comment(s): Laparoscopy X2, EGD, Colonoscopies. Past Anesthesia/Blood Transfusion Reactions: No Reported Reaction Past Psychological History: Anxiety, Bipolar, Depression, Panic Disorder Smoking Status: Never smoker Past Alcohol Use History: Rare Past Drug Use History: None Reported - Past Family History Sister(s) Family Medical History: Cancer Additional Family Medical History / Comment(s): Colon cancer, . Father Family Medical History: Cancer Additional Family Medical History / Comment(s): Colon cancer. Mother Additional Family Medical History / Comment(s): "Heart problems". General Exam Limitations: no limitations General appearance: alert, in no apparent distress Head exam: Present: atraumatic, normocephalic, normal inspection Respiratory exam: Present: normal lung sounds bilaterally. Absent: respiratory distress, wheezes, rales, rhonchi, stridor Cardiovascular Exam: Present: regular rate, normal rhythm, normal heart sounds. Absent: systolic murmur, diastolic murmur, rubs, gallop, clicks GI/Abdominal exam: Present: soft, normal bowel sounds. Absent: distended, tenderness, guarding, rebound, rigid Back exam: Absent: CVA tenderness (R), CVA tenderness (L) Neurological exam: Present: alert, oriented X3 Psychiatric exam: Present: normal affect, normal mood Skin exam: Present: warm, dry, intact, normal color. Absent: rash Course Vital Signs 02/10/24 02/10/24 16:14 18:00 Temperature 98 F Pulse Rate 57 L 62 Respiratory 18 22 Rate Blood Pressure 161/84 137/83 O2 Sat by Pulse 99 97 Oximetry Medical Decision Making - Medical Decision Making Was pt. sent in by a medical professional or institution (, PA, COMPENSATION DIRECTOR, urgent care, hospital, or longterm...) When possible be specific @ -Sent by PCP for elevated lipase Did you speak to anyone other than the patient for history (EMS, parent, family, police, friend...)? What history was obtained from this source @ -No Did you review nursing and triage notes (agree or disagree)? Why? @ -I reviewed and agree with nursing and triage notes Were old charts reviewed (outside hosp., previous admission, EMS record, old EKG, old radiological studies, urgent care reports/EKG's, longterm records)? Report findings @ -No old charts were reviewed Differential Diagnosis (chest pain, altered mental status, abdominal pain women, abdominal pain men, vaginal bleeding, weakness, fever, dyspnea, syncope, headach e, dizziness, GI bleed, back pain, seizure, CVA, palpatations, mental health, musculoskeletal)? @ -Differential Abdominal Pain Women: Appendicitis, Cholecystitis, diverticulosis, ischemic bowel, pancreatitis, hepatitis, UTI, gastroenteritis, AAA, incarcerated hernia, bowel obstruction, constipation, inflammatory bowel, hepatitis, peptic ulcer disease, splenic infarction, perforated viscus, vulvitis, ovarian torsion, PID, kidney stone, placenta abruption, this is not meant to be an all-inclusive list EKG interpreted by me (3pts min.). @ -As above X-rays interpreted by me (1pt min.). @ -None done CT interpreted by me (1pt min.). @ -None done U/S interpreted by me (1pt. min.). @ -None done What testing was considered but not performed or refused? (CT, X-rays, U/S, labs)? Why? @ -CT considered however deferred due to CT performed one month ago for same symptoms, lipase not 3x upper limit of normal What meds were considered but not given or refused? Why? @ -None Did you discuss the management of the patient with other professionals (professionals i.e. , PA, COMPENSATION DIRECTOR, lab, RT, psych nurse, psychiatric social worker supervisor, assemblyman or woman, teacher, philanthropy officer, keycase assembler)? Give summary @ -No Was smoking cessation discussed for >3mins.? @ -No Was critical care preformed (if so, how long)? @ -No Were there social determinants of health that impacted care today? How? (Homelessness, low income, unemployed, alcoholism, drug addiction, transportation, low edu. Level, literacy, decrease access to med. care, senior living, rehab)? @ -No Was there de-escalation of care discussed even if they declined (Discuss DNR or withdrawal of care, Hospice)? DNR status @ -No What co-morbidities impacted this encounter? (DM, HTN, Smoking, COPD, CAD, Cancer, CVA, ARF, Chemo, Hep., AIDS, mental health diagnosis, sleep apnea, morbid obesity)? @ -None Was patient admitted / discharged? Hospital course, mention meds given and route, prescriptions, significant lab abnormalities, going to OR and other pertinent info. @ -Discharge. This is a 48-year-old female sent by PCP for elevated lipase. Patient was hospitalized last month for pancreatitis and has had consistent epigastric pain since then. Vital signs within acceptable limits. Abdomen is soft nontender. Patient is provided with IV fluids and analgesics. EKG reveals sinus bradycardia with no ST changes. Lipase is 434, lactic acid 2.4, ALT is 53, white blood cell count stable at 6.2. Urinalysis appears to be a contaminated sample, negative for blood or bacteria. Discussed results with patient. As lipase is not 3 times upper limit of normal and symptoms have been consistent for 1 month, I believe it is safe to discharge patient home with close outpatient follow-up and strict return precautions. Patient is agreeable to plan. Case was discussed with the behavioral health technician Dr. Arora. Undiagnosed new problem with uncertain prognosis? @ -No Drug Therapy requiring intensive monitoring for toxicity (Heparin, Nitro, Insulin, Cardizem)? @ -No Were any procedures done? @ -No Diagnosis/symptom? @ -Epigastric pain Acute, or Chronic, or Acute on Chronic? @ -Acute Uncomplicated (without systemic symptoms) or Complicated (systemic symptoms)? @ -Uncomplicated Side effects of treatment? @ -No Exacerbation, Progression, or Severe Exacerbation? @ -No Poses a threat to life or bodily function? How? (Chest pain, [place], [place], pneumonia, PE, COPD, DKA, ARF, appy, cholecystitis, CVA, Diverticulitis, Homicidal, Suicidal, threat to staff... and all critical care pts) @ -No - Lab Data Result diagrams: 02/10/24 17:25 02/10/24 17:25 Lab Results 02/10/24 02/10/24 02/10/24 Range/Units 17:25 17:25 17:25 WBC 6.2 (3.8-10.6) k/uL RBC 4.62 (3.80-5.40) m/uL Hgb 13.4 (11.4-16.0) gm/dL Hct 39.6 (34.0-46.0) % MCV 85.7 (80.0-100.0) fL MCH 29.1 (25.0-35.0) pg MCHC 33.9 (31.0-37.0) g/dL RDW 14.0 (11.5-15.5) % Plt Count 182 (150-450) k/uL MPV 7.5 Neutrophils % 57 % Lymphocytes % 35 % Monocytes % 3 % Eosinophils % 3 % Basophils % 0 % Neutrophils # 3.5 (1.3-7.7) k/uL Lymphocytes # 2.1 (1.0-4.8) k/uL Monocytes # 0.2 (0-1.0) k/uL Eosinophils # 0.2 (0-0.7) k/uL Basophils # 0.0 (0-0.2) k/uL Sodium 139 (137-145) mmol/L Potassium 3.8 (3.5-5.1) mmol/L Chloride 110 H (98-107) mmol/L Carbon Dioxide 25 (22-30) mmol/L Anion Gap 4 mmol/L BUN 16 (7-17) mg/dL Creatinine 0.78 (0.52-1.04) mg/dL Est GFR (CKD-EPI)AfAm >90 (>60 ml/min/1.73 sqM) Est GFR (CKD-EPI)NonAf 90 (>60 ml/min/1.73 sqM) Glucose 140 H (74-99) mg/dL Plasma Lactic Acid Jason 2.4 H* (0.7-2.0) mmol/L Calcium 9.0 (8.4-10.2) mg/dL Total Bilirubin 0.4 (0.2-1.3) mg/dL AST 25 (14-36) U/L ALT 53 H (4-34) U/L Alkaline Phosphatase 88 (38-126) U/L Total Protein 6.7 (6.3-8.2) g/dL Albumin 4.0 (3.5-5.0) g/dL Amylase 102 (30-110) U/L Lipase 434 H (23-300) U/L Urine Color Urine Appearance (Clear) Urine pH (5.0-8.0) Ur Specific [place] (1.001-1.035) Urine Protein (Negative) Urine Glucose (UA) (Negative) Urine Ketones (Negative) Urine Blood (Negative) Urine Nitrite (Negative) Urine Bilirubin (Negative) Urine Urobilinogen (<2.0) mg/dL Ur Leukocyte Esterase (Negative) Urine RBC (0-5) /hpf Urine WBC (0-5) /hpf Ur Squamous Epith Cells (0-4) /hpf Urine Mucus (None) /hpf 02/10/24 Range/Units 17:28 WBC (3.8-10.6) k/uL RBC (3.80-5.40) m/uL Hgb (11.4-16.0) gm/dL Hct (34.0-46.0) % MCV (80.0-100.0) fL MCH (25.0-35.0) pg MCHC (31.0-37.0) g/dL RDW (11.5-15.5) % Plt Count (150-450) k/uL MPV Neutrophils % % Lymphocytes % % Monocytes % % Eosinophils % % Basophils % % Neutrophils # (1.3-7.7) k/uL Lymphocytes # (1.0-4.8) k/uL Monocytes # (0-1.0) k/uL Eosinophils # (0-0.7) k/uL Basophils # (0-0.2) k/uL Sodium (137-145) mmol/L Potassium (3.5-5.1) mmol/L Chloride (98-107) mmol/L Carbon Dioxide (22-30) mmol/L Anion Gap mmol/L BUN (7-17) mg/dL Creatinine (0.52-1.04) mg/dL Est GFR (CKD-EPI)AfAm (>60 ml/min/1.73 sqM) Est GFR (CKD-EPI)NonAf (>60 ml/min/1.73 sqM) Glucose (74-99) mg/dL Plasma Lactic Acid Jason (0.7-2.0) mmol/L Calcium (8.4-10.2) mg/dL Total Bilirubin (0.2-1.3) mg/dL AST (14-36) U/L ALT (4-34) U/L Alkaline Phosphatase (38-126) U/L Total Protein (6.3-8.2) g/dL Albumin (3.5-5.0) g/dL Amylase (30-110) U/L Lipase (23-300) U/L Urine Color Light Yellow Urine Appearance Cloudy H (Clear) Urine pH 6.0 (5.0-8.0) Ur Specific [place] 1.019 (1.001-1.035) Urine Protein Negative (Negative) Urine Glucose (UA) Negative (Negative) Urine Ketones Negative (Negative) Urine Blood Negative (Negative) Urine Nitrite Negative (Negative) Urine Bilirubin Negative (Negative) Urine Urobilinogen <2.0 (<2.0) mg/dL Ur Leukocyte Esterase Negative (Negative) Urine RBC 2 (0-5) /hpf Urine WBC 1 (0-5) /hpf Ur Squamous Epith Cells 5 H (0-4) /hpf Urine Mucus Occasional H (None) /hpf - EKG Data -: EKG Interpreted by Me EKG Comments: EKG reveals sinus bradycardia with no ST changes. Ventricular rate 57 bpm, MI interval 153, QRS duration 105, QT/QTc 427/420 Disposition Clinical Impression: Epigastric pain Disposition: HOME SELF-CARE Condition: Stable Instructions (If sedation given, give patient instructions): Epigastric Pain (ED) Additional Instructions: Follow-up with PCP as discussed. Please return to the Emergency Department if symptoms worsen or any other concerns. Is patient prescribed a controlled substance at d/c from ED?: No Referrals: Mireya Dasilva DO [Primary Care Provider] - 1-2 days Time of Disposition: 19:06
[2024-02-10] MEDS: KETOROLAC 15 MG/ML 1 ML VIAL IVP STA (17:23)
[2024-02-10] MEDS: SODIUM CHLORIDE 0.9% 1,000 ML IV STA (17:24)
[2024-02-10 17:42] LABS: Basophils % (A) 0 %; Eosinophils # (A) 0.2 k/uL (0-0.7); Eosinophils % (A) 3 %; HCT 39.6 % (34.0-46.0); HGB 13.4 gm/dL (11.4-16.0); Lymphocytes # (A) 2.1 k/uL (1.0-4.8); Lymphocytes % (A) 35 %; MCH 29.1 pg (25.0-35.0); MCHC 33.9 g/dL (31.0-37.0); MCV 85.7 fL (80.0-100.0); Mean Platelet Volume 7.5; Monocytes # (A) 0.2 k/uL (0-1.0); Monocytes % (A) 3 %; Neutrophils # (A) 3.5 k/uL (1.3-7.7); Neutrophils % (A) 57 %; Platelet Count 182 k/uL (150-450); RBC 4.62 m/uL (3.80-5.40); WBC 6.2 k/uL (3.8-10.6)
[2024-02-10 18:06] LABS: Appearance,Urine Cloudy (Clear); Bilirubin,Urine Negative (Negative); Blood,Urine Negative (Negative); Color,Urine Light Yellow; Glucose,Urine (UA) Negative (Negative); Ketones,Urine Negative (Negative); Leukocyte Esterase,Urine Negative (Negative); Mucus,Urine Occasional /hpf; Nitrite,Urine Negative (Negative); Protein,Urine Negative (Negative); RBC,Urine 2 /hpf (0-5); Specific Gravity,Urine 1.019 (1.001-1.035); Squamous Epithelial Cell,Urine 5 /hpf (0-4); Urobilinogen,Urine <2.0 mg/dL (<2.0); WBC,Urine 1 /hpf (0-5)
[2024-02-10 18:09] LABS: ALT 53 U/L (4-34); AST 25 U/L (14-36); African American GFR (CKD) >90 (>60 ml/min/1.73 sqM); Alkaline Phosphatase 88 U/L (38-126); Amylase 102 U/L (30-110); Anion Gap 4 mmol/L; Blood Urea Nitrogen 16 mg/dL (7-17); Carbon Dioxide 25 mmol/L (22-30); Chloride 110 mmol/L (98-107); Glucose 140 mg/dL (74-99); Lipase 434 U/L (23-300); Non-African American GFR(CKD) 90 (>60 ml/min/1.73 sqM); Potassium 3.8 mmol/L (3.5-5.1); Sodium 139 mmol/L (137-145); Total Bilirubin 0.4 mg/dL (0.2-1.3); Total Protein 6.7 g/dL (6.3-8.2)
[2024-02-10 19:28] VITALS: BP 136/86; PULSE 64; RESP 18; TEMP 98
== END 2024-02-10 19:28 | disposition home or self-care (01) ==
LOC: EC 16:07
DX: R10.13 Epigastric pain (principal); Z91.041 Radiographic dye allergy status
CPT/HCPCS: 36415; 93005; 80053; 82150; 83605; 83690; 85025; 81001; 99284; 96374; 96361; J1885

== ENCOUNTER 2024-02-12 12:27 | Day surgery (SDC) | payer OTHER ==
[2024-02-12 12:54] VITALS: TEMP 97
[2024-02-12] MEDS: LIDOCAINE 1% (10MG/ML) FOR IV START INTRADERMA STA (12:56)
[2024-02-12] MEDS: IV FLUID CONTINUATION 1,000 ML IV ONE ×2 (12:57→14:52)
[2024-02-12] MEDS: LACTATED RINGERS 1,000 ML IV SCH (12:57)
[2024-02-12] MEDS ORDERED: PROPOFOL 10 MG/ML 20 ML VIAL IV ONE (14:54)
--- NOTE | 2024-02-12 15:02 | P.GSHP ---
History of Present Illness H&P Date: 02/12/24 Chief Complaint: history of colon cancer this 48-year-old female with previous historhistory of colon cancer. Patient presents today for colonoscopy. Past Medical History Past Medical History: Cancer, Chest Pain / Angina, GERD/Reflux, Osteoarthritis (OA) Additional Past Medical History / Comment(s): Endometrosis, migraines, kidney stones, UTI. Hx colon cancer with bowel resection surgery and mass removal 2020. pt gets yearly colonoscopies. Pancreatitis History of Any Multi-Drug Resistant Organisms: None Reported Past Surgical History: Bowel Resection, Cholecystectomy, Hysterectomy Additional Past Surgical History / Comment(s): Laparoscopy X2, EGD, Colonoscopies. Past Anesthesia/Blood Transfusion Reactions: No Reported Reaction Past Psychological History: Anxiety, Bipolar, Depression, Panic Disorder Smoking Status: Never smoker Past Alcohol Use History: Rare Past Drug Use History: None Reported - Past Family History Mother Additional Family Medical History / Comment(s): "heart problems" Sister(s) Family Medical History: Cancer Additional Family Medical History / Comment(s): Colon cancer, . Father Family Medical History: Cancer Additional Family Medical History / Comment(s): Colon cancer. Medications and Allergies Home Medications Medication Instructions Recorded Confirmed Type Sertraline [Zoloft] 100 mg PO DAILY 02/03/17 02/12/24 History Cariprazine HCl [Vraylar] 3 mg PO DAILY 05/22/19 02/12/24 History Diclofenac Sodium [Voltaren] 75 mg PO DAILY 05/30/22 02/12/24 History SUMAtriptan succinate [Imitrex] 100 mg PO DAILY PRN 02/08/24 02/12/24 History hydrOXYzine HCL [Atarax] 50 mg PO DAILY PRN 02/08/24 02/12/24 History Allergies Allergy/AdvReac Type Severity Reaction Status Date / Time Iodinated Contrast Media Allergy Dyspnea Verified 02/12/24 12:44 [Iodinated Contrast- Oral and IV Dye] Surgical - Exam Vital Signs Temp Pulse Resp BP Pulse Ox 97.0 F L 63 16 166/88 94 L 02/12/24 12:50 02/12/24 12:50 02/12/24 12:50 02/12/24 12:50 02/12/24 12:50 - General well developed, well nourished, no distress - Eyes PERRL - ENT normal pinna - Neck no masses - Respiratory normal expansion - Cardiovascular Rhythm: regular - Abdomen Abdomen: soft, non tender Assessment and Plan Assessment: history: Cancer. We'll perform colonoscopy.
--- NOTE | 2024-02-12 15:19 | P.OP ---
Date of Procedure: 02/12/24 Preoperative Diagnosis: history of colon cancer Postoperative Diagnosis: normal colonoscopy status post right colectomy Procedure(s) Performed: colonoscopy Anesthesia: MAC Surgeon: David Tran Pathology: none sent Condition: stable Disposition: PACU Description of Procedure: the patient's placed on the endoscopy table in the lateral position. She received IV sedation. Digital rectal exam performed. This revealed no ebonized. Flexible colonoscope was then placed patient anus passed throughout t he entire colon. Patient previous right colectomy. The ileocolonic anastomosis visualized. The visualized transverse colon appeared normal. The descending and sigmoid colon appeared normal. Scope back the rectum was normal. Scope withdrawn for patient.
[2024-02-12 15:39] VITALS: BP 121/78; PULSE 70; RESP 16
== END 2024-02-12 16:03 | disposition home or self-care (01) ==
LOC: ORWHC2ENDO 12:27
PROVIDERS: ATTEND Surgery
DX: C18.9 Malignant neoplasm of colon, unspecified (principal); K21.9 Gastro-esophageal reflux disease without esophagitis; M19.90 Unspecified osteoarthritis, unspecified site; N28.9 Disorder of kidney and ureter, unspecified; I20.9 Angina pectoris, unspecified; F41.9 Anxiety disorder, unspecified; G43.909 Migraine, unspecified, not intractable, without status migrainosus; F31.9 Bipolar disorder, unspecified; Z87.442 Personal history of urinary calculi; Z87.440 Personal history of urinary (tract) infections; Z90.710 Acquired absence of both cervix and uterus; Z90.49 Acquired absence of other specified parts of digestive tract; Z91.041 Radiographic dye allergy status; Z79.1 Long term (current) use of non-steroidal anti-inflammatories (NSAID); Z79.899 Other long term (current) drug therapy
CPT/HCPCS: 45378; J2704

== ENCOUNTER → 2024-03-26 | Outpatient (CLI) | payer OTHER ==
--- NOTE | 2024-03-26 18:01 | CT ---
EXAMINATION TYPE: CT abdomen wo/w con DATE OF EXAM: 03/26/2024 4:07 PM COMPARISON: None. CLINICAL INDICATION: Female, 48 years old with history of K85.90 ACUTE PANCREATITIS WITHOUT NECROSIS OR INFE, Pt states she had pancreatitis back in January and pt is starting to have similar symptoms as before. TECHNIQUE: Axial images were obtained from above the diaphragm to the pubic rami in the axial plane a t 5 mm thick sections. Reconstructed images are reviewed on the computer in the coronal plane. CONTRAST: 100 ml mL of Isovue 300. Study performed with Oral Contrast DLP: 2454.7 mGycm, Automated exposure control for dose reduction was used. FINDINGS: Limited CT sections are obtained the lung bases. The lung bases are clear. CT ABDOMEN: Liver: Moderate fatty infiltration of liver Spleen: Normal Pancreas: Normal. No adjacent inflammatory changes. No pseudocyst formation or abscess formation evid ent. Adrenal glands: The adrenal glands are normal. Gallbladder: Normal Kidneys: No masses are evident. No hydronephrosis is present. No cysts are present. Punctate nonob structing renal stones are the upper pole left kidney and lower pole right kidney. No hydronephrosis or hydroureter evident. Delayed images were obtained kidneys which remain unremarkable. Note is made of duplicated collecting system on the left kidney. Aorta: Normal Inferior vena cava: Normal. Bowel loops of bowel distended with oral contrast. Unremarkable. There are some loops of bowel lackin g oral contrast limiting their evaluation. IMPRESSION: 1. Nonobstructing punctate renal stones upper left and lower right renal poles. 2. Duplicated left ureters. 3. Normal-appearing pancreas. [facility], , 03/26/2024 5:59 PM
== END | disposition home or self-care (01) ==
LOC: RADCTMAIN 14:46
PROVIDERS: ATTEND Family Medicine
DX: K85.90 Acute pancreatitis without necrosis or infection, unspecified (principal); N20.0 Calculus of kidney; Q34.8 Other specified congenital malformations of respiratory system
CPT/HCPCS: 74170; Q9967

== ENCOUNTER → 2024-07-09 | Outpatient (CLI) | payer OTHER ==
--- NOTE | 2024-07-10 07:35 | MM ---
Reason for Exam: Screening (asymptomatic). Last mammogram was performed 1 year(s) and 3 month(s) ago. Patient History: Menarche at age 11. First Full-Term at age 31. Late child-bearing (after 30). Hysterectomy at age 42. Perimenopausal. Colorectal cancer under age 50. Hormonal Contraceptives for 5 months. 09/24/2015, Benign Cyst Aspiration on the left side. Maternal aunt had breast cancer, age 40. Risk Values: Clover 5 year model risk: 1.3%. NCI Lifetime model risk: 12.3%. Prior Study Comparison: 01/25/2021 Bilateral Screening Mammogram, [facility]. 03/02/2022 Bilateral MG screening mammo w CAD, [facility]. 04/14/2023 Bilateral MG 3D screening mammo w/cad, [facility]. Tissue Density: The breasts are almost entirely fatty. Findings: Analyzed By CAD. Left breast biopsy clip. Right breast: There is no suspicious group of microcalcifications or new suspicious mass. Left breast: There is no suspicious group of microcalcifications or new suspicious mass. Overall Assessment: Benign, BI-RAD 2 Management: Screening Mammogram of both breasts in [address] [facility] will attempt to contact patient to return for supplemental views and ultrasound if indicated. Patient should continue monthly self-breast exams. A clinical breast exam by your physician is recommended on an annual basis. This exam should not preclude additional follow-up of suspicious palpable abnormalities. Note on Clover scores and lifetime risk: 1. A Clover score greater than 3% is considered moderate risk. If this is the case, consider specialist referral to assess eligibility for a risk reducing agent. 2. If overall lifetime risk for the development of breast cancer is 20% or higher, the patient may qualify for future screening with alternating mammogram and breast MRI. [facility], , 07/10/2024 7:32 AM. Electronically signed and approved by: Alex Abdullahi DO
== END | disposition home or self-care (01) ==
LOC: RADMAMWWP 14:35
PROVIDERS: ATTEND Family Medicine
DX: Z12.31 Encounter for screening mammogram for malignant neoplasm of breast (principal); R92.313 Mammographic fatty tissue density, bilateral breasts; Z80.3 Family history of malignant neoplasm of breast; Z92.0 Personal history of contraception
CPT/HCPCS: 77063; 77067

== ENCOUNTER → 2024-08-05 | Outpatient (CLI) | payer OTHER | END | disposition home or self-care (01) | LOC: LABPRL 14:50 | PROVIDERS: ATTEND Nurse Practitioner Family | DX: Z53.9 Procedure and treatment not carried out, unspecified reason (principal) ==

== ENCOUNTER → 2024-08-31 | Outpatient (CLI) | payer OTHER ==
--- NOTE | 2024-08-31 20:16 | MR ---
EXAMINATION TYPE: MR abdomen wo/w con DATE OF EXAM: 08/31/2024 2:49 PM INDICATION: Patient age:Female; 48 years old; Reason for study: Z87.19 Hx diseases of digestive tract; PHH. COMPARISON: CT abdomen 03/26/2024, gallbladder ultrasound 01/11/2024, CT abdomen and pelvis 01/11/2024, 07/01/2022, 06/02/2020, 05/05/2020, 04/06/2016, PET CT 07/18/2020 TECHNIQUE: Multiplanar multi-sequence imaging was performed without and with IV contrast. The patie nt was given 9 ccs of Gadobutrol intravenously and dynamic imaging was performed. Post IV contrast price btraction images were also submitted for review. FINDINGS: LOWER CHEST: No gross irregularity. ABDOMEN Liver: Noncirrhotic morphology. Enlarged measuring 20.2 cm in CC dimension. Diffuse dropout of signal on out of phase imaging. No suspicious focal lesion. Gallbladder and Bile ducts: The gallbladder is surgically absent. No biliary ductal dilatation.. Pancreas: Unremarkable. No pancreatic ductal dilatation. The pancreas enhances homogeneously. No cere brovascular collections. Spleen: Top end of normal size measuring 13.8 cm in CC dimension. Adrenal glands: Unremarkable. Kidneys: No suspicious enhancing lesion. No hydronephrosis. Duplicated left renal ureters. Stomach and Bowel: Unremarkable as visualized. Peritoneum: No evidence of pneumoperitoneum, free fluid, or adenopathy. Vasculature: Unremarkable. No aortic aneurysm. Abdominal wall: Unremarkable. Musculoskeletal: The osseous structures appear intact. IMPRESSION: 1. No MRI evidence of abdominal mass. 2. Hepatomegaly with diffuse steatosis. 3. Post cholecystectomy changes. [facility], , 08/31/2024 8:13 PM
== END | disposition home or self-care (01) ==
LOC: RADMRIMAIN 13:27
PROVIDERS: ATTEND Internal Medicine Gastroenterology
DX: K76.0 Fatty (change of) liver, not elsewhere classified (principal); R16.0 Hepatomegaly, not elsewhere classified; Z87.19 Personal history of other diseases of the digestive system; Z90.49 Acquired absence of other specified parts of digestive tract
CPT/HCPCS: 74183; A9585

== ENCOUNTER 2024-09-28 16:11 | Inpatient (IN) | payer MEDICAID, OTHER ==
--- NOTE | 2024-09-28 16:27 | ED ---
Overdose HPI - General Chief Complaint: Psychiatric Symptoms Stated Complaint: Poss Overdose Time Seen by Provider: 09/28/24 16:26 Source: patient, RN notes reviewed, old records reviewed Mode of arrival: ambulatory Limitations: no limitations - History of Present Illness Initial Comments: This is a 48-year-old female to the ER for evaluation this patient presents today for evaluation in regards to overdose, patient took overdose as a suicide attempt alleged overdose of Adderall with history of psychiatric illness MD Complaint: intentional overdose -: minutes(s) How Overdose Was Discovered: called family/friend Context: Intentional Overdose: relationship problems Context: Accidental Overdose: was drinking then took pills Associated Symptoms: depression Treatments Prior to Arrival: none - Related Data Home Medications Medication Instructions Recorded Confirmed Diclofenac Sodium [Voltaren] 75 mg PO DAILY 05/30/22 09/28/24 Dicyclomine [Bentyl] 10 mg PO TID PRN 09/28/24 09/28/24 Previous Rx's Medication Instructions Recorded Fluticasone Nasal [place] [Flonase 2 spray EA NOSTRIL DAILY 30 Days 10/03/24 Nasal [place]] #1 ml [place] Carbonate 150 mg PO BID 14 Days #28 cap 10/03/24 Sertraline [Zoloft] 150 mg PO DAILY 14 Days #21 tab 10/03/24 hydrOXYzine HCL [Atarax] 25 mg PO DAILY PRN 14 Days #14 tab 10/03/24 Allergies Allergy/AdvReac Type Severity Reaction Status Date / Time Iodinated Contrast Media Allergy Dyspnea Verified 09/28/24 16:51 [Iodinated Contrast- Oral and IV Dye] Review of Systems ROS Statement: Those systems with pertinent positive or pertinent negative responses have been documented in the HPI. ROS Other: All systems not noted in ROS Statement are negative. Past Medical History Past Medical History: Cancer, Chest Pain / Angina, GERD/Reflux, Osteoarthritis (OA) Additional Past Medical History / Comment(s): Endometrosis, migraines, kidney stones, UTI. Hx colon cancer with bowel resection surgery and mass removal 2020. pt gets yearly colonoscopies. Pancreatitis History of Any Multi-Drug Resistant Organisms: None Reported Past Surgical History: Bowel Resection, Cholecystectomy, Hysterectomy Additional Past Surgical History / Comment(s): Laparoscopy X2, EGD, Colonoscopies. Past Anesthesia/Blood Transfusion Reactions: No Reported Reaction Past Psychological History: Anxiety, Bipolar, Depression, Panic Disorder Smoking Status: Never smoker Past Alcohol Use History: Rare Past Drug Use History: None Reported - Past Family History Mother Additional Family Medical History / Comment(s): "heart problems" Sister(s) Family Medical History: Cancer Additional Family Medical History / Comment(s): Colon cancer, . Father Family Medical History: Cancer Additional Family Medical History / Comment(s): Colon cancer. General Exam Limitations: no limitations General appearance: alert, in no apparent distress Head exam: Present: atraumatic, normocephalic, normal inspection Eye exam: Present: normal appearance, PERRL, EOMI. Absent: scleral icterus, conjunctival injection, periorbital swelling ENT exam: Present: normal exam, mucous membranes moist Neck exam: Present: normal inspection. Absent: tenderness, meningismus, lymphadenopathy Respiratory exam: Present: normal lung sounds bilaterally. Absent: respiratory distress, wheezes, rales, rhonchi, stridor Cardiovascular Exam: Present: regular rate, normal rhythm, normal heart sounds. Absent: systolic murmur, diastolic murmur, rubs, gallop, clicks GI/Abdominal exam: Present: soft, normal bowel sounds. Absent: distended, tenderness, guarding, rebound, rigid Extremities exam: Present: normal inspection, full ROM, normal capillary refill. Absent: tenderness, pedal edema, joint swelling, calf tenderness Back exam: Present: normal inspection Neurological exam: Present: alert, oriented X3, CN II-XII intact Psychiatric exam: Present: normal affect, normal mood Skin exam: Present: warm, dry, intact, normal color. Absent: rash Course Vital Signs 09/28/24 09/28/24 09/28/24 16:22 17:22 22:06 Temperature 98.3 F 97.8 F 98.6 F Pulse Rate 65 64 84 Respiratory 20 18 17 Rate Blood Pressure 140/82 147/79 161/99 O2 Sat by Pulse 99 96 97 Oximetry - Reevaluation(s) Reevaluation #1: 09/28/24 18:01 Medical records reviewed Reevaluation #2: 09/28/24 18:01 Medically cleared for psychiatric evaluation Reevaluation #3: Was pt. sent in by a medical professional or institution (, PA, ASH COLLECTOR, urgent care, hospital, or shelter...) When possible be specific @ -no Did you speak to anyone other than the patient for history (EMS, parent, family, police, friend...)? What history was obtained from this source @ -no Did you review nursing and triage notes (agree or disagree)? Why? @ -agree Are old charts reviewed (outside hosp., previous admission, EMS record, old EKG, old radiological studies, urgent care reports/EKG's, shelter records)? Report findings @ -yes Differential Diagnosis (chest pain, altered mental status, abdominal pain women, abdominal pain men, vaginal bleeding, weakness, fever, dyspnea, syncope, headache, dizziness, GI bleed, back pain, seizure, CVA, palpatations, mental health, musculoskeletal)? @ -prior EKG interpreted by me (3pts min.). @ -yes X-rays interpreted by me (1pt min.). @ -no CT interpreted by me (1pt min.). @ -no U/S interpreted by me (1pt. min.). @ -no What testing was considered but not performed or refused? (CT, X-rays, U/S, labs)? Why? @ -none What meds were considered but not given or refused? Why? @ -none Did you discuss the management of the patient with other professionals (professionals i.e. , PA, ASH COLLECTOR, lab, RT, psych nurse, social staff worker, general manager, teacher, juvenile correctional officer, pillowcase cutter)? Give summary @ -no Was smoking cessation discussed for >3mins.? @ -no Was critical care preformed (if so, how long)? @ -no Were there social determinants of health that impacted care today? How? (Homelessness, low income, unemployed, alcoholism, drug addiction, transportation, low edu. Level, literacy, decrease access to med. care, half-way, rehab)? @ -none Was there de-escalation of care discussed even if they declined (Discuss DNR or withdrawal of care, Hospice)? DNR status @ -no What co-morbidities impacted this encounter? (DM, HTN, Smoking, COPD, CAD, Cancer, CVA, ARF, Chemo, Hep., AIDS, mental health diagnosis, sleep apnea, morbid obesity)? @ -none Was patient admitted / discharged? Hospital course, mention meds given and route, prescriptions, significant lab abnormalities, going to OR and other pertinent info. @ - 48 female here for severe psychosis major depression and suicidal thoughts, patient with transfer for inpatient psychiatric treatment and evaluation Transferred for inpatient psychiatric treatment Undiagnosed new problem with uncertain prognosis? @ -no Drug Therapy requiring intensive monitoring for toxicity (Heparin, Nitro, Insulin, Cardizem)? @ -no Were any procedures done? @ -no Diagnosis/symptom? @ -Severe psychosis Acute, or Chronic, or Acute on Chronic? @ -Acute Uncomplicated (without systemic symptoms) or Complicated (systemic symptoms)? @ -Complicated Side effects of treatment? @ -no Exacerbation, Progression, or Severe Exacerbation? @ -exacerbation Poses a threat to life or bodily function? How? (Chest pain, USA, NC, pneumonia, PE, COPD, DKA, ARF, appy, cholecystitis, CVA, Diverticulitis, Homicidal, Suicidal, threat to staff... and all critical care pts) @ -yes with psychiatric illness Reevaluation #4: Differential Mental Health Depression, anxiety, bipolar, psychosis, schizophrenia, borderline personality, situational depression, adjustment disorder, behavioral disorder, brain tumor, malingering, substance abuse, encephalopathy, medication reaction, dementia, h ypothyroidism, degenerative neurologic disorder, lupus.... This is not meant to be all-inclusive list Medical Decision Making - Medical Decision Making 48 female here for severe psychosis major depression and suicidal thoughts, patient with transfer for inpatient psychiatric treatment and evaluation - Lab Data Result diagrams: 09/28/24 17:18 09/28/24 17:18 Lab Results 09/28/24 09/28/24 09/28/24 Range/Units 17:18 17:18 17:18 WBC 5.87 (4.50-10.00) 10*3/uL RBC 4.81 (4.10-5.20) 10*6/uL Hgb 13.3 (12.0-15.0) g/dL Hct 40.1 (37.2-46.3) % MCV 83.4 (80.0-97.0) fL MCH 27.7 (27.0-32.0) pg MCHC 33.2 (32.0-37.0) g/dL Plt Count 209 (140-440) 10*3/uL MPV 9.4 L (9.5-12.2) fL Immature Gran % (Auto) 0.3 % Neutrophils % 51.8 % Lymphocytes % 40.9 % Monocytes % 4.9 % Eosinophils % 1.9 % Basophils % 0.2 % Immature Gran # 0.02 (0.00-0.04) 10*3/uL Neutrophils # 3.04 (1.80-7.70) 10*3/uL Lymphocytes # 2.40 (0.90-5.00) 10*3/uL Monocytes # 0.29 (0.20-1.00) 10*3/uL Eosinophils # 0.11 (0.04-0.35) 10*3/uL Basophils # 0.01 (0.00-0.10) 10*3/uL Sodium 140 (137-145) mmol/L Potassium 4.6 (3.5-5.1) mmol/L Chloride 102 (98-107) mmol/L Carbon Dioxide 28 (22-30) mmol/L Anion Gap 10 mmol/L BUN 13 (7-17) mg/dL Creatinine 0.78 (0.52-1.04) mg/dL Est GFR (CKD-EPI)AfAm >90 (>60 ml/min/1.73 sqM) Est GFR (CKD-EPI)NonAf 90 (>60 ml/min/1.73 sqM) Glucose 132 H (74-99) mg/dL Estimated Ave Glu mg/dL 120 mg/dL Hemoglobin A1c 5.8 (<=6.0) % Calcium 10.0 (8.4-10.2) mg/dL Magnesium 2.3 (1.6-2.3) mg/dL Total Bilirubin 0.4 (0.2-1.3) mg/dL AST 43 H (14-36) U/L ALT 65 H (4-34) U/L Alkaline Phosphatase 111 (38-126) U/L Total Protein 7.2 (6.3-8.2) g/dL Albumin 4.4 (3.5-5.0) g/dL Triglycerides (0.00-149.00) mg/dL Cholesterol (0.00-200.00) mg/dL LDL Cholesterol, Calc (0.0-131.0) mg/dL VLDL Cholesterol, Calc (5.00-40.00) mg/dL HDL Cholesterol (40.00-60.00) mg/dL Cholesterol/HDL Ratio Ratio Lipase 257 (23-300) U/L Urine HCG, Qual (Not Detectd) Salicylates <1.0 mg/dL Urine Opiates Screen (NotDetected) Ur Oxycodone Screen (NotDetected) Urine Methadone Screen (NotDetected) Acetaminophen <10.0 ug/mL Ur Barbiturates Screen (NotDetected) U Tricyclic Antidepress (NotDetected) Ur Phencyclidine Scrn (NotDetected) Ur Amphetamines Screen (NotDetected) U Methamphetamines Scrn (NotDetected) U Benzodiazepines Scrn (NotDetected) Urine Cocaine Screen (NotDetected) U Marijuana (THC) Screen (NotDetected) Serum Alcohol <10 mg/dL SARS-CoV-2 (PCR) (Not Detectd) 09/28/24 09/28/24 09/28/24 Range/Units 17:18 18:15 18:15 WBC (4.50-10.00) 10*3/uL RBC (4.10-5.20) 10*6/uL Hgb (12.0-15.0) g/dL Hct (37.2-46.3) % MCV (80.0-97.0) fL MCH (27.0-32.0) pg MCHC (32.0-37.0) g/dL Plt Count (140-440) 10*3/uL MPV (9.5-12.2) fL Immature Gran % (Auto) % Neutrophils % % Lymphocytes % % Monocytes % % Eosinophils % % Basophils % % Immature Gran # (0.00-0.04) 10*3/uL Neutrophils # (1.80-7.70) 10*3/uL Lymphocytes # (0.90-5.00) 10*3/uL Monocytes # (0.20-1.00) 10*3/uL Eosinophils # (0.04-0.35) 10*3/uL Basophils # (0.00-0.10) 10*3/uL Sodium (137-145) mmol/L Potassium (3.5-5.1) mmol/L Chloride (98-107) mmol/L Carbon Dioxide (22-30) mmol/L Anion Gap mmol/L BUN (7-17) mg/dL Creatinine (0.52-1.04) mg/dL Est GFR (CKD-EPI)AfAm (>60 ml/min/1.73 sqM) Est GFR (CKD-EPI)NonAf (>60 ml/min/1.73 sqM) Glucose (74-99) mg/dL Estimated Ave Glu mg/dL mg/dL Hemoglobin A1c (<=6.0) % Calcium (8.4-10.2) mg/dL Magnesium (1.6-2.3) mg/dL Total Bilirubin (0.2-1.3) mg/dL AST (14-36) U/L ALT (4-34) U/L Alkaline Phosphatase (38-126) U/L Total Protein (6.3-8.2) g/dL Albumin (3.5-5.0) g/dL Triglycerides 228.00 H (0.00-149.00) mg/dL Cholesterol 240.00 H (0.00-200.00) mg/dL LDL Cholesterol, Calc 140.0 H (0.0-131.0) mg/dL VLDL Cholesterol, Calc 45.60 H (5.00-40.00) mg/dL HDL Cholesterol 54.40 (40.00-60.00) mg/dL Cholesterol/HDL Ratio 4.41 Ratio Lipase (23-300) U/L Urine HCG, Qual Not Detected (Not Detectd) Salicylates mg/dL Urine Opiates Screen Not Detected (NotDetected) Ur Oxycodone Screen Not Detected (NotDetected) Urine Methadone Screen Not Detected (NotDetected) Acetaminophen ug/mL Ur Barbiturates Screen Not Detected (NotDetected) U Tricyclic Antidepress Not Detected (NotDetected) Ur Phencyclidine Scrn Not Detected (NotDetected) Ur Amphetamines Screen Detected H (NotDetected) U Methamphetamines Scrn Detected H (NotDetected) U Benzodiazepines Scrn Not Detected (NotDetected) Urine Cocaine Screen Not Detected (NotDetected) U Marijuana (THC) Screen Detected H (NotDetected) Serum Alcohol mg/dL SARS-CoV-2 (PCR) (Not Detectd) 09/28/24 Range/Units 20:48 WBC (4.50-10.00) 10*3/uL RBC (4.10-5.20) 10*6/uL Hgb (12.0-15.0) g/dL Hct (37.2-46.3) % MCV (80.0-97.0) fL MCH (27.0-32.0) pg MCHC (32.0-37.0) g/dL Plt Count (140-440) 10*3/uL MPV (9.5-12.2) fL Immature Gran % (Auto) % Neutrophils % % Lymphocytes % % Monocytes % % Eosinophils % % Basophils % % Immature Gran # (0.00-0.04) 10*3/uL Neutrophils # (1.80-7.70) 10*3/uL Lymphocytes # (0.90-5.00) 10*3/uL Monocytes # (0.20-1.00) 10*3/uL Eosinophils # (0.04-0.35) 10*3/uL Basophils # (0.00-0.10) 10*3/uL Sodium (137-145) mmol/L Potassium (3.5-5.1) mmol/L Chloride (98-107) mmol/L Carbon Dioxide (22-30) mmol/L Anion Gap mmol/L BUN (7-17) mg/dL Creatinine (0.52-1.04) mg/dL Est GFR (CKD-EPI)AfAm (>60 ml/min/1.73 sqM) Est GFR (CKD-EPI)NonAf (>60 ml/min/1.73 sqM) Glucose (74-99) mg/dL Estimated Ave Glu mg/dL mg/dL Hemoglobin A1c (<=6.0) % Calcium (8.4-10.2) mg/dL Magnesium (1.6-2.3) mg/dL Total Bilirubin (0.2-1.3) mg/dL AST (14-36) U/L ALT (4-34) U/L Alkaline Phosphatase (38-126) U/L Total Protein (6.3-8.2) g/dL Albumin (3.5-5.0) g/dL Triglycerides (0.00-149.00) mg/dL Cholesterol (0.00-200.00) mg/dL LDL Cholesterol, Calc (0.0-131.0) mg/dL VLDL Cholesterol, Calc (5.00-40.00) mg/dL HDL Cholesterol (40.00-60.00) mg/dL Cholesterol/HDL Ratio Ratio Lipase (23-300) U/L Urine HCG, Qual (Not Detectd) Salicylates mg/dL Urine Opiates Screen (NotDetected) Ur Oxycodone Screen (NotDetected) Urine Methadone Screen (NotDetected) Acetaminophen ug/mL Ur Barbiturates Screen (NotDetected) U Tricyclic Antidepress (NotDetected) Ur Phencyclidine Scrn (NotDetected) Ur Amphetamines Screen (NotDetected) U Methamphetamines Scrn (NotDetected) U Benzodiazepines Scrn (NotDetected) Urine Cocaine Screen (NotDetected) U Marijuana (THC) Screen (NotDetected) Serum Alcohol mg/dL SARS-CoV-2 (PCR) Not Detected (Not Detectd) - EKG Data -: EKG Interpreted by Me (EKG is sinus 70 TX 147 QRS 97 QTc 432) Disposition Clinical Impression: Major depression, Bipolar disorder current episode depressed, Suicide attempt by other psychotropic drug overdose Disposition: TRANSFER TO PSYCH HOSP/UNIT Condition: Stable
[2024-09-28] MEDS: SODIUM CHLORIDE 0.9% 1,000 ML IV STA (17:19)
[2024-09-28 17:33] LABS: Basophils # (A) 0.01 10*3/uL (0.00-0.10); Basophils % (A) 0.2 %; Eosinophils # (A) 0.11 10*3/uL (0.04-0.35); Eosinophils % (A) 1.9 %; HCT 40.1 % (37.2-46.3); HGB 13.3 g/dL (12.0-15.0); Lymphocytes # (A) 2.40 10*3/uL (0.90-5.00); Lymphocytes % (A) 40.9 %; MCH 27.7 pg (27.0-32.0); MCHC 33.2 g/dL (32.0-37.0); MCV 83.4 fL (80.0-97.0); Monocytes # (A) 0.29 10*3/uL (0.20-1.00); Monocytes % (A) 4.9 %; Neutrophils # (A) 3.04 10*3/uL (1.80-7.70); Neutrophils % (A) 51.8 %; Platelet Count 209 10*3/uL (140-440); RBC 4.81 10*6/uL (4.10-5.20); RDW 13.6 % (11.5-14.5); WBC 5.87 10*3/uL (4.50-10.00)
[2024-09-28 18:06] LABS: ALT 65 U/L (4-34); AST 43 U/L (14-36); Acetaminophen <10.0 ug/mL; African American GFR (CKD) >90 (>60 ml/min/1.73 sqM); Albumin 4.4 g/dL (3.5-5.0); Alkaline Phosphatase 111 U/L (38-126); Anion Gap 10 mmol/L; Blood Urea Nitrogen 13 mg/dL (7-17); Calcium 10.0 mg/dL (8.4-10.2); Carbon Dioxide 28 mmol/L (22-30); Chloride 102 mmol/L (98-107); Glucose 132 mg/dL (74-99); Lipase 257 U/L (23-300); Magnesium 2.3 mg/dL (1.6-2.3); Non-African American GFR(CKD) 90 (>60 ml/min/1.73 sqM); Potassium 4.6 mmol/L (3.5-5.1); Salicylate <1.0 mg/dL; Sodium 140 mmol/L (137-145); Total Protein 7.2 g/dL (6.3-8.2)
[2024-09-28 18:45] LABS: Barbiturate Screen,Urine Not Detected (NotDetected); Benzodiazepines Screen,Urine Not Detected (NotDetected); Opiate Screen,Urine Not Detected (NotDetected); Oxycodone Screen, Urine Not Detected (NotDetected); Phencyclidine Screen,Urine Not Detected (NotDetected); Tricyclic Antidepressant,Urine Not Detected (NotDetected); Urn Cannabinoid Scrn Detected (NotDetected)
[2024-09-29] MEDS ORDERED: MAG HYDROX/AL HYDROX/SIMETH 355 ML BOTTLE PO PRN (00:14)
[2024-09-29] MEDS ORDERED: LORazepam 1 MG TAB PO PRN (00:14)
[2024-09-29] MEDS ORDERED: MAGNESIUM HYDROXIDE 2,400 MG/30 ML CUP PO PRN (00:14)
[2024-09-29] MEDS ORDERED: HALOPERIDOL LACTATE 5 MG/ML 1 ML VIAL IM PRN (00:14)
[2024-09-29] MEDS ORDERED: ACETAMINOPHEN TAB 325 MG TAB PO PRN (00:14)
--- NOTE | 2024-09-29 13:59 | P.MDCNMH ---
History of Present Illness H&P Date: 09/29/24 Chief Complaint: Drug overdose Patient is a 48-year-old female with a past medical history of anxiety/depression/bipolar and panic disorder, GERD, osteoarthritis, endometriosis and history of colon cancer with bowel resection in 2020, pancreatitis nonalcoholic-being worked up as an outpatient was brought to ER for evaluation of overdose. Apparently patient took Adderall doses as an attempt to commit suicide. Patient states that she was drinking and then took pills. She called her friend and eventually brought to the ER for evaluation. On admission blood pressure 140/82 pulse 65 respiration 20 and pulse ox 98% on room air. Laboratory data showed WBC 5.8 hemoglobin 13.3 and platelets 209 Sodium 140 potassium 4.6 chloride 102 bicarb is 28 BUN 13 and creatinine 0.78 and blood sugar 132, AST 43 ALT 65 alk phos 111 and lipase level is 257 UDS is positive for amphetamines, methamphetamines and THC. COVID-19 PCR not detected. Serum alcohol level less than 10. Review of Systems Constitutional: Patient denies any fever or chills . No generalized weakness or weight loss. Abdomen: Patient denied nausea vomiting and diarrhea and abdominal pain. Cardiovascular: Patient denies any chest pain or short of breath no palpitations. Respiratory: patient denied any cough or sputum production. No shortness of breath Neurologic: Patient denied any numbness or tingling. no headache. Musculoskeletal: Patient denies any complaints of joint swelling or deformity. Skin: Negative Psychiatric: Depressed Endocrine: No heat or cold intolerance. No recent weight gain. Genitourinary: No dysuria or hematuria. All other 14 point ROS negative except the above review of systems Past Medical History Past Medical History: Cancer, Chest Pain / Angina, GERD/Reflux, Osteoarthritis (OA) Additional Past Medical History / Comment(s): Endometrosis, migraines, kidney stones, UTI. Hx colon cancer with bowel resection surgery and mass removal 2020. pt gets yearly colonoscopies. Pancreatitis History of Any Multi-Drug Resistant Organisms: None Reported Past Surgical History: Bowel Resection, Cholecystectomy, Hysterectomy Additional Past Surgical History / Comment(s): Laparoscopy X2, EGD, Colonoscopies. Past Anesthesia/Blood Transfusion Reactions: No Reported Reaction Past Psychological History: Anxiety, Bipolar, Depression, Panic Disorder Smoking Status: Never smoker Past Alcohol Use History: Rare Past Drug Use History: None Reported Additional Drug Use History / Comment(s): Patient UDS+Amph, Meth, and THC. Patient remains denying substance use. - Past Family History Mother Additional Family Medical History / Comment(s): "heart problems" Sister(s) Family Medical History: Cancer Additional Family Medical History / Comment(s): Colon cancer, . Father Family Medical History: Cancer Additional Family Medical History / Comment(s): Colon cancer. Medications and Allergies Home Medications Medication Instructions Recorded Confirmed Type Sertraline [Zoloft] 100 mg PO DAILY 02/03/17 09/28/24 History Cariprazine HCl [Vraylar] 3 mg PO DAILY 05/22/19 09/28/24 History Diclofenac Sodium [Voltaren] 75 mg PO DAILY 05/30/22 09/28/24 History hydrOXYzine HCL [Atarax] 50 mg PO BID PRN 02/08/24 09/28/24 History Dicyclomine [Bentyl] 10 mg PO TID PRN 09/28/24 09/28/24 History Allergies Allergy/AdvReac Type Severity Reaction Status Date / Time Iodinated Contrast Media Allergy Dyspnea Verified 09/28/24 16:51 [Iodinated Contrast- Oral and IV Dye] Physical Exam Vitals: Vital Signs Temp Pulse Pulse Resp BP BP Pulse Ox 09/29/24 00:00 97.9 F 90 18 161/97 99 09/28/24 22:06 98.6 F 84 17 161/99 97 09/28/24 17:22 97.8 F 64 18 147/79 96 09/28/24 16:22 98.3 F 65 20 140/82 99 Intake and Output 09/28/24 09/29/24 09/29/24 22:59 06:59 14:59 Other: Weight 96.162 kg 96.19 kg PHYSICAL EXAMINATION: Patient is lying in the bed comfortably, no acute distress, awake alert and oriented.. HEENT: Normocephalic. Neck is supple. Pupils reactive. Nostrils clear. Oral cavity is moist. Neck reveals no JVD, carotid bruits, or thyromegaly. CHEST EXAMINATION: Trachea is central. Symmetrical expansion. Lung mckeon clear to auscultation and percussion. CARDIAC: Normal S1, S2 with no gallops. No murmurs ABDOMEN: Soft. Bowel sounds normal. No organomegaly. No abdominal bruits. Extremities: reveal no edema. No clubbing or cyanosis Neurologically awake, alert, oriented x3 with well-coordinated movements. No focal deficits noted Skin: No rash or skin lesions. Psychiatric: Coperative. Nonsuicidal Musculoskeletal: No joint swelling or deformity. Normal range of motion. Cranial Nerve Examination - Cranial Nerves Cranial Nerve I- Olfactory: Intact Cranial Nerve II- Optic: Intact Cranial Nerve III- Oculomotor: Intact Cranial Nerve IV- Trochlear: Intact Cranial Nerve V- Trigeminal: Intact Cranial Nerve - Abducens: Intact Cranial Nerve VII- Facial: Intact Cranial Nerve VIII- Auditory: Intact Cranial Nerve IX- Glossopharyngeal: Intact Cranial Nerve X- Vagus: Intact Cranial Nerve XI- Accessory: Intact Cranial Nerve XII- Hypoglossal: Intact Results CBC & Chem 7: 09/28/24 17:18 09/28/24 17:18 Labs: Abnormal Lab Results - Last 24 Hours (Table) 09/28/24 09/28/24 09/28/24 Range/Units 17:18 17:18 18:15 MPV 9.4 L (9.5-12.2) fL Glucose 132 H (74-99) mg/dL AST 43 H (14-36) U/L ALT 65 H (4-34) U/L Ur Amphetamines Screen Detected H (NotDetected) U Methamphetamines Scrn Detected H (NotDetected) U Marijuana (THC) Screen Detected H (NotDetected) Assessment and Plan Assessment: Acute drug overdose with Adderall, and attempt to commit suicide. Mild transaminitis Major depression Anxiety/depression/bipolar and panic disorder history UDS positive for amphetamines, methamphetamines and marijuana. Osteoarthritis Endometriosis History of colon cancer with bowel resection 2020 Pancreatitis with chronic diarrhea. Workup pending as an outpatient. Occasional alcohol use. Obesity with a BMI of 37.6 History of secondhand smoking DVT prophylaxis with early ambulation Plan: Patient will be continued on current psychiatric medications and plan. CBC and BMP reviewed. Follow-up TSH and A1c level.Encourage oral intake. Will continue to follow. Further recommendations based on the clinical course.
--- NOTE | 2024-09-29 17:06 | P.HP ---
Psychiatric H&P - . H&P Date: 09/29/24 History & Physical: IDENTIFYING DATA: Patient is a 48 year old HPI: Patient presented to the hospital yesterday by her and son who concerned after she overdosed on pills in front of them. Per EPS note, "Patient brought into ER by family r/t intentional overdose on Adderall. Patient assessed in ER27 from [id number]. Patient alone in ER room, laying on stretcher, calm and agreeable to speak to keno writer. Patient appears well-groomed, poor eye contact, guarded and slow, soft speech. Patient verbalizes that her told her yesterday that their marriage is over and her son was yelling at her this morning, and she felt like life was not worth living. Patient states that she took a handful of adderall this morning. When patient assessed regarding previous suicide attempts, patient states she took a handful of hydroxyzine yesterday night in attempt to end her life. Patient states that prior to his she has had suicide thoughts approx 1-2 times per year but no previous plan, intent, or suicidal behavior. Patient states that she has been prescribed medication from her PCP such as zoloft, atarax, and vraylar and has been sporatically compliant. Patient denies history of inpatient or outpatient mental health treatment. Patient states that she missed 1 week of medication when in [place] earlier this month but has been on medication compliant for 12 days. Patient verbalizes medical history including colon cancer- in remission, sleep apnea (no CPAP), OA, and GERD. Patient verbalizes having decreased appetite and 1-2 meals per day. Patient states her and son call her disgusting and it makes her not want to eat. Patient verbalizes fair sleep with occasional difficulty falling asleep. Patient states if she has difficulty she takes a hydroxyzine and can fall asleep. Patient verbalizes difficulty maintaining hygiene, describes showering 1-2x/week stating it makes her too tired and worn down. 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 Patient verbalizes looking forward to going to work daily when school starts again and seeing all the kids she works with." She admits depressed mood for about 2-3 weeks or more. She went to visit family in [place] in September and started to feel depressed there due to missing her medications. She also started a Facebook account while in [place]. She reports she would be up late at night and sleep in late in the day while in [place] so she kept forgetting to take her medication for at least one of the two weeks. When she came back from [place] she went back on her medication maritime officer, but her was upset that she started a Facebook account. She reports he is really jealous, even though he has his own Facebook account she states he does not want her to have her own Facebook account because she claims he does not want her friends contacting her. He told her their marriage is over two night ago. She overdosed on Hydroxyzine that night and Adderall the next day. She denies any physical abuse or domestic violence. yells at her at times over social media and calls her names "stupid cunt", "disgusting", "fat" and "lazy". Since she has been admitted to the mental health unit she talked to her and he told her he has changed his mind about the divorce and wants to stay together. She says they have not had intercourse in about 3 years because he tells her it's because of her weight. Before her trip to [place] in September she would take her medications daily, had a routine that she stuck to. She feels her medications normally work well for her and she denies having felt depressed prior to going to [place]. She currently admits to depressed mood, sleep is fair, appetite is good. She denies suicidal ideation currently. She states her suicide attempt was more of a cry for help so her and son would stop yelling at her. She denies she wanted to . Patient denies any suicidal or homicidal ideation, intent or plan. At this time patient denies any auditory or visual hallucinations. Patient denies any flight of ideas racing thoughts and increased in goal directed behavior. Patient denies alcohol or drug use. Denies tobacco use. She does take a THC gummy every once in a while. PAST PSYCHIATRIC HISTORY: Patient states that has been diagnosed with Bipolar Disorder since her 30's. Past psychiatric medications: Vraylar, Zoloft and Hydroxyzine currently, has tried many others in the past. She had been on Adderall previously. Patient denies any previous psychiatric hospitalizations. Patient denies any psychiatric outpatient follow-up. PCP prescribes the Zoloft and Vraylar. Patient denies any history of suicide attempts in the past. PMH: Obesity, Endometriosis s/p hysterectomy in 2019. Colon cancer early stage s/p early resection. ALLERGIES: as per EMR CHEMICAL DEPENDENCY HISTORY: as per HPI FAMILY PSYCHIATRIC/SUBSTANCE USE HISTORY: Maternal grandfather with unknown mental illness, received electroshock therapy, of brain cancer. Son diagnosed with bipolar disorder, gets violent, punches holes in the german. SOCIAL HISTORY: Patient was born and raised in [place]. Moved to [place] 30 years ago with her sister. Has been for 26 years and they have once child together (17 yo son, Bay). Parents and sister are supportive of her, but she reports her family also thinks her is controlling. Sister on colon cancer in 2020. MENTAL STATUS EXAM: General Appearance: Patient appears to be obese, middle-aged female, stated age, adequate hygiene and grooming. Behavior: Patient is seated without any agitated behavior. Speech: Patient's speech is fluent and non-pressured. Mood/Affect: Patient reports their mood is depressed, affect is congruent and constricted. Suicidality/Homicidality: Patient denies having any homicidal ideation intent or plan. Denies any suicidal ideations intent or plan. Perceptions: Patient denies any visual hallucinations and denies any auditory hallucinations. Though content/process: There is no evidence of any delusional thought content and thought process is linear and goal-directed. Memory and concentration: AOX3, grossly intact for the purposes of this session. Can spell "WORLD" backwards Judgment and insight: fair STRENGTHS/WEAKNESSES: strength is that patient is resilient. Weakness is that patient has poor judgment and is impulsive. INTELLECT: Average IMPRESSIONS: Bipolar disorder, unspecified PLAN: -Patient is admitted under voluntary status to MHU for stabilization of psychiatric symptoms and safety. Patient has signed adult voluntary form and is placed in patient's chart. -Medications: Increase Zoloft to 150 mg daily for depression. Patient will contact her to bring in her home supply of Vraylar to give to the nurses. Once Vraylar is received an order can be placed for the Vraylar. -Ativan and Haldol PRN for agitation/aggression -Patient was informed of the risks, benefits and side effects of the medication and patient verbally consented to taking the medications. -Internal Medicine consult to perform medical evaluation and physical. -NRT - not needed since patient does not smoke. - on board for discharge planning. Encourage patient to participate in groups to work on coping skills. Allergies Allergy/AdvReac Type Severity Reaction Status Date / Time Iodinated Contrast Media Allergy Dyspnea Verified 09/28/24 16:51 [Iodinated Contrast- Oral and IV Dye] Vital Signs Temp 97.6 F 09/29/24 14:07 Pulse 80 09/29/24 14:07 Resp 16 09/29/24 14:07 BP 161/84 09/29/24 14:07 Pulse Ox 98 09/29/24 14:07 FiO2 Intake & Output 09/28/24 09/29/24 09/29/24 18:59 06:59 18:59 Weight 96.162 kg 96.19 kg 95.5 kg Laboratory Last Values WBC 5.87 10*3/uL (4.50-10.00) 09/28/24 17:18 RBC 4.81 10*6/uL (4.10-5.20) 09/28/24 17:18 Hgb 13.3 g/dL (12.0-15.0) 09/28/24 17:18 Hct 40.1 % (37.2-46.3) 09/28/24 17:18 MCV 83.4 fL (80.0-97.0) 09/28/24 17:18 MCH 27.7 pg (27.0-32.0) 09/28/24 17:18 MCHC 33.2 g/dL (32.0-37.0) 09/28/24 17:18 Plt Count 209 10*3/uL (140-440) 09/28/24 17:18 MPV 9.4 fL (9.5-12.2) L 09/28/24 17:18 Immature Gran % (Auto) 0.3 % 09/28/24 17:18 Neutrophils % 51.8 % 09/28/24 17:18 Lymphocytes % 40.9 % 09/28/24 17:18 Monocytes % 4.9 % 09/28/24 17:18 Eosinophils % 1.9 % 09/28/24 17:18 Basophils % 0.2 % 09/28/24 17:18 Immature Gran # 0.02 10*3/uL (0.00-0.04) 09/28/24 17:18 Neutrophils # 3.04 10*3/uL (1.80-7.70) 09/28/24 17:18 Lymphocytes # 2.40 10*3/uL (0.90-5.00) 09/28/24 17:18 Monocytes # 0.29 10*3/uL (0.20-1.00) 09/28/24 17:18 Eosinophils # 0.11 10*3/uL (0.04-0.35) 09/28/24 17:18 Basophils # 0.01 10*3/uL (0.00-0.10) 09/28/24 17:18 Sodium 140 mmol/L (137-145) 09/28/24 17:18 Potassium 4.6 mmol/L (3.5-5.1) 09/28/24 17:18 Chloride 102 mmol/L (98-107) 09/28/24 17:18 Carbon Dioxide 28 mmol/L (22-30) 09/28/24 17:18 Anion Gap 10 mmol/L 09/28/24 17:18 BUN 13 mg/dL (7-17) 09/28/24 17:18 Creatinine 0.78 mg/dL (0.52-1.04) 09/28/24 17:18 Est GFR (CKD-EPI)AfAm >90 (>60 ml/min/1.73 sqM) 09/28/24 17:18 Est GFR (CKD-EPI)NonAf 90 (>60 ml/min/1.73 sqM) 09/28/24 17:18 Glucose 132 mg/dL (74-99) H 09/28/24 17:18 Calcium 10.0 mg/dL (8.4-10.2) 09/28/24 17:18 Magnesium 2.3 mg/dL (1.6-2.3) 09/28/24 17:18 Total Bilirubin 0.4 mg/dL (0.2-1.3) 09/28/24 17:18 AST 43 U/L (14-36) H 09/28/24 17:18 ALT 65 U/L (4-34) H 09/28/24 17:18 Alkaline Phosphatase 111 U/L (38-126) 09/28/24 17:18 Total Protein 7.2 g/dL (6.3-8.2) 09/28/24 17:18 Albumin 4.4 g/dL (3.5-5.0) 09/28/24 17:18 Lipase 257 U/L (23-300) 09/28/24 17:18 Urine HCG, Qual Not Detected (Not Detectd) 09/28/24 18:15 Salicylates <1.0 mg/dL 09/28/24 17:18 Urine Opiates Screen Not Detected (NotDetected) 09/28/24 18:15 Ur Oxycodone Screen Not Detected (NotDetected) 09/28/24 18:15 Urine Methadone Screen Not Detected (NotDetected) 09/28/24 18:15 Acetaminophen <10.0 ug/mL 09/28/24 17:18 Ur Barbiturates Screen Not Detected (NotDetected) 09/28/24 18:15 U Tricyclic Antidepress Not Detected (NotDetected) 09/28/24 18:15 Ur Phencyclidine Scrn Not Detected (NotDetected) 09/28/24 18:15 Ur Amphetamines Screen Detected (NotDetected) H 09/28/24 18:15 U Methamphetamines Scrn Detected (NotDetected) H 09/28/24 18:15 U Benzodiazepines Scrn Not Detected (NotDetected) 09/28/24 18:15 Urine Cocaine Screen Not Detected (NotDetected) 09/28/24 18:15 U Marijuana (THC) Screen Detected (NotDetected) H 09/28/24 18:15 Serum Alcohol <10 mg/dL 09/28/24 17:18 SARS-CoV-2 (PCR) Not Detected (Not Detectd) 09/28/24 20:48 09/29/24 15:12 09/29/24 16:34 09/29/24 16:35 09/29/24 16:37 09/29/24 17:03 09/29/24 17:05
[2024-09-29] MEDS: SERTRALINE 100 MG TAB PO SCH (19:14)
[2024-09-30 08:36] LABS: Cholesterol 240.00 mg/dL (0.00-200.00); HDL Cholesterol 54.40 mg/dL (40.00-60.00); LDL Cholesterol,Calculated 140.0 mg/dL (0.0-131.0); Triglycerides 228.00 mg/dL (0.00-149.00); VLDL Calculation 45.60 mg/dL (5.00-40.00)
--- NOTE | 2024-09-30 12:30 | P.PN ---
Progress Note - Text Progress Note Date: 09/30/24 Interval History: Patient was seen today for psychiatric follow up. she was laying in bed, agree able to speak to song writer in the office. Patient briefly was describing the hospital. Did admit to having an overdose at home on Adderall. She claims that she was having a big argument with her son and also her stated that he wanted a divorce. She denied using any methamphetamine and believes that the positive UDS is from the Adderall. She has fairly superficial insight was fairly focused on discharge. She was minimizing her depression at this time and does claim that she has anxiety. We spoke about adding Atarax as needed for anxiety. Claims that she sleeps fairly early mainly keeping herself in her room not going to groups. At this time she is denying any suicidal or homicidal ideations intent or plan denying any auditory or visual hallucinations. Not reporting any issues with her medications at this time. MENTAL STATUS EXAM: General Appearance: Patient appears to be obese, middle-aged female, stated age, adequate hygiene and grooming. Wearing glasses. Behavior: Patient is seated without any agitated behavior. Fairly tended, superficial Speech: Patient's speech is fluent and non-pressured. Soft tone of voice Mood/Affect: Patient reports their mood is "a bit better", affect is congruent and constricted. Suicidality/Homicidality: Patient denies having any homicidal ideation intent or plan. Denies any suicidal ideations intent or plan. Perceptions: Patient denies any visual hallucinations and denies any auditory hallucinations. Though content/process: There is no evidence of any delusional thought content and thought process is linear and goal-directed. Minimizing her need for being in the hospital, focused on discharge Memory and concentration: AOX3, grossly intact for the purposes of this session Judgment and insight: Poor/superficial IMPRESSIONS: Bipolar disorder, unspecified PLAN: -Patient is admitted under voluntary status to MHU for stabilization of psychiatric symptoms and safety. Patient has signed adult voluntary form and is placed in patient's chart. -Medications: Zoloft 150 mg daily for depression. Will likely need to increase to 200 mg as tolerated/needed -Ativan and Haldol PRN for agitation/aggression. P.o. Atarax as needed for anxiety -NRT - not needed since patient does not smoke. -SW on board for discharge planning. Encourage patient to participate in groups to work on coping skills. Likely discharge in 2 to 3 days if patient is improving.
[2024-09-30] MEDS: IBUPROFEN 600 MG TAB PO PRN (15:39)
--- NOTE | 2024-10-01 10:52 | P.PN ---
Progress Note - Text Progress Note Date: 10/01/24 Interval History: Patient was seen today for psychiatric follow up. she was laying in bed, agree able to speak to race and sports book writer in the office. Patient claims that she is doing better today. She is stating that the increase in the Zoloft has been helping. She was unclear about whether she has had any manic episodes in the past however did state that she has had benefit with mood stabilizers. He was agreeable to try lithium today. Continues to have fairly superficial insight, mildly improving judgment. Has been taking her medications not reporting any side effects. Claims that her mood and anxiety been mildly improving. Continues to mainly keep to herself in her room and not going to many groups. Has been up for meals and medications. Claims that she slept fairly last night. At this time she is denying any suicidal or homicidal ideations intent or plan denying any auditory or visual hallucinations. Not reporting any issues with her medications at this time. MENTAL STATUS EXAM: General Appearance: Patient appears to be obese, middle-aged female, stated age, adequate hygiene and grooming. Wearing glasses. Behavior: Patient is seated without any agitated behavior. Fairly tended, superficial, improving mildly Speech: Patient's speech is fluent and non-pressured. Soft tone of voice, improving mildly Mood/Affect: Patient reports their mood is "ok", affect is congruent and constricted. Suicidality/Homicidality: Patient denies having any homicidal ideation intent or plan. Denies any suicidal ideations intent or plan. Perceptions: Patient denies any visual hallucinations and denies any auditory hallucinations. Though content/process: There is no evidence of any delusional thought content and thought process is linear and goal-directed. Minimizing her need for being in the hospital Memory and concentration: AOX3, grossly intact for the purposes of this session Judgment and insight: Poor/superficial IMPRESSIONS: Bipolar disorder, current episode depressed suicide attempt by overdose of psychotropic meds PLAN: -Patient is admitted under voluntary status to MHU for stabilization of psychiatric symptoms and safety. Patient has signed adult voluntary form and is placed in patient's chart. -Medications: Zoloft 150 mg daily for depression/anxiety. added lithium 150 mg bid for mood stabilization/suicidal thoughts. -Ativan and Haldol PRN for agitation/aggression. P.o. Atarax as needed for anxiety -NRT - not needed since patient does not smoke. -SW on board for discharge planning. Encourage patient to participate in groups to work on coping skills. Likely discharge if patient is improving. Patient signed AMA on 09/30 in the afternoon
[2024-10-01] MEDS: LITHIUM CARBONATE 150 MG CAP PO SCH (10:57)
[2024-10-01] MEDS: FLUTICASONE NASAL 50MCG/SPRAY 16GM BTL EA NOSTRIL SCH (10:57)
--- NOTE | 2024-10-02 11:46 | P.PN ---
Progress Note - Text Progress Note Date: 10/02/24 Interval History: Patient was seen today for psychiatric follow up. she was laying in bed, agree able to speak to advertising writer in the office. Patient claims that she is doing fair today, did not report any issues overnight. Claims that she feels that she is sleeping throughout the night, denies any side effects at this time. She has been taking all her medications including lithium. She continues to be fairly isolated on the unit not going to many groups and not interested. Has been talking to her over the phone. Denies any issues with appetite at this time. At this time she is denying any suicidal or homicidal ideations intent or plan denying any auditory or visual hallucinations. Not reporting any issues with her medications at this time. MENTAL STATUS EXAM: General Appearance: Patient appears to be obese, middle-aged female, stated age, adequate hygiene and grooming. Wearing glasses. Behavior: Patient is seated without any agitated behavior. Fairly superficial, improving mildly Speech: Patient's speech is fluent and non-pressured. Soft tone of voice, improving mildly Mood/Affect: Patient reports their mood is "good", affect is congruent and constricted. Improving mildly Suicidality/Homicidality: Patient denies having any homicidal ideation intent or plan. Denies any suicidal ideations intent or plan. Perceptions: Patient denies any visual hallucinations and denies any auditory hallucinations. Though content/process: There is no evidence of any delusional thought content and thought process is linear and goal-directed. Memory and concentration: AOX3, grossly intact for the purposes of this session Judgment and insight: superficial, improving mildly IMPRESSIONS: Bipolar disorder, current episode depressed suicide attempt by overdose of psychotropic meds PLAN: -Patient is admitted under voluntary status to MHU for stabilization of psychiatric symptoms and safety. Patient has signed adult voluntary form and is placed in patient's chart. -Medications: Zoloft 150 mg daily for depression/anxiety. lithium 150 mg bid for mood stabilization/suicidal thoughts. -Ativan and Haldol PRN for agitation/aggression. P.o. Atarax as needed for anxiety -NRT - not needed since patient does not smoke. -SW on board for discharge planning. Encourage patient to participate in groups to work on coping skills. Likely discharge if patient is improving. Patient signed AMA on 09/30 in the afternoon. advertising writer spoke with other psychiatrist Dr. Burgos to see if she would be willing to accept patient under her care however she declined at this time therefore patient will be undergoing care.
[2024-10-02] MEDS: DICYCLOMINE 20 MG TAB PO PRN (18:46)
[2024-10-02] MEDS: hydrOXYzine HCL 25 MG TAB PO PRN (20:56)
[2024-10-03 09:23] VITALS: BP 125/88; PULSE 74; RESP 16; TEMP 97.4
--- NOTE | 2024-10-03 11:12 | P.DS ---
Providers Date of admission: 09/28/24 21:42 Expected date of discharge: 10/03/24 Attending physician: Dionisio Brown MD Consults: 09/29/24 00:14 Consult Physician Routine Consulting Provider: [facility] Consult Reason/Comments: History and Physical/New admission. PCP Dr. Dasilva. [facility] to cover weekends Do you want consulting provider notified?: Yes Primary care physician: Mireya Dasilva - Discharge Diagnosis(es) (1) Bipolar disorder current episode depressed Current Visit: Yes Status: Acute Priority: High (2) Suicide attempt by other psychotropic drug overdose Current Visit: Yes Status: Acute Priority: High Hospital Course: Admission HPI: Admission note was completed by Dr Boles "[Patient is a 48 year old female. Patient presented to the hospital yesterday by her and son who concerned after she overdosed on pills in front of them. Per EPS note, "Patient brought into ER by family r/t intentional overdose on Adderall. Patient assessed in ER27 from [id number]. Patient alone in ER room, laying on stretcher, calm and agreeable to speak to video games storywriter. Patient appears well-groomed, poor eye contact, guarded and slow, soft speech. Patient verbalizes that her told her yesterday that their marriage is over and her son was yelling at her this morning, and she felt like life was not worth living. Patient states that she took a handful of adderall this morning. When patient assessed regarding previous suicide attempts, patient states she took a handful of hydroxyzine yesterday night in attempt to end her life. Patient states that prior to his she has had suicide thoughts approx 1-2 times per year but no previous plan, intent, or suicidal behavior. Patient states that she has been prescribed medication from her PCP such as zoloft, atarax, and vraylar and has been sporatically compliant. Patient denies history of inpatient or outpatient mental health treatment. Patient states that she missed 1 week of medication when in [place] earlier this month but has been on medication compliant for 12 days. Patient verbalizes medical history including colon cancer- in remission, sleep apnea (no CPAP), OA, and GERD. Patient verbalizes having decreased appetite and 1-2 meals per day. Patient states her and son call her disgusting and it makes her not want to eat. Patient verbalizes f air sleep with occasional difficulty falling asleep. Patient states if she has difficulty she takes a hydroxyzine and can fall asleep. Patient verbalizes difficulty maintaining hygiene, describes showering 1-2x/week stating it makes her too tired and worn down. 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 Patient verbalizes looking forward to going to work daily when school starts again and seeing all the kids she works with." She admits depressed mood for about 2-3 weeks or more. She went to visit family in [place] in September and started to feel depressed there due to missing her medications. She also started a Facebook account while in [place]. She reports she would be up late at night and sleep in late in the day while in [place] so she kept forgetting to take her medication for at least one of the two weeks. 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 She reports he is really jealous, even though he has his own Facebook account she states he does not want her to have her own Facebook account because she claims he does not want her friends contacting her. He told her their marriage is over two night ago. She overdosed on Hydroxyzine that night and Adderall the next day. She denies any physical abuse or domestic violence. yells at her at times over social media and calls her names "stupid cunt", "disgusting", "fat" and "lazy". Since she has been admitted to the mental health unit she talked to her and he told her he has changed his mind about the divorce and wants to stay together. She says they have not had intercourse in about 3 years because he tells her it's because of her weight. Before her trip to [place] in September she would take her medications daily, had a routine that she stuck to. She feels her medications normally work well for her and she denies having felt depressed prior to going to [place]. She currently admits to depressed mood, sleep is fair, appetite is good. She denies suicidal ideation currently. She states her suicide attempt was more of a cry for help so her and son would stop yelling at her. She denies she wanted to . Patient denies any suicidal or homicidal ideation, intent or plan. At this time patient denies any auditory or visual hallucinations. Patient denies any flight of ideas racing thoughts and increased in goal directed behavior. Patient denies alcohol or drug use. Denies tobacco use. She does take a THC gummy every once in a while.]" Hospital course: Upon admission to the unit patient was directable and agreeable to commence treatment and signed adult voluntary form. Patient shortly after signed a AMA form and it was to be reviewed/ on 10/03. Patient was initially fairly timid depressed however with time and treatment patient got along well with other patients on the unit and followed unit protocol. Patient for the most part kept herself on the unit and did not attend many groups. Patient was compliant with the medications and denied any side effects throughout hospital course. Patient was started on lithium 150 mg twice daily for mood stabilization/suicidal thoughts, Zoloft increased to 150 mg daily for mood/anxiety.. Patient spoke of her stressors however did not participate much in group/activity therapy and mainly kept to themselves during hospitalization. Patient was also seen by medical team for history and physical exam. Throughout the course of the hospitalization patient gradually improved with regards to mood, anxiety, suicidal thoughts, sleep and returned back to their baseline level of functioning. On the day of discharge patient denied any suicidal or homicidal ideations intent or plan denied any auditory or visual hallucinations. Patient endorsed wanting to live for their health and family and her future. The patient denied any access to guns or weapons. Patient denied any paranoia and did not endorse any delusions. Patient does not have a significant history of substance abuse and was counseled on abstaining from all substances including alcohol and marijuana. Patient was also counseled on the medications and need for regular compliance and was encouraged to follow-up with their outpatient appointment for mental health and also for primary care. Prior to discharge a family meeting will be arranged by social science instructor to answer any questions and ensure safety upon discharge incuding making sure that guns/weapons are either removed from the home or locked away. Patient will be discharged today will be going back home to her family home and follow up at [facility]. Mental status exam: General Appearance: Patient appears to be overweight, wearing glasses, stated age is alert, pleasant, and cooperative. Patient is in no acute distress and has improved hygiene and grooming Behavior: Patient is calmly seated without any agitated behavior. Speech: Patient's speech is fluent and nonpressured. Mood/Affect: Patient reports their mood is "good", affect is congruent Suicidality/Homicidality: Patient denies having any suicidal or homicidal ideation intent or plan. Perceptions: Patient denies any auditory or visual hallucinations. Though content/process: There is no evidence of any delusional thought content and thought process is linear and goal-directed. Memory and concentration: AOX3, grossly intact for the purposes of this session. Can spell "WORLD" backwards correctly. Judgment and insight: Chronically poor, however has improved with guarded prognosis Impression: Bipolar disorder current episode depressed Suicide attempt by overdose of other psychotropic medications Plan: -Continue with discharge today as patient has improved and stabilized psychiatrically and is not currently an imminent threat to themself and/or others. Patient will remain at chronically elevated risk for harm to self and/or others due to their impulsivity and history of overdose. -Continue medications: Allgood 150 mg twice daily for mood stabilization/suicidal thoughts, she will need to have a lithium level checked in 1 to 2 weeks at [facility]. Zoloft 150 mg daily for mood/anxiety. -Patient was counseled on the need for medication compliance and appropriate follow-up at mental health and also primary care for medical issues. Patient verbalized understanding and agreed. -Social work to help coordinate patients discharge today. also to ensure safe home environment that guns/weapons are either removed from the home or locked away. Social work also to arrange for patients follow up appointments with [facility] for psychiatric care along with follow up with primary care provider. -Patient counseled on abstaining from recreational drugs and marijuana and alcohol. Was informed/educated on the adverse effects on their physical and mental health. Patient verbally agreed and understood. -Patient was instructed to return to the hospital or seek immediate medical care if their psychiatric or medical symptoms do worsen or reoccur. Laboratory Results WBC 5.87 10*3/uL (4.50-10.00) 09/28/24 17:18 RBC 4.81 10*6/uL (4.10-5.20) 09/28/24 17:18 Hgb 13.3 g/dL (12.0-15.0) 09/28/24 17:18 Hct 40.1 % (37.2-46.3) 09/28/24 17:18 MCV 83.4 fL (80.0-97.0) 09/28/24 17:18 MCH 27.7 pg (27.0-32.0) 09/28/24 17:18 MCHC 33.2 g/dL (32.0-37.0) 09/28/24 17:18 Plt Count 209 10*3/uL (140-440) 09/28/24 17:18 MPV 9.4 fL (9.5-12.2) L 09/28/24 17:18 Immature Gran % (Auto) 0.3 % 09/28/24 17:18 Neutrophils % 51.8 % 09/28/24 17:18 Lymphocytes % 40.9 % 09/28/24 17:18 Monocytes % 4.9 % 09/28/24 17:18 Eosinophils % 1.9 % 09/28/24 17:18 Basophils % 0.2 % 09/28/24 17:18 Immature Gran # 0.02 10*3/uL (0.00-0.04) 09/28/24 17:18 Neutrophils # 3.04 10*3/uL (1.80-7.70) 09/28/24 17:18 Lymphocytes # 2.40 10*3/uL (0.90-5.00) 09/28/24 17:18 Monocytes # 0.29 10*3/uL (0.20-1.00) 09/28/24 17:18 Eosinophils # 0.11 10*3/uL (0.04-0.35) 09/28/24 17:18 Basophils # 0.01 10*3/uL (0.00-0.10) 09/28/24 17:18 Sodium 140 mmol/L (137-145) 09/28/24 17:18 Potassium 4.6 mmol/L (3.5-5.1) 09/28/24 17:18 Chloride 102 mmol/L (98-107) 09/28/24 17:18 Carbon Dioxide 28 mmol/L (22-30) 09/28/24 17:18 Anion Gap 10 mmol/L 09/28/24 17:18 BUN 13 mg/dL (7-17) 09/28/24 17:18 Creatinine 0.78 mg/dL (0.52-1.04) 09/28/24 17:18 Est GFR (CKD-EPI)AfAm >90 (>60 ml/min/1.73 sqM) 09/28/24 17:18 Est GFR (CKD-EPI)NonAf 90 (>60 ml/min/1.73 sqM) 09/28/24 17:18 Glucose 132 mg/dL (74-99) H 09/28/24 17:[address] Glu mg/dL 120 mg/dL 09/28/24 17:18 Hemoglobin A1c 5.8 % (<=6.0) 09/28/24 17:18 Calcium 10.0 mg/dL (8.4-10.2) 09/28/24 17:18 Magnesium 2.3 mg/dL (1.6-2.3) 09/28/24 17:18 Total Bilirubin 0.4 mg/dL (0.2-1.3) 09/28/24 17:18 AST 43 U/L (14-36) H 09/28/24 17:18 ALT 65 U/L (4-34) H 09/28/24 17:18 Alkaline Phosphatase 111 U/L (38-126) 09/28/24 17:18 Total Protein 7.2 g/dL (6.3-8.2) 09/28/24 17:18 Albumin 4.4 g/dL (3.5-5.0) 09/28/24 17:18 Triglycerides 228.00 mg/dL (0.00-149.00) H 09/28/24 17:18 Cholesterol 240.00 mg/dL (0.00-200.00) H 09/28/24 17:18 LDL Cholesterol, Calc 140.0 mg/dL (0.0-131.0) H 09/28/24 17:18 VLDL Cholesterol, Calc 45.60 mg/dL (5.00-40.00) H 09/28/24 17:18 HDL Cholesterol 54.40 mg/dL (40.00-60.00) 09/28/24 17:18 Cholesterol/HDL Ratio 4.41 Ratio 09/28/24 17:18 Lipase 257 U/L (23-300) 09/28/24 17:18 TSH 2.620 UIU/ML (0.350-5.500) 09/29/24 09:38 Urine HCG, Qual Not Detected (Not Detectd) 09/28/24 18:15 Salicylates <1.0 mg/dL 09/28/24 17:18 Urine Opiates Screen Not Detected (NotDetected) 09/28/24 18:15 Ur Oxycodone Screen Not Detected (NotDetected) 09/28/24 18:15 Urine Methadone Screen Not Detected (NotDetected) 09/28/24 18:15 Acetaminophen <10.0 ug/mL 09/28/24 17:18 Ur Barbiturates Screen Not Detected (NotDetected) 09/28/24 18:15 U Tricyclic Antidepress Not Detected (NotDetected) 09/28/24 18:15 Ur Phencyclidine Scrn Not Detected (NotDetected) 09/28/24 18:15 Ur Amphetamines Screen Detected (NotDetected) H 09/28/24 18:15 U Methamphetamines Scrn Detected (NotDetected) H 09/28/24 18:15 U Benzodiazepines Scrn Not Detected (NotDetected) 09/28/24 18:15 Urine Cocaine Screen Not Detected (NotDetected) 09/28/24 18:15 U Marijuana (THC) Screen Detected (NotDetected) H 09/28/24 18:15 Serum Alcohol <10 mg/dL 09/28/24 17:18 SARS-CoV-2 (PCR) Not Detected (Not Detectd) 09/28/24 20:48 Vital Signs Temp 97.4 F L 10/03/24 09:00 Pulse 74 10/03/24 09:00 Resp 16 10/03/24 09:00 BP 125/88 10/03/24 09:00 Pulse Ox 96 10/03/24 09:00 FiO2 Allergies Allergy/AdvReac Type Severity Reaction Status Date / Time Iodinated Contrast Media Allergy Dyspnea Verified 09/28/24 16:51 [Iodinated Contrast- Oral and IV Dye] Patient Condition at Discharge: Stable Plan - Discharge Summary New Discharge Prescriptions: New Fluticasone Nasal [place] [Flonase Nasal [place]] 2 spray EA NOSTRIL DAILY 30 Days #1 ml Sertraline [Zoloft] 150 mg PO DAILY 14 Days #21 tab hydrOXYzine HCL [Atarax] 25 mg PO DAILY PRN 14 Days #14 tab PRN Reason: Anxiety Allgood Carbonate 150 mg PO BID 14 Days #28 cap Continue Diclofenac Sodium [Voltaren] 75 mg PO DAILY Dicyclomine [Bentyl] 10 mg PO TID PRN PRN Reason: Gi Upset Discontinued Sertraline [Zoloft] 100 mg PO DAILY Cariprazine HCl [Vraylar] 3 mg PO DAILY hydrOXYzine HCL [Atarax] 50 mg PO BID PRN PRN Reason: Anxiety Discharge Medication List Diclofenac Sodium [Voltaren] 75 mg PO DAILY 05/30/22 [History] Dicyclomine [Bentyl] 10 mg PO TID PRN 09/28/24 [History] Fluticasone Nasal [place] [Flonase Nasal [place]] 2 spray EA NOSTRIL DAILY 30 Days #1 ml 10/03/24 [Rx] Allgood Carbonate 150 mg PO BID 14 Days #28 cap 10/03/24 [Rx] Sertraline [Zoloft] 150 mg PO DAILY 14 Days #21 tab 10/03/24 [Rx] hydrOXYzine HCL [Atarax] 25 mg PO DAILY PRN 14 Days #14 tab 10/03/24 [Rx] Follow up Appointment(s)/Referral(s): Mireya Dasilva DO [Primary Care Provider] - 1-2 days Activity/Diet/Wound Care/Special Instructions: [facility] Discharge Info Avoid the use of street drugs and alcohol. Take all medications as prescribed. When you are in need of refills on your medications, please contact your outpatient medical provider and/or outpatient psychiatrist. Please go to your scheduled outpatient appointments for aftercare treatment. If symptoms return or become worse, call the crisis line at or and/or visit the nearest emergency room for assistance. National Suicide and Crisis Lifeline - call or text 094. Discharge Disposition: HOME SELF-CARE
== END 2024-10-03 13:36 | disposition home or self-care (01) | DRG 753 ==
LOC: EC 16:11 → 3MHU 21:42
PROVIDERS: ADMIT Psychiatry & Neurology Psychiatry; ATTEND Psychiatry & Neurology Psychiatry
DX: F31.30 Bipolar disorder, current episode depressed, mild or moderate severity, unspecified (principal); T43.591A Poisoning by other antipsychotics and neuroleptics, accidental (unintentional), initial encounter; T43.622A Poisoning by amphetamines, intentional self-harm, initial encounter; N80.9 Endometriosis, unspecified; E66.9 Obesity, unspecified; M19.90 Unspecified osteoarthritis, unspecified site; F41.0 Panic disorder [episodic paroxysmal anxiety]; R74.01 Elevation of levels of liver transaminase levels; G43.909 Migraine, unspecified, not intractable, without status migrainosus; G47.30 Sleep apnea, unspecified; K21.9 Gastro-esophageal reflux disease without esophagitis; K52.9 Noninfective gastroenteritis and colitis, unspecified; Z68.37 Body mass index [BMI] 37.0-37.9, adult; Z63.4 Disappearance and death of family member; Z79.899 Other long term (current) drug therapy; Z87.442 Personal history of urinary calculi; Z85.038 Personal history of other malignant neoplasm of large intestine; Z90.49 Acquired absence of other specified parts of digestive tract; Z90.710 Acquired absence of both cervix and uterus; Z91.51 Personal history of suicidal behavior; Z87.440 Personal history of urinary (tract) infections; Z11.52 Encounter for screening for COVID-19; Z28.21 Immunization not carried out because of patient refusal; Z63.5 Disruption of family by separation and divorce; Z91.041 Radiographic dye allergy status
CPT/HCPCS: 36415; 80053; 80061; 80143; 80179; 80306; 80320; 81025; 82075; 83036; 83690; 83735; 84443; 85025; 87635; 93005; 99285